=== PATIENT | female | born 1950 ===

== ENCOUNTER 2018-02-09 17:43 | Emergency (ER) | payer BC, MEDICARE ==
[2018-02-09 19:50] LABS: Hematocrit 24 % (35-47); Hemoglobin 7.6 g/dl (12.0-16.0); Mean Corpuscular HGB Conc 32 g/dl (31-36); Mean Corpuscular Hemoglobin 28 pg (27-31); Mean Corpuscular Volume 88 fL (80-97); Mean Platelet Volume 8.1 um3 (7.4-10.4); Platelet Count 184 10^3/ul (150-450); Red Blood Count 2.73 10^6/ul (4.00-5.40); Red Cell Distribution Width 19 % (10.5-15); White Blood Count 27.8 10^3/ul (3.5-10.8)
[2018-02-09 20:07] LABS: EGFR Non-African American 24.9 (>60)
[2018-02-09 20:11] LABS: ABS Basophils 0.1 10^3/ul (0-0.2); ABS Eosinophils 0 10^3/ul (0-0.6); ABS Lymphocytes 0.8 10^3/ul (1.0-4.8); ABS Monocytes 0.3 10^3/ul (0-0.8); ABS Neutrophils 26.5 10^3/ul (1.5-7.7); ABS Nucleated RBC 0 10^3/ul; Eosinophil % 0 % (0-6); Lymphocyte % 2.9 % (25-47); Nucleated Red Blood Cells % 0
--- NOTE | 2018-02-09 21:28 | RAD ---
Indication: Large hematoma at the RIGHT groin. Pain. Recent femoral line placement. Comparison: No relevant prior exams available on the [facility] for comparison. Technique: Noncontrast CT pelvis. Multiplanar reformation including bone algorithm images. Report: 3.7 cm AP by 10.6 cm transverse by 9.2 cm cephalocaudal hematoma within the subcutaneous tissue plane of the RIGHT groin and proximal thigh which extends to the anterior margin of the RIGHT great saphenous vein. Diffuse subcutaneous edema. Diffuse advanced skeletal muscle atrophy. Peripheral vascular calcifications. Negative for aortoiliac aneurysm. Physiologic distention of the IVC. Cholelithiasis. Negative for obstructive uropathy. Catheterized partially decompressed urinary bladder. Unremarkable uterus and adnexal regions. No acute CT abnormality of the visualized alimentary tract. Negative for ascites or free air within the [id number]. Negative for fracture or suspicious focal osseous lesions. Diffuse advanced lumbar sacral spine degenerative spondylosis and facet joint osteoarthritis. IMPRESSION: 3.7 cm AP by 10.6 cm transverse by 9.2 cm cephalocaudal hematoma within the subcutaneous tissue plane of the RIGHT groin and proximal thigh which extends to the anterior margin of the RIGHT great saphenous vein.
[2018-02-09] MEDS ORDERED: cefTRIAXone(*) 1 GM in NS 0.9% 50 ML* 50 ML IVPB ONE (22:11)
[2018-02-10] VITALS: BP 97/74
--- NOTE | 2018-02-10 04:18 | ED ---
Jatin Bailey Tariq, scribed for Conor Lozoya MD on 02/09/18 at 2036 . Abdominal Pain/Female - HPI Summary HPI Summary: A 67 year old female ANNE presents to the ED c/o severe abdominal pain. Pt was recently hospitalized for a central line in the groin. Pain worsens with palpations and is tender. She can get out of bed, but must use a chair to move around as she cannot walk. Pt stated that she bleeds profusly with removal of central line. Currently on Xeralto for A-fib. - History of Current Complaint Chief Complaint: EDExtremityLower Stated Complaint: RIGHT GROIN PAIN Time Seen by Provider: 02/09/18 19:34 Hx Obtained From: Patient Onset/Duration: Gradual Onset, Still Present, Worse Since Timing: Constant Severity Initially: Moderate Severity Currently: Moderate Pain Intensity: 5 Pain Scale Used: 0-10 Numeric Aggravating Factor(s): Movement Alleviating Factor(s): Nothing Associated Signs and Symptoms: Positive: Other: - Abdominal pain Allergies/Adverse Reactions: Allergies Allergy/AdvReac Type Severity Reaction Status Date / Time bupropion [From Wellbutrin] Allergy Rash Verified 02/09/18 18:18 levofloxacin [From Levaquin] Allergy Shakes Verified 02/09/18 18:20 Umrnnnf-Ghn-Wgc Reductase Allergy Unknown Verified 02/09/18 18:19 Inhibitor Reaction Details Home Medications: Home Medications Acetaminophen TAB* [Tylenol TAB*] 650 mg PO Q4H PRN 02/09/18 [History Confirmed 02/09/18] Ammonium Lactate [Meghan-Hydrolac 12] 12 % TOPICAL DAILY 02/09/18 [History Confirmed 02/09/18] Calcium Carbonate TAB* 500 mg PO DAILY PRN 02/09/18 [History Confirmed 02/09/18] Hydrocortisone 2.5% CREAM(NF) 1 applic TOPICAL BID 02/09/18 [History Confirmed 02/09/18] Insulin NPH Human Isophane [Novolin N Relion] 20 unit SC Q12H 02/09/18 [History Confirmed 02/09/18] Metoprolol Tartrate TAB* [Lopressor TAB*] 50 mg PO Q12H 02/09/18 [History Confirmed 02/09/18] Mupirocin 2% OINT* [Bactroban 2 % Oint*] 1 applic TOPICAL Q12H 02/09/18 [ History Confirmed 02/09/18] Pantoprazole TAB (NF) [Protonix TAB (NF)] 40 mg PO BID 02/09/18 [History Confirmed 02/09/18] Rivaroxaban TAB(*) [Xarelto 15 mg(*)] 15 mg PO DAILY 02/09/18 [History Confirmed 02/09/18] Sucralfate TAB* [Carafate*] 1 gm PO QID 02/09/18 [History Confirmed 02/09/18] Umeclidin/Vilant 62.5 MDI(NF) [ANORO 62.5/25 Ellipta DEVICE (NF)] 1 puff IN DAILY 02/09/18 [History Confirmed 02/09/18] glipiZIDE TAB* [Glucotrol TAB*] 5 mg PO QPM 02/09/18 [History Confirmed 02/09/18 ] glipiZIDE TAB* [Glucotrol TAB*] 10 mg PO QAM 02/09/18 [History Confirmed ] oxyCODONE/Acetam5/325MG PREPAK [Percocet 5/325 TAB*] 1 tab PO Q6H PRN 02/09/18 [ History Confirmed 02/09/18] predniSONE TAB* [Deltasone 20 MG TAB*] 20 mg PO DAILY 02/09/18 [History Confirmed 02/09/18] rOPINIRole TAB* [Requip TAB*] 2 mg PO DAILY 02/09/18 [History Confirmed 02/09/18 ] PMH/Surg Hx/FS Hx/Imm Hx Endocrine/Hematology History: Denies: Hx Diabetes Cardiovascular History: Denies: Hx Hypertension Infectious Disease History: No Infectious Disease History: Denies: Traveled Outside the [place] in Last 30 Days - Family History Known Family History: Negative: Diabetes - Social History Alcohol Use: None Substance Use Type: Reports: None Smoking Status (MU): Never Smoked Tobacco Review of Systems Negative: Fever Positive: Abdominal Pain All Other Systems Reviewed And Are Negative: Yes Physical Exam - Summary Physical Exam Summary: Appearance: [place] obese. Difficult IV access. Bed bound. Contracted extremities. Skin: Slightly yellow skin. Head/face: normal Eyes: EOMI, SHOAIB ENT: normal Neck: supple, non-tender Respiratory: CTA, breath sounds present. Lungs are clear anteriorly. Cardiovascular: RRR, pulses symmetrical Abdomen: non-tender, soft Bowel Sounds: present Musculoskeletal: Large swollen area in femoral region, induration and ecchymosis area, that is 25 cm by 10 cm. Ecchymosis extends into suprapubic area. Fully catheterized, mitch colored urine. Ecchymosis in abdomen and right arm. Neuro: normal, sensory motor intact, A&Ox3 Triage Information Reviewed: Yes Vital Signs On Initial Exam: Initial Vitals Temp Pulse Resp BP Pulse Ox 98.5 F 91 20 99/54 97 02/09/18 18:14 02/09/18 18:14 02/09/18 18:14 02/09/18 18:14 02/09/18 18:14 Vital Signs Reviewed: Yes Diagnostics - Vital Signs Vital Signs Temp Pulse Resp BP Pulse Ox 02/09/18 20:00 88 98 02/09/18 19:00 89 98 02/09/18 18:22 91 97 02/09/18 18:14 98.5 F 91 20 99/54 97 - Laboratory Lab Results: Lab Results 02/09/18 02/09/18 Range/Units 19:44 19:44 WBC 27.8 H (3.5-10.8) 10^3/ul RBC 2.73 L (4.00-5.40) 10^6/ul Hgb 7.6 L (12.0-16.0) g/dl Hct 24 L (35-47) % MCV 88 (80-97) fL MCH 28 (27-31) pg MCHC 32 (31-36) g/dl RDW 19 H (10.5-15) % Plt Count 184 (150-450) 10^3/ul MPV 8.1 (7.4-10.4) um3 Neut % (Auto) 95.6 H (38-83) % Lymph % (Auto) 2.9 L (25-47) % Kings % (Auto) 1.2 (0-7) % Eos % (Auto) 0 (0-6) % Baso % (Auto) 0.3 (0-2) % Absolute Neuts (auto) 26.5 H (1.5-7.7) 10^3/ul Absolute Lymphs (auto) 0.8 L (1.0-4.8) 10^3/ul Absolute Monos (auto) 0.3 (0-0.8) 10^3/ul Absolute Eos (auto) 0 (0-0.6) 10^3/ul Absolute Basos (auto) 0.1 (0-0.2) 10^3/ul Absolute Nucleated RBC 0 10^3/ul Nucleated RBC % 0 Sodium 131 L (135-145) mmol/L Potassium 5.6 H (3.5-5.0) mmol/L Chloride 102 (101-111) mmol/L Carbon Dioxide 21 L (22-32) mmol/L Anion Gap 8 (2-11) mmol/L BUN 48 H (6-24) mg/dL Creatinine 2.00 H (0.51-0.95) mg/dL Est GFR ( Amer) 32.0 (>60) Est GFR (Non-Af Amer) 24.9 (>60) BUN/Creatinine Ratio 24.0 H (8-20) Glucose 77 (70-100) mg/dL Calcium 8.4 L (8.6-10.3) mg/dL C-Reactive Protein 182.53 H (< 5.00) mg/L Result Diagrams: 02/09/18 19:44 02/09/18 19:44 Lab Statement: Any lab studies that have been ordered have been reviewed, and results considered in the medical decision making process. - CT PELVIS CT CT Interpretation Completed By: Radiologist - 3.7 cm AP by 10.6 cm transverse by 9.2 cm cephalocaudal hematoma within the subcutaneous tissue plane of the RIGHT groin and proximal thigh which extends to the anterior margin of the RIGHT great saphenous vein. ED PHYSICIAN REVIEWED THIS RADIOLOGY REPORT. Abdominal Pain Fem Course/Dx - Course Course Of Treatment: Patient presents with large area of hematoma after discontinuation of a central line from her right femoral area. This was discontinued 01/20. She is on Xarelto which is contributing to this bleeding. She is ecchymotic across her right inguinal area, suprapubic area and has a large area of swelling in the right inguinal area. This is confirmed on CT scan which was noncontrast due to patient's poor renal function. Her discomfort likely is the cause of her elevated white blood cell count. She has no fever. She is chronically debilitated and bedbound. IV Rocephin was given for possible UTI. A urinalysis would be difficult to interpret given the dark nature of her urine due to urobilinogen from breakdown of hematoma. She is not significantly anemic as compared to previous. I discussed the case with the surgeon who agrees that the Xarelto needs to be stopped and that all the can really be done at this time is for warm compresses and compression to the area. He states he would not debride the area or drain the collection while she is on the anticoagulant so as to not cause additional bleeding. The discontinuation of this anticoagulant was communicated to the nursing facility. Patient is discharged to follow up with her primary care physician. The surgeon asked that whomever placed the central line follow this uphowever, it likely was not a surgeon who could provide any type of definitive care. As such surgical follow-up is recommended. - Diagnoses Provider Diagnoses: Hemostasis disorder, Leukocytosis, Adverse effect of anticoagulant Discharge - Sign-Out/Discharge Documenting (check all that apply): Discharge/Admit/Transfer - Discharge - Discharge Plan Condition: Good Disposition: HOME Patient Education Materials: Hematoma (ED) Referrals: Karyna Castillo MD [Primary Care Provider] - Wagner Boswell MD [Medical Doctor] - Additional Instructions: Discontinues her XARELTO. Do not be started without permission from her doctor. Warm compresses to the site. Provide compression to the area such as with a sandbag or IV bag. Return with fever, redness, breakdown of the skin, worse or other concerns. Ideally, she will be followed up by whomever placed the central line at [place] but if this cannot be done follow-up with surgery here - Billing Disposition and Condition Condition: GOOD Disposition: Home The documentation as recorded by the Jatin carson Tariq accurately reflects the service I personally performed and the decisions made by me, Conor Lozoya MD.
== END 2018-02-09 23:58 | disposition home or self-care (01) ==
LOC: ED 17:43
DX: D72.829 Elevated white blood cell count, unspecified (principal); D68.9 Coagulation defect, unspecified; R58 Hemorrhage, not elsewhere classified; T45.515A Adverse effect of anticoagulants, initial encounter; Y92.9 Unspecified place or not applicable; Z79.01 Long term (current) use of anticoagulants
CPT/HCPCS: 36415; 72192; 80048; 83605; 85025; 86140; 86850; 86900; 86901; 87086; 96365; 99283; J0696

== ENCOUNTER 2018-08-20 08:20 | Inpatient (IN) | payer MEDICARE ==
[2018-08-20] MEDS ORDERED: methylPREDNISolone 125 MG* 2 ML VIAL IV ONE (08:29)
[2018-08-20] MEDS ORDERED: NS 0.9% 1000 ML* 1,000 ML IV ONE ×2 (08:40→23:52)
--- NOTE | 2018-08-20 09:09 | ED ---
Shortness of Breath - HPI Summary HPI Summary: Patient is a 67-year-old female with a history of diabetes, and STEMI, paroxysmal atrial fibrillation, COPD, generalized edema, UTIs, CKD, obstructive sleep apnea and SOB. She resides at [facility]. Patient states she does not require/use O2 at home. Bed bound. Per EMS, patient has been having SOB for several days and desatting per rn staff at [facility]. Without O2 - 82%. She is suppose to be on CPAP at bedtime, but has not been using it. She is upset about being here. States she would like to be "left alone." Apparently d/t low O2 (in the 80's) at [facility], patient had a chest xray which showed "possibly basilar infiltrate" and was placed on azithromycin - this was today or yesterday, but patient and EMS are unsure. She however continued to decompensate and sent to ED for further evaluation. patient is a femi lift. Denies fevers, sweats, chills. Denies any abdominal pain. Denies any chest pain or pressure. Hx of RBBB and NSTEMI. - History of Current Complaint Chief Complaint: EDShortnessOfBreath Time Seen by Provider: 08/20/18 08:24 Hx Obtained From: Patient, EMS Onset/Duration: Gradual Onset Timing: Constant Current Severity: Severe Dyspnea At: Exertion Aggrevating Factors: Nothing Alleviating Factors: EMS Tx - BiPaP, Nothing Associated Signs & Symptoms: Cough (Productive), Edema Related History: Obesity, Healthcare Acquired Pneumonia: Lives In Longterm - Risk Factors Pulmonary Embolism: Smoking Cardiac: CAD, Smoking, Diabetes, Hypertension, CHF, Family History Pseudomonas: Chronic Lung Disease Tuberculosis: Malnutrition, Diabetes, Chronic Respiratory Failure - Allergy/Home Medications Allergies/Adverse Reactions: Allergies Allergy/AdvReac Type Severity Reaction Status Date / Time bupropion [From Wellbutrin] Allergy Rash Verified 08/20/18 09:02 levofloxacin [From Levaquin] Allergy Shakes Verified 08/20/18 09:02 Kojjegr-Mik-Myw Reductase Allergy Unknown Verified 08/20/18 09:02 Inhibitor Reaction Details Home Medications: Home Medications Allopurinol TAB* [Zyloprim 300 MG TAB*] 300 mg DAILY 08/20/18 [History Confirmed 08/20/18] Ferrous Sulfate 1 tab DAILY 08/20/18 [History Confirmed 08/20/18] Fluoxetine (Nf) Cap [Fluoxetine HCl] 1 tab DAILY 08/20/18 [History Confirmed ] Hydroxychloroquine Sulfate 200 mg BID 08/20/18 [History Confirmed 08/20/18] Insulin NPH Human Isophane [Novolin N] 25 units QPM 08/20/18 [History Confirmed 08/20/18] Nystatin susp 16 oz 5 ml QID 08/20/18 [History Confirmed 08/20/18] Ropinirole HCl [Requip] 1 tab DAILY 08/20/18 [History Confirmed 08/20/18] Sennosides [Senna] 2 tab BEDTIME 08/20/18 [History Confirmed 08/20/18] Torsemide 2 tab BID 08/20/18 [History Confirmed 08/20/18] PMH/Surg Hx/FS Hx/Imm Hx Previously Healthy: No - patient lives at [facility] for multiple diagnoses in [facility] Endocrine/Hematology History: Reports: Hx Diabetes, Hx Anemia Cardiovascular History: Reports: Hx Atrial Fibrillation - paroxysmal, Hx Coronary Artery Disease, Hx Hypertension, Hx Myocardial Infarction - NSTEMI, Hx Peripheral Vascular Disease Respiratory History: Reports: Hx Chronic Bronchitis, Hx Chronic Obstructive Pulmonary Disease (COPD), Hx Pneumonia, Hx Sleep Apnea, Other Respiratory Problems/Disorders - will I was told - Immunization History Immunizations Up to Date: Unable to Obtain/Confirm Infectious Disease History: Unable to Obtain/Confirm Infectious Disease History: Denies: Traveled Outside the [place] in Last 30 Days - Family History Known Family History: Negative: Diabetes - Social History Occupation: Unemployed Lives: At [facility]term Alcohol Use: None Hx Substance Use: No Substance Use Type: Reports: None Hx Tobacco Use: Yes Review of Systems Constitutional: Negative Negative: Fever, Chills, Fatigue, Skin Diaphoresis Negative: Dental Pain, Sore Throat, Ear Ache, Nasal Discharge Negative: Palpitations, Chest Pain Positive: Shortness Of Breath, Cough Negative: Abdominal Pain, Vomiting, Diarrhea, Nausea Genitourinary: Negative Positive: no symptoms reported Negative: Arthralgia, Myalgia Negative: Rash, Bruising Negative: Headache, Weakness Positive: Other - uncooperative for exam. Negative: Anxious, Depressed All Other Systems Reviewed And Are Negative: Yes Physical Exam Triage Information Reviewed: Yes Vital Signs On Initial Exam: Initial Vitals Temp Pulse Resp BP Pulse Ox 97.8 F 124 20 120/80 98 08/20/18 08:22 08/20/18 08:22 08/20/18 08:22 08/20/18 08:22 08/20/18 08:22 Vital Signs Reviewed: Yes Appearance: Positive: Ill-Appearing Skin: Positive: Other - erythematous with PVD bilateral lower ext - pitting edema +2 bilaterally. Good pedal pulses Neck: Positive: No Lymphadenopathy Respiratory/Lung Sounds: Positive: Rales, Rhonchi, Wheezes, Unable to speak in full sentences, Fatigue Cardiovascular: Positive: Pulses are Symmetrical in both Upper and Lower Extremities, IRR - flutter, Leg Edema Left - +2, Leg Edema Right - +2 Abdomen Description: Positive: Soft Bowel Sounds: Positive: Present Musculoskeletal: Positive: Edema Left, Edema Right Neurological: Positive: Speech Normal, Other Psychiatric: Positive: Patient Uncooperative for Exam - patient upset during exam - wants to go home AVPU Assessment: Alert - [place] Coma Scale Best Eye Response: 4 - Spontaneous Best Motor Response: 6 - Obe[place] Commands Best Verbal Response: 5 - Oriented Coma Scale Total: 15 Diagnostics - Vital Signs Vital Signs Temp Pulse Resp BP Pulse Ox 08/20/18 08:22 97.8 F 124 20 120/80 98 - Laboratory Lab Results: Lab Results 08/20/18 Range/Units 08:40 ABG pH 7.24 L (7.35-7.45) ABG pCO2 81 H* (35-45) mmHg ABG pO2 87 (80-100) mmHg ABG HCO3 28.3 (19-31) mmol/L ABG O2 Saturation 97.8 (94.0-98.0) % ABG Base Excess 4.5 H (-2.0-2.0) mmol/L Result Diagrams: 08/20/18 08:54 08/20/18 08:54 Lab Statement: Any lab studies that have been ordered have been reviewed, and results considered in the medical decision making process. - EKG No standard instances Cardiac Rate: Tachycardia EKG Rhythm: Atrial Flutter ST Segment: Non-Specific - RBBB Ectopy: None EKG Comparison: Other - no comparisons Re-Evaluation - Re-Evaluation First Eval Change: Improved - improved after biPap initiated Course/Dx - Course Course Of Treatment: Patient arrives upset, stating "I want to go home." She is uncooperative for exam. In [place] x-ray wheezes are heard on exam. Unable to assess equal lung expansion. Rhonchorous sounds heard bilaterally throughout. Patient appears in respiratory distress, fatigued, unable to speak in full sentences. She arrives on venturi mask on arrival. NS started at 100ml /hr d/t elevated BNP. VS arrival are 124, RR 20, 98% with mask O2 at 5L. ABG obtained showing end tital CO2 at 81. BiPap initiated at 12/5 IPAP/EPAP. Labs obtained. Chest xray shows pulmonary congestion. Trop elevated at 0.26. BNP 903. CRP 128. WBC 18.0. She was then started on Zosyn to cover pseudomonas risks associated with HAP ([facility] care. ) Discussed with Dr. Poole at 9: 45a who agrees to admit. EKG shows Atrial Flutter and RBBB. Hx of NSTEMI. Remains on BiPaP during admission. - Diagnoses Differential Diagnosis/HQI/PQRI: Positive: COPD Exacerbation, Pneumonia Provider Diagnoses: Shortness of breath - Physician Notifications Discussed Care of Patient With: Karthik Poole - will admit Instructed by Provider To: Admit As Inpatient - Critical Care Time Critical Care Time: 30-74 min Discharge - Sign-Out/Discharge Documenting (check all that apply): Patient Departure - Discharge Plan Condition: Fair Disposition: ADMITTED TO [facility] Referrals: Karyna Castillo MD [Primary Care Provider] - - Billing Disposition and Condition Condition: FAIR Disposition: Admitted to [facility]
[2018-08-20 09:10] LABS: Hematocrit 37 % (35-47); Hemoglobin 11.1 g/dl (12.0-16.0); Mean Corpuscular HGB Conc 30 g/dl (31-36); Mean Corpuscular Hemoglobin 27 pg (27-31); Mean Corpuscular Volume 90 fL (80-97); Mean Platelet Volume 8.4 fL (7.4-10.4); Platelet Count 202 10^3/ul (150-450); Red Blood Count 4.12 10^6/ul (4.00-5.40); Red Cell Distribution Width 19 % (10.5-15)
[2018-08-20 09:27] LABS: Albumin 3.5 g/dL (3.2-5.2); Albumin/Globulin Ratio 1.2 (1-3); BUN/Creatinine Ratio 27.5 (8-20); C Reactive Protein 128.92 mg/L (<8.01); Calcium 9.4 mg/dL (8.6-10.3); EGFR Non-African American 18.8 (>60); Globulin 2.9 g/dL (2-4); Potassium 4.3 mmol/L (3.5-5.0); Total Bilirubin 0.5 mg/dL (0.2-1.0); Total Protein 6.4 g/dL (6.4-8.9)
[2018-08-20 09:36] LABS: Immature Granulocytes 1 % (0-9); Monocytes % 1 %; Neutrophil % 98 %
[2018-08-20] MEDS ORDERED: Piperacillin/Tazobac ADVAN(*) 3.375 GM in NS 0.9% 100 ML* 100 ML IVPB ONE (09:37)
[2018-08-20 09:38] LABS: Polychromasia 1+
[2018-08-20 09:41] LABS: ABS Neutrophils 17.8 10^3/ul (1.5-7.7)
[2018-08-20] MEDS ORDERED: Ondansetron INJ* 2 MG/ML VIAL IV PRN (10:55)
[2018-08-20] MEDS ORDERED: Acetaminophen TAB* 325 MG PO PRN (10:55)
[2018-08-20] MEDS ORDERED: Cefepime 1 GM in Dextrose(*) 1 GM/50 ML BAG IV SCH (11:00)
[2018-08-20] MEDS ORDERED: methylPREDNISolone 125 MG* 2 ML VIAL IV SCH ×2 (11:00→21:00)
[2018-08-20] MEDS ORDERED: Vancomycin per Pharmacy* NOTE FOLLOW UP SCH (11:00)
[2018-08-20] MEDS ORDERED: Vancomycin(*) 1,250 MG in NS 0.9% 250 ML* 250 ML IVPB ONE (11:08)
[2018-08-20] MEDS ORDERED: Furosemide IV* 10 MG/ML 2 ML VIAL (20 MG) IV SLOW PU ONE (11:11)
[2018-08-20] MEDS ORDERED: Dextrose 50% Syringe 50 ML* 25 GM/50 ML SYRINGE IV PUSH PRN (11:12)
[2018-08-20] MEDS: Nicotine PATCH 21 MG/24 HR* PATCH TRANSDERM SCH (12:32)
[2018-08-20] MEDS: Albuterol/Ipratropium NEB.SOL* Albuterol 2.5 MG/Ipratropium 0.5 MG 3 ML INH SCH ×3 (13:36→23:28)
[2018-08-20] MEDS ORDERED: Perflutren Lipid Microsphere* 3 ML VIAL ONE (14:34)
[2018-08-20 14:46] LABS: Urine Appearance Turbid; Urine Bacteria 3+ (Absent); Urine Bilirubin Negative (Negative); Urine Blood 1+ (Negative); Urine Color Yellow; Urine Glucose Negative (Negative); Urine Ketones Negative (Negative); Urine Nitrite Negative (Negative); Urine Protein 1+(30 mg/dL) (Negative); Urine Red Blood Cell 3+(>10/hpf) (Absent); Urine Specific Gravity 1.013 (1.010-1.030); Urine Urobilinogen Negative (Negative); Urine White Blood Cell 3+(>20/hpf) (Absent)
[2018-08-20] MEDS: Heparin VIAL(*) 5000 UNITS/ML VIAL (FIVE THOUSAND) SUBCUT SCH ×2 (14:46→21:44)
[2018-08-20] MEDS: Insulin LISPRO* 1 UNITS UNIT SUBCUT SCH ×3 (14:49→22:02)
[2018-08-20] MEDS: Cefepime 1 GM in Dextrose(*) 1 GM/50 ML BAG IV SCH (14:50)
--- NOTE | 2018-08-20 15:01 | HP ---
CC: [facility] ADMISSION HISTORY AND PHYSICAL: DATE OF ADMISSION: 08/20/18 PRIMARY CARE PROVIDER: [facility]. ATTENDING PHYSICIAN: Dr. Karthik Poole* (dictated by DARLENE Puri). CHIEF COMPLAINT: Difficulty breathing x2 days with nonproductive cough. HISTORY OF PRESENT ILLNESS: Ms. Can is a 67-year-old female with a complicated past medical history significant for COPD, chronic kidney disease, coronary artery disease, diabetes mellitus type 2, ENRIQUE, obesity hypoventilation syndrome, and a recent diagnosis of bullous pemphigoid, who for 2 days at her assisted living facility has been having intermittent hypoxia requiring oxygen with her lowest recorded oxygen saturation at 82%. The patient has been prescribed CPAP but is noncompliant with this at home. The patient has been having a nonproductive cough. No wheezing. No chest pain. No worsening swelling in her legs, though she does have chronic lower extremity edema for which she takes torsemide. The patient has not produced any sputum with her cough. The patient has not had any hemoptysis. The patient states she always feels short of breath. The patient is still an active smoker. The patient denies any sick contacts. The patient denies ever having a myocardial infarction, though it does appear in her paperwork as having occurred. The patient has known coronary artery disease of 50% in her RCA most recently from a catheterization in 2002. The patient was started previously on prednisone 50 mg daily for her bullous pemphigoid, which was decreased to 25 mg daily due to increased lower extremity edema and perceived worsening skin breakdown; the patient feels as if her bullous pemphigoid is much better on this dose with lower side effects. The patient was sent to the emergency department this morning due to hypoxia and needed 5 L of oxygen via OxyMask while on route to maintain her oxygen saturation above 90%. In the emergency department, the patient had an ABG which showed pCO2 of 81. The patient was initially on BiPAP and her pCO2 decreased to 73. The patient was also acidotic with pH of 7.24, increasing to 7.29 on BiPAP. The patient had an elevated troponin of 0.26, elevated CRP and elevated BNP. Due to the concern for community-acquired pneumonia and acute hypoxic and hypercarbic respiratory failure, we were asked to evaluate the patient for admission to the hospital. PAST MEDICAL HISTORY: 1. COPD. 2. Hypertension. 3. Chronic kidney disease. 4. Obstructive sleep apnea. 5. Bullous pemphigoid. 6. Obesity hypoventilation syndrome. 7. Paroxysmal atrial fibrillation/atrial tachycardia. 8. Hyperlipidemia. 9. Iron deficiency anemia. 10. Hypertension. 11. Diastolic dysfunction on echocardiogram. 12. Possible history of MRSA. 13. History of right bundle-branch block. PAST SURGICAL HISTORY: 1. Appendectomy. 2. Tonsillectomy. 3. Adenoidectomy. 4. Gastroplasty in 1987. MEDICATIONS: Her medications per paperwork from [facility]: 1. Allopurinol 300 mg p.o. daily. 2. Ferrous sulfate 1 tab p.o. daily. 3. Fluoxetine 1 tab p.o. daily. 4. Torsemide 40 mg p.o. b.i.d. 5. Nystatin 5 mL q.i.d. 6. Sennosides 2 tabs p.o. at bedtime. 7. Hydroxychloroquine 200 mg p.o. b.i.d. 8. Isophane insulin 25 units q.p.m. 9. Ropinirole 1 tab p.o. daily. 10. Pantoprazole 40 mg p.o. daily. 11. Percocet 5/325 one tab p.o. q.6 hours as needed. 12. Anoro Ellipta 62.5/25 one puff inhalation daily. 13. Sucralfate 1 g p.o. b.i.d. 14. Glipizide 5 mg p.o. q.p.m. 15. Glipizide 10 mg p.o. q.a.m. 16. Calcium carbonate 1250 units p.o. daily. 17. Tylenol 650 mg p.o. q.6 hours as needed. 18. Ammonium lactate 12% topical application daily. ALLERGIES: BUPROPION, LEVAQUIN, STATINS. FAMILY HISTORY: The patient's mother has hypertension. The patient's father of emphysema. The patient's maternal grandmother of CHF. The patient 's paternal grandfather of throat cancer. SOCIAL HISTORY: The patient has a 51-year smoking history with over a pack a day initially and now down to 4 cigarettes a day at [facility]. The patient does not drink alcohol or ever used illicit drugs. 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 The patient is and has no children. REVIEW OF SYSTEMS: A 14-point review of systems was reviewed and is negative except as above, except for the patient endorses frequent UTIs particularly when she comes to the hospital. PHYSICAL EXAMINATION GENERAL: The patient is a 67-year-old female who appears older than stated age , sitting comfortably in bed with BiPAP mask on. VITAL SIGNS: Temperature 97.8, pulse rate 111, respiratory rate 20, oxygen saturation 100% on FiO2 of 50, blood pressure 112/83. HEENT: Head: Normocephalic, atraumatic. Sclerae anicteric. No conjunctival injection. Nasal mucosa moist. Oral mucosa moist. No pharyngeal erythema, discharge, or exudate. NECK: Supple, nontender. No lymphadenopathy. The patient has markedly increased cervical diameter. No JVD visible. RESPIRATORY: Decreased breath sounds throughout. Inspiratory rhonchi and expiratory wheezes. CARDIAC: Tachycardic. No clicks, murmurs, gallops, or rubs. Pulses are 2+ in the bilateral dorsalis pedis, posterior tibial, and radial areas. 1+ bilateral lower extremity edema. Chronic lower extremity venous stasis changes. ABDOMEN: Soft, nontender, nondistended. Bowel sounds present. Normoactive in all 4 quadrants. No hepatosplenomegaly. No abdominal bruits auscultated. No hepatojugular reflux. GENITOURINARY: No suprapubic or CVA tenderness. NEURO: Cranial nerves II through XII intact. No focal deficits. Alert and oriented x3. PSYCHIATRIC: Pleasant and cooperative. SKIN: Venous stasis changes as above. No signs of bullous pemphigoid disease activity. LABORATORY DATA: White blood cell count 18.0, hemoglobin 11.1, hematocrit 37, MCV 90, MCH 27, MCHC 30, RDW 19. INR 1.0. ABG pH 7.24, increased to 7.29; ABG pCO2 81, decreased to 73; ABG pO2 87, increased to 91. Oxygen saturation 97 and 98%. Sodium 136, potassium 4.3, chloride 92, carbon dioxide 35, anion gap 9 , BUN 17, creatinine 2.55, glucose 95. Lactic acid 1. Calcium 9.7. Bilirubin 0.5, AST 33, ALT 66, alkaline phosphatase 1.45. Troponin I 0.26. CRP 128.92. BNP 903. Protein 6.4. Albumin 3.5, globulin 2.9. DIAGNOSTIC STUDIES: Electrocardiogram shows sinus tachycardia with right bundle - branch block, no obvious signs of ischemia, no prior exam to compare to. Chest x- ray shows cardiomegaly with interstitial pulmonary edema, possible left basilar infiltrate to this reader's interpretation. ASSESSMENT AND PLAN/IMPRESSION: Ms. Can is a 67-year-old female with a past medical history of chronic obstructive pulmonary disease, bullous pemphigoid, heart failure with preserved ejection fraction, chronic kidney disease, obstructive sleep apnea, obesity hypoventilation syndrome, diabetes mellitus type 2, who presents to the emergency department with several days of difficulty breathing, nonproductive cough, and hypoxia. The etiology of the patient's acute hypoxic and hypercarbic respiratory failure is not clear. The patient will be admitted to the ICU for intensive monitoring and treatment. 1. Acute hypoxic and hypercarbic respiratory failure. Continue BiPAP. We will repeat ABG in 4 hours to assess for improvement in hypercarbia. The patient's ABG and mental status are improving on this intervention. The cause is unclear; however, it is likely multifactorial from possible pneumonia, CHF exacerbation or COPD exacerbation. The patient is currently normotensive and received fluids in the emergency department. The patient's BNP is elevated. The patient will be given Lasix at 20 mg IV initially, which is actually a significant decrease from the equivalent dosing of her home torsemide. We will monitor the patient closely with daily weights. The patient will have Salas catheter for strict I and O. The patient will also be treated for COPD exacerbation due to wheezing noted in her lungs with steroids, starting with IV Solu-Medrol 60 mg b.i.d. as well as scheduled inhalers, long-acting Dulera as well as aggressive pulmonary toileting. The patient will also be treated for hospital-acquired pneumonia due to her presence in the custodial and history of MRSA. The patient will be on cefepime and vancomycin. Initially, the patient received Zosyn while in the emergency department. The patient's oxygen will be weaned as possible. 2. Sepsis. The patient meets sepsis criteria with a white blood cell count, tachycardia. The source is likely pneumonia. The patient has signs of end organ damage with an elevated troponin and elevated creatinine. The patient did not receive her fluid bolus. She did receive 1 L of normal saline slowly. The patient is in likely active CHF and the patient received appropriate broad- spectrum antibiotic coverage. Fluids and vasopressors will be given as needed based on the patient's clinical course if she becomes hypotensive. 3. Chronic kidney disease. The patient's kidney function has decreased significantly in the past several months. It is unclear why this is. However, we will avoid nephrotoxic drugs where possible and monitor closely while under treatment with vancomycin. 4. Chronic obstructive pulmonary disease. Treatment as above. The patient per her records does not frequently need her rescue inhaler. 5. Paroxysmal atrial fibrillation/multifocal atrial tachycardia. Given the patient's P waves are very difficult to interpret on her EKG though she appears to have a regular rhythm at this point indicating sinus tachycardia, this is likely due to reaction to her infection. We will monitor closely. 6. Elevated troponin. This is likely due to demand ischemia. The patient has no chest pain or obvious ischemic changes on her EKG. We will repeat a transthoracic echocardiogram and trend her troponins to peak. Cardiology consultation will be considered if the patient's troponin elevates significantly. 7. Diabetes mellitus, type 2. The patient will have fingersticks and corrective insulin q.4. She will be treated with high-dose steroids, but will be n.p.o. while she is on the BiPAP. This will be changed as the patient's clinical status improves and she begins to eat again. 8. Obstructive sleep apnea/obesity hypoventilation syndrome. This likely contributed to the patient's hypercarbia. It is unknown the chronicity of this , but the patient should be wearing her CPAP at home which has been reinforced with the patient. 9. Bullous pemphigoid. The patient will have high-dose steroids as above for her COPD exacerbation. The patient should be tapered back down to her previous dose of steroids for her bullous pemphigoid. We will consider a CT scan and treatment for PJP pneumonia if the patient does not improve on current regimen as she has been immunosuppressed for a significant period of time; however, at the current time, this is unlikely. 10. DVT prophylaxis: The patient will have heparin subcu. The patient is a high risk. We will order a D-dimer. If positive, we will order a V/Q scan as the patient's respiratory status may indicate underlying PE, though this is unclear and not the most likely diagnosis for her respiratory failure. 11. FEN: The patient will be n.p.o. except for meds as above while on the BiPAP. The patient will not have fluids and will have Lasix as above. 12. Code status: The patient would like to be a full code. The patient's surrogate decision maker is her mother, Mary Can. 13. Disposition: The patient will be admitted to the ICU. TIME SPENT: Approximately 90 minutes were spent on the admission of this patient, 45 of which was spent [id number] with the patient obtaining history and physical and discussing treatment plan. DARLENE PURI [id number]/CPS #: [id number] MTDD
--- NOTE | 2018-08-20 16:02 | ECHO ---
Patient: HO CORREA [facility] Rec#: [id number] : 1950 Date: 08/20/2018 Age: 67y Height: 157 cm / 61.8 in Weight: 103 kg / 227.0 lbs Sex: F BSA: 2 Room#: ICU 5 Admit Date#: 08/20/2018 Type: Inpatient Referring: Jason Harp Reading: Rocky No MD Lieutenant Fire Fighter: Alesha Rodriguez RN RDCS CC: Karyna Castillo MD Transthoracic Echocardiogram Indication: Shortness of breath, A. flutter BP: 115/69 HR: 111 Rhythm: A-Flutter Findings History: CAD with NSTEMI, HTN, HLD, RBBB, PAF, COPD, ENRIQUE, obesity, smoker, PVD Technical Comments: The study quality is fair. The study is technically limited due to patient body habitus. The study is technically limited due to the patient's history of COPD. The study is technically limited due to the patient's smoking history. Left Ventricle: The left ventricular chamber size is decreased. Mild concentric left ventricular hypertrophy is observed. Global left ventricular wall motion and contractility are within normal limits. There is normal left ventricular systolic function. The estimated ejection fraction is 60-65%. There is septal flattening of the interventricular septum consistent with right ventricular volume or pressure overload. The assessment of diastolic function is non-diagnostic. Left Atrium: The left atrial chamber size is normal. Right Ventricle: The right ventricle is moderately dilated. The right ventricular global systolic function is severely reduced. Right Atrium: The right atrium is mildly dilated. Aortic Valve: The aortic valve is trileaflet. The aortic valve leaflets are mildly thickened. There is no evidence of aortic regurgitation. There is no evidence of aortic stenosis. Mitral Valve: The mitral valve leaflets are mildly thickened. There is a trace of mitral regurgitation. Tricuspid Valve: The tricuspid valve leaflets are normal. There is moderate tricuspid regurgitation. There is evidence of moderate pulmonary hypertension. Pulmonic Valve: The pulmonic valve appears normal. There is trace to mild pulmonic regurgitation. There is no pulmonic stenosis. Pericardium: There is no significant pericardial effusion. A pericardial fat pad is visualized. Aorta: There is mild dilatation of the ascending aorta. The aortic arch is not well visualized. There is no dilation of the aortic root. Pulmonary Artery: The main pulmonary artery is not well visualized. Venous: Unable to accurately comment on the size collapsibility of the IVC as the patient in known to be on mechanical ventilation.Patient on Bipap during this exam. Contrast: Definity was used to optimize study. A total of 3 ml of diluted Definity was given IV. Conclusions There is normal left ventricular systolic function. The estimated ejection fraction is 60-65%. Global left ventricular wall motion and contractility are within normal limits. The left ventricular chamber size is decreased. Mild concentric left ventricular hypertrophy is observed. There is septal flattening of the interventricular septum consistent with right ventricular volume or pressure overload. The right ventricle is moderately dilated. The right ventricular global systolic function is severely reduced. The right atrium is mildly dilated. There is moderate tricuspid regurgitation (TR). There is evidence of moderate pulmonary hypertension. There is mild dilatation of the ascending aorta. SInce the prior echocardiogram completed 12/31/04, pertinent changes are prior normal right ventricular function noted (right ventricle was reported enlarged at that time), prior normal left ventricular size reported, prior TR graded trace, prior normal PA pressure reported and prior normal ascending aortic size reported. Measurements Name Value Normal Range RVIDd (AP) 2D 4.1 cm (0.9 - 2.6) RVDdMajor (2D) 4.5 cm (2.2 - 4.4) RAd ISD 4CH 5.5 cm (3.4 - 4.9) RA (A4C)W 3.5 cm (2.9 - 4.6) IVSd (2D) 1.3 cm (0.6 - 1) LVPWd (2D) 1.2 cm (0.6 - 1) LVIDd (2D) 3.5 cm (3.6 - 5.4) LVIDs (2D) 2.3 cm - LV FS (2D) 34 % (25 - 45) Aortic Annulus 2.1 cm (1.4 - 2.6) Ao root diameter (2D) 3.2 cm (2.1 - 3.5) Ascending Ao 3.5 cm (2.1 - 3.4) LA dimension (AP) 2D 3.3 cm (2.3 - 3.8) LAd ISD 4CH 5.7 cm (2.9 - 5.3) LA ISD 4CH W 3.5 cm (2.5 - 4.5) Name Value Normal Range LA ESV BP (A/L) index 19.3 ml/m2 - Name Value Normal Range MV E-wave Vmax 1.1 m/sec - MV deceleration time 237 msec - LV septal e' Vmax 0.1 m/sec - LV lateral e' Vmax 0.14 m/sec - LV E:e' septal ratio 11 ratio - LV E:e' lateral ratio 7.9 ratio - Name Value Normal Range AV Vmax 1.3 m/sec - AV VTI 18.2 cm - AV peak gradient 7 mmHg - AV mean gradient 3 mmHg - LVOT Vmax 0.89 m/sec - LVOT VTI 14.1 cm - LVOT peak gradient 3 mmHg - LVOT mean gradient 2 mmHg - Name Value Normal Range TR Vmax 3.3 m/sec - TR peak gradient 44 mmHg - RAP 8 mmHg - RVSP 51 mmHg - Name Value Normal Range PV Vmax 0.93 m/sec -
--- NOTE | 2018-08-20 16:17 | CONS ---
PULMONARY CONSULTATION REPORT: DATE OF CONSULT: 08/20/18 CONSULTATION REQUESTED BY: Dr. Poole. REASON FOR CONSULT: Evaluation of COPD exacerbation. HISTORY OF PRESENT ILLNESS: The patient is a 67-year-old obese female with history of diabetes, history of STEMI in the past, paroxysmal atrial fibrillation, COPD, generalized lower extremity edema/lymphedema of the lower extremities, chronic kidney disease, obstructive sleep apnea, not compliant with PAP therapy. The patient was brought in from [facility] for evaluation of worsening shortness of breath and hypoxemia. She has been having worsening shortness of breath for several days. The patient has also been hypoxemic with O2 sat 82%. The patient was brought in for further evaluation. Upon arrival in the emergency room, the patient noted to be hypoxemic. She was found to be in respiratory distress with wheeze and rhonchi. She also found to have chronic lower extremity edema. The patient was agitated upon arrival, did not want to stay and refused to be admitted. The patient later agreed to stay. The patient found to have elevated white count of 18,000. She also noted to have hemoglobin of 11.1, which is chronic. The patient has chronic kidney disease with no significant worsening creatinine from before. The patient was found to be having acute respiratory alkalosis with pH of 7.24, pCO2 of 81, O2 of 87%, bicarb of 28. The patient was initiated on BiPAP with improvement in respiratory distress. Her repeat blood gas showed improvement in acidosis after BiPAP treatment. She was admitted to the ICU for acute hypercapnic respiratory failure. The patient was also initiated on broad- spectrum antibiotics for healthcare-associated pneumonia. EKG showed atrial flutter with right bundle branch block. The patient was seen and examined at bedside in the ICU. The patient was not able to provide much history secondary to being on the BiPAP. She was alert, awake, and oriented and did not appear to be in any distress. The patient appeared comfortable on the BiPAP. PAST MEDICAL HISTORY: 1. Morbid obesity s/p gastroplasty in 1987 2. Coronary artery disease 3. Systemic arterial hypertension. 4. Dyslipidemia. 5. Diabetes type 2. 6. Obstructive sleep apnea, not been compliant with PAP therapy. 7. Pickwickian syndrome. 8. Asthma/COPD. 9. Bullous pemphigoid 10. Paroxysmal A.fib/atrial tachycardia 11. Iron def anemia 12. Diastolic dysfunction 13. Right bundle branch block PAST SURGICAL HISTORY: 1. Gastroplasty in 1987 2. Tibial fracture repair. 3. Adenoidectomy/Tosillectomy 4. Appendectomy MEDICATIONS AT HOME: 1. Allopurinol. 2. Ferrous sulfate. 3. Fluoxetine. 4. Hydroxychloroquine. 5. Insulin NPH. 6. Nystatin. 7. Ropinirole. 8. Sennosides. 9. Torsemide. 10. Pantoprazole 11. Percocet 12. Anoro 13. Glipizide 14. Tylenol prn ALLERGIES: WELLBUTRIN, LEVOFLOXACIN, STATINS. FAMILY HISTORY: Noncontributory to current complaint. SOCIAL HISTORY: The patient is unemployed, resides at senior care. History of tobacco abuse, smoked 1-1/2 packs cigarettes per day, currently smoking 4 cigs/day, has been smoking for more than 35 years. No alcohol or drug abuse. REVIEW OF SYSTEMS: All 14 systems reviewed after patient was off BiPAP, as above in HPI . PHYSICAL EXAM: Morbidly obese female, in bed, in no apparent distress. HEENT: BiPAP mask in place. No JVD. Cardiovascular: S1, S2 present, irregular. Respiratory: Rhonchi and wheezes bilaterally, rales at bases. Abdomen: Obese. Bowel sounds present. Nontender, nondistended. Neurologic: Alert, awake, oriented. Skin: No rash, old pemphigoid lesions. Chronic changes in the lower extremities. DIAGNOSTIC STUDIES/LAB DATA: EKG: Right bundle branch block, which is old and atrial flutter. Chest x-ray was personally reviewed. Evidence of prominence of interstitium suggestive of volume overload. Laboratory exam: WBC count 18, hemoglobin 11.1, hematocrit 37, platelet count 202. Blood gas analysis: Respiratory acidosis with pCO2 of 81 and pH of 7.24 on admission with repeat pH of 7.29 and pCO2 of 73. Sodium 136, potassium 4.3, chloride 92, bicarb 35, BUN 70, creatinine 2.55. Troponin 0.26 on admission, repeat troponin decreased to 0.24. BNP elevated at 903. Procalcitonin 5.4. Influenza A and B negative. Chest x-ray as described above. IMPRESSION AND RECOMMENDATIONS: 67-year-old morbidly obese female, current smoker with significant smoking history, with history of asthma/chronic obstructive pulmonary disease, obstructive sleep apnea, obesity hypoventilation syndrome, admitted with worsening shortness of breath, being treated for acute chronic obstructive pulmonary disease exacerbation and acute diastolic congestive heart failure exacerbation. 1. Acute on chronic obstructive pulmonary disease exacerbation. 2. Acute diastolic congestive heart failure exacerbation. 3. Sepsis secondary to pneumonia and possible UTI 4. Leukocytosis, likely sepsis from underlying pneumonia or bronchitis. 5. Chronic renal insufficiency. 6. Elevated troponins, likely demand ischemia. The patient is improving with BiPAP. Will continue with BiPAP. Will repeat blood gas an hour after BiPAP trial. Continue with bronchodilators. Agree with broad-spectrum antibiotics given health care exposure. The patient placed on nicotine patch. Solu-Medrol 60 q.12. She is on prednisone as out patient for bullous pemphigoid. She is obese and might need higher dose. We will increase if does not improve with this current dose. She has received Lasix in the emergency room. She has history of paroxysmal atrial fibrillation, found to have atrial flutter on EKG. She is not on any anticoagulation. Her D-dimer is elevated, which could be likely from her obesity. Given alternate explanation being available, in her case might not be indicative of pulmonary embolism. Will, however, obtain lower extremity Dopplers to evaluate for any deep venous thrombosis. She has chronic renal insufficiency and having CTA might outweigh the risks than the benefits at this time. V/Q scan was ordered for evaluation of pulmonary embolism; however, I doubt if that would be helpful given history of chronic obstructive pulmonary disease. If there is any clinical concern, I would empirically cover for pulmonary embolism. Echocardiogram was ordered also. Total time spent was 60 minutes most of which was face to face with patient at bedside encouraging pt`s compliance with BiPAP. Thank you for allowing me to participate in the care of your patient. Will follow up with you. [id number]/CPS #: [id number] JUNIOR
[2018-08-20] MEDS: Mometasone/Formoter 200/5 MDI INH SCH (19:25)
[2018-08-20] MEDS: oxyCODONE/Acetamin 5/325 MG* TAB PO PRN (20:22)
[2018-08-20] MEDS: Nicotine Patch Removal NOTE PATCH OFF SCH (21:30)
[2018-08-20] MEDS: guaiFENesin ER TAB 600 MG PO SCH (21:37)
[2018-08-20] MEDS: Senna TAB PO SCH (21:38)
[2018-08-20] MEDS: rOPINIRole TAB* 1 MG PO SCH (23:16)
[2018-08-21] MEDS ORDERED: Hydrocortisone INJ* 100 MG VIAL IV SCH (00:30)
[2018-08-21] MEDS: Insulin LISPRO* 1 UNITS UNIT SUBCUT SCH ×7 (02:06→21:51)
[2018-08-21] MEDS ORDERED: NS 0.9% 500 ML* 500 ML IV ONE (03:08)
[2018-08-21] MEDS: Albuterol/Ipratropium NEB.SOL* Albuterol 2.5 MG/Ipratropium 0.5 MG 3 ML INH SCH ×4 (03:27→19:18)
--- NOTE | 2018-08-21 05:08 | PN ---
Hospitalist Progress Note Date of Service: 08/21/18 got called that her sbp went down to 70s ---> bolus 1 liter ns ---> went up to 100---> also changed his solumderol to solucoref to offer both treatment for copd and hypotension urine outpt dropped bolus 500 cc ns ---> urine outpt pickup as per staff
[2018-08-21] MEDS ORDERED: Vancomycin Random Level* NOTE FOLLOW UP ONE (06:00)
[2018-08-21 06:02] LABS: Hematocrit 29 % (35-47); Hemoglobin 8.9 g/dl (12.0-16.0); Mean Corpuscular HGB Conc 31 g/dl (31-36); Mean Corpuscular Hemoglobin 27 pg (27-31); Mean Corpuscular Volume 88 fL (80-97); Mean Platelet Volume 8.5 fL (7.4-10.4); Platelet Count 163 10^3/ul (150-450); Red Blood Count 3.25 10^6/ul (4.00-5.40); Red Cell Distribution Width 18 % (10.5-15); White Blood Count 21.8 10^3/ul (3.5-10.8)
[2018-08-21] MEDS: Heparin VIAL(*) 5000 UNITS/ML VIAL (FIVE THOUSAND) SUBCUT SCH ×3 (06:07→21:47)
[2018-08-21 06:36] LABS: Albumin 2.7 g/dL (3.2-5.2); Albumin/Globulin Ratio 1.1 (1-3); BUN/Creatinine Ratio 30.7 (8-20); Calcium 8.4 mg/dL (8.6-10.3); Globulin 2.4 g/dL (2-4); Magnesium 1.9 mg/dL (1.9-2.7); Potassium 4.3 mmol/L (3.5-5.0); Total Bilirubin 0.4 mg/dL (0.2-1.0); Total Protein 5.1 g/dL (6.4-8.9)
[2018-08-21 06:50] LABS: ABS Basophils 0.1 10^3/ul (0-0.2); ABS Eosinophils 0 10^3/ul (0-0.6); ABS Lymphocytes 0.2 10^3/ul (1.0-4.8); ABS Monocytes 0.1 10^3/ul (0-0.8); ABS Neutrophils 21.3 10^3/ul (1.5-7.7); ABS Nucleated RBC 0 10^3/ul; Eosinophil % 0 %; Lymphocyte % 0.9 %; Nucleated Red Blood Cells % 0
[2018-08-21 06:55] LABS: INR 1.13 (0.77-1.02)
[2018-08-21 07:06] LABS: Hematocrit 29 % (35-47); Hemoglobin 8.6 g/dl (12.0-16.0)
[2018-08-21] MEDS: Mometasone/Formoter 200/5 MDI INH SCH ×2 (07:48→19:18)
[2018-08-21 08:05] LABS: Urine Appearance Cloudy; Urine Bacteria Absent (Absent); Urine Bilirubin Negative (Negative); Urine Blood Negative (Negative); Urine Color Yellow; Urine Glucose Negative (Negative); Urine Ketones Negative (Negative); Urine Nitrite Negative (Negative); Urine Protein 1+(30 mg/dL) (Negative); Urine Red Blood Cell 2+(6-10/hpf) (Absent); Urine Specific Gravity 1.014 (1.010-1.030); Urine Urobilinogen Negative (Negative); Urine White Blood Cell 1+(6-10/hpf) (Absent)
--- NOTE | 2018-08-21 08:09 | PN ---
Hospitalist Progress Note Date of Service: 08/21/18 got called reg her hg dropped from 11ish to 8.6---> repeat stat h/h, inr and type and screened ordered. spoke with express clerk will transfer to their service as per daily dr stanley
[2018-08-21] MEDS: Ferrous Sulfate TAB* 325 MG PO SCH (08:13)
[2018-08-21] MEDS: Omeprazole CAP (NF) 20 MG CAP.DR PO SCH (08:13)
[2018-08-21] MEDS: guaiFENesin ER TAB 600 MG PO SCH ×2 (08:13→21:45)
[2018-08-21] MEDS: Allopurinol TAB* 300 MG PO SCH (08:13)
[2018-08-21] MEDS: FLUoxetine CAP* 20 MG PO SCH (08:13)
[2018-08-21] MEDS: Nicotine PATCH 21 MG/24 HR* PATCH TRANSDERM SCH (08:14)
[2018-08-21] MEDS: methylPREDNISolone 125 MG* 2 ML VIAL IV SCH ×2 (09:35→21:51)
--- NOTE | 2018-08-21 09:37 | PN ---
Progress Note - Progress Note Date of Service: 08/21/18 - Progress note Note: Pt seen and examined at bedside. Overnight events noted Pt admitted 08/20/18 from NH for SOB, cough admitted for hypercapnic resp failure sec to acute COPD exacerbation, ENRIQUE/OHS with non-compliance to PAP therapy and sepsis from PNA. Pt responded to BiPAP yesterday with improved acidosis. Pt removed BiPAP at 3 am this morning Pt was hypotensive this am, received 1L normal saline bolus Pt noted to have drop in H&H this am, no active bleeding noted BP improved this am Steroids were changed from Solumedrol to hydrocortisone, pt declined hydrocortisone and was changed back to Solumedrol Pt agreed to use BiPAP this am ROS:Reports cough and fatigue. Reports insomnia. Denied chest pain, palpitations , dizziness, headache, SOB, pain, rash, abd pain, N, diarrhea. Active Medications Generic Name Dose Route Start Last Admin Trade Name Freq PRN Reason Stop Dose Admin Acetaminophen 650 mg 08/20/18 10:55 Tylenol Tab* PO Q6H PRN FEVER/PAIN Albuterol/Ipratropium 1 neb 08/20/18 15:00 08/21/18 07:48 Duoneb (Albuterol 2.5 Mg/Ipratropium 0.5 Mg) INH 1 neb [id number] AWAKE JESSE Administration Allopurinol 300 mg 08/21/18 09:00 Zyloprim Tab* PO DAILY JESSE Dextrose 12.5 gm 08/20/18 11:12 D50w Syringe 50 Ml* IV PUSH .FOR FS < 60 - SS PRN FS < 60 Ferrous Sulfate 325 mg 08/21/18 09:00 Ferrous Sulfate Tab* PO DAILY JESSE Fluoxetine HCl 40 mg 08/21/18 09:00 Prozac Cap* PO DAILY JESSE Guaifenesin 1,200 mg 08/20/18 21:00 08/20/18 21:37 Mucinex* PO 1,200 mg BID JESSE Administration Heparin Sodium (Porcine) 5,000 units 08/20/18 14:00 08/21/18 06:07 Heparin Vial(*) SUBCUT 5,000 units Q8HR JESSE Administration Cefepime HCl 1 gm in 50 mls @ 100 mls/hr 08/20/18 13:00 08/20/18 14:50 Maxipime 1 Gm In Dextrose Duplex (*) IV 100 mls/hr Q24H JESSE Administration Insulin Human Lispro 0 units 08/20/18 14:00 08/21/18 06:07 Humalog* SUBCUT 1 unit Q4HR JESSE Administration Protocol Methylprednisolone Sodium Succinate 60 mg 08/21/18 09:00 Solu-Medrol 125mg * IV Q12H [facility] Mometasone Furoate/Formoterol Fumar 2 puff 08/20/18 21:00 08/21/18 07:48 Dulera 200/5 Mdi* INH 2 puff BID JESSE Administration Nicotine 1 patch 08/20/18 11:00 08/20/18 12:32 Nicotine Patch 21 Mg/24 Hr* TRANSDERM Not Given DAILY [facility] Omeprazole 20 mg 08/21/18 07:30 Prilosec Cap* PO DAILY@0730 [facility] Ondansetron HCl 4 mg 08/20/18 10:55 Zofran Inj* IV Q6H PRN NAUSEA Oxycodone/Acetaminophen 1 tab 08/20/18 20:15 08/20/18 20:22 Percocet 5/325 Tab* PO 1 tab Q6H PRN Administration PAIN Pharmacy Consult 1 note 08/20/18 11:00 Vancomycin Per Pharmacy* FOLLOW UP .VANC PER PHARMACY [facility] Pharmacy Profile Note 1 note 08/20/18 21:00 08/20/18 21:30 Nicotine Patch Removal Note* PATCH OFF Not Given 2100 [facility] Ropinirole HCl 2 mg 08/20/18 23:15 08/20/18 23:16 Requip Tab* PO 2 mg 2100 JESSE Administration Senna 2 tab 08/20/18 21:00 08/20/18 21:38 Senokot Tab* PO 2 tab BEDTIME JESSE Administration Vital Signs Temp Pulse Resp BP Pulse Ox 98.6 F 112 17 113/77 92 08/21/18 06:15 08/21/18 08:12 08/21/18 08:12 08/21/18 06:15 08/21/18 08:12 O/E: Pt in NAD HEENT: PERRLA, NO JVD, increased neck circumference, MP-4 Lungs: Scaterred wheeze+, improved from yesterday CVS: S1, S2+, irregular Abd: Obese, BS+ Ext; Normal ROM, deforminites of foot, bruise of RLE Neuro: No focal deficits, alert, awake Skin: Old bullous pemphigoid lesions Laboratory Results - last 24 hr 08/20/18 08/20/18 08/20/18 08:40 08:54 08:54 WBC 18.0 H RBC 4.12 Hgb 11.1 L Hct 37 MCV 90 MCH 27 MCHC 30 L RDW 19 H Plt Count 202 MPV 8.4 Neut % (Auto) Not Reportable Lymph % (Auto) Not Reportable [place] % (Auto) Not Reportable Eos % (Auto) Not Reportable Baso % (Auto) Not Reportable Absolute Neuts (auto) Not Reportable Absolute Lymphs (auto) Not Reportable Absolute Monos (auto) Not Reportable Absolute Eos (auto) Not Reportable Absolute Basos (auto) Not Reportable Absolute Nucleated RBC Not Reportable Immature Gran % 1 Neutrophils % 98 Band Neutrophils % 1 Monocytes % 1 Nucleated RBC % Not Reportable Abs Neuts (Manual) 17.8 H Abs Monocytes (Manual) 0.2 Normal RBC Morphology Not Reportable Polychromasia 1+ Hypochromasia 1+ INR (Anticoag Therapy) D-Dimer, Quantitative Patient Temperature ABG pH 7.24 L ABG pH (Temp Correct) ABG pCO2 81 H* ABG pCO2 (Temp Corrct ABG pO2 87 ABG pO2 (Temp Correct ABG HCO3 28.3 ABG O2 Saturation 97.8 ABG Base Excess 4.5 H Respiration Rate O2 Delivery Device Ventilator Type Vent Mode FiO2 Inspiratory Time PEEP Pressure Support Pressure Control EPAP IPAP BiPAP Sodium 136 Potassium 4.3 Chloride 92 L Carbon Dioxide 35 H Anion Gap 9 BUN 70 H Creatinine 2.55 H Est GFR ( Amer) 22.7 Est GFR (Non-Af Amer) 18.8 BUN/Creatinine Ratio 27.5 H Glucose 95 POC Glucose (mg/dL) Lactic Acid Calcium 9.4 Magnesium Total Bilirubin 0.50 AST 33 ALT 66 H Alkaline Phosphatase 145 H Troponin I 0.26 H* C-Reactive Protein 128.92 H B-Natriuretic Peptide Total Protein 6.4 Albumin 3.5 Globulin 2.9 Albumin/Globulin Ratio 1.2 Procalcitonin Urine Color Urine Appearance Urine pH Ur Specific [place] Urine Protein Urine Ketones Urine Blood Urine Nitrate Urine Bilirubin Urine Urobilinogen Ur Leukocyte Esterase Urine WBC (Auto) Urine RBC (Auto) Ur Squamous Epith Cells Urine Bacteria Urine Glucose Urine Ascorbic Acid Random Vancomycin Influenza A (Rapid) Influenza B (Rapid) Blood Type Antibody Screen Crossmatch 08/20/18 08/20/18 08/20/18 08:54 08:54 08:56 WBC RBC Hgb Hct MCV MCH MCHC RDW Plt Count MPV Neut % (Auto) Lymph % (Auto) [place] % (Auto) Eos % (Auto) Baso % (Auto) Absolute Neuts (auto) Absolute Lymphs (auto) Absolute Monos (auto) Absolute Eos (auto) Absolute Basos (auto) Absolute Nucleated RBC Immature Gran % Neutrophils % Band Neutrophils % Monocytes % Nucleated RBC % Abs Neuts (Manual) Abs Monocytes (Manual) Normal RBC Morphology Polychromasia Hypochromasia INR (Anticoag Therapy) 1.00 D-Dimer, Quantitative 800 H Patient Temperature ABG pH ABG pH (Temp Correct) ABG pCO2 ABG pCO2 (Temp Corrct ABG pO2 ABG pO2 (Temp Correct ABG HCO3 ABG O2 Saturation ABG Base Excess Respiration Rate O2 Delivery Device Ventilator Type Vent Mode FiO2 Inspiratory Time PEEP Pressure Support Pressure Control EPAP IPAP BiPAP Sodium Potassium Chloride Carbon Dioxide Anion Gap BUN Creatinine Est GFR ( Amer) Est GFR (Non-Af Amer) BUN/Creatinine Ratio Glucose POC Glucose (mg/dL) Lactic Acid 1.0 Calcium Magnesium Total Bilirubin AST ALT Alkaline Phosphatase Troponin I C-Reactive Protein B-Natriuretic Peptide Total Protein Albumin Globulin Albumin/Globulin Ratio Procalcitonin 5.4 H Urine Color Urine Appearance Urine pH Ur Specific [place] Urine Protein Urine Ketones Urine Blood Urine Nitrate Urine Bilirubin Urine Urobilinogen Ur Leukocyte Esterase Urine WBC (Auto) Urine RBC (Auto) Ur Squamous Epith Cells Urine Bacteria Urine Glucose Urine Ascorbic Acid Random Vancomycin Influenza A (Rapid) Influenza B (Rapid) Blood Type Antibody Screen Crossmatch 08/20/18 08/20/18 08/20/18 08:56 10:08 10:44 WBC RBC Hgb Hct MCV MCH MCHC RDW Plt Count MPV Neut % (Auto) Lymph % (Auto) [place] % (Auto) Eos % (Auto) Baso % (Auto) Absolute Neuts (auto) Absolute Lymphs (auto) Absolute Monos (auto) Absolute Eos (auto) Absolute Basos (auto) Absolute Nucleated RBC Immature Gran % Neutrophils % Band Neutrophils % Monocytes % Nucleated RBC % Abs Neuts (Manual) Abs Monocytes (Manual) Normal RBC Morphology Polychromasia Hypochromasia INR (Anticoag Therapy) D-Dimer, Quantitative Patient Temperature Not Reportable ABG pH 7.29 L ABG pH (Temp Correct) Not Reportable ABG pCO2 73 H* ABG pCO2 (Temp Corrct Not Reportable ABG pO2 91 ABG pO2 (Temp Correct Not Reportable ABG HCO3 29.4 ABG O2 Saturation 98.2 H ABG Base Excess 5.9 H Respiration Rate 12 O2 Delivery Device bipap Ventilator Type Not Reportable Vent Mode Not Reportable FiO2 50 Inspiratory Time Not Reportable PEEP Not Reportable Pressure Support Not Reportable Pressure Control Not Reportable EPAP 6 IPAP 12 BiPAP Not Reportable Sodium Potassium Chloride Carbon Dioxide Anion Gap BUN Creatinine Est GFR ( Amer) Est GFR (Non-Af Amer) BUN/Creatinine Ratio Glucose POC Glucose (mg/dL) Lactic Acid Calcium Magnesium Total Bilirubin AST ALT Alkaline Phosphatase Troponin I C-Reactive Protein B-Natriuretic Peptide 903 H Total Protein Albumin Globulin Albumin/Globulin Ratio Procalcitonin Urine Color Urine Appearance Urine pH Ur Specific [place] Urine Protein Urine Ketones Urine Blood Urine Nitrate Urine Bilirubin Urine Urobilinogen Ur Leukocyte Esterase Urine WBC (Auto) Urine RBC (Auto) Ur Squamous Epith Cells Urine Bacteria Urine Glucose Urine Ascorbic Acid Random Vancomycin Influenza A (Rapid) Negative Influenza B (Rapid) Negative Blood Type Antibody Screen Crossmatch 08/20/18 08/20/18 08/20/18 11:21 13:40 14:18 WBC RBC Hgb Hct MCV MCH MCHC RDW Plt Count MPV Neut % (Auto) Lymph % (Auto) [place] % (Auto) Eos % (Auto) Baso % (Auto) Absolute Neuts (auto) Absolute Lymphs (auto) Absolute Monos (auto) Absolute Eos (auto) Absolute Basos (auto) Absolute Nucleated RBC Immature Gran % Neutrophils % Band Neutrophils % Monocytes % Nucleated RBC % Abs Neuts (Manual) Abs Monocytes (Manual) Normal RBC Morphology Polychromasia Hypochromasia INR (Anticoag Therapy) D-Dimer, Quantitative Patient Temperature Not Reportable ABG pH 7.35 ABG pH (Temp Correct) Not Reportable ABG pCO2 64 H ABG pCO2 (Temp Corrct Not Reportable ABG pO2 82 ABG pO2 (Temp Correct Not Reportable ABG HCO3 30.6 ABG O2 Saturation 98.0 ABG Base Excess 7.4 H Respiration Rate 12 O2 Delivery Device bipap Ventilator Type Not Reportable Vent Mode St FiO2 50 Inspiratory Time Not Reportable PEEP Not Reportable Pressure Support Not Reportable Pressure Control Not Reportable EPAP 6 IPAP 12 BiPAP Not Reportable Sodium Potassium Chloride Carbon Dioxide Anion Gap BUN Creatinine Est GFR ( Amer) Est GFR (Non-Af Amer) BUN/Creatinine Ratio Glucose POC Glucose (mg/dL) Lactic Acid Calcium Magnesium Total Bilirubin AST ALT Alkaline Phosphatase Troponin I 0.24 H* C-Reactive Protein B-Natriuretic Peptide Total Protein Albumin Globulin Albumin/Globulin Ratio Procalcitonin Urine Color Yellow Urine Appearance Turbid Urine pH 5.0 Ur Specific [place] 1.013 Urine Protein 1+(30 mg/dl) A Urine Ketones Negative Urine Blood 1+ A Urine Nitrate Negative Urine Bilirubin Negative Urine Urobilinogen Negative Ur Leukocyte Esterase 3+ A Urine WBC (Auto) 3+(>20/hpf) A Urine RBC (Auto) 3+(>10/hpf) A Ur Squamous Epith Cells Present A Urine Bacteria 3+ A Urine Glucose Negative Urine Ascorbic Acid Random Vancomycin Influenza A (Rapid) Influenza B (Rapid) Blood Type Antibody Screen Crossmatch 08/20/18 08/20/18 08/20/18 14:47 17:46 21:57 WBC RBC Hgb Hct MCV MCH MCHC RDW Plt Count MPV Neut % (Auto) Lymph % (Auto) [place] % (Auto) Eos % (Auto) Baso % (Auto) Absolute Neuts (auto) Absolute Lymphs (auto) Absolute Monos (auto) Absolute Eos (auto) Absolute Basos (auto) Absolute Nucleated RBC Immature Gran % Neutrophils % Band Neutrophils % Monocytes % Nucleated RBC % Abs Neuts (Manual) Abs Monocytes (Manual) Normal RBC Morphology Polychromasia Hypochromasia INR (Anticoag Therapy) D-Dimer, Quantitative Patient Temperature ABG pH ABG pH (Temp Correct) ABG pCO2 ABG pCO2 (Temp Corrct ABG pO2 ABG pO2 (Temp Correct ABG HCO3 ABG O2 Saturation ABG Base Excess Respiration Rate O2 Delivery Device Ventilator Type Vent Mode FiO2 Inspiratory Time PEEP Pressure Support Pressure Control EPAP IPAP BiPAP Sodium Potassium Chloride Carbon Dioxide Anion Gap BUN Creatinine Est GFR ( Amer) Est GFR (Non-Af Amer) BUN/Creatinine Ratio Glucose POC Glucose (mg/dL) 78 125 H 273 H Lactic Acid Calcium Magnesium Total Bilirubin AST ALT Alkaline Phosphatase Troponin I C-Reactive Protein B-Natriuretic Peptide Total Protein Albumin Globulin Albumin/Globulin Ratio Procalcitonin Urine Color Urine Appearance Urine pH Ur Specific [place] Urine Protein Urine Ketones Urine Blood Urine Nitrate Urine Bilirubin Urine Urobilinogen Ur Leukocyte Esterase Urine WBC (Auto) Urine RBC (Auto) Ur Squamous Epith Cells Urine Bacteria Urine Glucose Urine Ascorbic Acid Random Vancomycin Influenza A (Rapid) Influenza B (Rapid) Blood Type Antibody Screen Crossmatch 08/21/18 08/21/18 08/21/18 01:58 05:50 05:50 WBC 21.8 H RBC 3.25 L Hgb 8.9 L Hct 29 L MCV 88 MCH 27 MCHC 31 RDW 18 H Plt Count 163 MPV 8.5 Neut % (Auto) 98.0 Lymph % (Auto) 0.9 [place] % (Auto) 0.6 Eos % (Auto) 0 Baso % (Auto) 0.5 Absolute Neuts (auto) 21.3 H Absolute Lymphs (auto) 0.2 L Absolute Monos (auto) 0.1 Absolute Eos (auto) 0 Absolute Basos (auto) 0.1 Absolute Nucleated RBC 0 Immature Gran % Neutrophils % Band Neutrophils % Monocytes % Nucleated RBC % 0 Abs Neuts (Manual) Abs Monocytes (Manual) Normal RBC Morphology Polychromasia Hypochromasia INR (Anticoag Therapy) D-Dimer, Quantitative Patient Temperature ABG pH ABG pH (Temp Correct) ABG pCO2 ABG pCO2 (Temp Corrct ABG pO2 ABG pO2 (Temp Correct ABG HCO3 ABG O2 Saturation ABG Base Excess Respiration Rate O2 Delivery Device Ventilator Type Vent Mode FiO2 Inspiratory Time PEEP Pressure Support Pressure Control EPAP IPAP BiPAP Sodium 136 Potassium 4.3 Chloride 96 L Carbon Dioxide 32 Anion Gap 8 BUN 74 H Creatinine 2.41 H Est GFR ( Amer) 24.2 Est GFR (Non-Af Amer) 20.0 BUN/Creatinine Ratio 30.7 H Glucose 177 H POC Glucose (mg/dL) 213 H Lactic Acid Calcium 8.4 L Magnesium 1.9 Total Bilirubin 0.40 AST 13 ALT 41 Alkaline Phosphatase 102 Troponin I C-Reactive Protein B-Natriuretic Peptide Total Protein 5.1 L Albumin 2.7 L Globulin 2.4 Albumin/Globulin Ratio 1.1 Procalcitonin Urine Color Urine Appearance Urine pH Ur Specific [place] Urine Protein Urine Ketones Urine Blood Urine Nitrate Urine Bilirubin Urine Urobilinogen Ur Leukocyte Esterase Urine WBC (Auto) Urine RBC (Auto) Ur Squamous Epith Cells Urine Bacteria Urine Glucose Urine Ascorbic Acid Random Vancomycin Influenza A (Rapid) Influenza B (Rapid) Blood Type Antibody Screen Crossmatch 08/21/18 08/21/18 08/21/18 05:50 05:50 05:50 WBC RBC Hgb Hct MCV MCH MCHC RDW Plt Count MPV Neut % (Auto) Lymph % (Auto) [place] % (Auto) Eos % (Auto) Baso % (Auto) Absolute Neuts (auto) Absolute Lymphs (auto) Absolute Monos (auto) Absolute Eos (auto) Absolute Basos (auto) Absolute Nucleated RBC Immature Gran % Neutrophils % Band Neutrophils % Monocytes % Nucleated RBC % Abs Neuts (Manual) Abs Monocytes (Manual) Normal RBC Morphology Polychromasia Hypochromasia INR (Anticoag Therapy) D-Dimer, Quantitative Patient Temperature ABG pH ABG pH (Temp Correct) ABG pCO2 ABG pCO2 (Temp Corrct ABG pO2 ABG pO2 (Temp Correct ABG HCO3 ABG O2 Saturation ABG Base Excess Respiration Rate O2 Delivery Device Ventilator Type Vent Mode FiO2 Inspiratory Time PEEP Pressure Support Pressure Control EPAP IPAP BiPAP Sodium Potassium Chloride Carbon Dioxide Anion Gap BUN Creatinine Est GFR ( Amer) Est GFR (Non-Af Amer) BUN/Creatinine Ratio Glucose POC Glucose (mg/dL) 190 H Lactic Acid Calcium Magnesium Total Bilirubin AST ALT Alkaline Phosphatase Troponin I C-Reactive Protein B-Natriuretic Peptide Total Protein Albumin Globulin Albumin/Globulin Ratio Procalcitonin Urine Color Urine Appearance Urine pH Ur Specific [place] Urine Protein Urine Ketones Urine Blood Urine Nitrate Urine Bilirubin Urine Urobilinogen Ur Leukocyte Esterase Urine WBC (Auto) Urine RBC (Auto) Ur Squamous Epith Cells Urine Bacteria Urine Glucose Urine Ascorbic Acid Random Vancomycin 9.4 Influenza A (Rapid) Influenza B (Rapid) Blood Type A Positive Antibody Screen Negative Crossmatch See Detail 08/21/18 08/21/18 08/21/18 06:37 06:37 07:49 WBC RBC Hgb 8.6 L Hct 29 L MCV MCH MCHC RDW Plt Count MPV Neut % (Auto) Lymph % (Auto) [place] % (Auto) Eos % (Auto) Baso % (Auto) Absolute Neuts (auto) Absolute Lymphs (auto) Absolute Monos (auto) Absolute Eos (auto) Absolute Basos (auto) Absolute Nucleated RBC Immature Gran % Neutrophils % Band Neutrophils % Monocytes % Nucleated RBC % Abs Neuts (Manual) Abs Monocytes (Manual) Normal RBC Morphology Polychromasia Hypochromasia INR (Anticoag Therapy) 1.13 H D-Dimer, Quantitative Patient Temperature ABG pH ABG pH (Temp Correct) ABG pCO2 ABG pCO2 (Temp Corrct ABG pO2 ABG pO2 (Temp Correct ABG HCO3 ABG O2 Saturation ABG Base Excess Respiration Rate O2 Delivery Device Ventilator Type Vent Mode FiO2 Inspiratory Time PEEP Pressure Support Pressure Control EPAP IPAP BiPAP Sodium Potassium Chloride Carbon Dioxide Anion Gap BUN Creatinine Est GFR ( Amer) Est GFR (Non-Af Amer) BUN/Creatinine Ratio Glucose POC Glucose (mg/dL) Lactic Acid Calcium Magnesium Total Bilirubin AST ALT Alkaline Phosphatase Troponin I C-Reactive Protein B-Natriuretic Peptide Total Protein Albumin Globulin Albumin/Globulin Ratio Procalcitonin Urine Color Yellow Urine Appearance Cloudy Urine pH 5.0 Ur Specific [place] 1.014 Urine Protein 1+(30 mg/dl) A Urine Ketones Negative Urine Blood Negative Urine Nitrate Negative Urine Bilirubin Negative Urine Urobilinogen Negative Ur Leukocyte Esterase Trace A Urine WBC (Auto) 1+(6-10/hpf) A Urine RBC (Auto) 2+(6-10/hpf) A Ur Squamous Epith Cells Present A Urine Bacteria Absent Urine Glucose Negative Urine Ascorbic Acid * A Random Vancomycin Influenza A (Rapid) Influenza B (Rapid) Blood Type Antibody Screen Crossmatch CXR: Was personally reviewed- Air space opacity in lt base, pulmonary vascular congestion noted Venous duplex: No DVT ECHO: Diastolic dysfunction, pulm HTN, Worsened TR I/R: 67 y o obese f, [place] resident with h/o chronic LE edema, diastolic CHF, Pulm HTN, paroxysmal A.fib/ atrial tachycardia, DM, asthma/COPD 1.Sepsis sec to PNA versus UTI 2.Hypotension likely sec to sepsis improved with fluid resuscitation 3.Acute COPD exacerbation 4.Hypercapnic resp failure 5. Acute on chronic RF 6.Anemia- chronic with drop in H&H this am, likely dilutional 7.Elevated troponins- demand ischemia, trending down 8. Bacteremia with gram negative bacilli, likely urinary source 9. Morbid obesity 10. A.fib with tachycardia Pt had episode of hypotension last night that responded to fluid bolus. BP stable now. Drop in H&H likely dilutional. Will rpt this am and monitor closely. Acute COPD exacerbation and hypercapnic resp failure, improving. Pt is alert, awake, in NAD Hypotension resolved with fluid bolus, likely sec to sepsis. Will avoid over hydration as pt has diastolic dysfunction and pulm HTN with rt heart failure. Will monitor BP closely. c/w bronchodilators prn Will c/w BiPAP Rpt ABG sent this am, will f/u Pt declined hydrocortisone, changed to Solumedrol Pt with h/o paroxysmal A.fib, currently in A.fib, slightly tachycardic Not on anticoagulation. Will avoid starting anticoagulation as it is unclear if pt truly dropped Hb Will check stool guiac Will monitor H&H closely Bl cx this am positive for Gram negative rods, Urine cx also showing gram negative rods, further identification pending Pt on Cefepime, Vancomycin and remains afebrile Will adjust abx as per susceptibilities Will rpt bl cx Transthoracic ECHO was reviewed Will need transesophageal ECHO to evaluate for vegetations UO slowed down this am, likely sec to hypotension. Will monitor closely, will avoid excessive fluid overload in setting of Rt hear t dysfunction and TR Elevated troponins likely demand ischemia, will f/u. No acute EKG changes DVT px: on Heparin sq as pt is high risk GI px Pt is full code
[2018-08-21] MEDS: Vancomycin(*) 750 MG in NS 0.9% 250 ML* 250 ML IVPB SCH ×2 (10:34→21:51)
[2018-08-21 12:30] LABS: Hematocrit 29 % (35-47); Hemoglobin 8.6 g/dl (12.0-16.0); Mean Corpuscular HGB Conc 30 g/dl (31-36); Mean Corpuscular Hemoglobin 27 pg (27-31); Mean Corpuscular Volume 89 fL (80-97); Mean Platelet Volume 8.4 fL (7.4-10.4); Platelet Count 137 10^3/ul (150-450); Red Blood Count 3.21 10^6/ul (4.00-5.40); Red Cell Distribution Width 18 % (10.5-15); White Blood Count 19.8 10^3/ul (3.5-10.8)
[2018-08-21] MEDS: Cefepime 1 GM in Dextrose(*) 1 GM/50 ML BAG IV SCH (15:32)
[2018-08-21] MEDS: oxyCODONE/Acetamin 5/325 MG* TAB PO PRN (17:25)
[2018-08-21 19:05] LABS: Hematocrit 30 % (35-47); Mean Corpuscular HGB Conc 30 g/dl (31-36); Mean Corpuscular Hemoglobin 27 pg (27-31); Mean Corpuscular Volume 90 fL (80-97); Mean Platelet Volume 9.4 fL (7.4-10.4); Platelet Count 155 10^3/ul (150-450); Red Blood Count 3.31 10^6/ul (4.00-5.40); Red Cell Distribution Width 18 % (10.5-15); White Blood Count 20.4 10^3/ul (3.5-10.8)
[2018-08-21] MEDS: Nicotine Patch Removal NOTE PATCH OFF SCH (19:59)
[2018-08-21] MEDS: Senna TAB PO SCH (21:45)
[2018-08-21] MEDS: rOPINIRole TAB* 1 MG PO SCH (21:45)
[2018-08-22] MEDS: Albuterol/Ipratropium NEB.SOL* Albuterol 2.5 MG/Ipratropium 0.5 MG 3 ML INH SCH ×5 (00:19→23:42)
[2018-08-22] MEDS: Insulin LISPRO* 1 UNITS UNIT SUBCUT SCH ×6 (01:59→21:10)
[2018-08-22] MEDS: Heparin VIAL(*) 5000 UNITS/ML VIAL (FIVE THOUSAND) SUBCUT SCH ×3 (06:09→21:09)
[2018-08-22] MEDS: oxyCODONE/Acetamin 5/325 MG* TAB PO PRN ×2 (06:09→19:42)
[2018-08-22] MEDS ORDERED: Albuterol/Ipratropium NEB.SOL* Albuterol 2.5 MG/Ipratropium 0.5 MG 3 ML INH PRN (07:00)
[2018-08-22] MEDS: Omeprazole CAP (NF) 20 MG CAP.DR PO SCH (07:39)
[2018-08-22] MEDS: Mometasone/Formoter 200/5 MDI INH SCH ×2 (08:03→19:21)
[2018-08-22] MEDS: methylPREDNISolone 125 MG* 2 ML VIAL IV SCH ×2 (09:27→21:08)
[2018-08-22] MEDS: guaiFENesin ER TAB 600 MG PO SCH ×2 (09:27→21:08)
[2018-08-22] MEDS: Ferrous Sulfate TAB* 325 MG PO SCH (09:27)
[2018-08-22] MEDS: FLUoxetine CAP* 20 MG PO SCH (09:27)
[2018-08-22] MEDS ORDERED: Vancomycin Trough Check NOTE FOLLOW UP ONE (10:00)
[2018-08-22] MEDS: Allopurinol TAB* 300 MG PO SCH (10:28)
[2018-08-22] MEDS: Nicotine PATCH 21 MG/24 HR* PATCH TRANSDERM SCH (10:29)
[2018-08-22] MEDS ORDERED: Vancomycin(*) 500 MG in NS 0.9% 250 ML* 250 ML IVPB SCH (10:55)
--- NOTE | 2018-08-22 13:53 | PN ---
Progress Note - Progress Note Date of Service: 08/22/18 - Progress note Note: Pt seen and examined at bedside. Pt reports feeling tired. Denies any SOB, chest pain, abd pain. Having intermittent cough, not expectorating secretions. O/n events: Afebrile overnight UO good No hypotension No fever Used BiPAP all night Active Medications Generic Name Dose Route Start Last Admin Trade Name Freq PRN Reason Stop Dose Admin Acetaminophen 650 mg 08/20/18 10:55 Tylenol Tab* PO Q6H PRN FEVER/PAIN Albuterol/Ipratropium 1 neb 08/22/18 14:00 Duoneb (Albuterol 2.5 Mg/Ipratropium 0.5 Mg) INH [id number] AWAKE JESSE Allopurinol 300 mg 08/21/18 09:00 08/22/18 10:28 Zyloprim Tab* PO 300 mg DAILY JESSE Administration Dextrose 12.5 gm 08/20/18 11:12 D50w Syringe 50 Ml* IV PUSH .FOR FS < 60 - SS PRN FS < 60 Ferrous Sulfate 325 mg 08/21/18 09:00 08/22/18 09:27 Ferrous Sulfate Tab* PO 325 mg DAILY JESSE Administration Fluoxetine HCl 40 mg 08/21/18 09:00 08/22/18 09:27 Prozac Cap* PO 40 mg DAILY JESSE Administration Guaifenesin 1,200 mg 08/20/18 21:00 08/22/18 09:27 Mucinex* PO 1,200 mg BID JESSE Administration Heparin Sodium (Porcine) 5,000 units 08/20/18 14:00 08/22/18 06:09 Heparin Vial(*) SUBCUT 5,000 units Q8HR JESSE Administration Cefepime HCl 1 gm in 50 mls @ 100 mls/hr 08/20/18 13:00 08/21/18 15:32 Maxipime 1 Gm In Dextrose Duplex (*) IV 100 mls/hr Q24H JESSE Administration Aztreonam 1 gm/ Sodium 50 mls @ 200 mls/hr 08/22/18 13:00 Chloride IVPB Q8H JESSE Insulin Human Lispro 0 units 08/21/18 22:00 08/22/18 10:28 Humalog* SUBCUT 2 units Q4H JESSE Administration Protocol Methylprednisolone Sodium Succinate 60 mg 08/21/18 09:00 08/22/18 09:27 Solu-Medrol 125mg * IV 60 mg Q12H JESSE Administration Mometasone Furoate/Formoterol Fumar 2 puff 08/20/18 21:00 08/22/18 08:03 Dulera 200/5 Mdi* INH 2 puff BID JESSE Administration Nicotine 1 patch 08/20/18 11:00 08/22/18 10:29 Nicotine Patch 21 Mg/24 Hr* TRANSDERM Not Given DAILY JESSE Omeprazole 20 mg 08/21/18 07:30 08/22/18 07:39 Prilosec Cap* PO 20 mg DAILY@0730 JESSE Administration Ondansetron HCl 4 mg 08/20/18 10:55 Zofran Inj* IV Q6H PRN NAUSEA Oxycodone/Acetaminophen 1 tab 08/20/18 20:15 08/22/18 06:09 Percocet 5/325 Tab* PO 1 tab Q6H PRN Administration PAIN Pharmacy Profile Note 1 note 08/20/18 21:00 08/21/18 19:59 Nicotine Patch Removal Note* PATCH OFF Not Given 2100 JESSE Ropinirole HCl 2 mg 08/20/18 23:15 08/21/18 21:45 Requip Tab* PO 2 mg 2100 JESSE Administration Senna 2 tab 08/20/18 21:00 08/21/18 21:45 Senokot Tab* PO 2 tab BEDTIME JESSE Administration O/E: Pt in NAD HEENT: PERRLA, No JVD, MP-4 airway Lungs: Diminished air entry b/l, scaterred wheeze+ CVS: S1, S2+, irregular Abd: Obese, BS+ Ext: Normal ROM Neuro: Alert, awake, no focal deficits Skin: No rash, old bullous pemphigoid lesions Intake and Output Last 24 Hours 08/20/18 08/21/18 08/22/18 08/23/18 06:59 06:59 06:59 06:59 Intake Total 3003.1 1264 822 Output Total 810 803 195 Balance 2193.1 461 627 Weight 234 lb 2.095 oz 232 lb 12.93 oz Intake: IV Fluids 2568.1 361 226 D5W 919 NS (0.9%) 1527.4 361 226 Saline 21.7 IVPB 405 183 296 D5W 107 NS (0.9%) 248 183 296 Saline 50 Medicated IV 30 vanco 30 Oral 720 300 Output: [place] 810 803 195 Other: Estimated Void Medium Abnormal Lab Results 08/21/18 08/21/18 08/21/18 15:39 17:15 17:32 WBC 20.4 H RBC 3.31 L Hgb 9.0 L Hct 30 L MCV 90 MCH 27 MCHC 30 L RDW 18 H Plt Count 155 MPV 9.4 Patient Temperature Not Reportable ABG pH 7.31 L ABG pH (Temp Correct) Not Reportable ABG pCO2 59 H ABG pCO2 (Temp Corrct Not Reportable ABG pO2 85 ABG pO2 (Temp Correct Not Reportable ABG HCO3 26.4 ABG O2 Saturation 98.3 H ABG Base Excess 2.0 Respiration Rate Not Reportable Ventilator Type Not Reportable Vent Mode Not Reportable FiO2 40 Inspiratory Time Not Reportable PEEP Not Reportable Pressure Support Not Reportable Pressure Control Not Reportable EPAP Not Reportable IPAP Not Reportable BiPAP Not Reportable POC Glucose (mg/dL) 275 H Troponin I Vancomycin Trough 08/21/18 08/21/18 08/21/18 17:32 17:38 21:29 WBC RBC Hgb Hct MCV MCH MCHC RDW Plt Count MPV Patient Temperature ABG pH ABG pH (Temp Correct) ABG pCO2 ABG pCO2 (Temp Corrct ABG pO2 ABG pO2 (Temp Correct ABG HCO3 ABG O2 Saturation ABG Base Excess Respiration Rate Ventilator Type Vent Mode FiO2 Inspiratory Time PEEP Pressure Support Pressure Control EPAP IPAP BiPAP POC Glucose (mg/dL) 294 H 246 H Troponin I 0.29 H* Vancomycin Trough 08/22/18 08/22/18 08/22/18 01:51 06:01 09:26 WBC RBC Hgb Hct MCV MCH MCHC RDW Plt Count MPV Patient Temperature ABG pH ABG pH (Temp Correct) ABG pCO2 ABG pCO2 (Temp Corrct ABG pO2 ABG pO2 (Temp Correct ABG HCO3 ABG O2 Saturation ABG Base Excess Respiration Rate Ventilator Type Vent Mode FiO2 Inspiratory Time PEEP Pressure Support Pressure Control EPAP IPAP BiPAP POC Glucose (mg/dL) 301 H 273 H Troponin I Vancomycin Trough 19.8 08/22/18 09:35 WBC RBC Hgb Hct MCV MCH MCHC RDW Plt Count MPV Patient Temperature ABG pH ABG pH (Temp Correct) ABG pCO2 ABG pCO2 (Temp Corrct ABG pO2 ABG pO2 (Temp Correct ABG HCO3 ABG O2 Saturation ABG Base Excess Respiration Rate Ventilator Type Vent Mode FiO2 Inspiratory Time PEEP Pressure Support Pressure Control EPAP IPAP BiPAP POC Glucose (mg/dL) 244 H Troponin I Vancomycin Trough CXR: Was personally reviewed- Air space opacity in lt base, pulmonary vascular congestion noted Venous duplex: No DVT ECHO: Diastolic dysfunction, pulm HTN, Worsened TR I/R: 67 y o obese f, [place] resident with h/o chronic LE edema, diastolic CHF, Pulm HTN, paroxysmal A.fib/ atrial tachycardia, DM, asthma/COPD 1.Sepsis sec to PNA versus UTI 2.Hypotension likely sec to sepsis improved with fluid resuscitation 3.Acute COPD exacerbation 4.Hypercapnic resp failure 5. Acute on chronic RF 6.Anemia- chronic with drop in H&H this am, likely dilutional 7.Elevated troponins- demand ischemia, trending down 8. Bacteremia with Pseudomonas,UA positive for Klebsiella 9. Morbid obesity 10. A.fib with tachycardia No episodes of hypotension. BP stable now. Continues to be tachycardic. Will avoid over hydration as pt has diastolic dysfunction and pulm HTN with rt heart failure.Elevated troponins likely demand ischemia, will f/u. No acute EKG changes. Drop in H&H likely dilutional. Rpt labs from this am pending. Acute COPD exacerbation and hypercapnic resp failure, improving. Changed nebs to standing. Not able to expectorate phleghm. Will rpt CXR in am c/w BiPAP at night and prn during the day. Rpt ABG sent this am, will f/u Pt declined hydrocortisone, changed to Solumedrol. Bl sugars are elevated as pt on steroids. Pt receiving sliding scale, takes NPH at night, ordered as she is refusing long acting. Pt with h/o paroxysmal A.fib, currently in A.fib, slightly tachycardic Not on anticoagulation. Will avoid starting anticoagulation as it is unclear if pt truly dropped Hb. Stool guiac negative. Will monitor H&H closely Bl cx 1 bottle positive for Pseudomonas, rpt cx negative to date, Urine cx pos for Klebsiella, susceptible to Cefepime. Added Aztreonam for double Pseudomonal coverage and d/kalpana Vancomycin. DONALD ordered, NPO after midnight Friday. Pt is afebrile, continues to have leucocytosis. UO slowed down this am, likely sec to hypotension. Will monitor closely, will avoid excessive fluid overload in setting of Rt hear t dysfunction and TR DVT px: on Heparin sq as pt is high risk GI px Salas for monitoring of UO and to prevent bedsores Pt is full code IV access: Midline
[2018-08-22] MEDS: Aztreonam (*) 1 GM in NS 0.9% 50 ML* 50 ML IVPB SCH ×2 (14:11→21:11)
[2018-08-22] MEDS: Cefepime 1 GM in Dextrose(*) 1 GM/50 ML BAG IV SCH (14:11)
[2018-08-22 14:31] LABS: ABS Basophils 0.1 10^3/ul (0-0.2); ABS Eosinophils 0 10^3/ul (0-0.6); ABS Lymphocytes 0.2 10^3/ul (1.0-4.8); ABS Monocytes 0.2 10^3/ul (0-0.8); ABS Neutrophils 15.9 10^3/ul (1.5-7.7); ABS Nucleated RBC 0 10^3/ul; Eosinophil % 0 %; Hematocrit 30 % (35-47); Hemoglobin 9.2 g/dl (12.0-16.0); Lymphocyte % 1.1 %; Mean Corpuscular HGB Conc 30 g/dl (31-36); Mean Corpuscular Hemoglobin 27 pg (27-31); Mean Corpuscular Volume 90 fL (80-97); Mean Platelet Volume 8.8 fL (7.4-10.4); Nucleated Red Blood Cells % 0; Platelet Count 170 10^3/ul (150-450); Red Cell Distribution Width 18 % (10.5-15); White Blood Count 16.3 10^3/ul (3.5-10.8)
[2018-08-22 14:45] LABS: Albumin/Globulin Ratio 1.2 (1-3); BUN/Creatinine Ratio 33.3 (8-20); Calcium 8.5 mg/dL (8.6-10.3); EGFR Non-African American 20.1 (>60); Globulin 2.6 g/dL (2-4); Total Bilirubin 0.3 mg/dL (0.2-1.0); Total Protein 5.6 g/dL (6.4-8.9)
[2018-08-22] MEDS: Vancomycin(*) 750 MG in NS 0.9% 250 ML* 250 ML IVPB SCH (19:47)
[2018-08-22] MEDS: Senna TAB PO SCH (21:08)
[2018-08-22] MEDS: Insulin NPH(*) 1 UNITS UNIT SUBCUT SCH (21:09)
[2018-08-22] MEDS: rOPINIRole TAB* 1 MG PO SCH (21:10)
[2018-08-22] MEDS: Nicotine Patch Removal NOTE PATCH OFF SCH (21:11)
[2018-08-23] MEDS: Insulin LISPRO* 1 UNITS UNIT SUBCUT SCH ×6 (01:49→21:09)
[2018-08-23] MEDS: Albuterol/Ipratropium NEB.SOL* Albuterol 2.5 MG/Ipratropium 0.5 MG 3 ML INH SCH ×4 (03:28→19:25)
[2018-08-23] MEDS: Aztreonam (*) 1 GM in NS 0.9% 50 ML* 50 ML IVPB SCH ×3 (05:45→21:09)
[2018-08-23 06:09] LABS: ABS Basophils 0.1 10^3/ul (0-0.2); ABS Eosinophils 0 10^3/ul (0-0.6); ABS Lymphocytes 0.2 10^3/ul (1.0-4.8); ABS Monocytes 0.2 10^3/ul (0-0.8); ABS Neutrophils 10.8 10^3/ul (1.5-7.7); ABS Nucleated RBC 0 10^3/ul; Eosinophil % 0 %; Hematocrit 29 % (35-47); Lymphocyte % 1.4 %; Mean Corpuscular HGB Conc 31 g/dl (31-36); Mean Corpuscular Hemoglobin 27 pg (27-31); Mean Corpuscular Volume 89 fL (80-97); Mean Platelet Volume 8.4 fL (7.4-10.4); Nucleated Red Blood Cells % 0.2; Platelet Count 154 10^3/ul (150-450); Red Cell Distribution Width 18 % (10.5-15); White Blood Count 11.3 10^3/ul (3.5-10.8)
[2018-08-23] MEDS: Heparin VIAL(*) 5000 UNITS/ML VIAL (FIVE THOUSAND) SUBCUT SCH ×3 (06:12→21:10)
[2018-08-23] MEDS: oxyCODONE/Acetamin 5/325 MG* TAB PO PRN ×2 (06:12→20:03)
[2018-08-23 06:27] LABS: BUN/Creatinine Ratio 35.8 (8-20); Calcium 8.5 mg/dL (8.6-10.3); EGFR Non-African American 20.9 (>60); Potassium 4.5 mmol/L (3.5-5.0)
[2018-08-23] MEDS: Omeprazole CAP (NF) 20 MG CAP.DR PO SCH (07:42)
[2018-08-23] MEDS: Mometasone/Formoter 200/5 MDI INH SCH ×2 (07:54→19:25)
[2018-08-23] MEDS ORDERED: Furosemide IV* 10 MG/ML 2 ML VIAL (20 MG) IV SLOW PU ONE (08:16)
--- NOTE | 2018-08-23 08:33 | PN ---
Date of Service: 08/23/18 Critical Care Services: 67F with htn, hld, dm, cad, diastolic chf, martha/ohs, asthma/copd not compliant with CPAP, afib, chronic lower extremity edema, ckd presents from the correction with hypoxic respiratory failure 2/2 pna/copd exacerbation. Found to have e. coli in urine, and pseudomonas in blood. Improving. 08/23: Feels her breating is improved. Vital Signs: Temp Pulse Resp BP SpO2 FiO2 97.0 F 128 21 137/92 98 30 08/23/18 08:01 08/23/18 08:01 08/23/18 08:01 08/23/18 08:00 08/23/18 08:01 08/23 03:50 Physical Exam: Gen - acute on chronically ill heent - ncat, eomi, perrl neck - no jvd, no thyromegaly cv - s1/s2, irregular, tachy pulm - +roncho, +rales abd - soft, nt ext - +chronic venous stasis changes neuro - non-focal Fluid Balance (Past 24 Hours): I= O= Net Intake & Output 08/21/18 08/22/18 08/23/18 08/24/18 06:59 06:59 06:59 06:59 Intake Total 3003.1 1264 2034 80 Output Total 471 302 5429 80 Balance 2193.1 461 819 0 Weight 106.2 kg 105.6 kg 109.6 kg Intake: IV Fluids 2568.1 361 617 D5W 919 NS (0.9%) 1527.4 361 617 Saline 21.7 IVPB 405 183 517 ABX - AZTREONAM 88 D5W 107 NS (0.9%) 248 183 429 Saline 50 Medicated IV 30 vanco 30 Oral 720 900 80 Output: [place] 407 945 4049 80 Other: Estimated Void Medium Labs: Laboratory Results - last 24 hr 08/22/18 08/22/18 08/22/18 09:26 09:35 14:14 WBC 16.3 H RBC 3.40 L Hgb 9.2 L Hct 30 L MCV 90 MCH 27 MCHC 30 L RDW 18 H Plt Count 170 MPV 8.8 Neut % (Auto) 97.6 Lymph % (Auto) 1.1 [place] % (Auto) 0.9 Eos % (Auto) 0 Baso % (Auto) 0.4 Absolute Neuts (auto) 15.9 H Absolute Lymphs (auto) 0.2 L Absolute Monos (auto) 0.2 Absolute Eos (auto) 0 Absolute Basos (auto) 0.1 Absolute Nucleated RBC 0 Nucleated RBC % 0 Sodium Potassium Chloride Carbon Dioxide Anion Gap BUN Creatinine Est GFR ( Amer) Est GFR (Non-Af Amer) BUN/Creatinine Ratio Glucose POC Glucose (mg/dL) 244 H Calcium Magnesium Total Bilirubin AST ALT Alkaline Phosphatase Troponin I Total Protein Albumin Globulin Albumin/Globulin Ratio Vancomycin Trough 19.8 08/22/18 08/22/18 08/22/18 14:14 18:02 20:51 WBC RBC Hgb Hct MCV MCH MCHC RDW Plt Count MPV Neut % (Auto) Lymph % (Auto) [place] % (Auto) Eos % (Auto) Baso % (Auto) Absolute Neuts (auto) Absolute Lymphs (auto) Absolute Monos (auto) Absolute Eos (auto) Absolute Basos (auto) Absolute Nucleated RBC Nucleated RBC % Sodium 133 L Potassium 5.0 Chloride 95 L Carbon Dioxide 29 Anion Gap 9 BUN 80 H Creatinine 2.40 H Est GFR ( Amer) 24.4 Est GFR (Non-Af Amer) 20.1 BUN/Creatinine Ratio 33.3 H Glucose 322 H POC Glucose (mg/dL) 341 H 283 H Calcium 8.5 L Magnesium 2.0 Total Bilirubin 0.30 AST 8 L ALT 35 Alkaline Phosphatase 89 Troponin I 0.16 H* Total Protein 5.6 L Albumin 3.0 L Globulin 2.6 Albumin/Globulin Ratio 1.2 Vancomycin Trough 08/23/18 08/23/18 08/23/18 01:44 05:55 05:55 WBC 11.3 H RBC 3.30 L Hgb 9.0 L Hct 29 L MCV 89 MCH 27 MCHC 31 RDW 18 H Plt Count 154 MPV 8.4 Neut % (Auto) 96.1 Lymph % (Auto) 1.4 [place] % (Auto) 2.0 Eos % (Auto) 0 Baso % (Auto) 0.5 Absolute Neuts (auto) 10.8 H Absolute Lymphs (auto) 0.2 L Absolute Monos (auto) 0.2 Absolute Eos (auto) 0 Absolute Basos (auto) 0.1 Absolute Nucleated RBC 0 Nucleated RBC % 0.2 Sodium 134 L Potassium 4.5 Chloride 96 L Carbon Dioxide 30 Anion Gap 8 BUN 83 H Creatinine 2.32 H Est GFR ( Amer) 25.3 Est GFR (Non-Af Amer) 20.9 BUN/Creatinine Ratio 35.8 H Glucose 286 H POC Glucose (mg/dL) 334 H Calcium 8.5 L Magnesium Total Bilirubin AST ALT Alkaline Phosphatase Troponin I Total Protein Albumin Globulin Albumin/Globulin Ratio Vancomycin Trough 08/23/18 05:57 WBC RBC Hgb Hct MCV MCH MCHC RDW Plt Count MPV Neut % (Auto) Lymph % (Auto) [place] % (Auto) Eos % (Auto) Baso % (Auto) Absolute Neuts (auto) Absolute Lymphs (auto) Absolute Monos (auto) Absolute Eos (auto) Absolute Basos (auto) Absolute Nucleated RBC Nucleated RBC % Sodium Potassium Chloride Carbon Dioxide Anion Gap BUN Creatinine Est GFR ( Amer) Est GFR (Non-Af Amer) BUN/Creatinine Ratio Glucose POC Glucose (mg/dL) 284 H Calcium Magnesium Total Bilirubin AST ALT Alkaline Phosphatase Troponin I Total Protein Albumin Globulin Albumin/Globulin Ratio Vancomycin Trough Studies: TTE 08/20 Conclusions There is normal left ventricular systolic function. The estimated ejection fraction is 60-65%. Global left ventricular wall motion and contractility are within normal limits The left ventricular chamber size is decreased. Mild concentric left ventricular hypertrophy is observed. There is septal flattening of the interventricular septum consistent with right ventricular volume or pressure overload. The right ventricle is moderately dilated. The right ventricular global systolic function is severely reduced. The right atrium is mildly dilated. There is moderate tricuspid regurgitation (TR). There is evidence of moderate pulmonary hypertension. There is mild dilatation of the ascending aorta. SInce the prior echocardiogram completed 12/31/04, pertinent changes are prior normal right ventricular function noted (right ventricle was reported enlarged at that time), prior normal left ventricular size reported, prior TR graded trace, prior normal PA pressure reported and prior normal ascending aortic size reported. LE dopplers 08/20 IMPRESSION: 1. LIMITED EVALUATION OF THE CALF VEINS. 2. EXTENSIVE SUBCUTANEOUS EDEMA WITH A 4.3 CM FLUID COLLECTION IN THE SUBCUTANEOUS SOFT TISSUE OF THE RIGHT GROIN WITHOUT HYPERVASCULARITY. THIS MAY REPRESENT A SEROMA , BLEEDING FROM PREVIOUS VASCULAR ACCESS. ABSCESS IS WITHIN THE DIFFERENTIAL, THOUGH THERE IS NO HYPERVASCULARITY, WALL THICKENING, AND THE FLUID CONTENTS APPEAR SIMPLE. 3. NO RIGHT LOWER EXTREMITY DEEP VEIN THROMBOSIS. 4. NO LEFT LOWER EXTREMITY DEEP VEIN THROMBOSIS. CXR 08/21 IMPRESSION: FINDINGS MOST CONSISTENT WITH CONGESTIVE HEART FAILURE WITH POSSIBLE SUPERIMPOSED PNEUMONIA AT THE LEFT LUNG BASE, UNCHANGED. Impression: 67F with htn, hld, dm, cad, diastolic chf, martha/ohs, asthma/copd not compliant with CPAP, afib, chronic lower extremity edema, ckd presents from the correction with hypoxic respiratory failure 2/2 pna/copd exacerbation. Found to have e. coli in urine, and pseudomonas in blood. Improving. Plan: Neuro - anxiety - c/w ssri CV - htn, hld, cad, diastolic chf, afib - bp ok - afib with borderline rate - not on home ac 2/2 fall risk? - tte with normal ef - will restart home torsemide for diastolic chf pulm - hypoxic resp failure, martha - 2/2 copd - c/w steroids, nebs - bipap at night id - sepsis - 2/2 e coli in urine, pseudomonas in blood - c/w cefepime/azactam - lactic acid normal - f/u cultures gi - diet as tolerated renal - ckd - monitor lytes - monitor i/o - c/w allopurinol heme - monitor cbc endo - dm - fs uncontrolled 2/2 steroids - c/w nph/sliding scale rheum - phemphigoid - c/w plaquenil - wound care lines - piv, bustillo ppx - gi/dvt full code Critical Care Time: 50 mins
[2018-08-23] MEDS: FLUoxetine CAP* 20 MG PO SCH (08:59)
[2018-08-23] MEDS: Ferrous Sulfate TAB* 325 MG PO SCH (08:59)
[2018-08-23] MEDS: Torsemide TAB* 20 MG PO SCH ×2 (08:59→20:03)
[2018-08-23] MEDS: Hydroxychloroquine TAB* 200 MG PO SCH ×2 (08:59→20:03)
[2018-08-23] MEDS: methylPREDNISolone 125 MG* 2 ML VIAL IV SCH ×2 (08:59→20:04)
[2018-08-23] MEDS: guaiFENesin ER TAB 600 MG PO SCH ×2 (08:59→20:04)
[2018-08-23] MEDS: Nicotine PATCH 21 MG/24 HR* PATCH TRANSDERM SCH (09:00)
[2018-08-23] MEDS: Allopurinol TAB* 300 MG PO SCH (10:15)
[2018-08-23] MEDS ORDERED: Vancomycin Trough Check NOTE FOLLOW UP ONE (11:30)
[2018-08-23] MEDS: Cefepime 1 GM in Dextrose(*) 1 GM/50 ML BAG IV SCH (14:36)
[2018-08-23] MEDS: rOPINIRole TAB* 1 MG PO SCH (20:03)
[2018-08-23] MEDS: Senna TAB PO SCH (20:03)
[2018-08-23] MEDS: Nicotine Patch Removal NOTE PATCH OFF SCH (20:04)
[2018-08-23] MEDS: Insulin NPH(*) 1 UNITS UNIT SUBCUT SCH (21:09)
[2018-08-24] MEDS: Albuterol/Ipratropium NEB.SOL* Albuterol 2.5 MG/Ipratropium 0.5 MG 3 ML INH SCH ×4 (01:35→19:15)
[2018-08-24] MEDS: Insulin LISPRO* 1 UNITS UNIT SUBCUT SCH ×6 (03:27→22:11)
[2018-08-24] MEDS: oxyCODONE/Acetamin 5/325 MG* TAB PO PRN ×4 (03:28→21:24)
[2018-08-24] MEDS: Heparin VIAL(*) 5000 UNITS/ML VIAL (FIVE THOUSAND) SUBCUT SCH ×3 (05:37→20:58)
[2018-08-24] MEDS: Aztreonam (*) 1 GM in NS 0.9% 50 ML* 50 ML IVPB SCH (05:37)
[2018-08-24 06:00] LABS: ABS Basophils 0 10^3/ul (0-0.2); ABS Eosinophils 0 10^3/ul (0-0.6); ABS Lymphocytes 0.2 10^3/ul (1.0-4.8); ABS Monocytes 0.2 10^3/ul (0-0.8); ABS Neutrophils 8.6 10^3/ul (1.5-7.7); ABS Nucleated RBC 0 10^3/ul; Eosinophil % 0 %; Hematocrit 31 % (35-47); Hemoglobin 9.7 g/dl (12.0-16.0); Lymphocyte % 1.8 %; Mean Corpuscular HGB Conc 31 g/dl (31-36); Mean Corpuscular Hemoglobin 28 pg (27-31); Mean Corpuscular Volume 88 fL (80-97); Mean Platelet Volume 8.7 fL (7.4-10.4); Nucleated Red Blood Cells % 0.1; Platelet Count 146 10^3/ul (150-450); Red Blood Count 3.52 10^6/ul (4.00-5.40); Red Cell Distribution Width 18 % (10.5-15)
[2018-08-24 06:17] LABS: BUN/Creatinine Ratio 37.1 (8-20); Calcium 9.1 mg/dL (8.6-10.3); EGFR Non-African American 19.4 (>60); Magnesium 2.1 mg/dL (1.9-2.7)
[2018-08-24] MEDS: Mometasone/Formoter 200/5 MDI INH SCH ×2 (07:43→20:06)
[2018-08-24] MEDS: Omeprazole CAP (NF) 20 MG CAP.DR PO SCH (08:22)
[2018-08-24] MEDS: Nicotine PATCH 21 MG/24 HR* PATCH TRANSDERM SCH (09:45)
[2018-08-24] MEDS: FLUoxetine CAP* 20 MG PO SCH (10:04)
[2018-08-24] MEDS: guaiFENesin ER TAB 600 MG PO SCH ×2 (10:04→20:56)
[2018-08-24] MEDS: Hydroxychloroquine TAB* 200 MG PO SCH ×2 (10:04→20:56)
[2018-08-24] MEDS: Ferrous Sulfate TAB* 325 MG PO SCH (10:04)
[2018-08-24] MEDS: Allopurinol TAB* 300 MG PO SCH (10:04)
[2018-08-24] MEDS: Torsemide TAB* 20 MG PO SCH ×2 (10:04→20:58)
[2018-08-24] MEDS: methylPREDNISolone 125 MG* 2 ML VIAL IV SCH (10:06)
[2018-08-24] MEDS ORDERED: Insulin NPH(*) 1 UNITS UNIT SUBCUT ONE (10:17)
--- NOTE | 2018-08-24 10:23 | PN ---
Date of Service: 08/24/18 Critical Care Services: 67F with htn, hld, dm, cad, diastolic chf, martha/ohs, asthma/copd not compliant with CPAP, afib, chronic lower extremity edema, [facility] 2/2 pna/copd exacerbation. Found to have e. coli in urine, and pseudomonas in blood. Improving. 08/23: Feels her breating is improved. Vital Signs: Temp Pulse Resp BP SpO2 FiO2 97.9 F 144 18 122/89 95 30 08/24/18 10:01 08/24/18 10:01 08/24/18 10:01 08/24/18 10:00 08/24/18 10:08/24 07:40 Physical Exam: Gen - acute on chronically ill heent - ncat, eomi, perrl neck - no jvd, no thyromegaly cv - s1/s2, irregular, tachy pulm - +ronchi, +rales abd - soft, nt ext - +chronic venous stasis changes neuro - non-focal Fluid Balance (Past 24 Hours): I= O= Net Intake & Output 08/22/18 08/23/18 08/24/18 08/25/18 06:59 06:59 06:59 06:59 Intake Total 1264 2034 677 Output Total 803 1215 865 Balance 461 819 -188 Weight 105.6 kg 109.6 kg 110.4 kg Intake: IV Fluids 361 617 306 ABX - AZTREONAM 100 NS (0.9%) 361 617 206 IVPB 183 517 91 ABX - AZTREONAM 88 NS (0.9%) 183 429 91 Oral 720 900 280 Output: [place] 803 1215 865 Labs: Laboratory Results - last 24 hr 08/21/18 08/23/18 08/23/18 05:50 14:30 18:21 WBC RBC Hgb Hct MCV MCH MCHC RDW Plt Count MPV Neut % (Auto) Lymph % (Auto) [place] % (Auto) Eos % (Auto) Baso % (Auto) Absolute Neuts (auto) Absolute Lymphs (auto) Absolute Monos (auto) Absolute Eos (auto) Absolute Basos (auto) Absolute Nucleated RBC Nucleated RBC % Sodium Potassium Chloride Carbon Dioxide Anion Gap BUN Creatinine Est GFR ( Amer) Est GFR (Non-Af Amer) BUN/Creatinine Ratio Glucose POC Glucose (mg/dL) 315 H 347 H Calcium Magnesium Crossmatch See Detail 08/23/18 08/24/18 08/24/18 21:01 03:17 05:42 WBC RBC Hgb Hct MCV MCH MCHC RDW Plt Count MPV Neut % (Auto) Lymph % (Auto) [place] % (Auto) Eos % (Auto) Baso % (Auto) Absolute Neuts (auto) Absolute Lymphs (auto) Absolute Monos (auto) Absolute Eos (auto) Absolute Basos (auto) Absolute Nucleated RBC Nucleated RBC % Sodium 132 L Potassium 5.0 Chloride 95 L Carbon Dioxide 29 Anion Gap 8 BUN 92 H Creatinine 2.48 H Est GFR ( Amer) 23.5 Est GFR (Non-Af Amer) 19.4 BUN/Creatinine Ratio 37.1 H Glucose 304 H POC Glucose (mg/dL) 319 H 313 H Calcium 9.1 Magnesium 2.1 Crossmatch 08/24/18 08/24/18 08/24/18 05:42 06:31 09:54 WBC 9.0 RBC 3.52 L Hgb 9.7 L Hct 31 L MCV 88 MCH 28 MCHC 31 RDW 18 H Plt Count 146 L MPV 8.7 Neut % (Auto) 96.0 Lymph % (Auto) 1.8 [place] % (Auto) 2.0 Eos % (Auto) 0 Baso % (Auto) 0.2 Absolute Neuts (auto) 8.6 H Absolute Lymphs (auto) 0.2 L Absolute Monos (auto) 0.2 Absolute Eos (auto) 0 Absolute Basos (auto) 0 Absolute Nucleated RBC 0 Nucleated RBC % 0.1 Sodium Potassium Chloride Carbon Dioxide Anion Gap BUN Creatinine Est GFR ( Amer) Est GFR (Non-Af Amer) BUN/Creatinine Ratio Glucose POC Glucose (mg/dL) 311 H 305 H Calcium Magnesium Crossmatch Studies: TTE 08/20 Conclusions There is normal left ventricular systolic function. The estimated ejection fraction is 60-65%. Global left ventricular wall motion and contractility are within normal limits The left ventricular chamber size is decreased. Mild concentric left ventricular hypertrophy is observed. There is septal flattening of the interventricular septum consistent with right ventricular volume or pressure overload. The right ventricle is moderately dilated. The right ventricular global systolic function is severely reduced. The right atrium is mildly dilated. There is moderate tricuspid regurgitation (TR). There is evidence of moderate pulmonary hypertension. There is mild dilatation of the ascending aorta. SInce the prior echocardiogram completed 12/31/04, pertinent changes are prior normal right ventricular function noted (right ventricle was reported enlarged at that time), prior normal left ventricular size reported, prior TR graded trace, prior normal PA pressure reported and prior normal ascending aortic size reported. LE dopplers 08/20 IMPRESSION: 1. LIMITED EVALUATION OF THE CALF VEINS. 2. EXTENSIVE SUBCUTANEOUS EDEMA WITH A 4.3 CM FLUID COLLECTION IN THE SUBCUTANEOUS SOFT TISSUE OF THE RIGHT GROIN WITHOUT HYPERVASCULARITY. THIS MAY REPRESENT A SEROMA , BLEEDING FROM PREVIOUS VASCULAR ACCESS. ABSCESS IS WITHIN THE DIFFERENTIAL, THOUGH THERE IS NO HYPERVASCULARITY, WALL THICKENING, AND THE FLUID CONTENTS APPEAR SIMPLE. 3. NO RIGHT LOWER EXTREMITY DEEP VEIN THROMBOSIS. 4. NO LEFT LOWER EXTREMITY DEEP VEIN THROMBOSIS. CXR 08/21 IMPRESSION: FINDINGS MOST CONSISTENT WITH CONGESTIVE HEART FAILURE WITH POSSIBLE SUPERIMPOSED PNEUMONIA AT THE LEFT LUNG BASE, UNCHANGED. Impression: 67F with htn, hld, dm, cad, diastolic chf, martha/ohs, asthma/copd not compliant with CPAP, afib, chronic lower extremity edema, ckd [facility] with [facility] respiratory failure 2/2 pna/copd exacerbation. Found to have e. coli in urine, and pseudomonas in blood. Improving. Plan: Neuro - anxiety - c/w ssri CV - htn, hld, cad, diastolic chf, afib - bp ok - afib with rapid rate - start cardizem 30 q6h - not on home ac 2/2 fall risk? - tte with normal ef - torsemide for diastolic chf pulm - hypoxic resp failure, martha - 2/2 copd - c/w steroids, nebs - bipap at night id - sepsis - 2/2 e coli in urine, pseudomonas in blood - c/w cefepime - lactic acid normal - f/u cultures gi - diet as tolerated renal - ckd - monitor lytes - monitor i/o - c/w allopurinol heme - monitor cbc endo - dm - fs uncontrolled 2/2 steroids - c/w nph/sliding scale rheum - phemphigoid - c/w plaquenil - wound care lines - piv, bustillo ppx - gi/dvt full code Critical Care Time: 50 mins
[2018-08-24] MEDS: Diltiazem TAB* 30 MG PO SCH ×3 (10:42→18:47)
[2018-08-24] MEDS ORDERED: Diltiazem TAB* 30 MG ONE (12:15)
[2018-08-24] MEDS: Cefepime 1 GM in Dextrose(*) 1 GM/50 ML BAG IV SCH (13:00)
[2018-08-24] MEDS: Senna TAB PO SCH (20:57)
[2018-08-24] MEDS: rOPINIRole TAB* 1 MG PO SCH (20:57)
[2018-08-24] MEDS: methylPREDNISolone SOD 40 MG* 1 ML VIAL IV SCH (20:57)
[2018-08-24] MEDS: Nicotine Patch Removal NOTE PATCH OFF SCH (20:58)
[2018-08-24] MEDS: Insulin NPH(*) 1 UNITS UNIT SUBCUT SCH (21:22)
[2018-08-25] MEDS: Albuterol/Ipratropium NEB.SOL* Albuterol 2.5 MG/Ipratropium 0.5 MG 3 ML INH SCH ×4 (00:33→21:08)
[2018-08-25] MEDS ORDERED: Furosemide IV* 10 MG/ML 2 ML VIAL (20 MG) IV ONE (00:42)
[2018-08-25] MEDS: Diltiazem TAB* 30 MG PO SCH ×2 (01:01→05:43)
[2018-08-25] MEDS: Heparin VIAL(*) 5000 UNITS/ML VIAL (FIVE THOUSAND) SUBCUT SCH (05:44)
[2018-08-25] MEDS: oxyCODONE/Acetamin 5/325 MG* TAB PO PRN ×2 (07:00→18:26)
[2018-08-25 07:16] LABS: Calcium 9.2 mg/dL (8.6-10.3); Magnesium 2.2 mg/dL (1.9-2.7)
[2018-08-25] MEDS: Mometasone/Formoter 200/5 MDI INH SCH ×2 (07:18→21:08)
[2018-08-25 07:22] LABS: BUN/Creatinine Ratio 35.7 (8-20); EGFR Non-African American 17.4 (>60)
[2018-08-25 07:24] LABS: Potassium 5.5 mmol/L (3.5-5.0)
[2018-08-25] MEDS ORDERED: Sodium Polystyrene ORAL.SOL* 15 GM/60 ML BTL PO ONE (07:50)
[2018-08-25] MEDS ORDERED: Patiromer POWDER* 8.4 GM PAK PO ONE (08:04)
[2018-08-25] MEDS: Insulin LISPRO* 1 UNITS UNIT SUBCUT SCH ×4 (10:19→22:00)
[2018-08-25] MEDS: Nicotine PATCH 21 MG/24 HR* PATCH TRANSDERM SCH ×2 (10:19→10:25)
[2018-08-25] MEDS: methylPREDNISolone SOD 40 MG* 1 ML VIAL IV SCH ×2 (10:19→21:58)
[2018-08-25] MEDS: guaiFENesin ER TAB 600 MG PO SCH ×2 (10:20→22:02)
[2018-08-25] MEDS: Hydroxychloroquine TAB* 200 MG PO SCH ×2 (10:20→22:02)
[2018-08-25] MEDS: Ferrous Sulfate TAB* 325 MG PO SCH (10:20)
[2018-08-25] MEDS: Torsemide TAB* 20 MG PO SCH ×2 (10:20→22:02)
[2018-08-25] MEDS: Allopurinol TAB* 300 MG PO SCH (10:20)
[2018-08-25] MEDS: FLUoxetine CAP* 20 MG PO SCH (10:20)
[2018-08-25] MEDS: Omeprazole CAP (NF) 20 MG CAP.DR PO SCH (10:20)
[2018-08-25] MEDS: Diltiazem CD CAP* 120 MG PO SCH (10:20)
[2018-08-25] MEDS ORDERED: Heparin VIAL(*) 5000 UNITS/ML VIAL (FIVE THOUSAND) ONE ×2 (10:53→18:46)
[2018-08-25] MEDS: Heparin DRIP 25,000 UNITS(*) 25,000 UNITS/500 ML BAG IV SCH ×2 (11:07→18:54)
[2018-08-25] MEDS: Cefepime 1 GM in Dextrose(*) 1 GM/50 ML BAG IV SCH (13:02)
--- NOTE | 2018-08-25 15:05 | PN ---
Subjective Date of Service: 08/25/18 Interval History: HOSPITALIST PROGRESS NOTE Patient seen and examined at bedside. Care reviewed and d/w Eugenio English RN. She feels a little better today, with less dyspnea. Family History: Unchanged from Admission Social History: Unchanged from Admission Past Medical History: Unchanged from Admission Objective Active Medications: Acetaminophen (Tylenol Tab*) 650 mg PO Q6H PRN PRN Reason: FEVER/PAIN Albuterol/Ipratropium (Duoneb (Albuterol 2.5 Mg/Ipratropium 0.5 Mg)) 1 neb INH [id number] AWAKE [facility] Last Admin: 08/25/18 13:11 Dose: 1 neb Allopurinol (Zyloprim Tab*) 300 mg PO DAILY [facility] Last Admin: 08/25/18 10:20 Dose: 300 mg Dextrose (D50w Syringe 50 Ml*) 12.5 gm IV PUSH .FOR FS < 60 - SS PRN PRN Reason: FS < 60 Diltiazem HCl (Cardizem Cd Cap*) 120 mg PO DAILY [facility] Last Admin: 08/25/18 10:20 Dose: 120 mg Ferrous Sulfate (Ferrous Sulfate Tab*) 325 mg PO DAILY [facility] Last Admin: 08/25/18 10:20 Dose: 325 mg Fluoxetine HCl (Prozac Cap*) 40 mg PO DAILY [facility] Last Admin: 08/25/18 10:20 Dose: 40 mg Guaifenesin (Mucinex*) 1,200 mg PO BID [facility] Last Admin: 08/25/18 10:20 Dose: 1,200 mg Heparin Sodium (Porcine) (Heparin Flush Picc/Ml/Cvc(*)) 1 ml FLUSH 0600,1800 [facility]; Protocol Last Admin: 08/25/18 05:44 Dose: 1 ml Hydroxychloroquine Sulfate (Plaquenil Tab*) 200 mg PO BID [facility] Last Admin: 08/25/18 10:20 Dose: 200 mg Cefepime HCl (Maxipime 1 Gm In Dextrose Duplex (*)) 1 gm in 50 mls @ 100 mls/ hr IV Q24H [facility] Last Admin: 08/25/18 13:02 Dose: 100 mls/hr Heparin Sodium/Dextrose (Heparin Drip 25,000 Units(*)) 25,000 units in 500 mls @ 0 mls/hr IV PER RATE [facility]; Protocol Last Admin: 08/25/18 11:07 Dose: 22 mls/hr Insulin Human Lispro (Humalog*) 0 units SUBCUT ACHS [facility]; Protocol Last Admin: 08/25/18 12:43 Dose: 1 units Insulin Human NPH (Insulin Nph(*)) 35 units SUBCUT BEDTIME [facility] Last Admin: 08/24/18 21:22 Dose: 35 unit Methylprednisolone Sodium Succinate (Solu-Medrol 40 Mg) 40 mg IV Q12H [facility] Last Admin: 08/25/18 10:19 Dose: 40 mg Mometasone Furoate/Formoterol Fumar (Dulera 200/5 Mdi*) 2 puff INH BID [facility] Last Admin: 08/25/18 07:18 Dose: 2 puff Nicotine (Nicotine Patch 21 Mg/24 Hr*) 1 patch TRANSDERM DAILY [facility] Last Admin: 08/25/18 10:25 Dose: Not Given Omeprazole (Prilosec Cap*) 20 mg PO DAILY@0730 [facility] Last Admin: 08/25/18 10:20 Dose: 20 mg Ondansetron HCl (Zofran Inj*) 4 mg IV Q6H PRN PRN Reason: NAUSEA Oxycodone/Acetaminophen (Percocet 5/325 Tab*) 1 tab PO Q6H PRN PRN Reason: PAIN Last Admin: 08/25/18 07:00 Dose: 1 tab Pharmacy Profile Note (Nicotine Patch Removal Note*) 1 note PATCH OFF 2099 [facility] Last Admin: 08/24/18 20:58 Dose: Not Given Ropinirole HCl (Requip Tab*) 2 mg PO 2100 [facility] Last Admin: 08/24/18 20:57 Dose: 2 mg Senna (Senokot Tab*) 2 tab PO BEDTIME [facility] Last Admin: 08/24/18 20:57 Dose: 2 tab Torsemide (Demadex*) 20 mg PO BID [facility] Last Admin: 08/25/18 10:20 Dose: 20 mg Vital Signs - 8 hr 08/25/18 08/25/18 08/25/18 07:00 07:18 07:35 Temperature 97.9 F Pulse Rate 115 108 Respiratory 20 20 22 Rate Blood Pressure 111/67 (mmHg) O2 Sat by Pulse 98 94 Oximetry 08/25/18 08/25/18 08/25/18 08:00 10:21 11:35 Temperature 97.9 F Pulse Rate 109 Respiratory 20 18 16 Rate Blood Pressure 115/52 (mmHg) O2 Sat by Pulse 98 Oximetry 08/25/18 13:11 Temperature Pulse Rate 105 Respiratory 20 Rate Blood Pressure (mmHg) O2 Sat by Pulse 97 Oximetry Oxygen Devices in Use Now: Nasal Cannula - 3 liters Appearance: Morbid obese lady sitting up in bed in NAD. Eyes: No Scleral Icterus Ears/Nose/Mouth/Throat: Mucous Membranes Moist Neck: Trachea Midline Respiratory: Symmetrical Chest Expansion and Respiratory Effort, - - BS+ bilaterally with bilateral rhonchi Cardiovascular: - - Normal S1 and S2, irregularly irregular Neurological: Alert and Oriented x 3 Result Diagrams: 08/24/18 05:42 08/25/18 06:41 Microbiology and Other Data: Microbiology 08/21/18 12:52 Aerobic Blood Culture - Preliminary Blood Venous No Growth Day 4 Anaerobic Blood Culture - Preliminary No Growth Day 4 08/20/18 08:54 Aerobic Blood Culture - Final Blood Venous No Growth Day 5 Anaerobic Blood Culture - Final No Growth Day 5 08/20/18 08:54 Aerobic Blood Culture - Final Blood Venous Pseudomonas Aeruginosa Anaerobic Blood Culture - Final No Growth Day 5 08/20/18 14:18 Urine Culture - Final Urine Escherichia Coli Normal Delilah 08/21/18 15:40 Stool Occult Blood (EMEKA) - Final Stool 08/20/18 14:53 Nasal Screen MRSA (PCR) - Final Nasal Mrsa Detected 08/20/18 14:18 Legionella Urinary Antigen - Final Urine Negative Legionella Antigen Streptococcus pneumoniae Ag Screen - Final Negative S. pneumo Antigen 08/20/18 10:30 Influenza Types A,B Antigen - Final Nasopharyngeal Specimen received for Influenza A/B Molecular testing Assess/Plan/Problems-Billing Assessment: Mrs Can is a 67yo F with PMH of COPD, HTN, ENRIQUE, bullous pemphigoid, ENRIQUE, Afib, HLD, anemia, [place] resident, who presented to ED with dyspnea and cough, found to have Pseudomonas septicemia, pneumonia, E. coli UTI. - Patient Problems (1) Sepsis Comment: - Presentation compatible with sepsis on admission with leukocytosis and tachycardia. - qSOFA is 1 (tachypnea). - Source is Pseudomonas pneumonia and E. coli UTI. (2) Acute respiratory failure Comment: - Continue supplemental O2 during the day and BIPAP at night. (3) Pseudomonas pneumonia Comment: - Left lung base infiltrate with blood culture positive for Pseudomonas. - Continue Cefepime. (4) E. coli UTI Comment: - Continue Cefepime. - Check renal US. (5) CKD (chronic kidney disease) stage 3, GFR 30-59 ml/min Comment: - Stage 3, progressing to 4, likely secondary to diabetic nephropathy. - Monitor renal function. (6) COPD (chronic obstructive pulmonary disease) Comment: - Continue bronchodilator and steroids. (7) Afib Comment: - Rate is borderline - continue to monitor for now. - [id number] is 4 - patient states she was on Xarelto in the past and it was discontinued when she had a femoral line placed at [facility] and developed a hematoma - will obtain records. - Heparin drip for now. (8) Type 2 diabetes mellitus Comment: - Continue NPH and Lispro SS. (9) DVT prophylaxis Comment: - Heparin drip. (10) Full code status
[2018-08-25 17:03] LABS: ABS Basophils 0 10^3/ul (0-0.2); ABS Eosinophils 0 10^3/ul (0-0.6); ABS Lymphocytes 0.1 10^3/ul (1.0-4.8); ABS Monocytes 0.2 10^3/ul (0-0.8); ABS Nucleated RBC 0 10^3/ul; Eosinophil % 0 %; Hematocrit 31 % (35-47); Hemoglobin 9.6 g/dl (12.0-16.0); Lymphocyte % 1.7 %; Mean Corpuscular HGB Conc 31 g/dl (31-36); Mean Corpuscular Hemoglobin 27 pg (27-31); Mean Corpuscular Volume 88 fL (80-97); Mean Platelet Volume 8.2 fL (7.4-10.4); Nucleated Red Blood Cells % 0.1; Platelet Count 121 10^3/ul (150-450); Red Blood Count 3.57 10^6/ul (4.00-5.40); Red Cell Distribution Width 18 % (10.5-15); White Blood Count 8.3 10^3/ul (3.5-10.8)
[2018-08-25 17:28] LABS: BUN/Creatinine Ratio 37.2 (8-20); Calcium 9.2 mg/dL (8.6-10.3); EGFR Non-African American 16.7 (>60)
[2018-08-25 17:35] LABS: Potassium 5.3 mmol/L (3.5-5.0)
[2018-08-25] MEDS: Insulin NPH(*) 1 UNITS UNIT SUBCUT SCH (22:01)
[2018-08-25] MEDS: Nicotine Patch Removal NOTE PATCH OFF SCH (22:02)
[2018-08-25] MEDS: Senna TAB PO SCH (22:02)
[2018-08-25] MEDS: rOPINIRole TAB* 1 MG PO SCH (22:02)
[2018-08-26] MEDS: Albuterol/Ipratropium NEB.SOL* Albuterol 2.5 MG/Ipratropium 0.5 MG 3 ML INH SCH ×4 (02:07→20:41)
[2018-08-26] MEDS: Heparin VIAL(*) 5000 UNITS/ML VIAL (FIVE THOUSAND) IV SCH ×2 (02:33→13:41)
[2018-08-26] MEDS ORDERED: Patiromer POWDER* 8.4 GM PAK PO ONE (07:53)
[2018-08-26] MEDS: Heparin DRIP 25,000 UNITS(*) 25,000 UNITS/500 ML BAG IV SCH (07:57)
[2018-08-26] MEDS: Torsemide TAB* 20 MG PO SCH ×2 (08:04→21:40)
[2018-08-26] MEDS: guaiFENesin ER TAB 600 MG PO SCH ×2 (08:04→21:41)
[2018-08-26] MEDS: Ferrous Sulfate TAB* 325 MG PO SCH (08:04)
[2018-08-26] MEDS: Omeprazole CAP (NF) 20 MG CAP.DR PO SCH (08:04)
[2018-08-26] MEDS: Allopurinol TAB* 300 MG PO SCH (08:04)
[2018-08-26] MEDS: Hydroxychloroquine TAB* 200 MG PO SCH ×2 (08:04→21:41)
[2018-08-26] MEDS: FLUoxetine CAP* 20 MG PO SCH (08:04)
[2018-08-26] MEDS: Diltiazem CD CAP* 120 MG PO SCH (08:04)
[2018-08-26] MEDS: oxyCODONE/Acetamin 5/325 MG* TAB PO PRN ×2 (08:14→19:24)
[2018-08-26] MEDS: methylPREDNISolone SOD 40 MG* 1 ML VIAL IV SCH ×2 (08:14→21:37)
[2018-08-26] MEDS: Mometasone/Formoter 200/5 MDI INH SCH ×2 (09:37→20:11)
[2018-08-26] MEDS: Insulin LISPRO* 1 UNITS UNIT SUBCUT SCH ×4 (09:43→21:39)
[2018-08-26 12:37] LABS: ABS Basophils 0 10^3/ul (0-0.2); ABS Eosinophils 0 10^3/ul (0-0.6); ABS Lymphocytes 0.1 10^3/ul (1.0-4.8); ABS Monocytes 0.1 10^3/ul (0-0.8); ABS Neutrophils 7.8 10^3/ul (1.5-7.7); ABS Nucleated RBC 0 10^3/ul; Eosinophil % 0.1 %; Hematocrit 31 % (35-47); Hemoglobin 9.6 g/dl (12.0-16.0); Lymphocyte % 1.5 %; Mean Corpuscular HGB Conc 31 g/dl (31-36); Mean Corpuscular Hemoglobin 27 pg (27-31); Mean Corpuscular Volume 87 fL (80-97); Mean Platelet Volume 8.5 fL (7.4-10.4); Nucleated Red Blood Cells % 0.1; Platelet Count 125 10^3/ul (150-450); Red Blood Count 3.59 10^6/ul (4.00-5.40); Red Cell Distribution Width 18 % (10.5-15)
[2018-08-26] MEDS: Nicotine PATCH 21 MG/24 HR* PATCH TRANSDERM SCH (12:38)
[2018-08-26] MEDS: Insulin NPH(*) 1 UNITS UNIT SUBCUT SCH ×2 (13:21→21:39)
[2018-08-26] MEDS: Cefepime 1 GM in Dextrose(*) 1 GM/50 ML BAG IV SCH (14:02)
--- NOTE | 2018-08-26 16:21 | PN ---
Subjective Date of Service: 08/26/18 Interval History: HOSPITALIST PROGRESS NOTE Patient seen and examined at bedside. Care reviewed and d/w Enoc Mosher RN. She offers no new complaints today. Continues to have generalized pain. Family History: Unchanged from Admission Social History: Unchanged from Admission Past Medical History: Unchanged from Admission Objective Active Medications: Acetaminophen (Tylenol Tab*) 650 mg PO Q6H PRN PRN Reason: FEVER/PAIN Albuterol/Ipratropium (Duoneb (Albuterol 2.5 Mg/Ipratropium 0.5 Mg)) 1 neb INH [id number] AWAKE [facility] Last Admin: 08/26/18 13:22 Dose: 1 neb Allopurinol (Zyloprim Tab*) 300 mg PO DAILY [facility] Last Admin: 08/26/18 08:04 Dose: 300 mg Dextrose (D50w Syringe 50 Ml*) 12.5 gm IV PUSH .FOR FS < 60 - SS PRN PRN Reason: FS < 60 Diltiazem HCl (Cardizem Cd Cap*) 120 mg PO DAILY [facility] Last Admin: 08/26/18 08:04 Dose: 120 mg Ferrous Sulfate (Ferrous Sulfate Tab*) 325 mg PO DAILY [facility] Last Admin: 08/26/18 08:04 Dose: 325 mg Fluoxetine HCl (Prozac Cap*) 40 mg PO DAILY [facility] Last Admin: 08/26/18 08:04 Dose: 40 mg Guaifenesin (Mucinex*) 1,200 mg PO BID [facility] Last Admin: 08/26/18 08:04 Dose: 1,200 mg Heparin Sodium (Porcine) (Heparin Flush Picc/Ml/Cvc(*)) 1 ml FLUSH 0600,1800 [facility]; Protocol Last Admin: 08/26/18 08:22 Dose: Not Given Heparin Sodium (Porcine) (Heparin Vial(*)) 0 units IV .PER PROTOCOL [facility] Last Admin: 08/26/18 13:41 Dose: 5,100 units Hydroxychloroquine Sulfate (Plaquenil Tab*) 200 mg PO BID [facility] Last Admin: 08/26/18 08:04 Dose: 200 mg Cefepime HCl (Maxipime 1 Gm In Dextrose Duplex (*)) 1 gm in 50 mls @ 100 mls/ hr IV Q24H [facility] Last Admin: 08/26/18 14:02 Dose: 100 mls/hr Insulin Human Lispro (Humalog*) 0 units SUBCUT ACHS [facility]; Protocol Last Admin: 08/26/18 13:21 Dose: 1 units Insulin Human NPH (Insulin Nph(*)) 35 units SUBCUT BEDTIME [facility] Last Admin: 08/25/18 22:01 Dose: 35 unit Insulin Human NPH (Insulin Nph(*)) 20 units SUBCUT QAM [facility] Last Admin: 08/26/18 13:21 Dose: 20 units Methylprednisolone Sodium Succinate (Solu-Medrol 40 Mg) 40 mg IV Q12H [facility] Last Admin: 08/26/18 08:14 Dose: 40 mg Mometasone Furoate/Formoterol Fumar (Dulera 200/5 Mdi*) 2 puff INH BID [facility] Last Admin: 08/26/18 09:37 Dose: 2 puff Nicotine (Nicotine Patch 21 Mg/24 Hr*) 1 patch TRANSDERM DAILY [facility] Last Admin: 08/26/18 12:38 Dose: Not Given Omeprazole (Prilosec Cap*) 20 mg PO DAILY@0730 [facility] Last Admin: 08/26/18 08:04 Dose: 20 mg Ondansetron HCl (Zofran Inj*) 4 mg IV Q6H PRN PRN Reason: NAUSEA Oxycodone/Acetaminophen (Percocet 5/325 Tab*) 1 tab PO Q6H PRN PRN Reason: PAIN Last Admin: 08/26/18 08:14 Dose: 1 tab Pharmacy Profile Note (Nicotine Patch Removal Note*) 1 note PATCH OFF 2100 [facility] Last Admin: 08/25/18 22:02 Dose: Not Given Ropinirole HCl (Requip Tab*) 2 mg PO 2100 [facility] Last Admin: 08/25/18 22:02 Dose: 2 mg Senna (Senokot Tab*) 2 tab PO BEDTIME [facility] Last Admin: 08/25/18 22:02 Dose: 2 tab Torsemide (Demadex*) 20 mg PO BID [facility] Last Admin: 08/26/18 08:04 Dose: 20 mg Vital Signs - 8 hr 08/26/18 08/26/18 12:30 13:25 Pulse Rate 109 Respiratory 20 20 Rate O2 Sat by Pulse 99 Oximetry Oxygen Devices in Use Now: Nasal Cannula - 3 liters Appearance: Elderly morbid obese lady lying in bed in NAD Eyes: No Scleral Icterus Ears/Nose/Mouth/Throat: Mucous Membranes Moist Neck: Trachea Midline Respiratory: Symmetrical Chest Expansion and Respiratory Effort, - - BS+ bilaterally coarse with crackles Cardiovascular: - - Normal S1 and S2, irregular Neurological: Alert and Oriented x 3 Result Diagrams: 08/26/18 12:17 08/25/18 16:50 Assess/Plan/Problems-Billing Assessment: Mrs Can is a 67yo F with PMH of COPD, HTN, ENRIQUE, bullous pemphigoid, ENRIQUE, Afib, HLD, anemia, HFpEF, CHELLE, tophaceous gout, seropositive RA, PAF, mitral regurgitation, morbid obesity with BMI 46, CKD stage 4, [facility], [place] resident, who presented to ED with dyspnea and cough, found to have Pseudomonas septicemia, pneumonia, E. coli UTI. - Patient Problems (1) Sepsis Comment: - Presentation compatible with sepsis on admission with leukocytosis and tachycardia. - qSOFA is 1 (tachypnea). - Source is Pseudomonas pneumonia and E. coli UTI. (2) Acute respiratory failure Comment: - Continue supplemental O2 during the day and BIPAP at night. (3) Pseudomonas pneumonia Comment: - Left lung base infiltrate with blood culture positive for Pseudomonas. - Continue Cefepime #6. (4) E. coli UTI Comment: - Continue Cefepime. - Renal US limited but no hydronephrosis. - ID consult requested. (5) CKD (chronic kidney disease) stage 3, GFR 30-59 ml/min Comment: - Stage 3, progressing to 4, likely secondary to diabetic nephropathy. - Monitor renal function. (6) COPD (chronic obstructive pulmonary disease) Comment: - Continue bronchodilator and steroids. (7) Afib Comment: - Rate is borderline - continue to monitor for now. - [id number] is 4 - patient states she was on Xarelto in the past and it was discontinued when she had a femoral line placed at [facility] and developed a hematoma. - Records from [place] reviewed - patient had a complex and prolonged hospital stay in December 2017. She was on the found on the floor after a fall >48h. Admitted with septic shock, bilateral thigh cellulitis, multiple decubitus ulcers, ELOY with creatinine 5.5, requiring ICU stay. Admission complicated by large femoral hematoma where TLC had been placed. Xarelto was held during admission but resumed on discharge, so unclear why she's not on it now - will contact Eligio. - Her PTT is not trending up despite multiple bolus of IV heparin - will d/c it for now. If no contraindication found, she may be a candidate for Eliquis now. - Heparin drip for now. (8) Type 2 diabetes mellitus Comment: - Continue NPH and Lispro SS. (9) DVT prophylaxis Comment: - Heparin drip. (10) Full code status
[2018-08-26] MEDS: Heparin VIAL(*) 5000 UNITS/ML VIAL (FIVE THOUSAND) SUBCUT SCH (21:36)
[2018-08-26] MEDS: rOPINIRole TAB* 1 MG PO SCH (21:40)
[2018-08-26] MEDS: Senna TAB PO SCH (21:40)
[2018-08-26] MEDS: Nicotine Patch Removal NOTE PATCH OFF SCH (21:41)
[2018-08-27] MEDS: Albuterol/Ipratropium NEB.SOL* Albuterol 2.5 MG/Ipratropium 0.5 MG 3 ML INH SCH ×4 (01:31→17:58)
[2018-08-27] MEDS: Heparin VIAL(*) 5000 UNITS/ML VIAL (FIVE THOUSAND) SUBCUT SCH ×3 (05:16→21:06)
[2018-08-27] MEDS: Mometasone/Formoter 200/5 MDI INH SCH ×3 (07:48→20:29)
[2018-08-27] MEDS: Insulin LISPRO* 1 UNITS UNIT SUBCUT SCH ×4 (08:19→21:06)
[2018-08-27] MEDS: Nicotine PATCH 21 MG/24 HR* PATCH TRANSDERM SCH (09:22)
[2018-08-27] MEDS: methylPREDNISolone SOD 40 MG* 1 ML VIAL IV SCH ×2 (09:22→21:06)
[2018-08-27] MEDS: Insulin NPH(*) 1 UNITS UNIT SUBCUT SCH ×2 (09:23→21:07)
[2018-08-27] MEDS: Allopurinol TAB* 300 MG PO SCH (09:24)
[2018-08-27] MEDS: Ferrous Sulfate TAB* 325 MG PO SCH (09:24)
[2018-08-27] MEDS: Hydroxychloroquine TAB* 200 MG PO SCH ×2 (09:24→21:08)
[2018-08-27] MEDS: guaiFENesin ER TAB 600 MG PO SCH ×2 (09:25→21:07)
[2018-08-27] MEDS: Diltiazem CD CAP* 120 MG PO SCH (09:25)
[2018-08-27] MEDS: oxyCODONE/Acetamin 5/325 MG* TAB PO PRN ×2 (09:25→16:03)
[2018-08-27] MEDS: Omeprazole CAP (NF) 20 MG CAP.DR PO SCH (09:26)
[2018-08-27] MEDS: Torsemide TAB* 20 MG PO SCH ×2 (09:26→21:07)
[2018-08-27] MEDS: FLUoxetine CAP* 20 MG PO SCH (09:26)
[2018-08-27 10:15] LABS: ABS Basophils 0 10^3/ul (0-0.2); ABS Eosinophils 0 10^3/ul (0-0.6); ABS Lymphocytes 0.1 10^3/ul (1.0-4.8); ABS Monocytes 0.1 10^3/ul (0-0.8); ABS Neutrophils 9.7 10^3/ul (1.5-7.7); ABS Nucleated RBC 0 10^3/ul; Eosinophil % 0 %; Hematocrit 31 % (35-47); Hemoglobin 9.8 g/dl (12.0-16.0); Lymphocyte % 1.5 %; Mean Corpuscular HGB Conc 32 g/dl (31-36); Mean Corpuscular Hemoglobin 28 pg (27-31); Mean Corpuscular Volume 87 fL (80-97); Mean Platelet Volume 8.2 fL (7.4-10.4); Nucleated Red Blood Cells % 0.2; Platelet Count 137 10^3/ul (150-450); Red Blood Count 3.55 10^6/ul (4.00-5.40); Red Cell Distribution Width 18 % (10.5-15)
[2018-08-27 10:37] LABS: BUN/Creatinine Ratio 39.9 (8-20); EGFR Non-African American 17.7 (>60); Potassium 4.9 mmol/L (3.5-5.0)
[2018-08-27] MEDS: Cefepime 1 GM in Dextrose(*) 1 GM/50 ML BAG IV SCH (13:07)
--- NOTE | 2018-08-27 15:17 | PN ---
Subjective Date of Service: 08/27/18 Interval History: HOSPITALIST PROGRESS NOTE Patient seen and examined at bedside. Care reviewed and d/w Elizabeth Stoner RN. She offers no new complaints today. Breathing and pain are unchanged. Family History: Unchanged from Admission Social History: Unchanged from Admission Past Medical History: Unchanged from Admission Objective Active Medications: Acetaminophen (Tylenol Tab*) 650 mg PO Q6H PRN PRN Reason: FEVER/PAIN Albuterol/Ipratropium (Duoneb (Albuterol 2.5 Mg/Ipratropium 0.5 Mg)) 1 neb INH [id number] AWAKE [facility] Last Admin: 08/27/18 13:28 Dose: 1 neb Allopurinol (Zyloprim Tab*) 300 mg PO DAILY [facility] Last Admin: 08/27/18 09:24 Dose: 300 mg Dextrose (D50w Syringe 50 Ml*) 12.5 gm IV PUSH .FOR FS < 60 - SS PRN PRN Reason: FS < 60 Diltiazem HCl (Cardizem Cd Cap*) 120 mg PO DAILY [facility] Last Admin: 08/27/18 09:25 Dose: 120 mg Ferrous Sulfate (Ferrous Sulfate Tab*) 325 mg PO DAILY [facility] Last Admin: 08/27/18 09:24 Dose: 325 mg Fluoxetine HCl (Prozac Cap*) 40 mg PO DAILY [facility] Last Admin: 08/27/18 09:26 Dose: 40 mg Guaifenesin (Mucinex*) 1,200 mg PO BID [facility] Last Admin: 08/27/18 09:25 Dose: 1,200 mg Heparin Sodium (Porcine) (Heparin Flush Picc/Ml/Cvc(*)) 1 ml FLUSH 0600,1800 [facility]; Protocol Last Admin: 08/27/18 05:14 Dose: Not Given Heparin Sodium (Porcine) (Heparin Vial(*)) 5,000 units SUBCUT Q8HR [facility] Last Admin: 08/27/18 05:16 Dose: 5,000 units Hydroxychloroquine Sulfate (Plaquenil Tab*) 200 mg PO BID [facility] Last Admin: 08/27/18 09:24 Dose: 200 mg Cefepime HCl (Maxipime 1 Gm In Dextrose Duplex (*)) 1 gm in 50 mls @ 100 mls/ hr IV Q24H [facility] Stop: 08/28/18 15:00 Last Admin: 08/27/18 13:07 Dose: 100 mls/hr Insulin Human Lispro (Humalog*) 0 units SUBCUT ACHS [facility]; Protocol Last Admin: 08/27/18 13:07 Dose: 2 units Insulin Human NPH (Insulin Nph(*)) 35 units SUBCUT BEDTIME [facility] Last Admin: 08/26/18 21:39 Dose: 35 unit Insulin Human NPH (Insulin Nph(*)) 20 units SUBCUT QAM [facility] Last Admin: 08/27/18 09:23 Dose: 20 units Methylprednisolone Sodium Succinate (Solu-Medrol 40 Mg) 40 mg IV Q12H [facility] Last Admin: 08/27/18 09:22 Dose: 40 mg Mometasone Furoate/Formoterol Fumar (Dulera 200/5 Mdi*) 2 puff INH BID [facility] Last Admin: 08/27/18 07:48 Dose: 2 puff Nicotine (Nicotine Patch 21 Mg/24 Hr*) 1 patch TRANSDERM DAILY [facility] Last Admin: 08/27/18 09:22 Dose: Not Given Omeprazole (Prilosec Cap*) 20 mg PO DAILY@0730 [facility] Last Admin: 08/27/18 09:26 Dose: 20 mg Ondansetron HCl (Zofran Inj*) 4 mg IV Q6H PRN PRN Reason: NAUSEA Oxycodone/Acetaminophen (Percocet 5/325 Tab*) 1 tab PO Q6H PRN PRN Reason: PAIN Last Admin: 08/27/18 09:25 Dose: 1 tab Pharmacy Profile Note (Nicotine Patch Removal Note*) 1 note PATCH OFF 2099 [facility] Last Admin: 08/26/18 21:41 Dose: Not Given Ropinirole HCl (Requip Tab*) 2 mg PO 2100 [facility] Last Admin: 08/26/18 21:40 Dose: 2 mg Senna (Senokot Tab*) 2 tab PO BEDTIME [facility] Last Admin: 08/26/18 21:40 Dose: 2 tab Torsemide (Demadex*) 20 mg PO BID [facility] Last Admin: 08/27/18 09:26 Dose: 20 mg Vital Signs - 8 hr 08/27/18 08/27/18 08/27/18 07:41 07:51 09:25 Temperature 97.4 F Pulse Rate 113 112 Respiratory 18 18 20 Rate Blood Pressure 134/77 (mmHg) O2 Sat by Pulse 100 Oximetry 08/27/18 08/27/18 08/27/18 12:23 13:12 13:30 Temperature 98.1 F Pulse Rate 110 110 Respiratory 18 20 17 Rate Blood Pressure 123/73 (mmHg) O2 Sat by Pulse 97 93 Oximetry Oxygen Devices in Use Now: Nasal Cannula - 3 liters Appearance: Elderly morbid obese lady lying in bed in NAD Eyes: No Scleral Icterus Ears/Nose/Mouth/Throat: Mucous Membranes Moist Neck: Trachea Midline Respiratory: Symmetrical Chest Expansion and Respiratory Effort, - - BS+ bilaterally with scattered rhonchi Cardiovascular: - - Normal S1 and S2, irregular Extremities: - - Bilateral LE edema with chronic skin changes; RA deformities Skin: - - Multiple bruises in different stages of healing Neurological: Alert and Oriented x 3 Result Diagrams: 08/27/18 10:00 08/27/18 10:00 Assess/Plan/Problems-Billing Assessment: Mrs Can is a 67yo F with PMH of COPD, HTN, ENRIQUE, bullous pemphigoid, ENRIQUE, Afib, HLD, anemia, HFpEF, CHELLE, tophaceous gout, seropositive RA, PAF, mitral regurgitation, morbid obesity with BMI 46, CKD stage 4, [facility] resident, who presented to ED with dyspnea and cough, found to have Pseudomonas septicemia, pneumonia, E. coli UTI. - Patient Problems (1) Sepsis Comment: - Presentation compatible with sepsis on admission with leukocytosis and tachycardia. - qSOFA was 1 (tachypnea). - Source is Pseudomonas pneumonia and E. coli UTI. (2) Acute respiratory failure Comment: - Continue supplemental O2 during the day and BIPAP at night. (3) Pseudomonas pneumonia Comment: - Left lung base infiltrate with blood culture positive for Pseudomonas. - Continue Cefepime #7. - ID consult requested. (4) E. coli UTI Comment: - Continue Cefepime. - Renal US limited but no hydronephrosis. - ID consult requested. (5) CKD (chronic kidney disease) stage 3, GFR 30-59 ml/min Comment: - Stage 3, progressing to 4, likely secondary to diabetic nephropathy. - Monitor renal function. (6) COPD (chronic obstructive pulmonary disease) Comment: - Continue bronchodilator and steroids. (7) Afib Comment: - Rate is borderline - will increase Diltiazem to 180mg/day and continue to monitor. - [id number] is 4 - patient states she was on Xarelto in the past and it was discontinued when she had a femoral line placed at [facility] and developed a hematoma. - Records from [place] reviewed - patient had a complex and prolonged hospital stay in December 2017. She was found on the floor after a fall >48h. Admitted with septic shock, bilateral thigh cellulitis, multiple decubitus ulcers, ELOY with creatinine 5.5, requiring ICU stay. Admission complicated by large femoral hematoma where TLC had been placed. Xarelto was held during admission but resumed on discharge, so unclear why she's not on it now. - Contacted Chrissy Sauer nursing techn at [facility] - patient has been there since end of December when she was discharged from [facility]. She was on Xarelto initially but it is unclear why it was discontinued - she'll fax records. Will not start other form of anticoagulation until reason for stopping it is clarified. (8) Type 2 diabetes mellitus Comment: - Increase NPH and continue Lispro SS. (9) DVT prophylaxis Comment: - SQ heparin. (10) Full code status
--- NOTE | 2018-08-27 15:21 | CONS ---
CONSULTATION REPORT: DATE OF CONSULT: 08/27/18 REQUESTING PHYSICIAN: Dr. Fortune. CONSULTING SERVICE: Infectious Disease. REASON FOR CONSULT: Pseudomonas bacteremia. IMPRESSION: 1. Pseudomonas pneumonia in 08/28 blood culture. Blood was drawn in the setting of fever and chronic pulmonary obstructive disease exacerbation. She does have a left lower lobe infiltrate. Given her chronic pulmonary issues, I think Pseudomonas pneumonia is most likely. She has no other prosthetic material present and no abdominal symptoms to suggest another sources. 2. Escherichia coli urinary tract infection. 3. Chronic obstructive pulmonary disease, acute on chronic, exacerbation. 4. Morbid obesity with obesity hypoventilation. RECOMMENDATIONS: She has had 8 days of cefepime. We will plan to give her 1 more dose then stop the medicine, to cover her for 10 days. She is having corticosteroid tapered by hospitalist and pulmonology. HISTORY OF PRESENT ILLNESS: This is a 67-year-old woman brought from [facility] with increasing O2 requirement. Admission chest x-ray showed bilateral changes suggestive of pulmonary edema and then a left lobe infiltrate. Blood cultures 1 of 4 growing pseudomonas. She could not produce a sputum sample. A followup culture on 08/21/18 is negative in the blood. A urine culture is growing E. coli. Urine Legionella and pneumococcal antigens are negative. Influenza PCR negative. Her breathing, she states is a little better. No cough or chest pain. She overall feels lousy. PAST MEDICAL HISTORY: 1. COPD. 2. Sleep apnea and obesity hypoventilation. 3. Hypertension. 4. Chronic kidney disease. 5. Bullous pemphigoid, on chronic corticosteroids. 6. Paroxysmal atrial fibrillation. 7. Hyperlipidemia. 8. Iron-deficiency anemia. 9. Hypertension. 10. Right bundle-branch block. 11. Status post appendectomy. 12. Status post tonsillectomy and adenoidectomy. 13. Status post gastroplasty. MEDICATIONS: 1. Tylenol. 2. Allopurinol. 3. Albuterol. 4. Diltiazem. 5. Ferrous sulfate. 6. Fluoxetine. 7. Heparin flush through a PICC line. 8. Heparin subcutaneous injection. 9. Plaquenil. 10. Cefepime 1 g once a day. 11. Methylprednisolone 40 mg twice daily. 12. Nicotine patch. 13. Omeprazole. 14. Ropinirole. 5. Torsemide. 16. Senna. ALLERGIES: BUPROPION, LEVAQUIN, and STATIN. SOCIAL HISTORY: She lives at [facility]. She is a past smoker. No alcohol. FAMILY HISTORY: No recurrent infections. REVIEW OF SYSTEMS: All negative except 14-point review of systems except as noted above in the history of present illness. PHYSICAL EXAM: Vital Signs: Temperature 36.4, heart rate 110, respiratory rate 16, blood pressure 126/69, oxygen saturation 100% on 3 L, FiO2 of 32. In general, she is awake, not in distress. HEENT: There is no conjunctival hemorrhage. Oropharynx: Without lesions. Neck is supple without mass. Heart is regular and tachycardic without murmurs. Lungs: Coarse breath sounds bilaterally without wheeze or rale. Abdomen: Soft, obese, nontender, nondistended. Skin: There is no rash or splinter hemorrhage. She has some bruising on her arms. Musculoskeletal: There is no spine tenderness to palpation or joint synovitis. LABORATORY DATA: White blood cell count 10, hemoglobin 9, platelets 137. Creatinine 2.6, BUN 107. Urinalysis on admission showed blood and leukocyte esterase. Influenza PCR negative. Please see impressions and recommendations outlined above, which I have discussed with Dr. Fortune. Thank you for asking me to see Sha Juan José in consultation. [id number]/[facility] #: [id number] JUNIOR
[2018-08-27] MEDS ORDERED: Diltiazem TAB* 60 MG PO ONE (15:23)
[2018-08-27] MEDS: Senna TAB PO SCH (21:08)
[2018-08-27] MEDS: rOPINIRole TAB* 1 MG PO SCH (21:08)
[2018-08-27] MEDS: Nicotine Patch Removal NOTE PATCH OFF SCH (21:09)
[2018-08-28] MEDS: Albuterol/Ipratropium NEB.SOL* Albuterol 2.5 MG/Ipratropium 0.5 MG 3 ML INH SCH ×4 (01:11→17:37)
[2018-08-28] MEDS: Heparin VIAL(*) 5000 UNITS/ML VIAL (FIVE THOUSAND) SUBCUT SCH ×3 (05:48→21:16)
[2018-08-28] MEDS: Mometasone/Formoter 200/5 MDI INH SCH ×4 (06:22→19:08)
[2018-08-28] MEDS: FLUoxetine CAP* 20 MG PO SCH (08:57)
[2018-08-28] MEDS: Hydroxychloroquine TAB* 200 MG PO SCH ×2 (08:57→21:15)
[2018-08-28] MEDS: guaiFENesin ER TAB 600 MG PO SCH ×2 (08:57→21:15)
[2018-08-28] MEDS: Ferrous Sulfate TAB* 325 MG PO SCH (08:57)
[2018-08-28] MEDS: methylPREDNISolone SOD 40 MG* 1 ML VIAL IV SCH ×2 (08:57→17:01)
[2018-08-28] MEDS: Allopurinol TAB* 300 MG PO SCH (08:57)
[2018-08-28] MEDS: Torsemide TAB* 20 MG PO SCH ×2 (08:57→21:15)
[2018-08-28] MEDS: Diltiazem CD CAP* 180 MG PO SCH (08:57)
[2018-08-28] MEDS: Omeprazole CAP (NF) 20 MG CAP.DR PO SCH (08:58)
[2018-08-28] MEDS: Insulin NPH(*) 1 UNITS UNIT SUBCUT SCH ×2 (08:59→21:16)
[2018-08-28] MEDS: Nicotine PATCH 21 MG/24 HR* PATCH TRANSDERM SCH (08:59)
[2018-08-28] MEDS: Nystatin TOP POWDER* 15 GM BTL TOPICAL SCH ×2 (09:00→22:12)
[2018-08-28] MEDS: Insulin LISPRO* 1 UNITS UNIT SUBCUT SCH ×4 (09:00→21:16)
[2018-08-28 10:56] LABS: ABS Basophils 0.1 10^3/ul (0-0.2); ABS Eosinophils 0 10^3/ul (0-0.6); ABS Lymphocytes 0.2 10^3/ul (1.0-4.8); ABS Monocytes 0.2 10^3/ul (0-0.8); ABS Neutrophils 8.9 10^3/ul (1.5-7.7); ABS Nucleated RBC 0 10^3/ul; Eosinophil % 0.2 %; Hematocrit 32 % (35-47); Hemoglobin 9.8 g/dl (12.0-16.0); Lymphocyte % 1.8 %; Mean Corpuscular HGB Conc 31 g/dl (31-36); Mean Corpuscular Hemoglobin 27 pg (27-31); Mean Corpuscular Volume 88 fL (80-97); Mean Platelet Volume 8.2 fL (7.4-10.4); Nucleated Red Blood Cells % 0.1; Platelet Count 132 10^3/ul (150-450); Red Blood Count 3.65 10^6/ul (4.00-5.40); Red Cell Distribution Width 18 % (10.5-15); White Blood Count 9.4 10^3/ul (3.5-10.8)
[2018-08-28 12:05] LABS: TSH (Thyroid Stimulating Horm) 0.23 mcIU/mL (0.34-5.60)
[2018-08-28] MEDS: Cefepime 1 GM in Dextrose(*) 1 GM/50 ML BAG IV SCH (12:20)
[2018-08-28] MEDS: Docusate CAP* 100 MG PO PRN (12:20)
[2018-08-28] MEDS: Polyethylene Glycol 3350* 17 GM PACKET PO PRN (12:20)
[2018-08-28 12:37] LABS: Potassium 5.5 mmol/L (3.5-5.0)
[2018-08-28 12:39] LABS: Albumin 3.3 g/dL (3.2-5.2); Total Bilirubin 0.4 mg/dL (0.2-1.0)
[2018-08-28 12:46] LABS: Albumin/Globulin Ratio 1.7 (1-3); BUN/Creatinine Ratio 41.8 (8-20); EGFR Non-African American 17.7 (>60); Phosphorus 6.3 mg/dL (2.5-5.0); Total Protein 5.3 g/dL (6.4-8.9)
[2018-08-28 12:52] LABS: Urine Creatinine Concentration 14.08 mg/dL
--- NOTE | 2018-08-28 16:47 | PN ---
Subjective Date of Service: 08/28/18 Interval History: Pt seen and examined. Meds and labs reviewed. CC: N/A ROS: Denied FLANAGAN/dizziness, F/C, N/V, CP, SOB, increased cough, sputum production , abd pain, diarrhea, constipation, dysuria, myalgias, arthralgias, throat pain , and new skin lesions. The rest of the 14 point ROS are unremarkable. PHYSICAL EXAM: GEN APPEARANCE: Awake, not in acute distress HEENT: NC/AT, PERRLA, moist oral mucosa, (-) throat erythema NECK: Soft, supple, (-) cervical LAD, (-)JVD HEART: S1S2 WNL, RRR, No MRG CHEST: CTA, BL, GAE, No W/R/R ABD: Soft, ND/NT, NABS 4x Q EXT: No C/C/E SKIN: Warm to touch PSYCH: No active psychosis, hallucinations, depression, SI/HI Family History: Unchanged from Admission Social History: Unchanged from Admission Past Medical History: Unchanged from Admission Objective Active Medications: Acetaminophen (Tylenol Tab*) 650 mg PO Q6H PRN PRN Reason: FEVER/PAIN Albuterol/Ipratropium (Duoneb (Albuterol 2.5 Mg/Ipratropium 0.5 Mg)) 1 neb INH [id number] AWAKE [facility] Last Admin: 08/28/18 11:47 Dose: 1 neb Allopurinol (Zyloprim Tab*) 300 mg PO DAILY [facility] Last Admin: 08/28/18 08:57 Dose: 300 mg Dextrose (D50w Syringe 50 Ml*) 12.5 gm IV PUSH .FOR FS < 60 - SS PRN PRN Reason: FS < 60 Diltiazem HCl (Cardizem Cd Cap*) 180 mg PO DAILY [facility] Last Admin: 08/28/18 08:57 Dose: 180 mg Docusate Sodium (Colace Cap*) 200 mg PO DAILY PRN PRN Reason: CONSTIPATION Last Admin: 08/28/18 12:20 Dose: 200 mg Ferrous Sulfate (Ferrous Sulfate Tab*) 325 mg PO DAILY [facility] Last Admin: 08/28/18 08:57 Dose: 325 mg Fluoxetine HCl (Prozac Cap*) 40 mg PO DAILY [facility] Last Admin: 08/28/18 08:57 Dose: 40 mg Guaifenesin (Mucinex*) 1,200 mg PO BID [facility] Last Admin: 08/28/18 08:57 Dose: 1,200 mg Heparin Sodium (Porcine) (Heparin Flush Picc/Ml/Cvc(*)) 1 ml FLUSH 0600,1800 [facility]; Protocol Last Admin: 08/28/18 05:48 Dose: 1 ml Heparin Sodium (Porcine) (Heparin Vial(*)) 5,000 units SUBCUT Q8HR [facility] Last Admin: 08/28/18 13:25 Dose: 5,000 units Hydroxychloroquine Sulfate (Plaquenil Tab*) 200 mg PO BID [facility] Last Admin: 08/28/18 08:57 Dose: 200 mg Insulin Human Lispro (Humalog*) 0 units SUBCUT ACHS [facility]; Protocol Last Admin: 08/28/18 12:20 Dose: 1 units Insulin Human NPH (Insulin Nph(*)) 50 units SUBCUT BEDTIME [facility] Last Admin: 08/27/18 21:07 Dose: 50 units Insulin Human NPH (Insulin Nph(*)) 30 units SUBCUT QAM [facility] Last Admin: 08/28/18 08:59 Dose: 30 unit Methylprednisolone Sodium Succinate (Solu-Medrol 40 Mg) 30 mg IV Q12H [facility] Mometasone Furoate/Formoterol Fumar (Dulera 200/5 Mdi*) 2 puff INH BID [facility] Last Admin: 08/28/18 07:49 Dose: Not Given Nicotine (Nicotine Patch 21 Mg/24 Hr*) 1 patch TRANSDERM DAILY [facility] Last Admin: 08/28/18 08:59 Dose: Not Given Nystatin (Nystatin Top Powder*) 1 applic TOPICAL BID [facility] Last Admin: 08/28/18 09:00 Dose: 1 applic Omeprazole (Prilosec Cap*) 20 mg PO DAILY@0730 [facility] Last Admin: 08/28/18 08:58 Dose: 20 mg Ondansetron HCl (Zofran Inj*) 4 mg IV Q6H PRN PRN Reason: NAUSEA Oxycodone/Acetaminophen (Percocet 5/325 Tab*) 1 tab PO Q6H PRN PRN Reason: PAIN Last Admin: 08/27/18 16:03 Dose: 1 tab Pharmacy Profile Note (Nicotine Patch Removal Note*) 1 note PATCH OFF 2100 [facility] Last Admin: 08/27/18 21:09 Dose: Not Given Polyethylene Glycol/Electrolytes (Miralax*) 17 gm PO DAILY PRN PRN Reason: CONSTIPATION Stop: 08/30/18 11:06 Last Admin: 08/28/18 12:20 Dose: 17 gm Ropinirole HCl (Requip Tab*) 1 mg PO 2100 [facility] Last Admin: 08/27/18 21:08 Dose: 1 mg Senna (Senokot Tab*) 2 tab PO BEDTIME [facility] Last Admin: 08/27/18 21:08 Dose: 2 tab Torsemide (Demadex*) 20 mg PO BID [facility] Last Admin: 08/28/18 08:57 Dose: 20 mg Vital Signs - 8 hr 08/28/18 08/28/18 08/28/18 09:02 11:49 12:00 Temperature 98.3 F 97.4 F Pulse Rate 110 108 112 Respiratory 18 18 18 Rate Blood Pressure 139/75 126/64 (mmHg) O2 Sat by Pulse 100 93 100 Oximetry 08/28/18 15:43 Temperature 97.0 F Pulse Rate 107 Respiratory 20 Rate Blood Pressure 131/68 (mmHg) O2 Sat by Pulse 95 Oximetry Oxygen Devices in Use Now: Nasal Cannula Result Diagrams: 08/28/18 10:47 08/28/18 10:47 Additional Lab and Data: Lab Results 08/20/18 Range/Units 08:40 ABG pH 7.24 L (7.35-7.45) ABG pCO2 81 H* (35-45) mmHg ABG pO2 87 (80-100) mmHg ABG HCO3 28.3 (19-31) mmol/L ABG O2 Saturation 97.8 (94.0-98.0) % ABG Base Excess 4.5 H (-2.0-2.0) mmol/L Microbiology and Other Data: Microbiology 08/21/18 12:52 Aerobic Blood Culture - Preliminary Blood Venous No Growth Day 4 Anaerobic Blood Culture - Preliminary No Growth Day 4 08/20/18 08:54 Aerobic Blood Culture - Final Blood Venous No Growth Day 5 Anaerobic Blood Culture - Final No Growth Day 5 08/20/18 08:54 Aerobic Blood Culture - Final Blood Venous Pseudomonas Aeruginosa Anaerobic Blood Culture - Final No Growth Day 5 08/20/18 14:18 Urine Culture - Final Urine Escherichia Coli Normal Delilah 08/21/18 15:40 Stool Occult Blood (EMEKA) - Final Stool 08/20/18 14:53 Nasal Screen MRSA (PCR) - Final Nasal Mrsa Detected 08/20/18 14:18 Legionella Urinary Antigen - Final Urine Negative Legionella Antigen Streptococcus pneumoniae Ag Screen - Final Negative S. pneumo Antigen 08/20/18 10:30 Influenza Types A,B Antigen - Final Nasopharyngeal Specimen received for Influenza A/B Molecular testing Assess/Plan/Problems-Billing Assessment: Mrs Can is a 67yo F with PMH of COPD, HTN, ENRIQUE, bullous pemphigoid, ENRIQUE, Afib, HLD, anemia, HFpEF, CHELLE, tophaceous gout, seropositive RA, PAF, mitral regurgitation, morbid obesity with BMI 46, CKD stage 4, [facility] resident, who presented to ED with dyspnea and cough, found to have Pseudomonas septicemia, pneumonia, E. coli UTI. - Patient Problems (1) Sepsis Current Visit: Yes Status: Acute Comment: -Resolved - Presentation compatible with sepsis on admission with leukocytosis and tachycardia. - qSOFA was 1 (tachypnea). - Source is Pseudomonas pneumonia and E. coli UTI. -Finished 8 days of abx therapy and leukocytosis has resolved since 08/24 (2) Pseudomonas pneumonia Current Visit: Yes Status: Acute Comment: - Left lung base infiltrate with blood culture positive for Pseudomonas. - Last dose of cefepime given today (8 days); Also had received Aztreonam q8H on - ( 3 days); and vanco (-; 3 days). - Apprecieate ID input -Will begin rapidly titrating Solumedrol to off (3) E. coli UTI Current Visit: Yes Status: Acute Code(s): N39.0 - URINARY TRACT INFECTION, SITE NOT SPECIFIED; B96.20 - UNSP ESCHERICHIA COLI THE CAUSE OF DISEASES CLASSD [facility] SNOMED Code(s): 884065768 Comment: - Renal US limited but no hydronephrosis. - Appreciate ID input (4) Hyponatremia Current Visit: Yes Status: Acute Code(s): E87.1 - HYPO-OSMOLALITY AND HYPONATREMIA SNOMED Code(s): 82445385 Comment: #Hypervolememic hyponatremia: -Continue Torsemide -Slowly improving -Continue watchful waiting (5) CKD (chronic kidney disease) stage 3, GFR 30-59 ml/min Current Visit: Yes Status: Acute Code(s): N18.3 - CHRONIC KIDNEY DISEASE, STAGE 3 (MODERATE) SNOMED Code(s): 695436144 Comment: - Stage 3, progressing to 4, likely secondary to diabetic nephropathy. - Monitor renal function. (6) COPD (chronic obstructive pulmonary disease) Current Visit: Yes Status: Acute Code(s): J44.9 - CHRONIC OBSTRUCTIVE PULMONARY DISEASE, UNSPECIFIED SNOMED Code(s): 93307506 Comment: - Continue bronchodilator and steroids. (7) Afib Current Visit: Yes Status: Acute Code(s): I48.91 - UNSPECIFIED ATRIAL FIBRILLATION SNOMED Code(s): 50622833 Comment: - Rate is borderline - will increase Diltiazem to 180mg/day and continue to monitor. - [id number] is 4 - patient states she was on Xarelto in the past and it was discontinued when she had a femoral line placed at [facility] and developed a hematoma. - Records from [place] reviewed - patient had a complex and prolonged hospital stay in December 2017. She was found on the floor after a fall >48h. Admitted with septic shock, bilateral thigh cellulitis, multiple decubitus ulcers, ELOY with creatinine 5.5, requiring ICU stay. Admission complicated by large femoral hematoma where TLC had been placed. Xarelto was held during admission but resumed on discharge, so unclear why she's not on it now. - Contacted Chrissy Sauer nursing care attendant at [facility] - patient has been there since end of December when she was discharged from [facility]. She was on Xarelto initially but it is unclear why it was discontinued - she'll fax records. Will not start other form of anticoagulation until reason for stopping it is clarified. (8) Type 2 diabetes mellitus Current Visit: Yes Status: Acute Comment: - Increase NPH and continue Lispro SS. (9) DVT prophylaxis Current Visit: Yes Status: Acute Code(s): FRK7651 - SNOMED Code(s): 827527491 Comment: - SQ heparin. Status and Disposition: -PT eval pending
[2018-08-28] MEDS: rOPINIRole TAB* 1 MG PO SCH (21:15)
[2018-08-28] MEDS: Senna TAB PO SCH (21:15)
[2018-08-28] MEDS: oxyCODONE/Acetamin 5/325 MG* TAB PO PRN (21:15)
[2018-08-28] MEDS: Magnesium Hydroxide LIQ* 30 ML UDC PO PRN (22:01)
[2018-08-28] MEDS: Bisacodyl SUPP* 10 MG SUPP PR PRN (22:01)
[2018-08-28] MEDS: Nicotine Patch Removal NOTE PATCH OFF SCH (22:12)
[2018-08-29] MEDS: Albuterol/Ipratropium NEB.SOL* Albuterol 2.5 MG/Ipratropium 0.5 MG 3 ML INH SCH ×4 (01:19→19:55)
[2018-08-29] MEDS: oxyCODONE/Acetamin 5/325 MG* TAB PO PRN ×4 (03:06→22:39)
[2018-08-29] MEDS: Heparin VIAL(*) 5000 UNITS/ML VIAL (FIVE THOUSAND) SUBCUT SCH ×2 (05:39→20:51)
[2018-08-29] MEDS: methylPREDNISolone SOD 40 MG* 1 ML VIAL IV SCH (05:41)
[2018-08-29 06:11] LABS: ABS Basophils 0 10^3/ul (0-0.2); ABS Eosinophils 0 10^3/ul (0-0.6); ABS Lymphocytes 0.2 10^3/ul (1.0-4.8); ABS Monocytes 0.4 10^3/ul (0-0.8); ABS Neutrophils 11.5 10^3/ul (1.5-7.7); ABS Nucleated RBC 0 10^3/ul; Eosinophil % 0 %; Hematocrit 31 % (35-47); Hemoglobin 9.8 g/dl (12.0-16.0); Lymphocyte % 1.7 %; Mean Corpuscular HGB Conc 31 g/dl (31-36); Mean Corpuscular Hemoglobin 27 pg (27-31); Mean Corpuscular Volume 87 fL (80-97); Mean Platelet Volume 7.8 fL (7.4-10.4); Nucleated Red Blood Cells % 0; Platelet Count 155 10^3/ul (150-450); Red Cell Distribution Width 18 % (10.5-15); White Blood Count 12.1 10^3/ul (3.5-10.8)
[2018-08-29] MEDS: Mometasone/Formoter 200/5 MDI INH SCH ×3 (06:38→19:55)
[2018-08-29 06:42] LABS: Albumin 3.1 g/dL (3.2-5.2); Magnesium 2.1 mg/dL (1.9-2.7); Total Bilirubin 0.4 mg/dL (0.2-1.0)
[2018-08-29 06:44] LABS: Potassium 5.1 mmol/L (3.5-5.0)
[2018-08-29 06:48] LABS: Albumin/Globulin Ratio 1.2 (1-3); BUN/Creatinine Ratio 42.3 (8-20); Globulin 2.5 g/dL (2-4); Phosphorus 5.9 mg/dL (2.5-5.0); Total Protein 5.6 g/dL (6.4-8.9)
[2018-08-29] MEDS: Insulin LISPRO* 1 UNITS UNIT SUBCUT SCH ×4 (07:42→22:17)
[2018-08-29] MEDS: Nicotine PATCH 21 MG/24 HR* PATCH TRANSDERM SCH (09:15)
[2018-08-29] MEDS: Ferrous Sulfate TAB* 325 MG PO SCH (09:26)
[2018-08-29] MEDS: Torsemide TAB* 20 MG PO SCH ×2 (09:26→20:51)
[2018-08-29] MEDS: Allopurinol TAB* 300 MG PO SCH (09:26)
[2018-08-29] MEDS: guaiFENesin ER TAB 600 MG PO SCH ×2 (09:26→20:51)
[2018-08-29] MEDS: FLUoxetine CAP* 20 MG PO SCH (09:26)
[2018-08-29] MEDS: Diltiazem CD CAP* 180 MG PO SCH (09:26)
[2018-08-29] MEDS: Polyethylene Glycol 3350* 17 GM PACKET PO PRN (09:27)
[2018-08-29] MEDS: Docusate CAP* 100 MG PO PRN (09:27)
[2018-08-29] MEDS: Hydroxychloroquine TAB* 200 MG PO SCH ×2 (09:27→20:51)
[2018-08-29] MEDS: Omeprazole CAP (NF) 20 MG CAP.DR PO SCH (09:27)
[2018-08-29] MEDS: Nystatin TOP POWDER* 15 GM BTL TOPICAL SCH ×2 (09:27→22:46)
[2018-08-29] MEDS: Magnesium Hydroxide LIQ* 30 ML UDC PO PRN (09:27)
[2018-08-29] MEDS: Insulin NPH(*) 1 UNITS UNIT SUBCUT SCH (10:33)
[2018-08-29] MEDS: Neomyc/Polym/HC 1% OTIC SUSP* **OTIC RIGHT EAR SCH ×2 (16:58→20:52)
--- NOTE | 2018-08-29 19:01 | PN ---
Subjective Date of Service: 08/29/18 Interval History: Pt seen and examined. Meds and labs reviewed. CC: Complains of right ear pain ROS: Denied FLANAGAN/dizziness, F/C, N/V, CP, SOB, increased cough, sputum production , abd pain, diarrhea, constipation, dysuria, myalgias, arthralgias, throat pain , and new skin lesions. The rest of the 14 point ROS are unremarkable. PHYSICAL EXAM: GEN APPEARANCE: Awake, not in acute distress HEENT: NC/AT, PERRLA, moist oral mucosa, (-) throat erythema, (+)tender tragus and pinna, and on otoscopic exam pt found to have inflamed external auditory canal; cannot visualize ear drum given pt has impacted cerumen too NECK: Soft, supple, (-) cervical LAD, (-)JVD HEART: S1S2 WNL, RRR, No MRG CHEST: CTA, BL, GAE, No W/R/R ABD: Soft, ND/NT, NABS 4x Q EXT: No C/C/E SKIN: Warm to touch PSYCH: No active psychosis, hallucinations, depression, SI/HI Family History: Unchanged from Admission Social History: Unchanged from Admission Past Medical History: Unchanged from Admission Objective Active Medications: Acetaminophen (Tylenol Tab*) 650 mg PO Q6H PRN PRN Reason: FEVER/PAIN Albuterol/Ipratropium (Duoneb (Albuterol 2.5 Mg/Ipratropium 0.5 Mg)) 1 neb INH [id number] AWAKE [facility] Last Admin: 08/29/18 13:19 Dose: 1 neb Allopurinol (Zyloprim Tab*) 300 mg PO DAILY [facility] Last Admin: 08/29/18 09:26 Dose: 300 mg Bisacodyl (Dulcolax Supp*) 10 mg CO DAILY PRN PRN Reason: CONSTIPATION Last Admin: 08/28/18 22:01 Dose: 10 mg Dextrose (D50w Syringe 50 Ml*) 12.5 gm IV PUSH .FOR FS < 60 - SS PRN PRN Reason: FS < 60 Diltiazem HCl (Cardizem Cd Cap*) 180 mg PO DAILY [facility] Last Admin: 08/29/18 09:26 Dose: 180 mg Docusate Sodium (Colace Cap*) 200 mg PO DAILY PRN PRN Reason: CONSTIPATION Last Admin: 08/29/18 09:27 Dose: 200 mg Ferrous Sulfate (Ferrous Sulfate Tab*) 325 mg PO DAILY [facility] Last Admin: 08/29/18 09:26 Dose: 325 mg Fluoxetine HCl (Prozac Cap*) 40 mg PO DAILY [facility] Last Admin: 08/29/18 09:26 Dose: 40 mg Guaifenesin (Mucinex*) 1,200 mg PO BID [facility] Last Admin: 08/29/18 09:26 Dose: 1,200 mg Heparin Sodium (Porcine) (Heparin Flush Picc/Ml/Cvc(*)) 1 ml FLUSH 0600,1800 [facility]; Protocol Last Admin: 08/29/18 16:46 Dose: 1 ml Heparin Sodium (Porcine) (Heparin Vial(*)) 5,000 units SUBCUT Q12H [facility] Hydroxychloroquine Sulfate (Plaquenil Tab*) 200 mg PO BID [facility] Last Admin: 08/29/18 09:27 Dose: 200 mg Insulin Human Lispro (Humalog*) 0 units SUBCUT ACHS [facility]; Protocol Last Admin: 08/29/18 16:43 Dose: Not Given Insulin Human NPH (Insulin Nph(*)) 25 units SUBCUT QAM [facility] Insulin Human NPH (Insulin Nph(*)) 45 units SUBCUT BEDTIME [facility] Magnesium Hydroxide (Milk Of Magnesia Liq*) 30 ml PO Q6H PRN PRN Reason: CONSTIPATION Last Admin: 08/29/18 09:27 Dose: 30 ml Methylprednisolone Sodium Succinate (Solu-Medrol 40 Mg) 40 mg IV DAILY [facility] Mometasone Furoate/Formoterol Fumar (Dulera 200/5 Mdi*) 2 puff INH BID [facility] Last Admin: 08/29/18 08:18 Dose: Not Given Neomycin/Polymyxin/Hydrocortisone (Cortisporin Otic Susp 1%*) 4 drop RIGHT EAR TID [facility] Stop: 09/05/18 16:29 Last Admin: 08/29/18 16:58 Dose: 4 drop Nicotine (Nicotine Patch 21 Mg/24 Hr*) 1 patch TRANSDERM DAILY [facility] Last Admin: 08/29/18 09:15 Dose: Not Given Nystatin (Nystatin Top Powder*) 1 applic TOPICAL BID [facility] Last Admin: 08/29/18 09:27 Dose: 1 applic Omeprazole (Prilosec Cap*) 20 mg PO DAILY@0730 [facility] Last Admin: 08/29/18 09:27 Dose: 20 mg Ondansetron HCl (Zofran Inj*) 4 mg IV Q6H PRN PRN Reason: NAUSEA Oxycodone/Acetaminophen (Percocet 5/325 Tab*) 1 tab PO Q6H PRN PRN Reason: PAIN Last Admin: 08/29/18 16:45 Dose: 1 tab Pharmacy Profile Note (Nicotine Patch Removal Note*) 1 note PATCH OFF 2099 [facility] Last Admin: 08/28/18 22:12 Dose: Not Given Polyethylene Glycol/Electrolytes (Miralax*) 17 gm PO DAILY PRN PRN Reason: CONSTIPATION Stop: 08/30/18 11:06 Last Admin: 08/29/18 09:27 Dose: 17 gm Ropinirole HCl (Requip Tab*) 1 mg PO 2099 [facility] Last Admin: 08/28/18 21:15 Dose: 1 mg Senna (Senokot Tab*) 2 tab PO BEDTIME [facility] Last Admin: 08/28/18 21:15 Dose: 2 tab Torsemide (Demadex*) 20 mg PO BID [facility] Last Admin: 08/29/18 09:26 Dose: 20 mg Vital Signs - 8 hr 08/29/18 08/29/18 08/29/18 11:51 11:58 13:22 Temperature 97.1 F Pulse Rate 105 106 Respiratory 20 20 Rate Blood Pressure 130/59 (mmHg) O2 Sat by Pulse 100 95 Oximetry 08/29/18 08/29/18 08/29/18 15:37 16:45 18:47 Temperature 96.8 F Pulse Rate 105 Respiratory 16 20 20 Rate Blood Pressure 122/59 (mmHg) O2 Sat by Pulse 97 Oximetry Oxygen Devices in Use Now: Nasal Cannula Result Diagrams: 08/29/18 06:01 08/29/18 05:52 Additional Lab and Data: Lab Results 08/20/18 Range/Units 08:40 ABG pH 7.24 L (7.35-7.45) ABG pCO2 81 H* (35-45) mmHg ABG pO2 87 (80-100) mmHg ABG HCO3 28.3 (19-31) mmol/L ABG O2 Saturation 97.8 (94.0-98.0) % ABG Base Excess 4.5 H (-2.0-2.0) mmol/L Microbiology and Other Data: Microbiology 08/21/18 12:52 Aerobic Blood Culture - Preliminary Blood Venous No Growth Day 4 Anaerobic Blood Culture - Preliminary No Growth Day 4 08/20/18 08:54 Aerobic Blood Culture - Final Blood Venous No Growth Day 5 Anaerobic Blood Culture - Final No Growth Day 5 08/20/18 08:54 Aerobic Blood Culture - Final Blood Venous Pseudomonas Aeruginosa Anaerobic Blood Culture - Final No Growth Day 5 08/20/18 14:18 Urine Culture - Final Urine Escherichia Coli Normal Delilah 08/21/18 15:40 Stool Occult Blood (EMEKA) - Final Stool 08/20/18 14:53 Nasal Screen MRSA (PCR) - Final Nasal Mrsa Detected 08/20/18 14:18 Legionella Urinary Antigen - Final Urine Negative Legionella Antigen Streptococcus pneumoniae Ag Screen - Final Negative S. pneumo Antigen 08/20/18 10:30 Influenza Types A,B Antigen - Final Nasopharyngeal Specimen received for Influenza A/B Molecular testing Assess/Plan/Problems-Billing Assessment: Mrs Can is a 67yo F with PMH of COPD, HTN, ENRIQUE, bullous pemphigoid, ENRIQUE, Afib, HLD, anemia, HFpEF, CHELLE, tophaceous gout, seropositive RA, PAF, mitral regurgitation, morbid obesity with BMI 46, CKD stage 4, [facility] resident, who presented to ED with dyspnea and cough, found to have Pseudomonas septicemia, pneumonia, E. coli UTI. - Patient Problems (1) Otitis externa Current Visit: Yes Status: Acute Code(s): H60.90 - UNSPECIFIED OTITIS EXTERNA, UNSPECIFIED EAR SNOMED Code(s): 7420083 Comment: -Will start pt on Cortisporin ottic gtts -Possible cause of mildly increased leukocytosis despite decrease of Solumedrol from yesterday vs. late presentation of peripheral demarginalization due to steroids -Will continue watchful waiting (2) E. coli UTI Current Visit: Yes Status: Acute Code(s): N39.0 - URINARY TRACT INFECTION, SITE NOT SPECIFIED; B96.20 - UNSP ESCHERICHIA COLI [facility] Code(s): 475075604 Comment: -Resolved - Renal US limited but no hydronephrosis. - Appreciate ID input (3) Hyponatremia Current Visit: Yes Status: Acute Code(s): E87.1 - HYPO-OSMOLALITY AND HYPONATREMIA SNOMED Code(s): 59132244 Comment: #Hypervolememic hyponatremia: -Continue Torsemide -Given FeNA = 8.78 and Mirella = 60 (<100 but >20), together suggests pt now Euvolemic and may have component of SIADH -Given TSH mildly suppressed, will obtain FT4 levels in AM -Repeat CXR in AM to see if signs of fluid overload has improved to support above inference (4) CKD (chronic kidney disease) stage 3, GFR 30-59 ml/min Current Visit: Yes Status: Acute Code(s): N18.3 - CHRONIC KIDNEY DISEASE, STAGE 3 (MODERATE) SNOMED Code(s): 776587361 Comment: - Stage 3, progressing to 4, likely secondary to diabetic nephropathy. - Monitor renal function. (5) COPD (chronic obstructive pulmonary disease) Current Visit: Yes Status: Acute Code(s): J44.9 - CHRONIC OBSTRUCTIVE PULMONARY DISEASE, UNSPECIFIED SNOMED Code(s): 22679859 Comment: - Continue bronchodilator and steroids. (6) Afib Current Visit: Yes Status: Acute Code(s): I48.91 - UNSPECIFIED ATRIAL FIBRILLATION SNOMED Code(s): 05382426 Comment: - Rate is borderline - will increase Diltiazem to 180mg/day and continue to monitor. - [id number] is 4 - patient states she was on Xarelto in the past and it was discontinued when she had a femoral line placed at [facility] and developed a hematoma. - Records from [place] reviewed - patient had a complex and prolonged hospital stay in December 2017. She was found on the floor after a fall >48h. Admitted with septic shock, bilateral thigh cellulitis, multiple decubitus ulcers, ELOY with creatinine 5.5, requiring ICU stay. Admission complicated by large femoral hematoma where TLC had been placed. Xarelto was held during admission but resumed on discharge, so unclear why she's not on it now. - Contacted Chrissy Sauer nursing support worker at [facility] - patient has been there since end of December when she was discharged from [facility]. She was on Xarelto initially but it is unclear why it was discontinued - she'll fax records. Will not start other form of anticoagulation until reason for stopping it is clarified. (7) Type 2 diabetes mellitus Current Visit: Yes Status: Acute Comment: - Increase NPH and continue Lispro SS. (8) Sepsis Current Visit: Yes Status: Acute Comment: -Resolved - Presentation compatible with sepsis on admission with leukocytosis and tachycardia. - qSOFA was 1 (tachypnea). - Source is Pseudomonas pneumonia and E. coli UTI. -Finished 8 days of abx therapy and leukocytosis has resolved since 08/24 (9) Pseudomonas pneumonia Current Visit: Yes Status: Acute Comment: -Resolved - Left lung base infiltrate with blood culture positive for Pseudomonas. - Last dose of cefepime given 08/28/18 (8 days); Also had received Aztreonam q8H on - ( 3 days); and vanco (-; 3 days). - Apprecieate ID input -Titrate Solumedrol some more today (10) DVT prophylaxis Current Visit: Yes Status: Acute Code(s): QNO9467 - SNOMED Code(s): 648005516 Comment: - SQ heparin. Status and Disposition: -Appreciate PT eval -Back to [facility] when ready; possibly Friday
[2018-08-29] MEDS: Senna TAB PO SCH (20:51)
[2018-08-29] MEDS: rOPINIRole TAB* 1 MG PO SCH (20:51)
[2018-08-29] MEDS ORDERED: Insulin NPH(*) 1 UNITS UNIT SUBCUT SCH (21:00)
[2018-08-29] MEDS: Nicotine Patch Removal NOTE PATCH OFF SCH (22:18)
[2018-08-30] MEDS: Albuterol/Ipratropium NEB.SOL* Albuterol 2.5 MG/Ipratropium 0.5 MG 3 ML INH SCH ×4 (01:03→17:14)
[2018-08-30] MEDS: Bisacodyl SUPP* 10 MG SUPP PR PRN (02:44)
[2018-08-30] MEDS: oxyCODONE/Acetamin 5/325 MG* TAB PO PRN ×3 (05:33→21:56)
[2018-08-30] MEDS: Mometasone/Formoter 200/5 MDI INH SCH ×4 (06:19→21:39)
[2018-08-30] MEDS: Insulin LISPRO* 1 UNITS UNIT SUBCUT SCH ×4 (08:02→21:55)
[2018-08-30] MEDS ORDERED: Insulin NPH(*) 1 UNITS UNIT SUBCUT SCH ×2 (09:00)
[2018-08-30] MEDS ORDERED: methylPREDNISolone SOD 40 MG* 1 ML VIAL IV SCH (09:00)
[2018-08-30] MEDS: Nicotine PATCH 21 MG/24 HR* PATCH TRANSDERM SCH (09:23)
[2018-08-30] MEDS: Hydroxychloroquine TAB* 200 MG PO SCH ×2 (09:34→21:58)
[2018-08-30] MEDS: Polyethylene Glycol 3350* 17 GM PACKET PO PRN (09:34)
[2018-08-30] MEDS: Heparin VIAL(*) 5000 UNITS/ML VIAL (FIVE THOUSAND) SUBCUT SCH ×2 (09:34→21:55)
[2018-08-30] MEDS: Docusate CAP* 100 MG PO PRN (09:34)
[2018-08-30] MEDS: Neomyc/Polym/HC 1% OTIC SUSP* **OTIC RIGHT EAR SCH ×3 (09:34→21:57)
[2018-08-30] MEDS: Insulin NPH(*) 1 UNITS UNIT SUBCUT SCH ×2 (09:35→21:55)
[2018-08-30] MEDS: Allopurinol TAB* 300 MG PO SCH (09:35)
[2018-08-30] MEDS: Ferrous Sulfate TAB* 325 MG PO SCH (09:35)
[2018-08-30] MEDS: Omeprazole CAP (NF) 20 MG CAP.DR PO SCH (09:35)
[2018-08-30] MEDS: FLUoxetine CAP* 20 MG PO SCH (09:35)
[2018-08-30] MEDS: Nystatin TOP POWDER* 15 GM BTL TOPICAL SCH ×2 (09:36→21:57)
[2018-08-30] MEDS: Diltiazem CD CAP* 180 MG PO SCH (09:36)
[2018-08-30] MEDS: guaiFENesin ER TAB 600 MG PO SCH ×2 (09:36→21:56)
[2018-08-30] MEDS: Torsemide TAB* 20 MG PO SCH ×2 (09:36→21:56)
[2018-08-30 11:25] LABS: ABS Basophils 0 10^3/ul (0-0.2); ABS Eosinophils 0 10^3/ul (0-0.6); ABS Lymphocytes 0.2 10^3/ul (1.0-4.8); ABS Monocytes 0.8 10^3/ul (0-0.8); ABS Neutrophils 15.5 10^3/ul (1.5-7.7); ABS Nucleated RBC 0 10^3/ul; Eosinophil % 0 %; Hematocrit 33 % (35-47); Hemoglobin 10.2 g/dl (12.0-16.0); Lymphocyte % 1.4 %; Mean Corpuscular HGB Conc 31 g/dl (31-36); Mean Corpuscular Hemoglobin 27 pg (27-31); Mean Corpuscular Volume 87 fL (80-97); Mean Platelet Volume 8.2 fL (7.4-10.4); Nucleated Red Blood Cells % 0; Platelet Count 157 10^3/ul (150-450); Red Blood Count 3.77 10^6/ul (4.00-5.40); Red Cell Distribution Width 18 % (10.5-15); White Blood Count 16.6 10^3/ul (3.5-10.8)
[2018-08-30 11:48] LABS: Calcium 9.1 mg/dL (8.6-10.3)
[2018-08-30 11:54] LABS: BUN/Creatinine Ratio 41.3 (8-20); EGFR Non-African American 16.4 (>60)
[2018-08-30 12:47] LABS: Free T4 0.99 ng/dL (0.61-1.12)
[2018-08-30] MEDS ORDERED: Piperacillin/Tazobac ADVAN(*) 3.375 GM in NS 0.9% 100 ML* 100 ML IVPB ONE (18:44)
[2018-08-30] MEDS ORDERED: Vancomycin(*) 1,500 MG in NS 0.9% 250 ML* 250 ML IVPB ONE (18:46)
--- NOTE | 2018-08-30 18:54 | PN ---
Subjective Date of Service: 08/30/18 Interval History: Pt seen and examined. Meds and labs reviewed. CC: Pt feels lousy ROS: Denied FLANAGAN/dizziness, F/C, N/V, CP, SOB, increased cough, sputum production , abd pain, diarrhea, constipation, dysuria, myalgias, arthralgias, throat pain , and new skin lesions. The rest of the 14 point ROS are unremarkable. PHYSICAL EXAM: GEN APPEARANCE: Awake, not in acute distress, pt appears ill and moanin, obese HEENT: NC/AT, PERRLA, moist oral mucosa, (-) throat erythema NECK: Soft, supple, (-) cervical LAD, (-)JVD HEART: S1S2 WNL, RRR, No MRG CHEST: CTA, BL, GAE, No W/R/R ABD: Soft, ND/NT, NABS 4x Q EXT: No C/C/E SKIN: Warm to touch PSYCH: No active psychosis, hallucinations, depression, SI/HI Family History: Unchanged from Admission Social History: Unchanged from Admission Past Medical History: Unchanged from Admission Objective Active Medications: Acetaminophen (Tylenol Tab*) 650 mg PO Q6H PRN PRN Reason: FEVER/PAIN Albuterol/Ipratropium (Duoneb (Albuterol 2.5 Mg/Ipratropium 0.5 Mg)) 1 neb INH [id number] AWAKE [facility] Last Admin: 08/30/18 17:14 Dose: 1 neb Allopurinol (Zyloprim Tab*) 300 mg PO DAILY [facility] Last Admin: 08/30/18 09:35 Dose: 300 mg Bisacodyl (Dulcolax Supp*) 10 mg ND DAILY PRN PRN Reason: CONSTIPATION Last Admin: 08/30/18 02:44 Dose: 10 mg Dextrose (D50w Syringe 50 Ml*) 12.5 gm IV PUSH .FOR FS < 60 - SS PRN PRN Reason: FS < 60 Last Admin: 08/30/18 08:13 Dose: 12.5 gm Diltiazem HCl (Cardizem Cd Cap*) 180 mg PO DAILY [facility] Last Admin: 08/30/18 09:36 Dose: 180 mg Docusate Sodium (Colace Cap*) 200 mg PO DAILY PRN PRN Reason: CONSTIPATION Last Admin: 01/06/19 09:34 Dose: 200 mg Ferrous Sulfate (Ferrous Sulfate Tab*) 325 mg PO DAILY [facility] Last Admin: 08/30/18 09:35 Dose: 325 mg Fluoxetine HCl (Prozac Cap*) 40 mg PO DAILY [facility] Last Admin: 08/30/18 09:35 Dose: 40 mg Guaifenesin (Mucinex*) 1,200 mg PO BID [facility] Last Admin: 08/30/18 09:36 Dose: 1,200 mg Heparin Sodium (Porcine) (Heparin Flush Picc/Ml/Cvc(*)) 1 ml FLUSH 0600,1800 [facility]; Protocol Last Admin: 08/30/18 16:36 Dose: Not Given Heparin Sodium (Porcine) (Heparin Vial(*)) 5,000 units SUBCUT Q12H [facility] Last Admin: 08/30/18 09:34 Dose: 5,000 units Hydroxychloroquine Sulfate (Plaquenil Tab*) 200 mg PO BID [facility] Last Admin: 08/30/18 09:34 Dose: 200 mg Vancomycin HCl 1,250 mg/ (Sodium Chloride) 250 mls @ 166.667 mls/hr IVPB ONCE [facility]; Protocol Stop: 08/30/18 23:59 Piperacillin Sod/Tazobactam (Sod 3.375 gm/ Sodium Chloride) 100 mls @ 200 mls/ hr IVPB ONCE ONE Stop: 08/30/18 19:13 Insulin Human Lispro (Humalog*) 0 units SUBCUT ACHS [facility]; Protocol Last Admin: 08/30/18 16:36 Dose: Not Given Insulin Human NPH (Insulin Nph(*)) 35 units SUBCUT BEDTIME [facility] Insulin Human NPH (Insulin Nph(*)) 20 units SUBCUT QAM [facility] Last Admin: 08/30/18 09:35 Dose: 20 unit Magnesium Hydroxide (Milk Of Magnesia Liq*) 30 ml PO Q6H PRN PRN Reason: CONSTIPATION Last Admin: 08/29/18 09:27 Dose: 30 ml Methylprednisolone Sodium Succinate (Solu-Medrol 40 Mg) 30 mg IV DAILY [facility] Mometasone Furoate/Formoterol Fumar (Dulera 200/5 Mdi*) 2 puff INH BID [facility] Last Admin: 08/30/18 17:14 Dose: 2 puff Neomycin/Polymyxin/Hydrocortisone (Cortisporin Otic Susp 1%*) 4 drop RIGHT EAR TID [facility] Stop: 09/05/18 16:29 Last Admin: 08/30/18 15:37 Dose: 4 drop Nicotine (Nicotine Patch 21 Mg/24 Hr*) 1 patch TRANSDERM DAILY [facility] Last Admin: 08/30/18 09:23 Dose: Not Given Nystatin (Nystatin Top Powder*) 1 applic TOPICAL BID [facility] Last Admin: 08/30/18 09:36 Dose: 1 applic Omeprazole (Prilosec Cap*) 20 mg PO DAILY@0730 [facility] Last Admin: 08/30/18 09:35 Dose: 20 mg Ondansetron HCl (Zofran Inj*) 4 mg IV Q6H PRN PRN Reason: NAUSEA Oxycodone/Acetaminophen (Percocet 5/325 Tab*) 1 tab PO Q6H PRN PRN Reason: PAIN Last Admin: 08/30/18 11:43 Dose: 1 tab Pharmacy Consult (Vancomycin Per Pharmacy*) 1 note FOLLOW UP .VANC PER PHARMACY [facility] Pharmacy Consult (Zosyn Per Pharmacy*) 1 note FOLLOW UP .ZOSYN PER PHARMACY [facility] Pharmacy Profile Note (Nicotine Patch Removal Note*) 1 note PATCH OFF 2100 [facility] Last Admin: 08/29/18 22:18 Dose: Not Given Ropinirole HCl (Requip Tab*) 1 mg PO 2100 [facility] Last Admin: 08/29/18 20:51 Dose: 1 mg Senna (Senokot Tab*) 2 tab PO BEDTIME [facility] Last Admin: 08/29/18 20:51 Dose: 2 tab Torsemide (Demadex*) 20 mg PO BID [facility] Last Admin: 08/30/18 09:36 Dose: 20 mg Vital Signs - 8 hr 08/30/18 08/30/18 08/30/18 11:43 12:07 12:14 Temperature 97.2 F Pulse Rate 92 102 Respiratory 20 18 20 Rate Blood Pressure 135/73 (mmHg) O2 Sat by Pulse 92 100 Oximetry 08/30/18 08/30/18 08/30/18 14:29 15:29 17:15 Temperature 97.7 F Pulse Rate 100 94 Respiratory 20 20 20 Rate Blood Pressure 118/66 (mmHg) O2 Sat by Pulse 99 98 Oximetry Oxygen Devices in Use Now: High Flow Nasal Cannula Result Diagrams: 08/30/18 10:45 08/30/18 10:45 Additional Lab and Data: Lab Results 08/20/18 Range/Units 08:40 ABG pH 7.24 L (7.35-7.45) ABG pCO2 81 H* (35-45) mmHg ABG pO2 87 (80-100) mmHg ABG HCO3 28.3 (19-31) mmol/L ABG O2 Saturation 97.8 (94.0-98.0) % ABG Base Excess 4.5 H (-2.0-2.0) mmol/L Microbiology and Other Data: Microbiology 08/21/18 12:52 Aerobic Blood Culture - Preliminary Blood Venous No Growth Day 4 Anaerobic Blood Culture - Preliminary No Growth Day 4 08/20/18 08:54 Aerobic Blood Culture - Final Blood Venous No Growth Day 5 Anaerobic Blood Culture - Final No Growth Day 5 08/20/18 08:54 Aerobic Blood Culture - Final Blood Venous Pseudomonas Aeruginosa Anaerobic Blood Culture - Final No Growth Day 5 08/20/18 14:18 Urine Culture - Final Urine Escherichia Coli Normal Delilah 08/21/18 15:40 Stool Occult Blood (EMEKA) - Final Stool 08/20/18 14:53 Nasal Screen MRSA (PCR) - Final Nasal Mrsa Detected 08/20/18 14:18 Legionella Urinary Antigen - Final Urine Negative Legionella Antigen Streptococcus pneumoniae Ag Screen - Final Negative S. pneumo Antigen 08/20/18 10:30 Influenza Types A,B Antigen - Final Nasopharyngeal Specimen received for Influenza A/B Molecular testing Assess/Plan/Problems-Billing Assessment: Mrs Can is a 67yo F with PMH of COPD, HTN, ENRIQUE, bullous pemphigoid, ENRIQUE, Afib, HLD, anemia, HFpEF, CHELLE, tophaceous gout, seropositive RA, PAF, mitral regurgitation, morbid obesity with BMI 46, CKD stage 4, [facility] resident, who presented to ED with dyspnea and cough, found to have Pseudomonas septicemia, pneumonia, E. coli UTI. - Patient Problems (1) Otitis externa Current Visit: Yes Status: Acute Code(s): H60.90 - UNSPECIFIED OTITIS EXTERNA, UNSPECIFIED EAR SNOMED Code(s): 5752660 Comment: -Continue Cortisporin ottic gtts -Possible cause of mildly increased leukocytosis despite decrease of Solumedrol from yesterday vs. late presentation of peripheral demarginalization due to steroids (2) Leukocytosis Current Visit: Yes Status: Acute Code(s): D72.829 - ELEVATED WHITE BLOOD CELL COUNT, UNSPECIFIED SNOMED Code(s): 222323526 Comment: -As above -Given gradually increasing leukocytosis, will repeat blood cultures, and urinalysis although steroids and otitis externa can possibly explain leukocytosis -Repeat CXR seems to show worsening consolidation and congestion -Will place on Zosyn and Vanco for now (3) E. coli UTI Current Visit: Yes Status: Acute Code(s): N39.0 - URINARY TRACT INFECTION, SITE NOT SPECIFIED; B96.20 - UNSP ESCHERICHIA COLI THE CAUSE OF DISEASES CLASSD ELSR SNOMED Code(s): 565535161 Comment: -Resolved - Renal US limited but no hydronephrosis. - Appreciate ID input (4) Hyponatremia Current Visit: Yes Status: Acute Code(s): E87.1 - HYPO-OSMOLALITY AND HYPONATREMIA SNOMED Code(s): 43449275 Comment: #Hypervolememic hyponatremia: -Continue Torsemide -Given FeNA = 8.78 and Mirella = 60 (<100 but >20), together suggests pt now Euvolemic and may have component of SIADH -Given TSH mildly suppressed, will obtain FT4 levels in AM -Repeat CXR in AM does suggest some congestion but will hold off on increasing diuretic dose since the consolidation and leukocytosis are worsening pointing to HCAP from previous PNA? (5) CKD (chronic kidney disease) stage 3, GFR 30-59 ml/min Current Visit: Yes Status: Acute Code(s): N18.3 - CHRONIC KIDNEY DISEASE, STAGE 3 (MODERATE) SNOMED Code(s): 301861935 Comment: - Stage 3, progressing to 4, likely secondary to diabetic nephropathy. - Monitor renal function. (6) COPD (chronic obstructive pulmonary disease) Current Visit: Yes Status: Acute Code(s): J44.9 - CHRONIC OBSTRUCTIVE PULMONARY DISEASE, UNSPECIFIED SNOMED Code(s): 00772638 Comment: - Continue bronchodilator and steroids. (7) Afib Current Visit: Yes Status: Acute Code(s): I48.91 - UNSPECIFIED ATRIAL FIBRILLATION SNOMED Code(s): 49584854 Comment: - [id number] is 4 - patient states she was on Xarelto in the past and it was discontinued when she had a femoral line placed at [facility] and developed a hematoma. - Records from [place] reviewed - patient had a complex and prolonged hospital stay in December 2017. She was found on the floor after a fall >48h. Admitted with septic shock, bilateral thigh cellulitis, multiple decubitus ulcers, ELOY with creatinine 5.5, requiring ICU stay. Admission complicated by large femoral hematoma where TLC had been placed. Xarelto was held during admission but resumed on discharge, so unclear why she's not on it now. - To review [facility] documentations in AM (8) Type 2 diabetes mellitus Current Visit: Yes Status: Acute Comment: - Increase NPH and continue Lispro SS. (9) Sepsis Current Visit: Yes Status: Acute Comment: -Resolved - Presentation compatible with sepsis on admission with leukocytosis and tachycardia. - qSOFA was 1 (tachypnea). - Source is Pseudomonas pneumonia and E. coli UTI. -Finished 8 days of abx therapy and leukocytosis has resolved since 08/24 (10) Pseudomonas pneumonia Current Visit: Yes Status: Acute Comment: -Now with worsening consolidation---please see above discussion - Left lung base infiltrate with blood culture positive for Pseudomonas. - Last dose of cefepime given 08/28/18 (8 days); Also had received Aztreonam q8H on - ( 3 days); and vanco (-; 3 days). - Apprecieate ID input -Titrate Solumedrol some more today (11) DVT prophylaxis Current Visit: Yes Status: Acute Code(s): LQO7090 - SNOMED Code(s): 388832979 Comment: - SQ heparin. Status and Disposition: -Appreciate PT eval -Back to [facility] when ready -Pt now with worsening consolidation and congestion on CXR
[2018-08-30] MEDS ORDERED: Vancomycin per Pharmacy* NOTE FOLLOW UP SCH (19:00)
[2018-08-30] MEDS ORDERED: Zosyn per Pharmacy* NOTE FOLLOW UP SCH (19:00)
[2018-08-30 21:11] LABS: Urine Appearance Turbid; Urine Bacteria 1+ (Absent); Urine Bilirubin Negative (Negative); Urine Blood 2+ (Negative); Urine Color Yellow; Urine Glucose Negative (Negative); Urine Ketones Negative (Negative); Urine Nitrite Negative (Negative); Urine Protein 2+(100 mg/dL) (Negative); Urine Red Blood Cell 3+(>10/hpf) (Absent); Urine Specific Gravity 1.013 (1.010-1.030); Urine Urobilinogen Negative (Negative); Urine White Blood Cell 3+(>20/hpf) (Absent)
[2018-08-30] MEDS: rOPINIRole TAB* 1 MG PO SCH (21:56)
[2018-08-30] MEDS: Senna TAB PO SCH (21:56)
[2018-08-30] MEDS: Nicotine Patch Removal NOTE PATCH OFF SCH (21:58)
[2018-08-30] MEDS: ZOSYN 3.375 GM Q12H per EXTENDED INFUSION IVPB SCH ×2 (23:52)
[2018-08-31] MEDS: Albuterol/Ipratropium NEB.SOL* Albuterol 2.5 MG/Ipratropium 0.5 MG 3 ML INH SCH ×4 (01:45→19:53)
[2018-08-31] MEDS: oxyCODONE/Acetamin 5/325 MG* TAB PO PRN ×3 (05:42→21:02)
[2018-08-31] MEDS: Mometasone/Formoter 200/5 MDI INH SCH ×2 (07:49→19:53)
[2018-08-31 08:33] LABS: BUN/Creatinine Ratio 39.6 (8-20); Calcium 8.9 mg/dL (8.6-10.3)
[2018-08-31] MEDS: Insulin LISPRO* 1 UNITS UNIT SUBCUT SCH ×4 (08:33→20:22)
[2018-08-31 08:41] LABS: Potassium 6.6 mmol/L (3.5-5.0)
[2018-08-31] MEDS ORDERED: Calcium Gluconate INJ* 1 GM in NS 0.9% 50 ML* 50 ML IVPB ONE (08:47)
[2018-08-31 08:50] LABS: ABS Basophils 0 10^3/ul (0-0.2); ABS Eosinophils 0 10^3/ul (0-0.6); ABS Lymphocytes 0.2 10^3/ul (1.0-4.8); ABS Monocytes 0.6 10^3/ul (0-0.8); ABS Neutrophils 13.7 10^3/ul (1.5-7.7); ABS Nucleated RBC 0 10^3/ul; Eosinophil % 0 %; Hematocrit 33 % (35-47); Lymphocyte % 1.6 %; Mean Corpuscular HGB Conc 30 g/dl (31-36); Mean Corpuscular Hemoglobin 26 pg (27-31); Mean Corpuscular Volume 87 fL (80-97); Mean Platelet Volume 9.6 fL (7.4-10.4); Nucleated Red Blood Cells % 0.1; Platelet Count 170 10^3/ul (150-450); Red Blood Count 3.78 10^6/ul (4.00-5.40); Red Cell Distribution Width 18 % (10.5-15); White Blood Count 14.6 10^3/ul (3.5-10.8)
[2018-08-31] MEDS: Nicotine PATCH 21 MG/24 HR* PATCH TRANSDERM SCH (08:59)
[2018-08-31] MEDS: Insulin NPH(*) 1 UNITS UNIT SUBCUT SCH ×2 (08:59→20:32)
[2018-08-31] MEDS: Omeprazole CAP (NF) 20 MG CAP.DR PO SCH (08:59)
[2018-08-31] MEDS: Ferrous Sulfate TAB* 325 MG PO SCH (08:59)
[2018-08-31] MEDS ORDERED: methylPREDNISolone SOD 40 MG* 1 ML VIAL IV SCH (09:00)
[2018-08-31] MEDS ORDERED: Vancomycin(*) 500 MG in NS 0.9% 250 ML* 250 ML IVPB SCH (09:00)
[2018-08-31] MEDS: Allopurinol TAB* 300 MG PO SCH (09:00)
[2018-08-31] MEDS ORDERED: Dextrose 50% Syringe 50 ML* 25 GM/50 ML SYRINGE IV PUSH PRN (09:00)
[2018-08-31] MEDS: Torsemide TAB* 20 MG PO SCH (09:00)
[2018-08-31] MEDS: FLUoxetine CAP* 20 MG PO SCH (09:00)
[2018-08-31] MEDS: Diltiazem CD CAP* 180 MG PO SCH (09:01)
[2018-08-31] MEDS: guaiFENesin ER TAB 600 MG PO SCH ×2 (09:01→21:02)
[2018-08-31] MEDS ORDERED: Insulin REGULAR(*) 1 UNITS UNIT IV PUSH ONE (09:01)
[2018-08-31] MEDS ORDERED: Sodium Polystyrene ORAL.SOL* 15 GM/60 ML BTL PO ONE (09:04)
[2018-08-31] MEDS: Nystatin TOP POWDER* 15 GM BTL TOPICAL SCH ×2 (09:46→21:03)
[2018-08-31] MEDS: Heparin VIAL(*) 5000 UNITS/ML VIAL (FIVE THOUSAND) SUBCUT SCH ×2 (09:47→21:02)
[2018-08-31] MEDS: Hydroxychloroquine TAB* 200 MG PO SCH ×2 (09:47→21:02)
[2018-08-31] MEDS: Neomyc/Polym/HC 1% OTIC SUSP* **OTIC RIGHT EAR SCH ×3 (09:47→21:02)
[2018-08-31] MEDS ORDERED: Dextrose 50% Syringe 50 ML* 25 GM/50 ML SYRINGE IV PUSH ONE (10:00)
[2018-08-31] MEDS ORDERED: Patiromer POWDER* 8.4 GM PAK PO ONE (10:00)
--- NOTE | 2018-08-31 10:57 | PN ---
Subjective Date of Service: 08/31/18 Interval History: Pt states that she is not doing well today. Shes states that she is in pain "everywhere." She continues to have a cough and shortness of breath. She denies CP, fever/chills. Family History: Unchanged from Admission Social History: Unchanged from Admission Past Medical History: Unchanged from Admission Objective Active Medications: Acetaminophen (Tylenol Tab*) 650 mg PO Q6H PRN Albuterol/Ipratropium (Duoneb (Albuterol 2.5 Mg/Ipratropium 0.5 Mg)) 1 neb INH [id number] AWAKE [facility] Allopurinol (Zyloprim Tab*) 300 mg PO DAILY [facility] Bisacodyl (Dulcolax Supp*) 10 Dextrose (D50w Syringe 50 Ml*) 12.5 gm IV PUSH .FOR FS < 60 - SS PRN Diltiazem HCl (Cardizem Cd Cap*) 180 mg PO DAILY [facility] Docusate Sodium (Colace Cap*) 200 mg PO DAILY PRN Ferrous Sulfate (Ferrous Sulfate Tab*) 325 mg PO DAILY [facility] Fluoxetine HCl (Prozac Cap*) 40 mg PO DAILY [facility] Guaifenesin (Mucinex*) 1,200 mg PO BID [facility] Heparin Sodium (Porcine) (Heparin Flush Picc/Ml/Cvc(*)) 1 ml FLUSH 0600,1800 [facility]; Protocol Heparin Sodium (Porcine) (Heparin Vial(*)) 5,000 units SUBCUT Q12H [facility] Hydroxychloroquine Sulfate (Plaquenil Tab*) 200 mg PO BID [facility] Piperacillin Sod/Tazobactam (Sod 3.375 gm/ Sodium Chloride) 100 mls @ 25 mls/ hr IVPB Q12H [facility] Insulin Human Lispro (Humalog*) 0 units SUBCUT ACHS [facility]; Protocol Insulin Human NPH (Insulin Nph(*)) 35 units SUBCUT BEDTIME [facility] Insulin Human NPH (Insulin Nph(*)) 20 units SUBCUT QAM [facility] Magnesium Hydroxide (Milk Of Magnesia Liq*) 30 ml PO Q6H PRN Methylprednisolone Sodium Succinate (Solu-Medrol 40 Mg) 30 mg IV DAILY [facility] Mometasone Furoate/Formoterol Fumar (Dulera 200/5 Mdi*) 2 puff INH BID [facility] Neomycin/Polymyxin/Hydrocortisone (Cortisporin Otic Susp 1%*) 4 drop RIGHT EAR TID [facility] Nicotine (Nicotine Patch 21 Mg/24 Hr*) 1 patch TRANSDERM DAILY [facility] Nystatin (Nystatin Top Powder*) 1 applic TOPICAL BID [facility] Omeprazole (Prilosec Cap*) 20 mg PO DAILY@0730 [facility] Ondansetron HCl (Zofran Inj*) 4 mg IV Q6H PRN Oxycodone/Acetaminophen (Percocet 5/325 Tab*) 1 tab PO Q6H PRN Pharmacy Consult (Zosyn Per Pharmacy*) 1 note FOLLOW UP .ZOSYN PER PHARMACY [facility] Pharmacy Profile Note (Nicotine Patch Removal Note*) 1 note PATCH OFF 2100 [facility] Ropinirole HCl (Requip Tab*) 1 mg PO 2100 [facility] Senna (Senokot Tab*) 2 tab PO BEDTIME [facility] Torsemide (Demadex*) 20 mg PO BID [facility] Vital Signs: Temp Pulse Resp BP Pulse Ox 97.5 F 94 16 113/71 100 08/31/18 08:10 08/31/18 08:10 08/31/18 08:10 08/31/18 08:10 08/31/18 08:10 Oxygen Devices in Use Now: Nasal Cannula Appearance: Pt is laying in bed. She is very soft spoken and frequently moans. She is in no acute distress. Eyes: No Scleral Icterus Ears/Nose/Mouth/Throat: NL Teeth, Lips, Gums, Mucous Membranes Moist Neck: NL Appearance and Movements; NL JVP, Trachea Midline Respiratory: Symmetrical Chest Expansion and Respiratory Effort, - - No use of accessory muscles. Scattered rhonchi throughout lung renteria; without wheeze. Cardiovascular: NL Sounds; No Murmurs; No JVD, RRR Abdominal: NL Sounds; No Tenderness; No Distention Extremities: No Clubbing, Cyanosis, - - B/l LE edema 2+ pitting Skin: - Neurological: Alert and Oriented x 3 Result Diagrams: 08/31/18 07:35 08/31/18 07:35 Additional Lab and Data: Lab Results 08/20/18 Range/Units 08:40 ABG pH 7.24 L (7.35-7.45) ABG pCO2 81 H* (35-45) mmHg ABG pO2 87 (80-100) mmHg ABG HCO3 28.3 (19-31) mmol/L ABG O2 Saturation 97.8 (94.0-98.0) % ABG Base Excess 4.5 H (-2.0-2.0) mmol/L Microbiology and Other Data: Microbiology 08/21/18 12:52 Aerobic Blood Culture - Preliminary Blood Venous No Growth Day 4 Anaerobic Blood Culture - Preliminary No Growth Day 4 08/20/18 08:54 Aerobic Blood Culture - Final Blood Venous No Growth Day 5 Anaerobic Blood Culture - Final No Growth Day 5 08/20/18 08:54 Aerobic Blood Culture - Final Blood Venous Pseudomonas Aeruginosa Anaerobic Blood Culture - Final No Growth Day 5 08/20/18 14:18 Urine Culture - Final Urine Escherichia Coli Normal Delilah 08/21/18 15:40 Stool Occult Blood (EMEKA) - Final Stool 08/20/18 14:53 Nasal Screen MRSA (PCR) - Final Nasal Mrsa Detected 08/20/18 14:18 Legionella Urinary Antigen - Final Urine Negative Legionella Antigen Streptococcus pneumoniae Ag Screen - Final Negative S. pneumo Antigen 08/20/18 10:30 Influenza Types A,B Antigen - Final Nasopharyngeal Specimen received for Influenza A/B Molecular testing Assess/Plan/Problems-Billing Assessment: Mrs Can is a 67yo F with PMH of COPD, HTN, ENRIQUE, bullous pemphigoid, ENRIQUE, Afib, HLD, anemia, HFpEF, CHELLE, tophaceous gout, seropositive RA, PAF, mitral regurgitation, morbid obesity with BMI 46, CKD stage 4, [facility] resident, who presented to ED with dyspnea and cough, found to have Pseudomonas septicemia, pneumonia, E. coli UTI. - Patient Problems (1) Hyperkalemia Comment: -Potassium at 6.6 this morning -Patiromer, calcium gluconate, D50 followed by insulin ordered -Recheck BMP this afternoon -Recheck BMP in morning (2) Chronic kidney disease, stage 4 (severe) Comment: -Restart IVF NS at 150/h x2 bags -Recheck BMP in a.m. for kidney function (3) Leukocytosis Current Visit: Yes Status: Acute Code(s): D72.829 - ELEVATED WHITE BLOOD CELL COUNT, UNSPECIFIED SNOMED Code(s): 473032918 Comment: -Likely due to steroids -D/C abx and recheck CBC in a.m. (4) Pseudomonas pneumonia Current Visit: Yes Status: Acute Comment: -Consolidation worsening, as per CXR, but likely due to lag -Antibiotic history is as follows: last dose of cefepime given 08/28/18 (8 days) ; Also had received Aztreonam q8H on - ( 3 days); and vanco (-; 3 days) -D/c solumedrol; start prednisone 20 PO (5) Type 2 diabetes mellitus Current Visit: Yes Status: Acute Comment: -Last 24h BS appear to be relatively stable -Continue NPH, Lispro as ordered -Continue to monitor for need to increase or decrease doses (6) Otitis externa Current Visit: Yes Status: Acute Code(s): H60.90 - UNSPECIFIED OTITIS EXTERNA, UNSPECIFIED EAR SNOMED Code(s): 3560073 Comment: -Continue Cortisporin ottic gtts to R ear (7) Afib Comment: - [id number] is 4 - patient states she was on Xarelto in the past and it was discontinued when she had a femoral line placed at [facility] and developed a hematoma. -Rate is borderline- IVF ordered -Tele revealed that pt spontaneously converted to NSR from fib in the night (8) COPD (chronic obstructive pulmonary disease) Current Visit: Yes Status: Acute Code(s): J44.9 - CHRONIC OBSTRUCTIVE PULMONARY DISEASE, UNSPECIFIED SNOMED Code(s): 42776271 Comment: -Continue bronchodilator and steroids. (9) DVT prophylaxis Comment: -SQ heparin. Status and Disposition: -Appreciate PT eval -Back to [facility] when ready -Pt now with worsening consolidation and congestion on CXR
[2018-08-31] MEDS: ZOSYN 3.375 GM Q12H per EXTENDED INFUSION IVPB SCH ×2 (12:35)
[2018-08-31] MEDS: NS 0.9% 1000 ML* 1,000 ML IV SCH (17:12)
[2018-08-31 17:56] LABS: BUN/Creatinine Ratio 40.3 (8-20); Calcium 9.2 mg/dL (8.6-10.3); EGFR Non-African American 16.3 (>60)
[2018-08-31 18:00] LABS: Potassium 6.2 mmol/L (3.5-5.0)
[2018-08-31] MEDS: rOPINIRole TAB* 1 MG PO SCH (21:02)
[2018-08-31] MEDS: Senna TAB PO SCH (21:02)
[2018-08-31] MEDS: Nicotine Patch Removal NOTE PATCH OFF SCH (21:03)
--- NOTE | 2018-08-31 22:50 | CONSULT ---
Palliative / Hospice Consult Ordering Provider: Frieda Hillman - no known PCP - Subjective Code Status: Full Code Advance Directives Location: No Advance Directives - History or Present Illness History or Present Illness: 67 yo female resident of [facility] presented to the ER with hypoxia which was caused by pseudomonas pneumonia(positive blood culture) and urine culture positive for E. Coli. Pt also had exacerbation of her COPD and CHF. Her other medical problems include CKD (BUN 116/ Cr 2.93) EGFR= 16, CAD with NSTEMI, HTN, RBBB, PVD, anemia(), DM, ENRIQUE on CPAP, Bullous Pemphigoid on steriods and arthritis. An echo showed EF 60-65% with moderate TR and pulmonary HTN, venous dopler was negative. Cxr showed CHF with pneumonia on L lung base. History was obtained through the chart. Pt answered questions but didn't elaborate and it was hard to keep her focused. Also spoke with her mother for additional information about pt's baseline and wishes. Several times I asked patient about her treatment goals regarding CPR and intubation and each time she said she wants to be a full code. She denied being depressed. She did state several times that she thought she might be dying. She is a retired psychiatric nurse, with no children she does have a puppy which her mother is looking after. Pt had been living in the [facility] and she prefers to get her healthcare in that area but moved to [place] to be closer to her mother who lives in [place]. Pt resides at [facility]. Mother explained that her daughter has had a rough 2 years with various medical issues. Pt said she had pain but wouldn't elaborate about where but it looks like she has only taken one percocet for her pain. Today she had an elevated k=6.6. She smokes 4 cigs/ day. Lab Values: Abnormal Lab Results 08/31/18 08/31/18 08/31/18 07:35 07:35 07:39 WBC 14.6 H RBC 3.78 L Hgb 10.0 L Hct 33 L MCV 87 MCH 26 L MCHC 30 L RDW 18 H Plt Count 170 MPV 9.6 Neut % (Auto) 93.9 Lymph % (Auto) 1.6 [place] % (Auto) 4.2 Eos % (Auto) 0 Baso % (Auto) 0.3 Absolute Neuts (auto) 13.7 H Absolute Lymphs (auto) 0.2 L Absolute Monos (auto) 0.6 Absolute Eos (auto) 0 Absolute Basos (auto) 0 Absolute Nucleated RBC 0 Nucleated RBC % 0.1 Sodium 130 L Potassium 6.6 H* Chloride 91 L Carbon Dioxide 32 Anion Gap 7 BUN 116 H Creatinine 2.93 H Est GFR ( Amer) 19.4 Est GFR (Non-Af Amer) 16.0 BUN/Creatinine Ratio 39.6 H Glucose 96 POC Glucose (mg/dL) 102 H Calcium 8.9 08/31/18 08/31/18 08/31/18 11:59 16:46 17:20 WBC RBC Hgb Hct MCV MCH MCHC RDW Plt Count MPV Neut % (Auto) Lymph % (Auto) [place] % (Auto) Eos % (Auto) Baso % (Auto) Absolute Neuts (auto) Absolute Lymphs (auto) Absolute Monos (auto) Absolute Eos (auto) Absolute Basos (auto) Absolute Nucleated RBC Nucleated RBC % Sodium 130 L Potassium 6.2 H* Chloride 92 L Carbon Dioxide 31 Anion Gap 7 BUN 116 H Creatinine 2.88 H Est GFR ( Amer) 19.7 Est GFR (Non-Af Amer) 16.3 BUN/Creatinine Ratio 40.3 H Glucose 98 POC Glucose (mg/dL) 127 H 105 H Calcium 9.2 08/31/18 20:14 WBC RBC Hgb Hct MCV MCH MCHC RDW Plt Count MPV Neut % (Auto) Lymph % (Auto) [place] % (Auto) Eos % (Auto) Baso % (Auto) Absolute Neuts (auto) Absolute Lymphs (auto) Absolute Monos (auto) Absolute Eos (auto) Absolute Basos (auto) Absolute Nucleated RBC Nucleated RBC % Sodium Potassium Chloride Carbon Dioxide Anion Gap BUN Creatinine Est GFR ( Amer) Est GFR (Non-Af Amer) BUN/Creatinine Ratio Glucose POC Glucose (mg/dL) 81 Calcium Laboratory Last Values WBC 14.6 10^3/ul (3.5-10.8) H 08/31/18 07:35 RBC 3.78 10^6/ul (4.00-5.40) L 08/31/18 07:35 Hgb 10.0 g/dl (12.0-16.0) L 08/31/18 07:35 Hct 33 % (35-47) L 08/31/18 07:35 MCV 87 fL (80-97) 08/31/18 07:35 MCH 26 pg (27-31) L 08/31/18 07:35 MCHC 30 g/dl (31-36) L 08/31/18 07:35 RDW 18 % (10.5-15) H 08/31/18 07:35 Plt Count 170 10^3/ul (150-450) 08/31/18 07:35 MPV 9.6 fL (7.4-10.4) 08/31/18 07:35 Neut % (Auto) 93.9 % 08/31/18 07:35 Lymph % (Auto) 1.6 % 08/31/18 07:35 [place]ole % (Auto) 4.2 % 08/31/18 07:35 Eos % (Auto) 0 % 08/31/18 07:35 Baso % (Auto) 0.3 % 08/31/18 07:35 Absolute Neuts (auto) 13.7 10^3/ul (1.5-7.7) H 08/31/18 07:35 Absolute Lymphs (auto) 0.2 10^3/ul (1.0-4.8) L 08/31/18 07:35 Absolute Monos (auto) 0.6 10^3/ul (0-0.8) 08/31/18 07:35 Absolute Eos (auto) 0 10^3/ul (0-0.6) 08/31/18 07:35 Absolute Basos (auto) 0 10^3/ul (0-0.2) 08/31/18 07:35 Absolute Nucleated RBC 0 10^3/ul 08/31/18 07:35 Immature Gran % 1 % (0-9) 08/20/18 08:54 Neutrophils % 98 % 08/20/18 08:54 Band Neutrophils % 1 % (0-8) 08/20/18 08:54 Monocytes % 1 % 08/20/18 08:54 Nucleated RBC % 0.1 08/31/18 07:35 Abs Neuts (Manual) 17.8 10^3/ul (1.5-7.7) H 08/20/18 08:54 Abs Monocytes (Manual) 0.2 10^3/ul (0-0.8) 08/20/18 08:54 Normal RBC Morphology Not Reportable 08/20/18 08:54 Polychromasia 1+ 08/20/18 08:54 Hypochromasia 1+ 08/20/18 08:54 INR (Anticoag Therapy) 1.13 (0.77-1.02) H 08/21/18 06:37 APTT 28.9 seconds (26.0-36.3) 08/26/18 20:04 D-Dimer, Quantitative 800 ng/mL (Less Than 230) H 08/20/18 08:56 Patient Temperature Not Reportable 08/21/18 17:15 ABG pH 7.31 (7.35-7.45) L 08/21/18 17:15 ABG pH (Temp Correct) Not Reportable 08/21/18 17:15 ABG pCO2 59 mmHg (35-45) H 08/21/18 17:15 ABG pCO2 (Temp Corrct Not Reportable 08/21/18 17:15 ABG pO2 85 mmHg (80-100) 08/21/18 17:15 ABG pO2 (Temp Correct Not Reportable 08/21/18 17:15 ABG HCO3 26.4 mmol/L (19-31) 08/21/18 17:15 ABG O2 Saturation 98.3 % (94.0-98.0) H 08/21/18 17:15 ABG Base Excess 2.0 mmol/L (-2.0-2.0) 08/21/18 17:15 Respiration Rate Not Reportable 08/21/18 17:15 O2 Delivery Device Not Reportable 08/21/18 09:00 Ventilator Type Not Reportable 08/21/18 17:15 Vent Mode Not Reportable 08/21/18 17:15 FiO2 40 08/21/18 17:15 Inspiratory Time Not Reportable 08/21/18 17:15 PEEP Not Reportable 08/21/18 17:15 Pressure Support Not Reportable 08/21/18 17:15 Pressure Control Not Reportable 08/21/18 17:15 EPAP Not Reportable 08/21/18 17:15 IPAP Not Reportable 08/21/18 17:15 BiPAP Not Reportable 08/21/18 17:15 Sodium 130 mmol/L (135-145) L 08/31/18 17:20 Potassium 6.2 mmol/L (3.5-5.0) H* 08/31/18 17:20 Chloride 92 mmol/L (101-111) L 08/31/18 17:20 Carbon Dioxide 31 mmol/L (22-32) 08/31/18 17:20 Anion Gap 7 mmol/L (2-11) 08/31/18 17:20 BUN 116 mg/dL (6-24) H 08/31/18 17:20 Creatinine 2.88 mg/dL (0.51-0.95) H 08/31/18 17:20 Est GFR ( Amer) 19.7 (>60) 08/31/18 17:20 Est GFR (Non-Af Amer) 16.3 (>60) 08/31/18 17:20 BUN/Creatinine Ratio 40.3 (8-20) H 08/31/18 17:20 Glucose 98 mg/dL (70-100) 08/31/18 17:20 POC Glucose (mg/dL) 81 mg/dL (70-100) 08/31/18 20:14 Serum Osmolality 314 mOsm/kg (275-295) H 08/28/18 10:42 Lactic Acid 0.8 mmol/L (0.5-2.0) 08/21/18 12:09 Calcium 9.2 mg/dL (8.6-10.3) 08/31/18 17:20 Phosphorus 5.9 mg/dL (2.5-5.0) H 08/29/18 05:52 Magnesium 2.1 mg/dL (1.9-2.7) 08/29/18 05:52 Total Bilirubin 0.40 mg/dL (0.2-1.0) 08/29/18 05:52 AST 11 U/L (13-39) L 08/29/18 05:52 ALT 28 U/L (7-52) 08/29/18 05:52 Alkaline Phosphatase 74 U/L (34-104) 08/29/18 05:52 Troponin I 0.16 ng/mL (<0.04) H* 08/22/18 14:14 C-Reactive Protein 128.92 mg/L (<8.01) H 08/20/18 08:54 B-Natriuretic Peptide 903 pg/mL (<=100) H 08/20/18 08:56 Total Protein 5.6 g/dL (6.4-8.9) L 08/29/18 05:52 Albumin 3.1 g/dL (3.2-5.2) L 08/29/18 05:52 Globulin 2.5 g/dL (2-4) 08/29/18 05:52 Albumin/Globulin Ratio 1.2 (1-3) 08/29/18 05:52 Procalcitonin 5.4 ng/mL (<0.6) H 08/20/18 08:54 TSH 0.23 mcIU/mL (0.34-5.60) L 08/28/18 10:47 Free T4 0.99 ng/dL (0.61-1.12) 08/30/18 10:45 Cortisol 4.57 mcg/dL 08/28/18 10:47 Urine Color Yellow 08/30/18 20:48 Urine Appearance Turbid 08/30/18 20:48 Urine pH 5.0 (5-9) 08/30/18 20:48 Ur Specific [place] 1.013 (1.010-1.030) 08/30/18 20:48 Urine Protein 2+(100 mg/dl) (Negative) A 08/30/18 20:48 Urine Ketones Negative (Negative) 08/30/18 20:48 Urine Blood 2+ (Negative) A 08/30/18 20:48 Urine Nitrate Negative (Negative) 08/30/18 20:48 Urine Bilirubin Negative (Negative) 08/30/18 20:48 Urine Urobilinogen Negative (Negative) 08/30/18 20:48 Ur Leukocyte Esterase 3+ (Negative) A 08/30/18 20:48 Urine WBC (Auto) 3+(>20/hpf) (Absent) A 08/30/18 20:48 Urine RBC (Auto) 3+(>10/hpf) (Absent) A 08/30/18 20:48 Ur Squamous Epith Cells Present (Absent) A 08/30/18 20:48 Amorphous Crystals Present (Absent) A 08/30/18 20:48 Urine Bacteria 1+ (Absent) A 08/30/18 20:48 Urine Yeast Present (Absent) A 08/30/18 20:48 Urine Osmolality 264 mOsm/kg (100-1150) 08/28/18 11:06 Ur Creatinine Concen 14.08 mg/dL 08/28/18 11:06 U Sodium Concentration 60 mmol/L 08/28/18 11:06 Urine Glucose Negative (Negative) 08/30/18 20:48 Urine Ascorbic Acid * (Negative) A 08/21/18 07:49 Vancomycin Trough 19.8 mcg/mL 08/22/18 09:26 Random Vancomycin 9.4 mcg/mL 08/21/18 05:50 Influenza A (Rapid) Negative (Negative) 08/20/18 10:44 Influenza B (Rapid) Negative (Negative) 08/20/18 10:44 Blood Type A Positive 08/21/18 05:50 Antibody Screen Negative 08/21/18 05:50 Crossmatch See Detail 08/21/18 05:50 - Objective Active Medications: Acetaminophen (Tylenol Tab*) 650 mg PO Q6H PRN PRN Reason: FEVER/PAIN Albuterol/Ipratropium (Duoneb (Albuterol 2.5 Mg/Ipratropium 0.5 Mg)) 1 neb INH [id number] AWAKE [facility] Last Admin: 08/31/18 19:53 Dose: 1 neb Allopurinol (Zyloprim Tab*) 300 mg PO DAILY [facility] Last Admin: 08/31/18 09:00 Dose: 300 mg Bisacodyl (Dulcolax Supp*) 10 mg IN DAILY PRN PRN Reason: CONSTIPATION Last Admin: 08/30/18 02:44 Dose: 10 mg Dextrose (D50w Syringe 50 Ml*) 12.5 gm IV PUSH .FOR FS < 60 - SS PRN PRN Reason: FS < 60 Last Admin: 08/30/18 08:13 Dose: 12.5 gm Diltiazem HCl (Cardizem Cd Cap*) 180 mg PO DAILY [facility] Last Admin: 08/31/18 09:01 Dose: 180 mg Docusate Sodium (Colace Cap*) 200 mg PO DAILY PRN PRN Reason: CONSTIPATION Last Admin: 08/30/18 09:34 Dose: 200 mg Ferrous Sulfate (Ferrous Sulfate Tab*) 325 mg PO DAILY [facility] Last Admin: 08/31/18 08:59 Dose: 325 mg Fluoxetine HCl (Prozac Cap*) 40 mg PO DAILY [facility] Last Admin: 08/31/18 09:00 Dose: 40 mg Guaifenesin (Mucinex*) 1,200 mg PO BID [facility] Last Admin: 08/31/18 21:02 Dose: 1,200 mg Heparin Sodium (Porcine) (Heparin Flush Picc/Ml/Cvc(*)) 1 ml FLUSH 0600,1800 [facility]; Protocol Last Admin: 08/31/18 16:52 Dose: Not Given Heparin Sodium (Porcine) (Heparin Vial(*)) 5,000 units SUBCUT Q12H [facility] Last Admin: 08/31/18 21:02 Dose: 5,000 units Hydroxychloroquine Sulfate (Plaquenil Tab*) 200 mg PO BID [facility] Last Admin: 08/31/18 21:02 Dose: 200 mg Sodium Chloride (Ns 0.9% 1000 Ml*) 1,000 mls @ 150 mls/hr IV PER RATE [facility] Stop: 09/01/18 23:39 Last Admin: 08/31/18 17:12 Dose: 150 mls/hr Insulin Human Lispro (Humalog*) 0 units SUBCUT ACHS [facility]; Protocol Last Admin: 08/31/18 20:22 Dose: Not Given Insulin Human NPH (Insulin Nph(*)) 35 units SUBCUT BEDTIME [facility] Last Admin: 08/31/18 20:32 Dose: Not Given Insulin Human NPH (Insulin Nph(*)) 20 units SUBCUT QAM [facility] Last Admin: 08/31/18 08:59 Dose: 20 unit Magnesium Hydroxide (Milk Of Magnrosa maria Liq*) 30 ml PO Q6H PRN PRN Reason: CONSTIPATION Last Admin: 08/29/18 09:27 Dose: 30 ml Mometasone Furoate/Formoterol Fumar (Dulera 200/5 Mdi*) 2 puff INH BID [facility] Last Admin: 08/31/18 19:53 Dose: 2 puff Neomycin/Polymyxin/Hydrocortisone (Cortisporin Otic Susp 1%*) 4 drop RIGHT EAR TID [facility] Stop: 09/05/18 16:29 Last Admin: 08/31/18 21:02 Dose: 4 drop Nicotine (Nicotine Patch 21 Mg/24 Hr*) 1 patch TRANSDERM DAILY [facility] Last Admin: 08/31/18 08:59 Dose: Not Given Nystatin (Nystatin Top Powder*) 1 applic TOPICAL BID [facility] Last Admin: 08/31/18 21:03 Dose: 1 applic Omeprazole (Prilosec Cap*) 20 mg PO DAILY@0730 [facility] Last Admin: 08/31/18 08:59 Dose: 20 mg Ondansetron HCl (Zofran Inj*) 4 mg IV Q6H PRN PRN Reason: NAUSEA Oxycodone/Acetaminophen (Percocet 5/325 Tab*) 1 tab PO Q6H PRN PRN Reason: PAIN Last Admin: 08/31/18 21:02 Dose: 1 tab Pharmacy Profile Note (Nicotine Patch Removal Note*) 1 note PATCH OFF 2099 [facility] Last Admin: 08/31/18 21:03 Dose: Not Given Prednisone (Deltasone Tab*) 20 mg PO DAILY [facility] Ropinirole HCl (Requip Tab*) 1 mg PO 2099 [facility] Last Admin: 08/31/18 21:02 Dose: 1 mg Senna (Senokot Tab*) 2 tab PO BEDTIME [facility] Last Admin: 08/31/18 21:02 Dose: 2 tab Vital Signs: Vital Signs: Temp Pulse Resp BP Pulse Ox 97.7 F 94 20 120/47 98 08/31/18 12:12 08/31/18 19:56 08/31/18 21:02 08/31/18 16:23 08/31/18 19:56 Patient Weight: Weight 122.561 kg Intake and Output: Intake & Output 08/29/18 08/30/18 08/31/18 09/01/18 06:59 06:59 06:59 06:59 Intake Total 730 072 358 5594 Output Total 1775 1250 750 425 Balance -1045 -270 -114 887 Weight 109.769 kg 109.769 kg 122.561 kg Intake: IV Fluids 0 793 ABX - VANCOMYCIN 255 NS (0.9%) 538 heparin 0 IVPB 60 396 174 ABX - VANCOMYCIN 287 ABX - ZOSYN 109 110 CEFEPIME 60 Calcium Gluconate 64 Oral 670 980 240 345 Output: Urine 325 [place] 1775 925 750 425 Other: # Bowel Movements 0 0 0 Estimated Stool Amount Medium Large Small ADLs: Meal Record Start: 08/20/18 11: 48 Freq: ,,18 Status: Complete Protocol: Created 08/20/18 11:48 System (Rec: 08/20/18 11:48 System ICU-C25) Document 08/20/18 18:00 [id number] (Rec: 08/20/18 18:33 [id number] ICU-C12) Document 08/21/18 09:00 LLI1710 (Rec: 08/21/18 10:58 [id number] ICU-C15) Document 08/21/18 13:00 BGW0551 (Rec: 08/21/18 15:47 BQH2982 ICU-C15) Document 08/21/18 18:00 EFP3368 (Rec: 08/21/18 22:59 NRO1927 ICU-C15) Document 08/22/18 09:00 BTA3273 (Rec: 08/22/18 09:53 LVG6096 ICU-C15) Document 08/22/18 13:00 VXE3128 (Rec: 08/22/18 16:10 MXI7094 ICU-C15) Document 08/22/18 18:00 TSK9629 (Rec: 08/22/18 21:36 [id number] ICU-C15) Document 08/23/18 09:00 LTZ5745 (Rec: 08/23/18 17:03 OER3932 ICU-C15) Document 08/23/18 13:00 SSB9788 (Rec: 08/23/18 17:03 JLM5854 ICU-C15) Document 08/23/18 19:55 CIE9145 (Rec: 08/23/18 19:55 AXA4297 ICU-M31) Document 08/24/18 09:00 NIG8507 (Rec: 08/24/18 12:10 XEO0913 ICU-C25) Document 08/24/18 14:00 GLN9688 (Rec: 08/24/18 15:58 SWH7830 ICU-C25) ADLs: Meal Record Start: 08/24/18 17: 13 Freq: DAILY@0900,1400,1800 Status: Active Protocol: Created 08/24/18 17:13 [id number] (Rec: 08/24/18 17:13 PEX0452 TELE-C09) Document 08/24/18 18:00 TSB4337 (Rec: 08/24/18 20:30 JVD3303 TELE-C01) Document 08/25/18 09:00 BGW8107 (Rec: 08/25/18 09:54 XMQ5165 TELE-C05) Document 08/25/18 14:00 WPL9392 (Rec: 08/25/18 15:01 SKR9041 TELE-C05) Document 08/25/18 18:00 BYU1504 (Rec: 08/25/18 18:39 BTM8086 TELE-C01) Document 08/26/18 09:00 RFZ9186 (Rec: 08/26/18 14:55 QVG0963 TELE-C07) Document 08/26/18 14:00 ORV3956 (Rec: 08/26/18 14:57 WKW9167 TELE-C07) Document 08/26/18 18:00 WIG0484 (Rec: 08/26/18 18:26 VLU6966 TELE-C10) Document 08/27/18 09:00 HWB6021 (Rec: 08/27/18 15:48 PZY9501 TELE-C09) Document 08/27/18 14:00 ZFX3006 (Rec: 08/27/18 15:50 KTO2455 TELE-C09) Document 08/27/18 18:00 REH0608 (Rec: 08/27/18 22:17 BVJ8925 TELE-C33) Document 08/28/18 09:00 NRO1619 (Rec: 08/28/18 12:56 YTS2067 TELE-C07) Document 08/28/18 14:00 ZWR9218 (Rec: 08/28/18 15:11 XYW0641 TELE-C07) Document 08/28/18 18:00 ZWY3985 (Rec: 08/28/18 18:08 HYW2169 TELE-C07) Document 08/29/18 09:00 NXE3277 (Rec: 08/29/18 12:32 KFG8051 TELE-C05) Document 08/29/18 14:00 XRA5446 (Rec: 08/29/18 15:41 ITL7456 TELE-C05) Document 08/29/18 18:00 QNT1996 (Rec: 08/29/18 18:27 OCY6961 TELE-C01) Document 08/30/18 09:00 SLP1283 (Rec: 08/30/18 10:37 UCQ4813 TELE-C01) Document 08/30/18 14:00 EGU7626 (Rec: 08/30/18 15:06 KCD5530 TELE-C01) Document 08/30/18 18:00 QQK6845 (Rec: 08/30/18 18:40 BXC3860 TELE-C01) Document 08/31/18 09:00 UOE4802 (Rec: 08/31/18 09:57 LOT3500 TELE-C07) Document 08/31/18 14:00 FZC2428 (Rec: 08/31/18 14:31 WIW3302 TELE-C07) Document 08/31/18 18:00 TIO2862 (Rec: 08/31/18 21:01 UPQ2832 TELE-C32) Intake and Output Start: 08/20/18 08: 34 Freq: Status: Active Protocol: Created 08/20/18 08:34 System (Rec: 08/20/18 08:34 System EDRM-C11) Intake and Output Start: 08/20/18 11: 48 Freq: 06,14,2200 Status: Complete Protocol: Created 08/20/18 11:48 System (Rec: 08/20/18 11:48 System ICU-C25) Document 08/20/18 13:00 EQV8370 (Rec: 08/20/18 13:21 XPC9639 ICU-C25) Document 08/20/18 14:00 XPL3579 (Rec: 08/20/18 15:15 DNW7226 ICU-C12) Document 08/20/18 15:00 BYX2808 (Rec: 08/20/18 16:11 ZZD1696 ICU-C12) Document 08/20/18 16:00 CLX6694 (Rec: 08/20/18 16:11 EVG8141 ICU-C12) Document 08/20/18 17:00 PIT4968 (Rec: 08/20/18 18:32 ERK3825 ICU-C12) Document 08/20/18 18:00 ULO2177 (Rec: 08/20/18 18:32 QHO0845 ICU-C12) Document 08/20/18 19:00 EGR7139 (Rec: 08/20/18 19:14 WKV5881 ICU-C15) Document 08/20/18 20:00 ZGZ1594 (Rec: 08/20/18 20:14 RFW8333 ICU-C15) Document 08/20/18 22:00 YPM2542 (Rec: 08/20/18 22:08 BBV1345 ICU-C15) Document 08/20/18 23:00 DSE4369 (Rec: 08/20/18 23:04 HSD5179 ICU-C15) Document 08/21/18 00:00 WXE4371 (Rec: 08/21/18 00:03 TAL7966 ICU-C15) Document 08/21/18 00:59 YCH1051 (Rec: 08/21/18 00:59 WDZ5864 ICU-C15) Document 08/21/18 01:54 OCH5940 (Rec: 08/21/18 01:54 VPK2761 ICU-C15) Document 08/21/18 03:00 HWX8522 (Rec: 08/21/18 03:07 BKF6199 ICU-C15) Document 08/21/18 04:00 NFR3876 (Rec: 08/21/18 04:09 EUG7550 ICU-C15) Document 08/21/18 06:00 TGV3737 (Rec: 08/21/18 06:13 OPM1456 ICU-M31) Document 08/21/18 07:00 VCR8709 (Rec: 08/21/18 07:41 XOY6610 ICU-M31) Document 08/21/18 07:00 UBU6835 (Rec: 08/21/18 07:55 GLY8464 ICU-C15) Document 08/21/18 07:55 ZUB7823 (Rec: 08/21/18 09:32 TRH5664 ICU-C15) Document 08/21/18 09:00 BFY2485 (Rec: 08/21/18 10:59 TNR6106 ICU-C15) Document 08/21/18 10:00 YOR5010 (Rec: 08/21/18 10:59 YYO1400 ICU-C15) Document 08/21/18 10:59 VYS7726 (Rec: 08/21/18 10:59 PVA1804 ICU-C15) Document 08/21/18 12:00 XKW0430 (Rec: 08/21/18 15:40 ETE2227 ICU-C15) Document 08/21/18 13:00 HYE4706 (Rec: 08/21/18 15:48 OTJ9797 ICU-C15) Document 08/21/18 14:00 JZH4657 (Rec: 08/21/18 15:48 WXI7549 ICU-C15) Document 08/21/18 15:00 DEP2837 (Rec: 08/21/18 15:48 OWH7779 ICU-C15) Document 08/21/18 16:00 HVJ1530 (Rec: 08/21/18 16:31 UTP5261 ICU-C15) Document 08/21/18 17:00 RTK3907 (Rec: 08/21/18 18:11 DMZ3132 ICU-C15) Document 08/21/18 18:00 NBW3471 (Rec: 08/21/18 18:11 JPT9774 ICU-C15) Document 08/21/18 19:54 JPM2266 (Rec: 08/21/18 20:08 FNY4242 ICU-C15) Document 08/21/18 21:00 NMN2128 (Rec: 08/21/18 23:00 ANM0752 ICU-C15) Document 08/21/18 22:00 PHE2198 (Rec: 08/21/18 23:00 DJO7547 ICU-C15) Document 08/21/18 23:00 RQC6501 (Rec: 08/21/18 23:00 BJW4611 ICU-C15) Document 08/22/18 00:00 ZSZ4119 (Rec: 08/22/18 01:52 SAN9127 ICU-M31) Document 08/22/18 01:00 ATL0627 (Rec: 08/22/18 01:52 EMO2092 ICU-M31) Document 08/22/18 01:51 WOT5140 (Rec: 08/22/18 01:52 BEB7150 ICU-M31) Document 08/22/18 03:00 UFR1499 (Rec: 08/22/18 06:01 UDP5118 ICU-M31) Document 08/22/18 04:00 HKZ3849 (Rec: 08/22/18 06:01 ICR5993 ICU-M31) Document 08/22/18 05:00 EYF4718 (Rec: 08/22/18 06:01 ULU7257 ICU-M31) Document 08/22/18 06:00 TMT5239 (Rec: 08/22/18 06:01 FPG8435 ICU-M31) Document 08/22/18 07:00 MUX9541 (Rec: 08/22/18 07:49 UCL8501 ICU-C15) Document 08/22/18 10:00 UXM7842 (Rec: 08/22/18 10:33 RIC6668 ICU-C15) Document 08/22/18 11:00 PVU8484 (Rec: 08/22/18 13:52 XXO8910 ICU-C15) Document 08/22/18 12:00 EYB5100 (Rec: 08/22/18 13:52 NFP8492 ICU-C15) Document 08/22/18 13:00 CFA4864 (Rec: 08/22/18 13:52 CGY5345 ICU-C15) Document 08/22/18 14:00 SOK7754 (Rec: 08/22/18 14:26 EHF3620 ICU-C15) Document 08/22/18 15:00 IQD8578 (Rec: 08/22/18 16:11 SES7417 ICU-C15) Document 08/22/18 16:00 KOP2952 (Rec: 08/22/18 16:11 BJY2449 ICU-C15) Document 08/22/18 17:00 LHN6052 (Rec: 08/22/18 18:11 ACI5558 ICU-C15) Document 08/22/18 18:00 HJO4568 (Rec: 08/22/18 18:11 WPL9735 ICU-C15) Document 08/22/18 19:30 QUA9182 (Rec: 08/22/18 21:37 UMY2111 ICU-C15) Document 08/22/18 20:00 IEP4958 (Rec: 08/22/18 21:44 UYC9887 ICU-C15) Document 08/22/18 21:00 QBU9936 (Rec: 08/22/18 21:45 BZE0011 ICU-C15) Document 08/22/18 22:00 AMS1021 (Rec: 08/22/18 22:45 PSL5200 ICU-C15) Document 08/22/18 23:00 YVO1059 (Rec: 08/22/18 23:57 SUP1398 ICU-C15) Document 08/22/18 23:57 BAK7619 (Rec: 08/22/18 23:57 EVP1500 ICU-C15) Document 08/23/18 01:00 FUH8132 (Rec: 08/23/18 01:58 RFC0137 ICU-C15) Document 08/23/18 01:58 YJV4938 (Rec: 08/23/18 01:59 TTE8775 ICU-C15) Document 08/23/18 03:00 KIG5220 (Rec: 08/23/18 04:02 SRU2475 ICU-C15) Document 08/23/18 03:50 ASG1990 (Rec: 08/23/18 04:02 USI0162 ICU-C15) Document 08/23/18 05:00 BOD7544 (Rec: 08/23/18 06:01 PLU8486 ICU-M31) Document 08/23/18 06:00 YED2722 (Rec: 08/23/18 06:01 YQU7687 ICU-M31) Document 08/23/18 07:00 DVS9501 (Rec: 08/23/18 07:53 NNC9770 ICU-C15) Document 08/23/18 07:54 NIX2411 (Rec: 08/23/18 08:16 ZMY5306 ICU-C15) Document 08/23/18 09:00 HSZ2622 (Rec: 08/23/18 10:19 HFE9450 ICU-C15) Document 08/23/18 10:00 LCO5284 (Rec: 08/23/18 10:19 ZQM7595 ICU-C15) Document 08/23/18 11:00 ESH5483 (Rec: 08/23/18 12:06 VSN1153 ICU-C15) Document 08/23/18 12:00 ZUC3464 (Rec: 08/23/18 12:06 TGF1127 ICU-C15) Document 08/23/18 13:00 JMA0423 (Rec: 08/23/18 17:00 PXD0479 ICU-C15) Document 08/23/18 14:00 UST1981 (Rec: 08/23/18 17:00 XBI1768 ICU-C15) Document 08/23/18 15:00 EEY9853 (Rec: 08/23/18 17:00 XCM8512 ICU-C15) Document 08/23/18 16:00 ISU2932 (Rec: 08/23/18 17:00 TVG8397 ICU-C15) Document 08/23/18 17:00 MBF8086 (Rec: 08/23/18 17:04 EOQ8887 ICU-C15) Document 08/23/18 18:00 KLQ9485 (Rec: 08/23/18 19:00 CBA8543 ICU-C15) Document 08/23/18 19:00 QGB1058 (Rec: 08/23/18 19:56 ZDX2939 ICU-M31) Document 08/23/18 20:00 YYH7396 (Rec: 08/23/18 21:12 MAZ4289 ICU-M31) Document 08/23/18 21:00 GLY5001 (Rec: 08/23/18 21:12 ILZ6792 ICU-M31) Document 08/23/18 22:00 RUX5277 (Rec: 08/23/18 22:05 YKS2741 ICU-C07) Document 08/24/18 05:53 ZTF8040 (Rec: 08/24/18 05:54 PED1901 ICU-C07) Intake and Output Start: 08/24/18 17: 13 Freq: DAILY@0600,1400,2200 Status: Active Protocol: Created 08/24/18 17:13 ZNO3115 (Rec: 08/24/18 17:13 GNU9317 TELE-C09) Document 08/24/18 22:00 CAW2652 (Rec: 08/24/18 23:03 MAN2407 TELE-C01) Document 08/24/18 23:15 OCN3015 (Rec: 08/25/18 01:12 BAM4702 TELE-C05) Document 08/25/18 04:22 AMU9886 (Rec: 08/25/18 04:22 GJJ8447 TELE-C05) Document 08/25/18 04:44 CNO0572 (Rec: 08/25/18 04:44 ZWY9831 TELE-C33) Document 08/25/18 14:00 MPR9601 (Rec: 08/25/18 15:01 GRN9246 TELE-C05) Document 08/26/18 05:43 EZK0366 (Rec: 08/26/18 05:46 MWU7754 TELE-C01) Document 08/26/18 14:00 NIK5877 (Rec: 08/26/18 14:57 UOT1890 TELE-C07) Document 08/26/18 21:57 JPM9888 (Rec: 08/26/18 21:59 AAL4071 TELE-C07) Document 08/27/18 06:00 WOF8461 (Rec: 08/27/18 07:31 EXR2477 HOSP-C11) Document 08/27/18 14:00 UBF3650 (Rec: 08/27/18 15:50 QKW2329 TELE-C09) Document 08/27/18 22:00 JLC5717 (Rec: 08/27/18 22:18 ZNV7864 TELE-C33) Document 08/28/18 06:00 DDT7349 (Rec: 08/28/18 06:46 XLQ5081 TELE-C35) Document 08/28/18 14:00 CSB0183 (Rec: 08/28/18 15:11 PNB0543 TELE-C07) Document 08/28/18 16:17 FRC9194 (Rec: 08/28/18 16:17 XCD0902 TELE-C07) Document 08/28/18 22:00 KAZ6874 (Rec: 08/28/18 22:25 JGI9787 TELE-C07) Document 08/29/18 06:00 EUX7123 (Rec: 08/29/18 06:44 ZQO7850 TELE-C33) Document 08/29/18 14:00 DCY1805 (Rec: 08/29/18 15:41 SWU6965 TELE-C05) Document 08/29/18 22:00 UCQ8551 (Rec: 08/29/18 22:03 SXJ7023 TELE-C01) Document 08/30/18 06:00 ILE4712 (Rec: 08/30/18 06:56 MKP2904 TELE-C33) Document 08/30/18 14:00 UJP3199 (Rec: 08/30/18 15:06 ZFH1118 TELE-C01) Document 08/30/18 22:00 IKZ0769 (Rec: 08/30/18 22:27 TIN5500 TELE-C09) Document 08/31/18 06:00 QVF9750 (Rec: 08/31/18 06:54 RSN5371 TELE-C01) Document 08/31/18 14:00 AHU4874 (Rec: 08/31/18 14:31 XAJ0266 TELE-C07) Document 08/31/18 22:00 KOP8071 (Rec: 08/31/18 22:22 PYH5658 TELE-C32) Eyes: No Scleral Icterus Ears/Nose/Mouth/Throat: NL Teeth, Lips, Gums, Mucous Membranes Moist Neck: NL Appearance and Movements; NL JVP, Trachea Midline Cardiovascular: NL Sounds; No Murmurs; No JVD, RRR Abdominal: NL Sounds; No Tenderness; No Distention Extremities: No Clubbing, Cyanosis, - - B/l LE edema 2+ pitting Neurological: Alert and Oriented x 3 - Assessment Assessment: 67 yo female with psuedomonas pneumonia, E. Coli UTI, CHF, CKD, COPD exacerbation, ENRIQUE, anemia, DM - Plan Consult Plan (MU): Palliative Plan: Pt is not very talkative but does answer all my questions. Seemed to be having labored breathing but nurse said that there has been no change. She has been started on SSRI last week but it will take a few weeks to see if it has any effect. Pt still wants to be a full code and when I talked with her mother she also stated that was what her daughter wanted. In regards to her pain it's hard to tell how much discomfort she is having and she doesn't seem to be asking for prn pain meds. I wouldn't change them at this time until she is requesting more or complaining they are not effective. At this time her only PCP is the physician at [facility]. Pt had no interest in hospice. - Time On Unit Date of Evaluation: 08/31/18 Hospice Consult Time in: 05:00 Hospice Consult Time Out: 06:30 Hospice Consult Time Total: 90 > 50% of Time Spend In Counseling or Coordinating Care: Yes
[2018-09-01] MEDS: Albuterol/Ipratropium NEB.SOL* Albuterol 2.5 MG/Ipratropium 0.5 MG 3 ML INH SCH ×4 (01:56→20:22)
[2018-09-01] MEDS: NS 0.9% 1000 ML* 1,000 ML IV SCH (02:16)
[2018-09-01] MEDS: oxyCODONE/Acetamin 5/325 MG* TAB PO PRN ×2 (05:46→14:15)
[2018-09-01] MEDS: Omeprazole CAP (NF) 20 MG CAP.DR PO SCH (07:34)
[2018-09-01] MEDS: Insulin LISPRO* 1 UNITS UNIT SUBCUT SCH ×4 (07:46→21:42)
[2018-09-01] MEDS: Mometasone/Formoter 200/5 MDI INH SCH ×2 (08:21→20:22)
[2018-09-01] MEDS ORDERED: Vancomycin Trough Check NOTE FOLLOW UP ONE (08:30)
--- NOTE | 2018-09-01 09:17 | PN ---
Subjective Date of Service: 09/01/18 Interval History: Pt states that she continues to be in pain and had difficulty sleeping last night, although she was unable to explain why. When asked where her pain is, she states "everywhere." When asked what the most painful area is, she states "my stomach." Per nursing, she refuses to eat. Per patient, she is having difficulty having bowel movements, and is unable to tell when the last one was. Family History: Unchanged from Admission Social History: Unchanged from Admission Past Medical History: Unchanged from Admission Objective Active Medications: Acetaminophen (Tylenol Tab*) 650 mg PO Q6H PRN Albuterol/Ipratropium (Duoneb (Albuterol 2.5 Mg/Ipratropium 0.5 Mg)) 1 neb INH [id number] AWAKE JESSE Allopurinol (Zyloprim Tab*) 300 mg PO DAILY JESSE Bisacodyl (Dulcolax Supp*) 10 mg CO DAILY PRN Dextrose (D50w Syringe 50 Ml*) 12.5 gm IV PUSH .FOR FS < 60 - SS PRN Diltiazem HCl (Cardizem Cd Cap*) 180 mg PO DAILY JESSE Docusate Sodium (Colace Cap*) 200 mg PO DAILY PRN Ferrous Sulfate (Ferrous Sulfate Tab*) 325 mg PO DAILY JESSE Fluoxetine HCl (Prozac Cap*) 40 mg PO DAILY JESSE Guaifenesin (Mucinex*) 1,200 mg PO BID JESSE Heparin Sodium (Porcine) (Heparin Flush Picc/Ml/Cvc(*)) 1 ml FLUSH 0600,1800 JESSE; Protocol Heparin Sodium (Porcine) (Heparin Vial(*)) 5,000 units SUBCUT Q12H JESSE Hydroxychloroquine Sulfate (Plaquenil Tab*) 200 mg PO BID [facility] Sodium Chloride (Ns 0.9% 1000 Ml*) 1,000 mls @ 150 mls/hr IV PER RATE JESSE Insulin Human Lispro (Humalog*) 0 units SUBCUT ACHS JESSE; Protocol Insulin Human NPH (Insulin Nph(*)) 35 units SUBCUT BEDTIME JESSE Insulin Human NPH (Insulin Nph(*)) 20 units SUBCUT QAM JESSE Magnesium Hydroxide (Milk Of Magnesia Liq*) 30 ml PO Q6H PRN Mometasone Furoate/Formoterol Fumar (Dulera 200/5 Mdi*) 2 puff INH BID JESSE Neomycin/Polymyxin/Hydrocortisone (Cortisporin Otic Susp 1%*) 4 drop RIGHT EAR TID JESSE Nicotine (Nicotine Patch 21 Mg/24 Hr*) 1 patch TRANSDERM DAILY JESSE Nystatin (Nystatin Top Powder*) 1 applic TOPICAL BID JESSE Omeprazole (Prilosec Cap*) 20 mg PO DAILY@0730 JESSE Ondansetron HCl (Zofran Inj*) 4 mg IV Q6H PRN Oxycodone/Acetaminophen (Percocet 5/325 Tab*) 1 tab PO Q6H PRN Pharmacy Profile Note (Nicotine Patch Removal Note*) 1 note PATCH OFF 2100 JESSE Prednisone (Deltasone Tab*) 20 mg PO DAILY JESSE Ropinirole HCl (Requip Tab*) 1 mg PO 2100 JESSE Senna (Senokot Tab*) 2 tab PO BEDTIME JESSE Vital Signs: Temp Pulse Resp BP Pulse Ox 98.6 F 100 18 132/73 99 09/01/18 03:17 09/01/18 08:00 09/01/18 08:00 09/01/18 03:17 09/01/18 08:00 Oxygen Devices in Use Now: Nasal Cannula Appearance: Pt is laying in bed, in no acute distress. She occasionally moans. Eyes: No Scleral Icterus, PERRLA Ears/Nose/Mouth/Throat: NL Teeth, Lips, Gums, Mucous Membranes Moist Neck: NL Appearance and Movements; NL JVP, Trachea Midline Respiratory: Symmetrical Chest Expansion and Respiratory Effort, - - Anterior lung sounds are rhoncorous; unable to assess from posteriorly, as pt refuses to turn Cardiovascular: NL Sounds; No Murmurs; No JVD, RRR Abdominal: - - BS hypoactive; when palpated, pt says "ow;" bruising noted on abd , which pt unable to tell how long it's been there, but states "I always have bruises" Extremities: No Clubbing, Cyanosis, - - Bruising in b/l UE; L arm is edematous and erythematous bullous pemphigoid. B/l LE with 2+ pitting edema, skin with chronic venous statis changes Result Diagrams: 09/01/18 09:02 09/01/18 09:02 Additional Lab and Data: Lab Results 08/20/18 Range/Units 08:40 ABG pH 7.24 L (7.35-7.45) ABG pCO2 81 H* (35-45) mmHg ABG pO2 87 (80-100) mmHg ABG HCO3 28.3 (19-31) mmol/L ABG O2 Saturation 97.8 (94.0-98.0) % ABG Base Excess 4.5 H (-2.0-2.0) mmol/L Microbiology and Other Data: Microbiology 08/21/18 12:52 Aerobic Blood Culture - Preliminary Blood Venous No Growth Day 4 Anaerobic Blood Culture - Preliminary No Growth Day 4 08/20/18 08:54 Aerobic Blood Culture - Final Blood Venous No Growth Day 5 Anaerobic Blood Culture - Final No Growth Day 5 08/20/18 08:54 Aerobic Blood Culture - Final Blood Venous Pseudomonas Aeruginosa Anaerobic Blood Culture - Final No Growth Day 5 08/20/18 14:18 Urine Culture - Final Urine Escherichia Coli Normal Delilah 08/21/18 15:40 Stool Occult Blood (EMEKA) - Final Stool 08/20/18 14:53 Nasal Screen MRSA (PCR) - Final Nasal Mrsa Detected 08/20/18 14:18 Legionella Urinary Antigen - Final Urine Negative Legionella Antigen Streptococcus pneumoniae Ag Screen - Final Negative S. pneumo Antigen 08/20/18 10:30 Influenza Types A,B Antigen - Final Nasopharyngeal Specimen received for Influenza A/B Molecular testing Assess/Plan/Problems-Billing Assessment: Mrs Can is a 67yo F with PMH of COPD, HTN, ENRIQUE, bullous pemphigoid, ENRIQUE, Afib, HLD, anemia, HFpEF, CHELLE, tophaceous gout, seropositive RA, PAF, mitral regurgitation, morbid obesity with BMI 46, CKD stage 4, [facility] resident, who presented to ED with dyspnea and cough, found to have Pseudomonas septicemia, pneumonia, E. coli UTI. Treatment was completed and pna, septicemia, UTI are resolved. Pt is receiving ongoing treatment for CHF, hyperkalemia, and CKD. - Patient Problems (1) Diastolic congestive heart failure Comment: -Echo from 08/20 shows EF 60-65%, LVH and RV dilation consistent with diastolic HF, moderate TR, moderate pulmonary HTN, mild dilation of ascending aorta -Repeat Echo today -Lasix 60 this morning -Lasix 40 in the afternoon, due to CT results of pleural effusions and continued LE edema -Lasix 40 qd thereafter -Strict I/O (2) Hyperkalemia Comment: -Potassium at 6.1 this morning -EKG shows regular rate and rhythm with widened QRS, prolonged KAITLIN- possibly due to decompensated HF; no hyperkalemia changes -Repeat Patiromer, calcium gluconate, D50 followed by insulin -Repeat dose of Patiromer 1700 -Recheck BMP in morning (3) Chronic kidney disease, stage 4 (severe) Comment: -Nephrology consult ordered; Dr. Goldsmith will see pt tomorrow -Cystatin C ordered, per recommendations -Recheck BMP in a.m. (4) Abdominal pain Comment: -CT with oral contrast only reveals: "moderate-sized left pleural effusion with left basilar atelectasis. Small right pleural effusion is noted. Cholelithiasis is without biliary duct dilatation. Diffuse edema and anasarca is noted. -Continue Lasix as above. (5) Leukocytosis Current Visit: Yes Status: Acute Code(s): D72.829 - ELEVATED WHITE BLOOD CELL COUNT, UNSPECIFIED SNOMED Code(s): 978172928 Comment: -Likely due to steroids -CBC continues to trend down -Blood cultures negative- continue to monitor for growth -Recheck CBC tomorrow (6) Type 2 diabetes mellitus Comment: -Last 24h BS show lows in the 60's and pt is occasionally refusing to eat -Continue sliding scale Lispro as ordered -D/C NPH at this time and reassess for need tomorrow -Continue to monitor (7) Otitis externa Comment: -Continue Cortisporin ottic gtts to R ear (8) Afib Comment: - [id number] is 4 - patient states she was on Xarelto in the past and it was discontinued when she had a femoral line placed at [facility] and developed a hematoma. -Tele shows pt went from AF to NSR with wide complex -Rate is borderline; continue to monitor (9) COPD (chronic obstructive pulmonary disease) Comment: -Continue bronchodilator and steroids. (10) DVT prophylaxis Comment: -SQ heparin. Status and Disposition: -Appreciate PT eval -Back to [facility] when ready -Pt now with worsening consolidation and congestion on CXR
[2018-09-01 09:26] LABS: BUN/Creatinine Ratio 39.9 (8-20); Calcium 8.7 mg/dL (8.6-10.3); EGFR Non-African American 16.3 (>60)
[2018-09-01 09:34] LABS: Potassium 6.1 mmol/L (3.5-5.0)
[2018-09-01] MEDS ORDERED: Furosemide IV* 10 MG/ML 10 ML VIAL (100 MG) IV ONE (09:38)
[2018-09-01] MEDS: Hydroxychloroquine TAB* 200 MG PO SCH ×2 (09:42→21:39)
[2018-09-01] MEDS: predniSONE TAB* 20 MG PO SCH (09:43)
[2018-09-01] MEDS: Ferrous Sulfate TAB* 325 MG PO SCH (09:43)
[2018-09-01] MEDS: Allopurinol TAB* 300 MG PO SCH (09:43)
[2018-09-01] MEDS: FLUoxetine CAP* 20 MG PO SCH (09:44)
[2018-09-01] MEDS: Diltiazem CD CAP* 180 MG PO SCH (09:45)
[2018-09-01] MEDS: guaiFENesin ER TAB 600 MG PO SCH ×2 (09:46→21:39)
[2018-09-01] MEDS: Insulin NPH(*) 1 UNITS UNIT SUBCUT SCH (09:47)
[2018-09-01] MEDS: Heparin VIAL(*) 5000 UNITS/ML VIAL (FIVE THOUSAND) SUBCUT SCH ×2 (09:47→21:39)
[2018-09-01 09:49] LABS: ABS Basophils 0.1 10^3/ul (0-0.2); ABS Eosinophils 0 10^3/ul (0-0.6); ABS Lymphocytes 0.3 10^3/ul (1.0-4.8); ABS Monocytes 0.7 10^3/ul (0-0.8); ABS Neutrophils 12.3 10^3/ul (1.5-7.7); ABS Nucleated RBC 0 10^3/ul; Eosinophil % 0 %; Hematocrit 31 % (35-47); Hemoglobin 9.2 g/dl (12.0-16.0); Lymphocyte % 2.3 %; Mean Corpuscular HGB Conc 30 g/dl (31-36); Mean Corpuscular Hemoglobin 26 pg (27-31); Mean Corpuscular Volume 87 fL (80-97); Mean Platelet Volume 8.4 fL (7.4-10.4); Nucleated Red Blood Cells % 0.1; Platelet Count 139 10^3/ul (150-450); Red Cell Distribution Width 18 % (10.5-15); White Blood Count 13.3 10^3/ul (3.5-10.8)
[2018-09-01] MEDS: Neomyc/Polym/HC 1% OTIC SUSP* **OTIC RIGHT EAR SCH ×3 (09:51→21:42)
[2018-09-01] MEDS: Nicotine PATCH 21 MG/24 HR* PATCH TRANSDERM SCH (09:51)
[2018-09-01] MEDS: Nystatin TOP POWDER* 15 GM BTL TOPICAL SCH ×2 (09:52→21:56)
[2018-09-01] MEDS ORDERED: Dextrose 50% Syringe 50 ML* 25 GM/50 ML SYRINGE IV PUSH PRN (10:21)
[2018-09-01] MEDS ORDERED: Insulin REGULAR(*) 1 UNITS UNIT IV PUSH ONE (10:23)
[2018-09-01] MEDS ORDERED: Calcium Gluconate INJ* 1 GM in NS 0.9% 50 ML* 50 ML IVPB ONE (10:24)
[2018-09-01] MEDS ORDERED: Patiromer POWDER* 8.4 GM PAK PO ONE ×2 (11:30→17:00)
[2018-09-01] MEDS ORDERED: Furosemide IV* 10 MG/ML VIAL (40 MG) IV ONE (16:40)
[2018-09-01] MEDS: rOPINIRole TAB* 1 MG PO SCH (21:39)
[2018-09-01] MEDS: Senna TAB PO SCH (21:39)
[2018-09-01] MEDS: Nicotine Patch Removal NOTE PATCH OFF SCH (22:28)
[2018-09-02] MEDS: Albuterol/Ipratropium NEB.SOL* Albuterol 2.5 MG/Ipratropium 0.5 MG 3 ML INH SCH ×4 (01:31→19:53)
[2018-09-02 06:37] LABS: BUN/Creatinine Ratio 40.4 (8-20); Calcium 8.9 mg/dL (8.6-10.3); EGFR Non-African American 15.7 (>60)
[2018-09-02 06:40] LABS: Potassium 6.3 mmol/L (3.5-5.0)
--- NOTE | 2018-09-02 06:55 | PN ---
Hospitalist Progress Note Got call overnight that patient was more lethargic. Pt noted to be on 4L Sating in high 90s. Asked for ABG and reduction in O2 goal between 88-92%. ABG returned with pH 7.22 PC02 76 PO2 62. BIPAP (which was plan for night anyway) applied for hypercarbeic respiratory failure. RN reports much better mentation on Bipap but then Pt ultimately refused BIPAP after 0300.
[2018-09-02] MEDS: Mometasone/Formoter 200/5 MDI INH SCH ×2 (07:55→21:00)
[2018-09-02] MEDS ORDERED: Dextrose 50% Syringe 50 ML* 25 GM/50 ML SYRINGE IV PUSH ONE (08:00)
[2018-09-02] MEDS ORDERED: Insulin REGULAR(*) 1 UNITS UNIT IV PUSH ONE (08:00)
[2018-09-02] MEDS ORDERED: Furosemide IV* 10 MG/ML VIAL (40 MG) IV STA (08:10)
--- NOTE | 2018-09-02 08:20 | PN ---
Hospitalist Progress Note Date of Service: 09/02/18 Paged by RN concerned about pt being hypoxic requiring nasal bipap/cpap to maintain sats. Pt observed to be lethargic on exam and recently diagnosed w/ increasing congestion. given 1x dose of 40 mg lasix, troponins, EKG, CXR , and ABG pending. D/W Dr. Amaral who has agreed to take over patient's case under her service in the ICU. Discussed complications of discussing code status per nursing staff when mother is around. Will defer. We thank Dr. Amaral for her assistance. Please call of us if with questions.
[2018-09-02] MEDS ORDERED: Furosemide IV* 10 MG/ML VIAL (40 MG) IV SCH (09:00)
--- NOTE | 2018-09-02 09:18 | PN ---
Date of Service: 09/02/18 - HD 14 Critical Care Services: 67 yo F with PMH including DM, STEMI, paroxysmal AFib, COPD, frequent UTI, CKD, ENRIQUE and chronic respiratory failure who lives in a [facility] facility. She presented to the ED on 08/20 with complaints of shortness of breath for the past several days. SpO2 at [facility] 82% on RA. She has been noncompliant with nocturnal CPAP lately. A CXR had been done at the [facility] which showed a possible basilar infiltrate and she had been started on Azithromycin. She was brought in to the ED 08/20 for failure to improve. In ED She was tachycardic to 124 but otherwise hemodynamically stable. Exam notable for ill appearance, chronic erythema of lower extremities with pitting edema, Rales, rhonchi and wheezing on exam and inability to speak in full sentences. WBC elevated at 18.0. ABG with pH 7.24, pCO2 81. She was started on BiPAP. Troponin came back elevated at 0.26. She was admitted to the hospitalist service for acute hypoixc and hypercarbic respritaroy failure. She was given Lasix for an elevated BNP anc concern for CHF exacerbation. She was started on steriods, bronchodilators for COPD exacerbation. She was also started on broad spectrum antibiotics to cover for healthcare associated pneumonia (SNF resident). Seen by Dr. Angel from pulmonology for COPD exacerbation, agreed with current management. 08/21: Bolused for drop in SBP to 70s and decreased UOP. Hgb dropped from 11 to 8.6, no active bleeding, transferred to ICU. Acidosis improved on BiPAP. 08/22: Blood cultures positive for Pseudomonas (presumed source is lungs), urine positive for Klebsiella. Antibiotics adjusted to provide double coverage to Pseudomonas 08/23: respiratory status stabilized 08/24: TTE completed, diastolic dysfunction, no vegetations 08/25: transferred out of unit. continuing to improve. On supplimental O2 during day and BiPAP at night. 08/26: reports generalized pain. 08/27: ID consulted; recommended course length of 10 days for Cefipime. 08/29: Developed otitis externa, started on cortisporin drops. Also noted to develop hyponatremia, possibly second to SIADH as FeNA consistent with euvolemic state. Steriod taper in progress. Starting PT. 08/30: Complaining of malaise. CXR with worsening consolidation and congestion. WBC rising. ABX broadened to Vancomycin and Zosyn. 08/31: Reports pain "everywhere". Persistent cough and shortness of breath. 09/01: Palliative care consulted. At that time reaffirmed desire for full code status and did not have interest in hospice options. Lasix diuresis reinitiated for CHF. K elevated, receiving Patriomer, calcium D50 + insulin. 09/02: Increased lethargy overnight. Sats high 90s on 4L, O2 decreased. ABG with pH 7.22, pCO2 76 pO2 62. Started on BiPAP. Mentation improve on BiPAP, however patient refused to wear it after 3AM. On morning rounds, pt noted to be lethargic again. Given lasix and transferred to ICU for further care. Vital Signs: Temp Pulse Resp BP SpO2 FiO2 98.1 F 93 18 117/61 93 36 09/02/18 03:53 09/02/18 08:03 09/02/18 08:03 09/02/18 03:53 09/02/18 08:03 09/02 02:13 Physical Exam: Gen: resting in bed. uncomfortable HEENT: nasal BiPAP in place Lungs: clear bilaterally Cardiac: RRR Abdomen: soft, obese, nontender Extremities: warm, dry, minimal edema Neuro: opens eyes to voice, tremulous, weak. oriented. Fluid Balance (Past 24 Hours): I= O= Net Intake & Output 08/31/18 09/01/18 09/02/18 09/03/18 06:59 06:59 06:59 06:59 Intake Total 636 2303 2220 Output Total 750 950 675 Balance -114 1353 1545 Weight 270 lb 3.2 oz 274 lb 8 oz 287 lb Intake: IV Fluids 0 1784 1060 ABX - VANCOMYCIN 255 Calcium Gluconate 60 NS (0.9%) 1529 1000 heparin 0 IVPB 396 174 ABX - VANCOMYCIN 287 ABX - ZOSYN 109 110 Calcium Gluconate 64 Oral 730 250 0030 Output: Sal[place] 750 950 675 Other: # Bowel Movements 0 0 0 Estimated Stool Amount Large Small Small ADLs: Meal Record Start: 08/20/18 11: 48 Freq: ,, Status: Complete Protocol: Created 08/20/18 11:48 System (Rec: 08/20/18 11:48 System ICU-C25) Document 08/20/18 18:00 EII1936 (Rec: 08/20/18 18:33 NJF7379 ICU-C12) Document 08/21/18 09:00 QSJ7572 (Rec: 08/21/18 10:58 CTL9342 ICU-C15) Document 08/21/18 13:00 KTQ4034 (Rec: 08/21/18 15:47 RNJ2823 ICU-C15) Document 08/21/18 18:00 NPE3335 (Rec: 08/21/18 22:59 DCR2401 ICU-C15) Document 08/22/18 09:00 FRX6290 (Rec: 08/22/18 09:53 WBS0888 ICU-C15) Document 08/22/18 13:00 NHA4908 (Rec: 08/22/18 16:10 CKW7937 ICU-C15) Document 08/22/18 18:00 ZSB8031 (Rec: 08/22/18 21:36 VOI1208 ICU-C15) Document 08/23/18 09:00 IUD6642 (Rec: 08/23/18 17:03 XSI4966 ICU-C15) Document 08/23/18 13:00 NKI6692 (Rec: 08/23/18 17:03 HER7871 ICU-C15) Document 08/23/18 19:55 RDR5496 (Rec: 08/23/18 19:55 NYB4447 ICU-M31) Document 08/24/18 09:00 VAO0873 (Rec: 08/24/18 12:10 HTH3090 ICU-C25) Document 08/24/18 14:00 ADT7903 (Rec: 08/24/18 15:58 DJY5986 ICU-C25) ADLs: Meal Record Start: 08/24/18 17: 13 Freq: DAILY@0900,1400,1800 Status: Active Protocol: Created 08/24/18 17:13 HTX6395 (Rec: 08/24/18 17:13 LLF4562 TELE-C09) Document 08/24/18 18:00 FUE7228 (Rec: 08/24/18 20:30 QET4319 TELE-C01) Document 08/25/18 09:00 JXK8878 (Rec: 08/25/18 09:54 TJN9806 TELE-C05) Document 08/25/18 14:00 YTH2181 (Rec: 08/25/18 15:01 CSM1625 TELE-C05) Document 08/25/18 18:00 LDV5537 (Rec: 08/25/18 18:39 THJ9539 TELE-C01) Document 08/26/18 09:00 UTJ6482 (Rec: 08/26/18 14:55 MMH6523 TELE-C07) Document 08/26/18 14:00 WGO6881 (Rec: 08/26/18 14:57 NNS5648 TELE-C07) Document 08/26/18 18:00 BTN6624 (Rec: 08/26/18 18:26 DOZ1808 TELE-C10) Document 08/27/18 09:00 JSI6923 (Rec: 08/27/18 15:48 DAX9827 TELE-C09) Document 08/27/18 14:00 VFZ6591 (Rec: 08/27/18 15:50 OAR4425 TELE-C09) Document 08/27/18 18:00 WIA9102 (Rec: 08/27/18 22:17 QRJ1988 TELE-C33) Document 08/28/18 09:00 UPF7745 (Rec: 08/28/18 12:56 VYV3601 TELE-C07) Document 08/28/18 14:00 OTC7931 (Rec: 08/28/18 15:11 GDT3556 TELE-C07) Document 08/28/18 18:00 PXR5161 (Rec: 08/28/18 18:08 HTQ0218 TELE-C07) Document 08/29/18 09:00 KUQ5336 (Rec: 08/29/18 12:32 LEK9331 TELE-C05) Document 08/29/18 14:00 IMP9968 (Rec: 08/29/18 15:41 MPB6186 TELE-C05) Document 08/29/18 18:00 GFP8672 (Rec: 08/29/18 18:27 YKU2940 TELE-C01) Document 08/30/18 09:00 YBK5231 (Rec: 08/30/18 10:37 YON8255 TELE-C01) Document 08/30/18 14:00 DFR8502 (Rec: 08/30/18 15:06 TGB7252 TELE-C01) Document 08/30/18 18:00 THY4541 (Rec: 08/30/18 18:40 SRW7913 TELE-C01) Document 08/31/18 09:00 DTW2022 (Rec: 08/31/18 09:57 SMU4459 TELE-C07) Document 08/31/18 14:00 KMI8581 (Rec: 08/31/18 14:31 MNR7887 TELE-C07) Document 08/31/18 18:00 UOG7646 (Rec: 08/31/18 21:01 HIL5139 TELE-C32) Document 09/01/18 09:00 YXG0778 (Rec: 09/01/18 09:46 WXB7451 TELE-C07) Document 09/01/18 14:00 ZDP4299 (Rec: 09/01/18 14:29 TRW6485 TELE-C10) Document 09/01/18 17:58 AOR5766 (Rec: 09/01/18 17:59 YZU3404 TELE-C10) Intake and Output Start: 08/20/18 08: 34 Freq: Status: Active Protocol: Created 08/20/18 08:34 System (Rec: 08/20/18 08:34 System EDRM-C11) Intake and Output Start: 08/20/18 11: 48 Freq: 06,14,2200 Status: Complete Protocol: Created 08/20/18 11:48 System (Rec: 08/20/18 11:48 System ICU-C25) Document 08/20/18 13:00 EFV6424 (Rec: 08/20/18 13:21 ULZ3408 ICU-C25) Document 08/20/18 14:00 CRY1695 (Rec: 08/20/18 15:15 OLQ3591 ICU-C12) Document 08/20/18 15:00 AUZ9015 (Rec: 08/20/18 16:11 ICC1371 ICU-C12) Document 08/20/18 16:00 CBY0778 (Rec: 08/20/18 16:11 WBE1196 ICU-C12) Document 08/20/18 17:00 CXU4902 (Rec: 08/20/18 18:32 IYW7710 ICU-C12) Document 08/20/18 18:00 RSU4891 (Rec: 08/20/18 18:32 STQ7907 ICU-C12) Document 08/20/18 19:00 KKL3483 (Rec: 08/20/18 19:14 UCL5045 ICU-C15) Document 08/20/18 20:00 NDK6816 (Rec: 08/20/18 20:14 UZI1717 ICU-C15) Document 08/20/18 22:00 CZI4879 (Rec: 08/20/18 22:08 JEC9303 ICU-C15) Document 08/20/18 23:00 NDG5222 (Rec: 08/20/18 23:04 VUB1974 ICU-C15) Document 08/21/18 00:00 EFB8198 (Rec: 08/21/18 00:03 YBR8722 ICU-C15) Document 08/21/18 00:59 KCT8582 (Rec: 08/21/18 00:59 PQV9892 ICU-C15) Document 08/21/18 01:54 WNZ3066 (Rec: 08/21/18 01:54 SAN3457 ICU-C15) Document 08/21/18 03:00 BUV6032 (Rec: 08/21/18 03:07 RZU7386 ICU-C15) Document 08/21/18 04:00 ZQS1575 (Rec: 08/21/18 04:09 GRN0536 ICU-C15) Document 08/21/18 06:00 WBK7238 (Rec: 08/21/18 06:13 FVW1050 ICU-M31) Document 08/21/18 07:00 CEJ7304 (Rec: 08/21/18 07:41 KUH6853 ICU-M31) Document 08/21/18 07:00 CLY1764 (Rec: 08/21/18 07:55 GNT2503 ICU-C15) Document 08/21/18 07:55 TDP3475 (Rec: 08/21/18 09:32 MLM2331 ICU-C15) Document 08/21/18 09:00 BKT6623 (Rec: 08/21/18 10:59 ULH6970 ICU-C15) Document 08/21/18 10:00 JVR4458 (Rec: 08/21/18 10:59 LOU5361 ICU-C15) Document 08/21/18 10:59 GAI5478 (Rec: 08/21/18 10:59 ROP5616 ICU-C15) Document 08/21/18 12:00 JXF8906 (Rec: 08/21/18 15:40 PGF8931 ICU-C15) Document 08/21/18 13:00 UQP3124 (Rec: 08/21/18 15:48 BFO1726 ICU-C15) Document 08/21/18 14:00 BRU0285 (Rec: 08/21/18 15:48 QFR5728 ICU-C15) Document 08/21/18 15:00 CJE3806 (Rec: 08/21/18 15:48 WIY4011 ICU-C15) Document 08/21/18 16:00 HUI7942 (Rec: 08/21/18 16:31 HDG5372 ICU-C15) Document 08/21/18 17:00 PIT6532 (Rec: 08/21/18 18:11 KHT7687 ICU-C15) Document 08/21/18 18:00 ERQ0580 (Rec: 08/21/18 18:11 XJJ1045 ICU-C15) Document 08/21/18 19:54 YWR6340 (Rec: 08/21/18 20:08 KXK4684 ICU-C15) Document 08/21/18 21:00 XSB3595 (Rec: 08/21/18 23:00 XIP9960 ICU-C15) Document 08/21/18 22:00 FFO3799 (Rec: 08/21/18 23:00 SSW4121 ICU-C15) Document 08/21/18 23:00 MVR4199 (Rec: 08/21/18 23:00 UGP5642 ICU-C15) Document 08/22/18 00:00 FMM8047 (Rec: 08/22/18 01:52 VFH2379 ICU-M31) Document 08/22/18 01:00 XWL0781 (Rec: 08/22/18 01:52 SRI4975 ICU-M31) Document 08/22/18 01:51 PRH4685 (Rec: 08/22/18 01:52 PHJ1988 ICU-M31) Document 08/22/18 03:00 VAH7437 (Rec: 08/22/18 06:01 VPB3320 ICU-M31) Document 08/22/18 04:00 GXY2470 (Rec: 08/22/18 06:01 CMM3000 ICU-M31) Document 08/22/18 05:00 WOY5080 (Rec: 08/22/18 06:01 EAF0789 ICU-M31) Document 08/22/18 06:00 MKH5892 (Rec: 08/22/18 06:01 QDN1517 ICU-M31) Document 08/22/18 07:00 WIP0021 (Rec: 08/22/18 07:49 KPI1344 ICU-C15) Document 08/22/18 10:00 EEA3908 (Rec: 08/22/18 10:33 XQN4063 ICU-C15) Document 08/22/18 11:00 AVX2235 (Rec: 08/22/18 13:52 WDC1067 ICU-C15) Document 08/22/18 12:00 FQJ4800 (Rec: 08/22/18 13:52 AAA5067 ICU-C15) Document 08/22/18 13:00 DSK0005 (Rec: 08/22/18 13:52 DNX2545 ICU-C15) Document 08/22/18 14:00 PCZ5632 (Rec: 08/22/18 14:26 EOE5214 ICU-C15) Document 08/22/18 15:00 WYI6358 (Rec: 08/22/18 16:11 XBP9276 ICU-C15) Document 08/22/18 16:00 THY9505 (Rec: 08/22/18 16:11 XKY6064 ICU-C15) Document 08/22/18 17:00 XRR8063 (Rec: 08/22/18 18:11 GCS3773 ICU-C15) Document 08/22/18 18:00 IPD4563 (Rec: 08/22/18 18:11 ORU1371 ICU-C15) Document 08/22/18 19:30 WBK2067 (Rec: 08/22/18 21:37 EFX7703 ICU-C15) Document 08/22/18 20:00 SJY7601 (Rec: 08/22/18 21:44 ABH2776 ICU-C15) Document 08/22/18 21:00 MLV3960 (Rec: 08/22/18 21:45 WJK7588 ICU-C15) Document 08/22/18 22:00 FWV6142 (Rec: 08/22/18 22:45 NOT2393 ICU-C15) Document 08/22/18 23:00 FSU3543 (Rec: 08/22/18 23:57 KGI9054 ICU-C15) Document 08/22/18 23:57 ANC4492 (Rec: 08/22/18 23:57 SSX2981 ICU-C15) Document 08/23/18 01:00 HLN1854 (Rec: 08/23/18 01:58 HYX3394 ICU-C15) Document 08/23/18 01:58 LXM9323 (Rec: 08/23/18 01:59 BHV4067 ICU-C15) Document 08/23/18 03:00 TAU8917 (Rec: 08/23/18 04:02 RBG3411 ICU-C15) Document 08/23/18 03:50 OMP4316 (Rec: 08/23/18 04:02 PKA1152 ICU-C15) Document 08/23/18 05:00 HXH3667 (Rec: 08/23/18 06:01 JCE2007 ICU-M31) Document 08/23/18 06:00 ICX7264 (Rec: 08/23/18 06:01 CHZ2273 ICU-M31) Document 08/23/18 07:00 MHP8391 (Rec: 08/23/18 07:53 IIS0783 ICU-C15) Document 08/23/18 07:54 QNI7375 (Rec: 08/23/18 08:16 RKP8363 ICU-C15) Document 08/23/18 09:00 UOP5142 (Rec: 08/23/18 10:19 NRI1977 ICU-C15) Document 08/23/18 10:00 HLN2488 (Rec: 08/23/18 10:19 GBI9574 ICU-C15) Document 08/23/18 11:00 FFT4115 (Rec: 08/23/18 12:06 NFZ2928 ICU-C15) Document 08/23/18 12:00 KZF4804 (Rec: 08/23/18 12:06 ZYQ0252 ICU-C15) Document 08/23/18 13:00 HKP5747 (Rec: 08/23/18 17:00 TTW4483 ICU-C15) Document 08/23/18 14:00 MFZ2921 (Rec: 08/23/18 17:00 RYK1227 ICU-C15) Document 08/23/18 15:00 LWZ9029 (Rec: 08/23/18 17:00 NAR3879 ICU-C15) Document 08/23/18 16:00 YTN3026 (Rec: 08/23/18 17:00 MUK8118 ICU-C15) Document 08/23/18 17:00 XLP9724 (Rec: 08/23/18 17:04 IMW8030 ICU-C15) Document 08/23/18 18:00 SCC4080 (Rec: 08/23/18 19:00 VAV6071 ICU-C15) Document 08/23/18 19:00 IHK4067 (Rec: 08/23/18 19:56 KCS1312 ICU-M31) Document 08/23/18 20:00 KHF7616 (Rec: 08/23/18 21:12 GWD0541 ICU-M31) Document 08/23/18 21:00 ZLV9534 (Rec: 08/23/18 21:12 OFK1174 ICU-M31) Document 08/23/18 22:00 WRX1247 (Rec: 08/23/18 22:05 KFJ4800 ICU-C07) Document 08/24/18 05:53 VKN2247 (Rec: 08/24/18 05:54 ELE1175 ICU-C07) Intake and Output Start: 08/24/18 17: 13 Freq: DAILY@0600,1400,2200 Status: Active Protocol: Created 08/24/18 17:13 TSR0156 (Rec: 08/24/18 17:13 FHA2964 TELE-C09) Document 08/24/18 22:00 JJA7213 (Rec: 08/24/18 23:03 LIS2239 TELE-C01) Document 08/24/18 23:15 SLX0833 (Rec: 08/25/18 01:12 SKF3361 TELE-C05) Document 08/25/18 04:22 UOD4898 (Rec: 08/25/18 04:22 RUS2924 TELE-C05) Document 08/25/18 04:44 HSD1087 (Rec: 08/25/18 04:44 WDM8171 TELE-C33) Document 08/25/18 14:00 MUL3039 (Rec: 08/25/18 15:01 QQP4116 TELE-C05) Document 08/26/18 05:43 BNU6246 (Rec: 08/26/18 05:46 QPV6087 TELE-C01) Document 08/26/18 14:00 SPG7525 (Rec: 08/26/18 14:57 FTF8136 TELE-C07) Document 08/26/18 21:57 QXL6383 (Rec: 08/26/18 21:59 NRQ4460 TELE-C07) Document 08/27/18 06:00 TWD3707 (Rec: 08/27/18 07:31 SPG3003 HOSP-C11) Document 08/27/18 14:00 KQO0741 (Rec: 08/27/18 15:50 LBR9460 TELE-C09) Document 08/27/18 22:00 OVP0120 (Rec: 08/27/18 22:18 DIK6266 TELE-C33) Document 08/28/18 06:00 NNG6597 (Rec: 08/28/18 06:46 PYO3401 TELE-C35) Document 08/28/18 14:00 HVY8742 (Rec: 08/28/18 15:11 GOP7174 TELE-C07) Document 08/28/18 16:17 OYI3997 (Rec: 08/28/18 16:17 GIN0920 TELE-C07) Document 08/28/18 22:00 ULD9834 (Rec: 08/28/18 22:25 DUX2418 TELE-C07) Document 08/29/18 06:00 QQP1444 (Rec: 08/29/18 06:44 GRL7090 TELE-C33) Document 08/29/18 14:00 LEM1434 (Rec: 08/29/18 15:41 HLA5503 TELE-C05) Document 08/29/18 22:00 JMN4029 (Rec: 08/29/18 22:03 XZC1830 TELE-C01) Document 08/30/18 06:00 KPG4228 (Rec: 08/30/18 06:56 KNU1985 TELE-C33) Document 08/30/18 14:00 LYG4731 (Rec: 08/30/18 15:06 WTC2439 TELE-C01) Document 08/30/18 22:00 TGH3457 (Rec: 08/30/18 22:27 QRE1736 TELE-C09) Document 08/31/18 06:00 RQV5177 (Rec: 08/31/18 06:54 SEO2026 TELE-C01) Document 08/31/18 14:00 GBZ9417 (Rec: 08/31/18 14:31 OVZ9096 TELE-C07) Document 08/31/18 22:00 IVJ4235 (Rec: 08/31/18 22:22 ZGA8660 TELE-C32) Document 09/01/18 06:00 QRY0675 (Rec: 09/01/18 06:41 HLZ5267 TELE-C32) Document 09/01/18 14:00 RVN8955 (Rec: 09/01/18 14:26 HSY9329 TELE-C10) Document 09/01/18 22:00 YOQ9172 (Rec: 09/01/18 22:24 NFO8336 TELE-C10) Document 09/02/18 06:00 JRR4679 (Rec: 09/02/18 06:29 VAV8897 TELE-C34) Labs: Laboratory Results - last 24 hr 09/01/18 09/01/18 09/01/18 09:02 09:02 10:05 WBC 13.3 H RBC 3.50 L Hgb 9.2 L Hct 31 L MCV 87 MCH 26 L MCHC 30 L RDW 18 H Plt Count 139 L MPV 8.4 Neut % (Auto) 91.9 Lymph % (Auto) 2.3 [place] % (Auto) 5.2 Eos % (Auto) 0 Baso % (Auto) 0.6 Absolute Neuts (auto) 12.3 H Absolute Lymphs (auto) 0.3 L Absolute Monos (auto) 0.7 Absolute Eos (auto) 0 Absolute Basos (auto) 0.1 Absolute Nucleated RBC 0 Nucleated RBC % 0.1 Patient Temperature ABG pH ABG pH (Temp Correct) ABG pCO2 ABG pCO2 (Temp Corrct ABG pO2 ABG pO2 (Temp Correct ABG HCO3 ABG O2 Saturation ABG Base Excess Respiration Rate O2 Delivery Device Ventilator Type Vent Mode FiO2 Inspiratory Time PEEP Pressure Support Pressure Control EPAP IPAP BiPAP Sodium 131 L Potassium 6.1 H* Chloride 94 L Carbon Dioxide 28 Anion Gap 9 BUN 115 H Creatinine 2.88 H Est GFR ( Amer) 19.7 Est GFR (Non-Af Amer) 16.3 BUN/Creatinine Ratio 39.9 H Glucose 85 POC Glucose (mg/dL) 104 H Calcium 8.7 09/01/18 09/01/18 09/01/18 12:13 14:57 17:05 WBC RBC Hgb Hct MCV MCH MCHC RDW Plt Count MPV Neut % (Auto) Lymph % (Auto) [place] % (Auto) Eos % (Auto) Baso % (Auto) Absolute Neuts (auto) Absolute Lymphs (auto) Absolute Monos (auto) Absolute Eos (auto) Absolute Basos (auto) Absolute Nucleated RBC Nucleated RBC % Patient Temperature ABG pH ABG pH (Temp Correct) ABG pCO2 ABG pCO2 (Temp Corrct ABG pO2 ABG pO2 (Temp Correct ABG HCO3 ABG O2 Saturation ABG Base Excess Respiration Rate O2 Delivery Device Ventilator Type Vent Mode FiO2 Inspiratory Time PEEP Pressure Support Pressure Control EPAP IPAP BiPAP Sodium Potassium Chloride Carbon Dioxide Anion Gap BUN Creatinine Est GFR ( Amer) Est GFR (Non-Af Amer) BUN/Creatinine Ratio Glucose POC Glucose (mg/dL) 213 H 199 H 205 H Calcium 09/01/18 09/01/18 09/02/18 20:35 21:43 06:01 WBC RBC Hgb Hct MCV MCH MCHC RDW Plt Count MPV Neut % (Auto) Lymph % (Auto) [place] % (Auto) Eos % (Auto) Baso % (Auto) Absolute Neuts (auto) Absolute Lymphs (auto) Absolute Monos (auto) Absolute Eos (auto) Absolute Basos (auto) Absolute Nucleated RBC Nucleated RBC % Patient Temperature Not Reportable ABG pH 7.22 L ABG pH (Temp Correct) Not Reportable ABG pCO2 76 H* ABG pCO2 (Temp Corrct Not Reportable ABG pO2 62 L ABG pO2 (Temp Correct Not Reportable ABG HCO3 25.6 ABG O2 Saturation 93.3 L ABG Base Excess 1.1 Respiration Rate Not Reportable O2 Delivery Device nasal cannula Ventilator Type Not Reportable Vent Mode Not Reportable FiO2 36 Inspiratory Time Not Reportable PEEP Not Reportable Pressure Support Not Reportable Pressure Control Not Reportable EPAP Not Reportable IPAP Not Reportable BiPAP Not Reportable Sodium 127 L Potassium 6.3 H* Chloride 91 L Carbon Dioxide 29 Anion Gap 7 BUN 120 H Creatinine 2.97 H Est GFR ( Amer) 19.1 Est GFR (Non-Af Amer) 15.7 BUN/Creatinine Ratio 40.4 H Glucose 140 H POC Glucose (mg/dL) 210 H Calcium 8.9 09/02/18 09/02/18 08:05 08:49 WBC RBC Hgb Hct MCV MCH MCHC RDW Plt Count MPV Neut % (Auto) Lymph % (Auto) [place] % (Auto) Eos % (Auto) Baso % (Auto) Absolute Neuts (auto) Absolute Lymphs (auto) Absolute Monos (auto) Absolute Eos (auto) Absolute Basos (auto) Absolute Nucleated RBC Nucleated RBC % Patient Temperature ABG pH ABG pH (Temp Correct) ABG pCO2 ABG pCO2 (Temp Corrct ABG pO2 ABG pO2 (Temp Correct ABG HCO3 ABG O2 Saturation ABG Base Excess Respiration Rate O2 Delivery Device Ventilator Type Vent Mode FiO2 Inspiratory Time PEEP Pressure Support Pressure Control EPAP IPAP BiPAP Sodium Potassium Chloride Carbon Dioxide Anion Gap BUN Creatinine Est GFR ( Amer) Est GFR (Non-Af Amer) BUN/Creatinine Ratio Glucose POC Glucose (mg/dL) 131 H 224 H Calcium Studies: 09/02 EKG: NSR. right bundle branch 09/01 CT abd/pelvis: moderate left pleural effusion with left basilar ateletasis. small right pleural effusion 09/01 EKG: sinus rhythm, prolonged FL. RBBB 08/30 CXR: worsening cardiogenic pulmonary edema compared to 08/21 CXR. Near complete opacification of left lung suspected to be a combination of pleural effusion and consolidation 08/21 CXR: CHF with possible superimposed pneumonia at left lung base, unchanged from prior 08/20 Venous duplex BLE: right groin seroma, negative for DVT 08/20 TTE: LVEF 60-65% mild concentric LVH septal flattening consistent with RV overload moderate pulmonary HTN unable to assess diastolic function 08/20 CXR: cardiomegaly with pulmonary vasular congestion Nutrition: NPO until respiratory status improved Impression: 67 yo F with PMH of DM, CAD, HLD, HTN, CKD, COPD and ENRIQUE admitted on 08/20 for healthcare associated pneumonia (Pseudomonas) and Klebsiella UTI. Intially requiring vapotherm in the ICU, however stablized on abx and diuresis. Tranferred to the floor. Returns to ICU 09/02 with hypercarbic respiratory failure and CXR from 08/30 with large left pleural effusion and compressive atelectasis. Plan: Cardiovascular:(1) Chronic paroxysmal atrial fibrillation; (2) Acute on chronic diastolic CHF; (3) Chronic HTN; (4) Chronic hyperlipidemia; (5) Chronic RBBB; (6) CAD -- HR 89-101 -- SBP 110-130 -- Telemetry -- 08/20 TTE: LVEF 60-65% mild concentric LVH septal flattening consistent with RV overload moderate pulmonary HTN unable to assess diastolic function -- BNP 903 on 08/20, check repeat -- Diltiazem -- Plaquenil -- Lasix, increase frequency to BID Home meds: Torsemide Pulmonary: (1) Acute on chronic hypoxic and hypercapneic respiratory failure; ( 2) COPD exacerbation; (3) Large left pleural effusion; (4) concern for new pneumonia; (5) Pseudomonas pneumonia on admission; (6) ENRIQUE; (7) Obesity hypoventilation syndrome -- RR 12- -- sats 90-100 -- on BiPAP, wean as able -- CXR: ordered -- ABG, 1/8 PM: pH 7.22; pCO2 76; pO2 62; HCO3 25.6; BE 1.1; %O2 Sat 93.3. Repeat ABG pending -- Scheduled duonebs -- Mometasone Furoate/Gormoterol -- Guaifenesin -- Nicotine patch Home meds: Umeclidium/vilanterol, Gastrointestinal: (1) Abdominal pain; (2) hx of gastroplasty 1987 -- CT abd: NAD, constipated -- LFTs within normal limits on 08/29 -- diet: NPO until respiratory status stabilizes -- bowel regimen: Dulcolax, Colace, MOM, Senna -- ulcer prophylaxis: Prilosec -- Zofran as needed Home meds: Sucralfate, Protonix, Senna, Dulcolax, MOM Endocrine: (1) Hyperglycemia secondary to type 2 diabetes mellitus -- monitor BGs -- SSI -- TSH within normal limits on 08/28 -- Prednisone, change to solumedrol Home meds: Glipizide, Insulin NPH, prednisone Renal: (1) Chronic renal failure, stage 4; (2) Oliguria; (3) Hyponatremia; (4) hyperkalemia -- UOP: 28 ml/hr -- [id number] -- Cr 2.97 from 2.88 -- Lytes Na 127 from 131, follow trend. unable to use salt tabs or 3% given hypervolemia, tolvaptan not available K 6.3, asymptomatic. received Veltassa this AM. recheck in PM Ca 8.9 Mag ordered Phos ordered -- IVF: HL -- Lasix, increase frequency to BID Home meds: Calcium carbonate, Torsemide Infectious disease: (1) Concern for new pneumonia; (2) Sepsis on admission; (3 ) Pseudomonas pneumonia on admission, resolved; (4) Ecoli UTI on admission, resolved; (5) hx of MRSA -- Tmax 98.1 -- WBC 13.3 from 14.6 -- check procalcitonin -- Micro 08/31 blood NGTD 08/30 Urine yeast contaminant blood NGTD 08/21 blood negative MRSA screen positive 08/20 Urine e coli flu screen negative blood Pseudomonas 08/28 vials -- ABX start Zosyn to cover possible pneumonia given increasing O2 needs and rising WBC Home meds: None Neurologic: (1) Lethargy -- Tylenol as needed -- Prozac -- Requip -- Percocet as needed Home meds: Tylenol, Requip, Percocet, Prozac Hematological: (1) Chronic iron deficiency anemia; (2) Mild thrombocytopenia -- Hgb 9.2 from 10.0 -- Plt 139 from 170 -- DVT prophylaxis: SQ Heparin -- Ferrous sulfate -- Plaquenil Home meds: Ferrous sulfate Metabolic: No acute process -- check lactic acid -- Allopurinol Home meds: Allopurinol Other: (1) hx of Bulous pemphagoid Home meds: Hydroxychloroguine Deep vein thrombosis prophylaxis: SQ Heparin Dietary: Prilosec Condition: critical Prognosis: guarded Code status: Pt asking to be DNR/DNI Disposition: transfer to ICU Cumulative time spent in the care of this patient (excluding any procedure time) : at least 60 minutes. Patient care included clinical interview (with patient and/or family), bedside exam of the patient, review of labs, x-rays, and other ancillary data, coordination of (respiratory, nursing care, review of patient's records, discussion regarding patients management with involved consultants, primary physician, pharmacists, and other healthcare personnel (dietary, case management , physical/occupational therapy etc.) Critical Care Time: 60
[2018-09-02] MEDS: Heparin VIAL(*) 5000 UNITS/ML VIAL (FIVE THOUSAND) SUBCUT SCH ×2 (09:36→21:14)
[2018-09-02] MEDS: Nicotine PATCH 21 MG/24 HR* PATCH TRANSDERM SCH (09:36)
[2018-09-02] MEDS: Insulin LISPRO* 1 UNITS UNIT SUBCUT SCH ×4 (09:36→21:14)
[2018-09-02] MEDS: Diltiazem CD CAP* 180 MG PO SCH (09:40)
[2018-09-02] MEDS: Allopurinol TAB* 300 MG PO SCH (09:40)
[2018-09-02] MEDS: Ferrous Sulfate TAB* 325 MG PO SCH (09:40)
[2018-09-02] MEDS: guaiFENesin ER TAB 600 MG PO SCH (09:40)
[2018-09-02] MEDS: Omeprazole CAP (NF) 20 MG CAP.DR PO SCH (09:40)
[2018-09-02] MEDS: FLUoxetine CAP* 20 MG PO SCH (09:40)
[2018-09-02] MEDS: Hydroxychloroquine TAB* 200 MG PO SCH ×2 (09:41→20:33)
[2018-09-02] MEDS: predniSONE TAB* 20 MG PO SCH (09:41)
[2018-09-02] MEDS: Patiromer POWDER* 8.4 GM PAK PO SCH ×2 (09:47→14:08)
[2018-09-02] MEDS ORDERED: Zosyn per Pharmacy* NOTE FOLLOW UP SCH (10:00)
[2018-09-02] MEDS ORDERED: ZOSYN 3.375 GM x ONE DOSE over 30 miuntes IVPB ×2 (10:30)
[2018-09-02] MEDS: Nystatin TOP POWDER* 15 GM BTL TOPICAL SCH ×2 (10:59→21:16)
[2018-09-02] MEDS: methylPREDNISolone SOD 40 MG* 1 ML VIAL IV SCH ×2 (11:06→17:36)
[2018-09-02] MEDS: Neomyc/Polym/HC 1% OTIC SUSP* **OTIC RIGHT EAR SCH ×3 (11:07→21:14)
[2018-09-02] MEDS ORDERED: hydrALAZINE IV* 20 MG/ML VIAL IV SLOW PU PRN ×2 (11:12→13:22)
[2018-09-02] MEDS ORDERED: Labetalol IV* 5 MG/ML 20 ML VIAL IVPB PRN (13:21)
[2018-09-02] MEDS ORDERED: hydrALAZINE IV* 20 MG/ML VIAL IV SLOW PU ONE (13:23)
--- NOTE | 2018-09-02 13:24 | PN ---
Progress Note - Progress Note Date of Service: 09/02/18 - Interval events Note: CXR shows white out of left pleural space secondary to large effusion. Spoke with Dr. Arrington in IR and he is willing to place a pigtail under image guidance. Order placed. Pt's mom updated at bedside.
--- NOTE | 2018-09-02 14:52 | CONS ---
NEPHROLOGY CONSULTATION: DATE OF CONSULT: 09/02/18 HISTORY OF PRESENT ILLNESS: Ms. Can is a 67-year-old female brought from [facility] because of shortness of breath and increasing O2 requirements. She was found to have pneumonia on chest x-ray and has developed almost white-out of her left lung. She has been felt to have Pseudomonas pneumonia. In addition , she has developed urinary tract infection. During all of this, she has been noted to have worsening renal function and some hyperkalemia. At the present time, she is obtunded and unable to give history and the history is therefore taken from the chart and discussion with Dr. Amaral. PAST MEDICAL HISTORY: Her previous medical history is significant for COPD. She has a history of sleep apnea with obesity related hypoventilation. She has a history of high blood pressure. She has known chronic kidney disease. She has had bullous pemphigoid, on chronic corticosteroids. She has a history of paroxysmal atrial fibrillation, hyperlipidemia, iron-deficiency anemia, hypertension, and right bundle-branch block. PAST SURGICAL HISTORY: She is status post an appendectomy, tonsillectomy, and gastroplasty. MEDICATIONS: Here in the hospital, her medications have included: 1. Bronchodilators with albuterol/ipratropium. 2. She had continuation of her previously prescribed allopurinol. 3. She has been receiving aztreonam. 4. Cefepime. 5. Diltiazem. 6. Furosemide, in increasing doses. 7. She has had heparin prophylaxis. 8. She has required some hydralazine. 9. She continues Solu-Cortef. 10. She has been on insulin replacement. 11. She has received some patiromer for her hyperkalemia, although all of the doses have not been able to be administered. 12. She has received some vancomycin as well as piperacillin/tazobactam. PHYSICAL EXAM: She is an obese white female. Blood pressure is 158/95 with a pulse of 90, respirations are 17. She has a nasal BiPAP in place. She has some chemosis. She is anicteric. Her mucous membranes appear to be dry to me. Her lung sounds are very distant and even though I know that she has pneumonia , I actually could not hear any rales or rhonchi. The heart revealed a regular rhythm. I did not hear any murmurs. The abdomen is grossly obese. Bones, joints, extremities revealed 3+ edema all the way up her thighs. DIAGNOSTIC STUDIES/LAB DATA: A review of her laboratory values reveals a white count of 13.3, hemoglobin of 9.2. She had a blood gas today with a pH of 7.25, pCO2 of 60, pO2 of 135. Sodium of 127; potassium 6.3; chloride 91; total CO2 29 ; creatinine 2.97, up from 2.55 on presentation. Her baseline creatinine was in the vicinity of 2.0. BUN is 120 reflecting the effect of catabolism and her steroids. Urine reveals 2+ protein, 2+ blood, 3+ leukocyte esterase, 3+ wbc's, 3 + rbc's. There are some hyaline casts. There is some yeast noted in her urine. IMPRESSION: 1. Acute on chronic renal insufficiency. 2. Hyperkalemia. 3. Pseudomonas pneumonia. 4. Obesity related hypoventilation. DISCUSSION: Ordinarily, I would think we would consider the possibility of dialysis at this situation; however, I am told by Dr. Amaral that on multiple occasions this morning, the patient asked the nurses to shoo her, that she has refused varying kind of medical interventions and that she has rejected the possibility of intubation and ventilation. As a result, I believe that dialysis would not be indicated in this situation as a matter of her willingness to accept it; however, of course, I am unable to ask her about that at present. I think we should go ahead and continue either patiromer or Kayexalate. If we can get Kayexalate into her that would avoid the issue of having the conflict with some of her medications. I think she probably would require NG tube placement in order to administer it. I have discussed the case with Dr. Amaral who is in agreement with my evaluation as to whether dialysis is indicated or not. [id number]/[facility] #: [id number] JUNIOR
[2018-09-02] MEDS: ZOSYN 3.375 GM Q12H per EXTENDED INFUSION IVPB SCH ×2 (15:05)
[2018-09-02 15:32] LABS: Magnesium 2.3 mg/dL (1.9-2.7)
[2018-09-02 15:37] LABS: Phosphorus 5.7 mg/dL (2.5-5.0)
--- NOTE | 2018-09-02 16:04 | PN ---
Progress Note - Progress Note Date of Service: 09/02/18 - Interval events Note: CXR demonstrated white out of left lung field IR consulted and beside chest US done which demostrated on 1.5cm width pleural effusino CT chest obtained to better define size of effusion - read pending but my impression is that left lower lobe collapsed with moderate but not large effusion present. Lung collapse likely secondary to pneumonia rather than extrinsic compression. Thus drainage of the effusion will not likely fix the problem. will continue with positive pressure ventilation via BiPAP (pt refused intubation on transfer to ICU)
[2018-09-02] MEDS: Diltiazem TAB* 30 MG PO SCH (17:12)
[2018-09-02] MEDS: Furosemide IV* 10 MG/ML VIAL (40 MG) IV SCH (17:36)
[2018-09-02] MEDS ORDERED: cloNIDine 0.3 MG PATCH* 0.3 MG/24 HR 7 DAY PATCH TRANSDERM SCH (18:00)
[2018-09-02] MEDS: Morphine VIAL* 4 MG/ML VIAL (1 ml vial) IV PRN ×2 (20:29→22:37)
[2018-09-02] MEDS: Famotidine SUSP* 40 MG/5 ML ORAL.SYRIN G TUBE SCH (20:33)
[2018-09-02] MEDS: Nicotine Patch Removal NOTE PATCH OFF SCH (21:15)
[2018-09-02 21:55] LABS: BUN/Creatinine Ratio 38.4 (8-20); Calcium 9.4 mg/dL (8.6-10.3); EGFR Non-African American 14.3 (>60)
[2018-09-02 22:01] LABS: Potassium 6.5 mmol/L (3.5-5.0)
[2018-09-02] MEDS ORDERED: Patiromer POWDER* 8.4 GM PAK PO ONE (23:00)
[2018-09-02] MEDS ORDERED: Patiromer POWDER* 8.4 GM PAK PO SCH (23:00)
[2018-09-03] MEDS: Morphine VIAL* 4 MG/ML VIAL (1 ml vial) IV PRN ×3 (00:07→04:22)
[2018-09-03] MEDS: Diltiazem TAB* 30 MG PO SCH ×4 (00:07→17:54)
[2018-09-03] MEDS: Albuterol/Ipratropium NEB.SOL* Albuterol 2.5 MG/Ipratropium 0.5 MG 3 ML INH SCH ×4 (01:32→19:33)
[2018-09-03] MEDS: methylPREDNISolone SOD 40 MG* 1 ML VIAL IV SCH ×3 (02:05→17:54)
[2018-09-03] MEDS: ZOSYN 3.375 GM Q12H per EXTENDED INFUSION IVPB SCH ×4 (02:36→15:25)
[2018-09-03] MEDS ORDERED: Patiromer POWDER* 8.4 GM PAK PO ONE ×2 (04:00→14:00)
[2018-09-03 06:29] LABS: Hematocrit 28 % (35-47); Hemoglobin 8.6 g/dl (12.0-16.0); Mean Corpuscular HGB Conc 31 g/dl (31-36); Mean Corpuscular Hemoglobin 27 pg (27-31); Mean Corpuscular Volume 86 fL (80-97); Mean Platelet Volume 8.6 fL (7.4-10.4); Platelet Count 112 10^3/ul (150-450); Red Blood Count 3.22 10^6/ul (4.00-5.40); Red Cell Distribution Width 18 % (10.5-15); White Blood Count 10.3 10^3/ul (3.5-10.8)
[2018-09-03 06:47] LABS: Magnesium 2.2 mg/dL (1.9-2.7); Phosphorus 5.8 mg/dL (2.5-5.0)
[2018-09-03] MEDS: Insulin LISPRO* 1 UNITS UNIT SUBCUT SCH ×4 (08:01→22:09)
[2018-09-03] MEDS: Mometasone/Formoter 200/5 MDI INH SCH (08:16)
[2018-09-03] MEDS: Heparin VIAL(*) 5000 UNITS/ML VIAL (FIVE THOUSAND) SUBCUT SCH ×2 (08:48→21:12)
[2018-09-03] MEDS: Furosemide IV* 10 MG/ML VIAL (40 MG) IV SCH ×2 (08:48→17:54)
[2018-09-03] MEDS: Nystatin TOP POWDER* 15 GM BTL TOPICAL SCH ×2 (08:49→21:17)
[2018-09-03] MEDS: Allopurinol TAB* 300 MG PO SCH (08:49)
[2018-09-03] MEDS: Hydroxychloroquine TAB* 200 MG PO SCH ×2 (08:50→20:54)
[2018-09-03] MEDS: Neomyc/Polym/HC 1% OTIC SUSP* **OTIC RIGHT EAR SCH ×3 (08:50→20:54)
[2018-09-03] MEDS: Nicotine PATCH 21 MG/24 HR* PATCH TRANSDERM SCH (08:50)
[2018-09-03] MEDS ORDERED: Pantoprazole TAB * 40 MG TAB PO SCH (09:00)
--- NOTE | 2018-09-03 09:01 | PN ---
Date of Service: 09/03/18 Critical Care Services: 67 yo F with PMH including DM, STEMI, paroxysmal AFib, COPD, frequent UTI, CKD, ENRIQUE and chronic respiratory failure who lives in a senior care facility. She presented to the ED on 08/20 with complaints of shortness of breath for the past several days. SpO2 at [facility] 82% on RA. She has been noncompliant with nocturnal CPAP lately. A CXR had been done at the [facility] which showed a possible basilar infiltrate and she had been started on Azithromycin. She was brought in to the ED 08/20 for failure to improve. In ED She was tachycardic to 124 but otherwise hemodynamically stable. Exam notable for ill appearance, chronic erythema of lower extremities with pitting edema, Rales, rhonchi and wheezing on exam and inability to speak in full sentences. WBC elevated at 18.0. ABG with pH 7.24, pCO2 81. She was started on BiPAP. Troponin came back elevated at 0.26. She was admitted to the hospitalist service for acute hypoixc and hypercarbic respritaroy failure. She was given Lasix for an elevated BNP anc concern for CHF exacerbation. She was started on steriods, bronchodilators for COPD exacerbation. She was also started on broad spectrum antibiotics to cover for healthcare associated pneumonia (SNF resident). Seen by Dr. Angel from pulmonology for COPD exacerbation, agreed with current management. 08/21: Bolused for drop in SBP to 70s and decreased UOP. Hgb dropped from 11 to 8.6, no active bleeding, transferred to ICU. Acidosis improved on BiPAP. 08/22: Blood cultures positive for Pseudomonas (presumed source is lungs), urine positive for Klebsiella. Antibiotics adjusted to provide double coverage to Pseudomonas 08/23: respiratory status stabilized 08/24: TTE completed, diastolic dysfunction, no vegetations 08/25: transferred out of unit. continuing to improve. On supplimental O2 during day and BiPAP at night. 08/26: reports generalized pain. 08/27: ID consulted; recommended course length of 10 days for Cefipime. 08/29: Developed otitis externa, started on cortisporin drops. Also noted to develop hyponatremia, possibly second to SIADH as FeNA consistent with euvolemic state. Steriod taper in progress. Starting PT. 08/30: Complaining of malaise. CXR with worsening consolidation and congestion. WBC rising. ABX broadened to Vancomycin and Zosyn. 08/31: Reports pain "everywhere". Persistent cough and shortness of breath. 09/01: Palliative care consulted. At that time reaffirmed desire for full code status and did not have interest in hospice options. Lasix diuresis reinitiated for CHF. K elevated, receiving Patriomer, calcium D50 + insulin. 09/02: Increased lethargy overnight. Sats high 90s on 4L, O2 decreased. ABG with pH 7.22, pCO2 76 pO2 62. Started on BiPAP. Mentation improve on BiPAP, however patient refused to wear it after 3AM. On morning rounds, pt noted to be lethargic again. Given lasix and transferred to ICU for further care. CT chest shows dense LLL infiltrate and collapse. Moderate plerual effusion. Persistent lethargy despite BiPAP. PT requested DNR/DNI on transfer to ICU. 09/03: No overnight events. Vital Signs: Temp Pulse Resp BP SpO2 FiO2 98.1 F 97 16 138/79 95 40 09/03/18 06:00 09/03/18 08:02 09/03/18 08:02 09/03/18 06:00 09/03/18 08:02 09/03 08:02 Physical Exam: Gen: resting comfortably HEENT: BiPAP mask in place Lungs: No wheezes. scattered crackles bilaterally. improved as compared to yesterday Cardiac: RRR Abdomen: soft, obese, nontender Extremities: warm, dry Neuro: opens eyes to voice, nods to questions Fluid Balance (Past 24 Hours): I= O= Net Intake & Output 09/01/18 09/02/18 09/03/18 09/04/18 06:59 06:59 06:59 06:59 Intake Total 2303 2220 653 Output Total 564 944 5913 Balance 1353 1545 -523 Weight 274 lb 8 oz 287 lb Intake: IV Fluids 1784 1060 310 ABX - VANCOMYCIN 255 Calcium Gluconate 60 NS (0.9%) 1529 1000 310 IVPB 174 143 ABX - ZOSYN 110 143 Calcium Gluconate 64 Oral 345 1160 0 Tube Feeding Flush Amount 200 Output: [place] 030 799 2694 Other: Date of Last Bowel 09/02/18 Movement # Bowel Movements 0 0 1 Estimated Stool Amount Small Small Small ADLs: Meal Record Start: 08/20/18 11: 48 Freq: 09,13,18 Status: Complete Protocol: Created 08/20/18 11:48 System (Rec: 08/20/18 11:48 System ICU-C25) Document 08/20/18 18:00 KCA2895 (Rec: 08/20/18 18:33 IFY4965 ICU-C12) Document 08/21/18 09:00 EXG3953 (Rec: 08/21/18 10:58 KPQ2381 ICU-C15) Document 08/21/18 13:00 ZRC5441 (Rec: 08/21/18 15:47 BPY0971 ICU-C15) Document 08/21/18 18:00 JDJ7221 (Rec: 08/21/18 22:59 VKF4760 ICU-C15) Document 08/22/18 09:00 MWI8232 (Rec: 08/22/18 09:53 VZT0302 ICU-C15) Document 08/22/18 13:00 THI7054 (Rec: 08/22/18 16:10 KRK9893 ICU-C15) Document 08/22/18 18:00 YKJ5336 (Rec: 08/22/18 21:36 QJU1463 ICU-C15) Document 08/23/18 09:00 WRR5853 (Rec: 08/23/18 17:03 UDT9003 ICU-C15) Document 08/23/18 13:00 JFA8931 (Rec: 08/23/18 17:03 OVN4451 ICU-C15) Document 08/23/18 19:55 NYJ4370 (Rec: 08/23/18 19:55 ELN5661 ICU-M31) Document 08/24/18 09:00 RDR2392 (Rec: 08/24/18 12:10 OGV9318 ICU-C25) Document 08/24/18 14:00 JWT8068 (Rec: 08/24/18 15:58 LZL3603 ICU-C25) ADLs: Meal Record Start: 08/24/18 17: 13 Freq: DAILY@0900,1400,1800 Status: Active Protocol: Created 08/24/18 17:13 BYR2853 (Rec: 08/24/18 17:13 ENK4121 [facility]-C09) Document 08/24/18 18:00 IOA7983 (Rec: 08/24/18 20:30 FRR8182 TELE-C01) Document 08/25/18 09:00 CYZ8352 (Rec: 08/25/18 09:54 ONB6235 TELE-C05) Document 08/25/18 14:00 YKT6741 (Rec: 08/25/18 15:01 JQW9858 TELE-C05) Document 08/25/18 18:00 SII3012 (Rec: 08/25/18 18:39 XYI1215 TELE-C01) Document 08/26/18 09:00 ZXX4822 (Rec: 08/26/18 14:55 HWT7802 TELE-C07) Document 08/26/18 14:00 MCY9727 (Rec: 08/26/18 14:57 KGQ7036 TELE-C07) Document 08/26/18 18:00 ZQX3413 (Rec: 08/26/18 18:26 RJH6583 TELE-C10) Document 08/27/18 09:00 TBX4715 (Rec: 08/27/18 15:48 ZRD5927 TELE-C09) Document 08/27/18 14:00 HKF6924 (Rec: 08/27/18 15:50 OGC7951 TELE-C09) Document 08/27/18 18:00 MEH4315 (Rec: 08/27/18 22:17 QEU5934 TELE-C33) Document 08/28/18 09:00 HYL7833 (Rec: 08/28/18 12:56 BPE3727 TELE-C07) Document 08/28/18 14:00 AZI6289 (Rec: 08/28/18 15:11 ZFA2207 TELE-C07) Document 08/28/18 18:00 ZGN9657 (Rec: 08/28/18 18:08 XBA5043 TELE-C07) Document 08/29/18 09:00 YLA9330 (Rec: 08/29/18 12:32 DCR7641 TELE-C05) Document 08/29/18 14:00 SVA9608 (Rec: 08/29/18 15:41 OOT1490 TELE-C05) Document 08/29/18 18:00 BIG0741 (Rec: 08/29/18 18:27 DSS5831 TELE-C01) Document 08/30/18 09:00 API6905 (Rec: 08/30/18 10:37 YWD8364 TELE-C01) Document 08/30/18 14:00 BRO0541 (Rec: 08/30/18 15:06 QIE4526 TELE-C01) Document 08/30/18 18:00 XJS2080 (Rec: 08/30/18 18:40 YGA4759 TELE-C01) Document 08/31/18 09:00 KSB7944 (Rec: 08/31/18 09:57 RHJ7243 TELE-C07) Document 08/31/18 14:00 ABN5814 (Rec: 08/31/18 14:31 LCI0023 TELE-C07) Document 08/31/18 18:00 JRF1875 (Rec: 08/31/18 21:01 TTP8863 TELE-C32) Document 09/01/18 09:00 MNA8652 (Rec: 09/01/18 09:46 WSD9298 TELE-C07) Document 09/01/18 14:00 KUY1234 (Rec: 09/01/18 14:29 QAX6929 TELE-C10) Document 09/01/18 17:58 IEI5701 (Rec: 09/01/18 17:59 CDX9788 TELE-C10) Document 09/02/18 09:00 OVA6375 (Rec: 09/02/18 09:24 BBW4151 ICU-C06) Document 09/02/18 14:00 JPF8661 (Rec: 09/02/18 14:18 DIY2424 ICU-C06) Document 09/02/18 18:00 TAC1017 (Rec: 09/02/18 18:14 HVV4455 ICU-C06) Intake and Output Start: 08/20/18 08: 34 Freq: Status: Active Protocol: Created 08/20/18 08:34 System (Rec: 08/20/18 08:34 System EDRM-C11) Intake and Output Start: 08/20/18 11: 48 Freq: 06,14,2200 Status: Complete Protocol: Created 08/20/18 11:48 System (Rec: 08/20/18 11:48 System ICU-C25) Document 08/20/18 13:00 WMK4339 (Rec: 08/20/18 13:21 LYI4532 ICU-C25) Document 08/20/18 14:00 RDS4467 (Rec: 08/20/18 15:15 LSJ7023 ICU-C12) Document 08/20/18 15:00 RHA7534 (Rec: 08/20/18 16:11 YCB3952 ICU-C12) Document 08/20/18 16:00 XPI0671 (Rec: 08/20/18 16:11 XAJ5629 ICU-C12) Document 08/20/18 17:00 UUK3238 (Rec: 08/20/18 18:32 GXH0540 ICU-C12) Document 08/20/18 18:00 SYY2259 (Rec: 08/20/18 18:32 SZS0524 ICU-C12) Document 08/20/18 19:00 WDQ1256 (Rec: 08/20/18 19:14 DLP2898 ICU-C15) Document 08/20/18 20:00 AAR2076 (Rec: 08/20/18 20:14 DXS0810 ICU-C15) Document 08/20/18 22:00 TKH5366 (Rec: 08/20/18 22:08 BBL2760 ICU-C15) Document 08/20/18 23:00 WHD2853 (Rec: 08/20/18 23:04 JVO5107 ICU-C15) Document 08/21/18 00:00 XNW7068 (Rec: 08/21/18 00:03 MXL2953 ICU-C15) Document 08/21/18 00:59 XXS8280 (Rec: 08/21/18 00:59 MJJ9614 ICU-C15) Document 08/21/18 01:54 FFL5148 (Rec: 08/21/18 01:54 SQT3296 ICU-C15) Document 08/21/18 03:00 CCG6035 (Rec: 08/21/18 03:07 ERX2567 ICU-C15) Document 08/21/18 04:00 QWG8618 (Rec: 08/21/18 04:09 IUZ0525 ICU-C15) Document 08/21/18 06:00 OXX0877 (Rec: 08/21/18 06:13 SEK9705 ICU-M31) Document 08/21/18 07:00 JMS2262 (Rec: 08/21/18 07:41 OXS9276 ICU-M31) Document 08/21/18 07:00 URE5243 (Rec: 08/21/18 07:55 KLW3504 ICU-C15) Document 08/21/18 07:55 KGI8734 (Rec: 08/21/18 09:32 BDL2816 ICU-C15) Document 08/21/18 09:00 CSQ5120 (Rec: 08/21/18 10:59 BYH6994 ICU-C15) Document 08/21/18 10:00 PHR0177 (Rec: 08/21/18 10:59 CBF7770 ICU-C15) Document 08/21/18 10:59 QXZ4547 (Rec: 08/21/18 10:59 MTV4998 ICU-C15) Document 08/21/18 12:00 JBZ1470 (Rec: 08/21/18 15:40 LTR1973 ICU-C15) Document 08/21/18 13:00 UXK1274 (Rec: 08/21/18 15:48 JJU2024 ICU-C15) Document 08/21/18 14:00 IVR8339 (Rec: 08/21/18 15:48 KLU4368 ICU-C15) Document 08/21/18 15:00 SYX8544 (Rec: 08/21/18 15:48 YUE1378 ICU-C15) Document 08/21/18 16:00 LJS3793 (Rec: 08/21/18 16:31 QVQ3287 ICU-C15) Document 08/21/18 17:00 RVL2275 (Rec: 08/21/18 18:11 LYU6080 ICU-C15) Document 08/21/18 18:00 LBA9421 (Rec: 08/21/18 18:11 DCI8243 ICU-C15) Document 08/21/18 19:54 OOR6645 (Rec: 08/21/18 20:08 FHY2597 ICU-C15) Document 08/21/18 21:00 OGA4238 (Rec: 08/21/18 23:00 XYQ0842 ICU-C15) Document 08/21/18 22:00 QWX7822 (Rec: 08/21/18 23:00 ZGK2209 ICU-C15) Document 08/21/18 23:00 CBC6485 (Rec: 08/21/18 23:00 MEN1765 ICU-C15) Document 08/22/18 00:00 IMR6262 (Rec: 08/22/18 01:52 UQS7244 ICU-M31) Document 08/22/18 01:00 WHY4144 (Rec: 08/22/18 01:52 UOX0373 ICU-M31) Document 08/22/18 01:51 POV5098 (Rec: 08/22/18 01:52 UHC6683 ICU-M31) Document 08/22/18 03:00 TAN8426 (Rec: 08/22/18 06:01 AXJ7864 ICU-M31) Document 08/22/18 04:00 JCF1898 (Rec: 08/22/18 06:01 KWV0570 ICU-M31) Document 08/22/18 05:00 OQR9798 (Rec: 08/22/18 06:01 TUJ2187 ICU-M31) Document 08/22/18 06:00 LHN3539 (Rec: 08/22/18 06:01 OLA8058 ICU-M31) Document 08/22/18 07:00 IUF4362 (Rec: 08/22/18 07:49 BRH0481 ICU-C15) Document 08/22/18 10:00 EKC4727 (Rec: 08/22/18 10:33 VYL7671 ICU-C15) Document 08/22/18 11:00 PFY0482 (Rec: 08/22/18 13:52 DIC0452 ICU-C15) Document 08/22/18 12:00 NAL6503 (Rec: 08/22/18 13:52 DMN2537 ICU-C15) Document 08/22/18 13:00 NTP8694 (Rec: 08/22/18 13:52 MYM8854 ICU-C15) Document 08/22/18 14:00 OYZ2584 (Rec: 08/22/18 14:26 JVX4375 ICU-C15) Document 08/22/18 15:00 XCD4338 (Rec: 08/22/18 16:11 XCV7123 ICU-C15) Document 08/22/18 16:00 LTX5462 (Rec: 08/22/18 16:11 SSC1636 ICU-C15) Document 08/22/18 17:00 WVQ4154 (Rec: 08/22/18 18:11 WKK3024 ICU-C15) Document 08/22/18 18:00 PQR9755 (Rec: 08/22/18 18:11 FLU7394 ICU-C15) Document 08/22/18 19:30 YYI9964 (Rec: 08/22/18 21:37 QAI7804 ICU-C15) Document 08/22/18 20:00 ZNA7761 (Rec: 08/22/18 21:44 EXS4868 ICU-C15) Document 08/22/18 21:00 SWG7011 (Rec: 08/22/18 21:45 EBJ5670 ICU-C15) Document 08/22/18 22:00 MVU9577 (Rec: 08/22/18 22:45 UIU0109 ICU-C15) Document 08/22/18 23:00 FIE6637 (Rec: 08/22/18 23:57 MXF9628 ICU-C15) Document 08/22/18 23:57 GXD2504 (Rec: 08/22/18 23:57 OWJ7677 ICU-C15) Document 08/23/18 01:00 WPK5289 (Rec: 08/23/18 01:58 TFX5845 ICU-C15) Document 08/23/18 01:58 NMZ6495 (Rec: 08/23/18 01:59 XSC0583 ICU-C15) Document 08/23/18 03:00 YAW2028 (Rec: 08/23/18 04:02 WNN4118 ICU-C15) Document 08/23/18 03:50 YSY6253 (Rec: 08/23/18 04:02 XIB5718 ICU-C15) Document 08/23/18 05:00 KNS7276 (Rec: 08/23/18 06:01 BYB0877 ICU-M31) Document 08/23/18 06:00 MFV7903 (Rec: 08/23/18 06:01 TGE1780 ICU-M31) Document 08/23/18 07:00 JSM1025 (Rec: 08/23/18 07:53 OBN5313 ICU-C15) Document 08/23/18 07:54 EWZ0590 (Rec: 08/23/18 08:16 FVC8293 ICU-C15) Document 08/23/18 09:00 MNV2895 (Rec: 08/23/18 10:19 XHS1683 ICU-C15) Document 08/23/18 10:00 DFA4715 (Rec: 08/23/18 10:19 LHG2127 ICU-C15) Document 08/23/18 11:00 PDU6385 (Rec: 08/23/18 12:06 IAX3224 ICU-C15) Document 08/23/18 12:00 PZI5430 (Rec: 08/23/18 12:06 HPH5705 ICU-C15) Document 08/23/18 13:00 ERL1517 (Rec: 08/23/18 17:00 WJH0933 ICU-C15) Document 08/23/18 14:00 MIX6450 (Rec: 08/23/18 17:00 DGZ5437 ICU-C15) Document 08/23/18 15:00 CTB1414 (Rec: 08/23/18 17:00 OBQ3688 ICU-C15) Document 08/23/18 16:00 HKM8761 (Rec: 08/23/18 17:00 HGU1797 ICU-C15) Document 08/23/18 17:00 ITQ6069 (Rec: 08/23/18 17:04 OIO4531 ICU-C15) Document 08/23/18 18:00 COJ7425 (Rec: 08/23/18 19:00 XGY9488 ICU-C15) Document 08/23/18 19:00 BHH4086 (Rec: 08/23/18 19:56 MKD4388 ICU-M31) Document 08/23/18 20:00 NQX4317 (Rec: 08/23/18 21:12 RPN5080 ICU-M31) Document 08/23/18 21:00 NDH9600 (Rec: 08/23/18 21:12 GMV4442 ICU-M31) Document 08/23/18 22:00 STF8720 (Rec: 08/23/18 22:05 KMY5358 ICU-C07) Document 08/24/18 05:53 BDH9456 (Rec: 08/24/18 05:54 YTC7229 ICU-C07) Intake and Output Start: 08/24/18 17: 13 Freq: Q1HR Status: Active Protocol: Created 08/24/18 17:13 VXA8367 (Rec: 08/24/18 17:13 UBV7696 TELE-C09) Document 08/24/18 22:00 AJA3582 (Rec: 08/24/18 23:03 HJU6822 TELE-C01) Document 08/24/18 23:15 WHB1491 (Rec: 08/25/18 01:12 TELE-C05) Document 08/25/18 04:22 (Rec: 08/25/18 04:22 HGL5197 TELE-C05) Document 08/25/18 04:44 SKF4873 (Rec: 08/25/18 04:44 ELX7673 TELE-C33) Document 08/25/18 14:00 TQS5630 (Rec: 08/25/18 15:01 OUP8075 TELE-C05) Document 08/26/18 05:43 DXP7009 (Rec: 08/26/18 05:46 QHA6878 TELE-C01) Document 08/26/18 14:00 NMC3144 (Rec: 08/26/18 14:57 YUV2729 TELE-C07) Document 08/26/18 21:57 JCF1709 (Rec: 08/26/18 21:59 VCS5753 TELE-C07) Document 08/27/18 06:00 EAK3410 (Rec: 08/27/18 07:31 RBQ8924 HOSP-C11) Document 08/27/18 14:00 QYZ0738 (Rec: 08/27/18 15:50 NAT6984 TELE-C09) Document 08/27/18 22:00 QXT6006 (Rec: 08/27/18 22:18 JZQ8345 TELE-C33) Document 08/28/18 06:00 HPI7115 (Rec: 08/28/18 06:46 LNC0691 TELE-C35) Document 08/28/18 14:00 KIM1814 (Rec: 08/28/18 15:11 YBC5161 TELE-C07) Document 08/28/18 16:17 GXQ3331 (Rec: 08/28/18 16:17 BXA1088 TELE-C07) Document 08/28/18 22:00 VOP4575 (Rec: 08/28/18 22:25 CHS3160 TELE-C07) Document 08/29/18 06:00 CLL5057 (Rec: 08/29/18 06:44 UES6344 TELE-C33) Document 08/29/18 14:00 BHU3286 (Rec: 08/29/18 15:41 GRB5466 TELE-C05) Document 08/29/18 22:00 RDS0686 (Rec: 08/29/18 22:03 NGL4007 TELE-C01) Document 08/30/18 06:00 MAP6266 (Rec: 08/30/18 06:56 PIM6557 TELE-C33) Document 08/30/18 14:00 KAB4726 (Rec: 08/30/18 15:06 YPA7793 TELE-C01) Document 08/30/18 22:00 VBX8243 (Rec: 08/30/18 22:27 ZHP3007 TELE-C09) Document 08/31/18 06:00 BNW4574 (Rec: 08/31/18 06:54 ZGS5723 TELE-C01) Document 08/31/18 14:00 MSI8157 (Rec: 08/31/18 14:31 FRG6802 TELE-C07) Document 08/31/18 22:00 RSQ9762 (Rec: 08/31/18 22:22 SBD0411 TELE-C32) Document 09/01/18 06:00 ZKW6534 (Rec: 09/01/18 06:41 ZIF8878 TELE-C32) Document 09/01/18 14:00 AHG8578 (Rec: 09/01/18 14:26 ZRK2419 TELE-C10) Document 09/01/18 22:00 XPA5210 (Rec: 09/01/18 22:24 CUK3384 TELE-C10) Document 09/02/18 06:00 XAA5097 (Rec: 09/02/18 06:29 DFY7712 TELE-C34) Document 09/02/18 10:12 DQD8415 (Rec: 09/02/18 10:12 XWX6604 ICU-C06) Document 09/02/18 14:00 MZG2881 (Rec: 09/02/18 14:18 AGG4509 ICU-C06) Document 09/02/18 16:39 HVV2147 (Rec: 09/02/18 16:39 BVY3175 ICU-C06) Document 09/02/18 19:00 QEA1677 (Rec: 09/03/18 03:19 VAK5768 ICU-C06) Document 09/02/18 22:00 NYD1140 (Rec: 09/02/18 22:23 DUJ5289 ICU-M19) Document 09/02/18 23:54 UHM5563 (Rec: 09/02/18 23:54 CBQ4781 ICU-M19) Document 09/03/18 02:00 PFW0412 (Rec: 09/03/18 02:41 XHF0243 ICU-M19) Document 09/03/18 04:46 SCK1999 (Rec: 09/03/18 04:47 FUB2437 ICU-C06) Document 09/03/18 06:00 PCF2544 (Rec: 09/03/18 06:15 PMV6873 ICU-M19) Labs: Laboratory Results - last 24 hr 08/30/18 08/30/18 09/02/18 10:45 20:48 08:41 WBC RBC Hgb Hct MCV MCH MCHC RDW Plt Count MPV Patient Temperature ABG pH ABG pH (Temp Correct) ABG pCO2 ABG pCO2 (Temp Corrct ABG pO2 ABG pO2 (Temp Correct ABG HCO3 ABG O2 Saturation ABG Base Excess Respiration Rate O2 Delivery Device Ventilator Type Vent Mode FiO2 Inspiratory Time PEEP Pressure Support Pressure Control EPAP IPAP BiPAP Sodium Potassium Chloride Carbon Dioxide Anion Gap BUN Creatinine Cystatin C 6.34 H Est GFR (Cystatin C) 6 Est GFR ( Amer) Est GFR (Non-Af Amer) BUN/Creatinine Ratio Glucose POC Glucose (mg/dL) Lactic Acid Calcium Phosphorus Magnesium Troponin I 0.07 H* B-Natriuretic Peptide Urine Color Yellow Urine Appearance Turbid Urine pH 5.0 Ur Specific [place] 1.013 Urine Protein 2+(100 mg/dl) A Urine Ketones Negative Urine Blood 2+ A Urine Nitrate Negative Urine Bilirubin Negative Urine Urobilinogen Negative Ur Leukocyte Esterase 3+ A Urine WBC (Auto) 3+(>20/hpf) A Urine RBC (Auto) 3+(>10/hpf) A Ur Squamous Epith Cells Present A Amorphous Crystals Present A Urine Bacteria 1+ A Urine Yeast Present A Urine Glucose Negative 09/02/18 09/02/18 09/02/18 08:49 09:35 13:00 WBC RBC Hgb Hct MCV MCH MCHC RDW Plt Count MPV Patient Temperature Not Reportable ABG pH 7.25 L ABG pH (Temp Correct) Not Reportable ABG pCO2 60 H ABG pCO2 (Temp Corrct Not Reportable ABG pO2 135 H ABG pO2 (Temp Correct Not Reportable ABG HCO3 23.3 ABG O2 Saturation 100.0 H ABG Base Excess -2.1 L Respiration Rate Not Reportable O2 Delivery Device Bipap 10 l Ventilator Type Not Reportable Vent Mode Not Reportable FiO2 Not Reportable Inspiratory Time Not Reportable PEEP Not Reportable Pressure Support Not Reportable Pressure Control Not Reportable EPAP Not Reportable IPAP Not Reportable BiPAP Not Reportable Sodium Potassium Chloride Carbon Dioxide Anion Gap BUN Creatinine Cystatin C Est GFR (Cystatin C) Est GFR ( Amer) Est GFR (Non-Af Amer) BUN/Creatinine Ratio Glucose 111 H POC Glucose (mg/dL) 224 H Lactic Acid Calcium Phosphorus 5.7 H Magnesium 2.3 Troponin I 0.12 H* B-Natriuretic Peptide Urine Color Urine Appearance Urine pH Ur Specific [place] Urine Protein Urine Ketones Urine Blood Urine Nitrate Urine Bilirubin Urine Urobilinogen Ur Leukocyte Esterase Urine WBC (Auto) Urine RBC (Auto) Ur Squamous Epith Cells Amorphous Crystals Urine Bacteria Urine Yeast Urine Glucose 09/02/18 09/02/18 09/02/18 13:00 13:00 13:58 WBC RBC Hgb Hct MCV MCH MCHC RDW Plt Count MPV Patient Temperature ABG pH ABG pH (Temp Correct) ABG pCO2 ABG pCO2 (Temp Corrct ABG pO2 ABG pO2 (Temp Correct ABG HCO3 ABG O2 Saturation ABG Base Excess Respiration Rate O2 Delivery Device Ventilator Type Vent Mode FiO2 Inspiratory Time PEEP Pressure Support Pressure Control EPAP IPAP BiPAP Sodium Potassium Chloride Carbon Dioxide Anion Gap BUN Creatinine Cystatin C Est GFR (Cystatin C) Est GFR ( Amer) Est GFR (Non-Af Amer) BUN/Creatinine Ratio Glucose POC Glucose (mg/dL) 101 H Lactic Acid 0.4 L Calcium Phosphorus Magnesium Troponin I B-Natriuretic Peptide 300 H Urine Color Urine Appearance Urine pH Ur Specific [place] Urine Protein Urine Ketones Urine Blood Urine Nitrate Urine Bilirubin Urine Urobilinogen Ur Leukocyte Esterase Urine WBC (Auto) Urine RBC (Auto) Ur Squamous Epith Cells Amorphous Crystals Urine Bacteria Urine Yeast Urine Glucose 09/02/18 09/02/18 09/02/18 14:45 16:55 21:02 WBC RBC Hgb Hct MCV MCH MCHC RDW Plt Count MPV Patient Temperature ABG pH ABG pH (Temp Correct) ABG pCO2 ABG pCO2 (Temp Corrct ABG pO2 ABG pO2 (Temp Correct ABG HCO3 ABG O2 Saturation ABG Base Excess Respiration Rate O2 Delivery Device Ventilator Type Vent Mode FiO2 Inspiratory Time PEEP Pressure Support Pressure Control EPAP IPAP BiPAP Sodium Potassium Chloride Carbon Dioxide Anion Gap BUN Creatinine Cystatin C Est GFR (Cystatin C) Est GFR ( Amer) Est GFR (Non-Af Amer) BUN/Creatinine Ratio Glucose POC Glucose (mg/dL) 143 H 151 H Lactic Acid Calcium Phosphorus Magnesium Troponin I 0.13 H* B-Natriuretic Peptide Urine Color Urine Appearance Urine pH Ur Specific [place] Urine Protein Urine Ketones Urine Blood Urine Nitrate Urine Bilirubin Urine Urobilinogen Ur Leukocyte Esterase Urine WBC (Auto) Urine RBC (Auto) Ur Squamous Epith Cells Amorphous Crystals Urine Bacteria Urine Yeast Urine Glucose 09/02/18 09/03/18 09/03/18 21:21 06:10 06:10 WBC 10.3 RBC 3.22 L Hgb 8.6 L Hct 28 L MCV 86 MCH 27 MCHC 31 RDW 18 H Plt Count 112 L MPV 8.6 Patient Temperature ABG pH ABG pH (Temp Correct) ABG pCO2 ABG pCO2 (Temp Corrct ABG pO2 ABG pO2 (Temp Correct ABG HCO3 ABG O2 Saturation ABG Base Excess Respiration Rate O2 Delivery Device Ventilator Type Vent Mode FiO2 Inspiratory Time PEEP Pressure Support Pressure Control EPAP IPAP BiPAP Sodium 129 L Potassium 6.5 H* Chloride 92 L Carbon Dioxide 25 Anion Gap 12 H BUN 124 H Creatinine 3.23 H Cystatin C Est GFR (Cystatin C) Est GFR ( Amer) 17.3 Est GFR (Non-Af Amer) 14.3 BUN/Creatinine Ratio 38.4 H Glucose 153 H POC Glucose (mg/dL) Lactic Acid Calcium 9.4 Phosphorus Magnesium Troponin I 0.15 H* B-Natriuretic Peptide 337 H Urine Color Urine Appearance Urine pH Ur Specific [place] Urine Protein Urine Ketones Urine Blood Urine Nitrate Urine Bilirubin Urine Urobilinogen Ur Leukocyte Esterase Urine WBC (Auto) Urine RBC (Auto) Ur Squamous Epith Cells Amorphous Crystals Urine Bacteria Urine Yeast Urine Glucose 09/03/18 06:10 WBC RBC Hgb Hct MCV MCH MCHC RDW Plt Count MPV Patient Temperature ABG pH ABG pH (Temp Correct) ABG pCO2 ABG pCO2 (Temp Corrct ABG pO2 ABG pO2 (Temp Correct ABG HCO3 ABG O2 Saturation ABG Base Excess Respiration Rate O2 Delivery Device Ventilator Type Vent Mode FiO2 Inspiratory Time PEEP Pressure Support Pressure Control EPAP IPAP BiPAP Sodium Potassium Chloride Carbon Dioxide Anion Gap BUN Creatinine Cystatin C Est GFR (Cystatin C) Est GFR ( Amer) Est GFR (Non-Af Amer) BUN/Creatinine Ratio Glucose POC Glucose (mg/dL) Lactic Acid Calcium Phosphorus 5.8 H Magnesium 2.2 Troponin I B-Natriuretic Peptide Urine Color Urine Appearance Urine pH Ur Specific [place] Urine Protein Urine Ketones Urine Blood Urine Nitrate Urine Bilirubin Urine Urobilinogen Ur Leukocyte Esterase Urine WBC (Auto) Urine RBC (Auto) Ur Squamous Epith Cells Amorphous Crystals Urine Bacteria Urine Yeast Urine Glucose Studies: 09/02 CT Chest: improved aeration of left upper lobe collapse of left lower lobe unchanged small right pleural effusion moderate left pleural effusion scattered infiltrates in right lung suggestive of pneumonia 09/02 US chest: 1.5 cm effusion 09/02: CXR: White out of left hemithorax 09/02 EKG: NSR. right bundle branch 09/01 CT abd/pelvis: moderate left pleural effusion with left basilar ateletasis. small right pleural effusion 09/01 EKG: sinus rhythm, prolonged CT. RBBB 08/30 CXR: worsening cardiogenic pulmonary edema compared to 08/21 CXR. Near complete opacification of left lung suspected to be a combination of pleural effusion and consolidation 08/21 CXR: CHF with possible superimposed pneumonia at left lung base, unchanged from prior 08/20 Venous duplex BLE: right groin seroma, negative for DVT 08/20 TTE: LVEF 60-65% mild concentric LVH septal flattening consistent with RV overload moderate pulmonary HTN unable to assess diastolic function 08/20 CXR: cardiomegaly with pulmonary vasular congestion Nutrition: NPO until mental status improved Impression: 67 yo F with PMH of DM, CAD, HLD, HTN, CKD, COPD and ENRIQUE admitted on 08/20 for healthcare associated pneumonia (Pseudomonas) and Klebsiella UTI. Intially requiring vapotherm in the ICU, however stablized on abx and diuresis. Tranferred to the floor. Returns to ICU 09/02 with hypercarbic respiratory failure. CT chest demonstrates LLL collapse, moderate effusion, right multifocal pneumonia. Plan: Cardiovascular:(1) Chronic paroxysmal atrial fibrillation; (2) Acute on chronic diastolic CHF; (3) Chronic HTN; (4) Chronic hyperlipidemia; (5) Chronic RBBB; (6) CAD -- HR 78-133 -- SBP 111-202 (< 146 since midnight) -- Telemetry -- 08/20 TTE: LVEF 60-65% mild concentric LVH septal flattening consistent with RV overload moderate pulmonary HTN unable to assess diastolic function -- BNP 337 from 903 on 08/20 -- Diltiazem -- Plaquenil -- Clonidiine patch, PRN Hydralazine -- Lasix, increase frequency to BID Home meds: Torsemide Pulmonary: (1) Acute on chronic hypoxic and hypercapneic respiratory failure; ( 2) COPD exacerbation; (3) Large left pleural effusion; (4) concern for new pneumonia; (5) Pseudomonas pneumonia on admission; (6) ENRIQUE; (7) Obesity hypoventilation syndrome -- RR 15-30 -- sats 90-100 -- on BiPAP, wean as able -- CXR, 09/03: complete opacification of hemithorax on left. -- CT chest 09/02: improved aeration of left upper lobe collapse of left lower lobe, unchanged small right pleural effusion moderate left plerual effusion scattered infiltratesin right lung suggestive of pneumonia -- ABG pending -- Scheduled duonebs -- Guaifenesin -- Nicotine patch -- Pt too high right to develop respiratory collapse if bronch attempted to reopen LLL, especially given she has asked not to be reintubated. Will use BiPAP at this time, and hopefully the positive pressure will help reinflate the LLL. -- The size of the effusion on the left is not large enough to be causing the LLL collapse primarily, thus I think that subjecting her to the risks of a procedure to attempt drainage is not worth the likely small benefits it would provide. Home meds: Umeclidium/vilanterol, Gastrointestinal: (1) Abdominal pain; (2) hx of gastroplasty 1987 -- CT abd: NAD, constipated -- LFTs within normal limits on 08/29 -- diet: NPO until respiratory status stabilizes -- bowel regimen: Dulcolax, Colace, MOM, Senna -- ulcer prophylaxis: Pepcid -- Zofran as needed Home meds: Sucralfate, Protonix, Senna, Dulcolax, MOM Endocrine: (1) Hyperglycemia secondary to type 2 diabetes mellitus -- monitor BGs -- SSI -- TSH within normal limits on 08/28 -- Prednisone, change to solumedrol Home meds: Glipizide, Insulin NPH, prednisone Renal: (1) Chronic renal failure, stage 4; (2) Oliguria; (3) Hyponatremia; (4) hyperkalemia -- UOP: 49 ml/hr -- I/O:653/1176 -- Cr pending -- Lytes Na pending K pending, patiromer reordered for this AM based on midnight K. Pharmacy unable to get Kayexelate at this time. Ca pending Mag pending Phos pending -- IVF: HL -- Lasix, increase frequency to BID -- Nephrology following Home meds: Calcium carbonate, Torsemide Infectious disease: (1) Concern for new pneumonia; (2) Sepsis on admission; (3 ) Pseudomonas pneumonia on admission, resolved; (4) Ecoli UTI on admission, resolved; (5) hx of MRSA -- Tmax 100.0 -- WBC 10.3 from 13.3 -- check procalcitonin -- Micro 08/31 blood NGTD 08/30 Urine yeast contaminant, alessia glabrata blood NGTD 08/21 blood negative MRSA screen positive 08/20 Urine e coli flu screen negative blood Pseudomonas 08/28 vials -- ABX start Zosyn to cover possible pneumonia given increasing O2 needs and rising WBC Home meds: None Neurologic: (1) Lethargy -- Tylenol as needed Home meds: Tylenol, Requip, Percocet, Prozac Hematological: (1) Chronic iron deficiency anemia; (2) Mild thrombocytopenia -- Hgb 8.6 from 9.2 -- Plt 112 from 139 -- DVT prophylaxis: SQ Heparin -- Ferrous sulfate -- Plaquenil Home meds: Ferrous sulfate Metabolic: No acute process -- lactic acid 0.4 -- Allopurinol - hold until mental status improved Home meds: Allopurinol Other: (1) hx of Bulous pemphagoid Home meds: Hydroxychloroguine Deep vein thrombosis prophylaxis: SQ Heparin Dietary: Prilosec Condition: critical Prognosis: poor Code status: DNR/DNI Disposition: Continue ICU Care Cumulative time spent in the care of this patient (excluding any procedure time) : at least 60 minutes. Patient care included clinical interview (with patient and/or family), bedside exam of the patient, review of labs, x-rays, and other ancillary data, coordination of (respiratory, nursing care, review of patient's records, discussion regarding patients management with involved consultants, primary physician, pharmacists, and other healthcare personnel (dietary, case management , physical/occupational therapy etc.) Critical Care Time: 60
[2018-09-03 11:03] LABS: BUN/Creatinine Ratio 37.2 (8-20); Calcium 8.8 mg/dL (8.6-10.3); EGFR Non-African American 13.9 (>60)
[2018-09-03 11:40] LABS: Potassium 6.1 mmol/L (3.5-5.0)
[2018-09-03 16:44] LABS: Calcium 9.2 mg/dL (8.6-10.3)
[2018-09-03 16:52] LABS: Potassium 5.7 mmol/L (3.5-5.0)
[2018-09-03] MEDS ORDERED: Patiromer POWDER* 8.4 GM PAK PO SCH (17:00)
[2018-09-03] MEDS: Famotidine SUSP* 40 MG/5 ML ORAL.SYRIN G TUBE SCH ×2 (17:56→22:07)
[2018-09-03 19:08] LABS: BUN/Creatinine Ratio 37.4 (8-20)
[2018-09-03] MEDS: Patiromer POWDER* 8.4 GM PAK PO SCH (21:12)
[2018-09-03] MEDS: Nicotine Patch Removal NOTE PATCH OFF SCH (21:18)
[2018-09-04] MEDS: Diltiazem TAB* 30 MG PO SCH ×2 (00:34→06:25)
[2018-09-04] MEDS: Insulin LISPRO* 1 UNITS UNIT SUBCUT SCH ×4 (00:53→17:39)
[2018-09-04] MEDS: Albuterol/Ipratropium NEB.SOL* Albuterol 2.5 MG/Ipratropium 0.5 MG 3 ML INH SCH ×4 (01:55→19:20)
[2018-09-04] MEDS: methylPREDNISolone SOD 40 MG* 1 ML VIAL IV SCH ×3 (03:40→17:39)
[2018-09-04] MEDS: ZOSYN 3.375 GM Q12H per EXTENDED INFUSION IVPB SCH ×4 (03:40→15:20)
[2018-09-04 05:39] LABS: Hematocrit 27 % (35-47); Hemoglobin 8.6 g/dl (12.0-16.0); Mean Corpuscular HGB Conc 32 g/dl (31-36); Mean Corpuscular Hemoglobin 28 pg (27-31); Mean Corpuscular Volume 86 fL (80-97); Mean Platelet Volume 8.6 fL (7.4-10.4); Platelet Count 106 10^3/ul (150-450); Red Blood Count 3.12 10^6/ul (4.00-5.40); Red Cell Distribution Width 18 % (10.5-15); White Blood Count 9.4 10^3/ul (3.5-10.8)
[2018-09-04 05:56] LABS: Calcium 9.2 mg/dL (8.6-10.3); EGFR Non-African American 12.7 (>60); Magnesium 2.3 mg/dL (1.9-2.7); Phosphorus 6.2 mg/dL (2.5-5.0)
[2018-09-04 05:57] LABS: Potassium 5.4 mmol/L (3.5-5.0)
[2018-09-04 06:44] LABS: BUN/Creatinine Ratio 36.1 (8-20)
[2018-09-04] MEDS: Furosemide IV* 10 MG/ML VIAL (40 MG) IV SCH ×2 (08:07→17:38)
[2018-09-04] MEDS: Allopurinol TAB* 300 MG PO SCH (08:07)
[2018-09-04] MEDS: Hydroxychloroquine TAB* 200 MG PO SCH ×2 (08:08→20:31)
[2018-09-04] MEDS: Heparin VIAL(*) 5000 UNITS/ML VIAL (FIVE THOUSAND) SUBCUT SCH ×2 (08:08→20:32)
[2018-09-04] MEDS: Neomyc/Polym/HC 1% OTIC SUSP* **OTIC RIGHT EAR SCH ×3 (08:08→20:31)
[2018-09-04] MEDS: Nicotine PATCH 21 MG/24 HR* PATCH TRANSDERM SCH (08:08)
[2018-09-04] MEDS: Nystatin TOP POWDER* 15 GM BTL TOPICAL SCH ×2 (08:09→20:31)
--- NOTE | 2018-09-04 10:39 | PN ---
Date of Service: 09/04/18 Critical Care Services: 67 yo F with PMH including DM, STEMI, paroxysmal AFib, COPD, frequent UTI, CKD, ENRIQUE and chronic respiratory failure who lives in a retirement facility. She presented to the ED on 08/20 with complaints of shortness of breath for the past several days. SpO2 at [facility] 82% on RA. She has been noncompliant with nocturnal CPAP lately. A CXR had been done at the [facility] which showed a possible basilar infiltrate and she had been started on Azithromycin. She was brought in to the ED 08/20 for failure to improve. In ED She was tachycardic to 124 but otherwise hemodynamically stable. Exam notable for ill appearance, chronic erythema of lower extremities with pitting edema, Rales, rhonchi and wheezing on exam and inability to speak in full sentences. WBC elevated at 18.0. ABG with pH 7.24, pCO2 81. She was started on BiPAP. Troponin came back elevated at 0.26. She was admitted to the hospitalist service for acute hypoixc and hypercarbic respritaroy failure. She was given Lasix for an elevated BNP anc concern for CHF exacerbation. She was started on steriods, bronchodilators for COPD exacerbation. She was also started on broad spectrum antibiotics to cover for healthcare associated pneumonia (SNF resident). Seen by Dr. Angel from pulmonology for COPD exacerbation, agreed with current management. 08/21: Bolused for drop in SBP to 70s and decreased UOP. Hgb dropped from 11 to 8.6, no active bleeding, transferred to ICU. Acidosis improved on BiPAP. 08/22: Blood cultures positive for Pseudomonas (presumed source is lungs), urine positive for Klebsiella. Antibiotics adjusted to provide double coverage to Pseudomonas 08/23: respiratory status stabilized 08/24: TTE completed, diastolic dysfunction, no vegetations 08/25: transferred out of unit. continuing to improve. On supplimental O2 during day and BiPAP at night. 08/26: reports generalized pain. 08/27: ID consulted; recommended course length of 10 days for Cefipime. 08/29: Developed otitis externa, started on cortisporin drops. Also noted to develop hyponatremia, possibly second to SIADH as FeNA consistent with euvolemic state. Steriod taper in progress. Starting PT. 08/30: Complaining of malaise. CXR with worsening consolidation and congestion. WBC rising. ABX broadened to Vancomycin and Zosyn. 08/31: Reports pain "everywhere". Persistent cough and shortness of breath. 09/01: Palliative care consulted. At that time reaffirmed desire for full code status and did not have interest in hospice options. Lasix diuresis reinitiated for CHF. K elevated, receiving Patriomer, calcium D50 + insulin. 09/02: Increased lethargy overnight. Sats high 90s on 4L, O2 decreased. ABG with pH 7.22, pCO2 76 pO2 62. Started on BiPAP. Mentation improve on BiPAP, however patient refused to wear it after 3AM. On morning rounds, pt noted to be lethargic again. Given lasix and transferred to ICU for further care. CT chest shows dense LLL infiltrate and collapse. Moderate plerual effusion. Persistent lethargy despite BiPAP. PT requested DNR/DNI on transfer to ICU. She became obtunded shortly after arrival. ABG improved on BiPAP 09/03: Becoming more arousable. tolerating BiPAP 09/04: Alert and conversant. Vital Signs: Temp Pulse Resp BP SpO2 FiO2 95.5 F 104 15 128/78 99 35 09/04/18 10:00 09/04/18 10:09/04/18 10:09/04/18 10:09/04/18 10:09/04 04:00 Physical Exam: Gen: resting comfortably. Normal work of breathing HEENT: Ventimask in place Lungs: Clear on right, absent at left lung base. Cardiac: tachycardic. regular Abdomen: soft, obese. nontender Extremities: cool, dry, improving edema Neuro: alert, but with flat affect. Answering questions with short 1-3 word replies Fluid Balance (Past 24 Hours): I= O= Net Intake & Output 09/02/18 09/03/18 09/04/18 09/05/18 06:59 06:59 06:59 06:59 Intake Total 2220 653 292 Output Total 675 1176 1575 310 Balance 1545 -523 -1283 -310 Weight 287 lb 243 lb 2.718 oz Intake: IV Fluids 1060 310 252 Calcium Gluconate 60 NS (0.9%) 1000 310 252 IVPB 143 40 ABX - ZOSYN 143 NS (0.9%) 40 Oral 1160 0 Tube Feeding Flush Amount 200 Output: Urine 120 Salas 675 1176 1455 310 Other: Date of Last Bowel 09/02/18 Movement # Bowel Movements 0 1 Estimated Stool Amount Small Small ADLs: Meal Record Start: 08/20/18 11: 48 Freq: 09,,18 Status: Complete Protocol: Created 08/20/18 11:48 System (Rec: 08/20/18 11:48 System ICU-C25) Document 08/20/18 18:00 GKL1000 (Rec: 08/20/18 18:33 PFZ2135 ICU-C12) Document 08/21/18 09:00 XNJ0055 (Rec: 08/21/18 10:58 MSF0079 ICU-C15) Document 08/21/18 13:00 TMZ5875 (Rec: 08/21/18 15:47 HXI8348 ICU-C15) Document 08/21/18 18:00 DPF3304 (Rec: 08/21/18 22:59 KJS4591 ICU-C15) Document 08/22/18 09:00 CZX9595 (Rec: 08/22/18 09:53 PDU2167 ICU-C15) Document 08/22/18 13:00 TLL2842 (Rec: 08/22/18 16:10 NDS3364 ICU-C15) Document 08/22/18 18:00 NLB0789 (Rec: 08/22/18 21:36 QHJ2143 ICU-C15) Document 08/23/18 09:00 PEJ7675 (Rec: 08/23/18 17:03 RYM9434 ICU-C15) Document 08/23/18 13:00 MSN0522 (Rec: 08/23/18 17:03 UYT5884 ICU-C15) Document 08/23/18 19:55 HYN7732 (Rec: 08/23/18 19:55 MQV6392 ICU-M31) Document 08/24/18 09:00 PXU2575 (Rec: 08/24/18 12:10 DJZ3631 ICU-C25) Document 08/24/18 14:00 BOG0702 (Rec: 08/24/18 15:58 RQJ7067 ICU-C25) ADLs: Meal Record Start: 08/24/18 17: 13 Freq: DAILY@0900,1400,1800 Status: Active Protocol: Created 08/24/18 17:13 VGU6014 (Rec: 08/24/18 17:13 UWI2080 TELE-C09) Document 08/24/18 18:00 BTT7787 (Rec: 08/24/18 20:30 LJB4514 TELE-C01) Document 08/25/18 09:00 SUF6378 (Rec: 08/25/18 09:54 HTA4710 TELE-C05) Document 08/25/18 14:00 IQC3793 (Rec: 08/25/18 15:01 FFS7870 TELE-C05) Document 08/25/18 18:00 CRS7898 (Rec: 08/25/18 18:39 DLD1603 TELE-C01) Document 08/26/18 09:00 JSJ9345 (Rec: 08/26/18 14:55 NDP3144 TELE-C07) Document 08/26/18 14:00 GER9237 (Rec: 08/26/18 14:57 FJF8229 TELE-C07) Document 08/26/18 18:00 OJK7073 (Rec: 08/26/18 18:26 PEL5168 TELE-C10) Document 08/27/18 09:00 ZQA6322 (Rec: 08/27/18 15:48 RXQ8097 TELE-C09) Document 08/27/18 14:00 QCD7320 (Rec: 08/27/18 15:50 FZZ2717 TELE-C09) Document 08/27/18 18:00 WAH4389 (Rec: 08/27/18 22:17 GZX5822 TELE-C33) Document 08/28/18 09:00 YEY5746 (Rec: 08/28/18 12:56 GUM0141 TELE-C07) Document 08/28/18 14:00 HRY1439 (Rec: 08/28/18 15:11 QOT9667 TELE-C07) Document 08/28/18 18:00 IFL7826 (Rec: 08/28/18 18:08 RFX9824 TELE-C07) Document 08/29/18 09:00 LIK6565 (Rec: 08/29/18 12:32 GWE1324 TELE-C05) Document 08/29/18 14:00 HND1989 (Rec: 08/29/18 15:41 JIE5340 TELE-C05) Document 08/29/18 18:00 ZIK0263 (Rec: 08/29/18 18:27 PTE8016 TELE-C01) Document 08/30/18 09:00 QPD8054 (Rec: 08/30/18 10:37 ARM7082 TELE-C01) Document 08/30/18 14:00 KYX1117 (Rec: 08/30/18 15:06 ZEG6725 TELE-C01) Document 08/30/18 18:00 NQB1776 (Rec: 08/30/18 18:40 KZH6230 TELE-C01) Document 08/31/18 09:00 AII7025 (Rec: 08/31/18 09:57 EQF8993 TELE-C07) Document 08/31/18 14:00 CGX6982 (Rec: 08/31/18 14:31 ULO5851 TELE-C07) Document 08/31/18 18:00 UIN9633 (Rec: 08/31/18 21:01 DWS0462 TELE-C32) Document 09/01/18 09:00 ESQ6159 (Rec: 09/01/18 09:46 WHG0825 TELE-C07) Document 09/01/18 14:00 KIQ0018 (Rec: 09/01/18 14:29 KLA9262 TELE-C10) Document 09/01/18 17:58 WIA9821 (Rec: 09/01/18 17:59 RXA1710 TELE-C10) Document 09/02/18 09:00 ASZ0962 (Rec: 09/02/18 09:24 AQA9114 ICU-C06) Document 09/02/18 14:00 LEN7130 (Rec: 09/02/18 14:18 QNA4542 ICU-C06) Document 09/02/18 18:00 HBC8048 (Rec: 09/02/18 18:14 BRD3371 ICU-C06) Document 09/03/18 09:00 XJP6833 (Rec: 09/03/18 12:27 CVH1440 ICU-C06) Document 09/03/18 14:00 SDH3054 (Rec: 09/03/18 16:35 ROH3830 ICU-C06) Document 09/03/18 18:00 NWX4973 (Rec: 09/03/18 18:39 ALM4780 ICU-C06) Intake and Output Start: 08/20/18 08: 34 Freq: Status: Active Protocol: Created 08/20/18 08:34 System (Rec: 08/20/18 08:34 System EDRM-C11) Intake and Output Start: 08/20/18 11: 48 Freq: 06,14,2200 Status: Complete Protocol: Created 08/20/18 11:48 System (Rec: 08/20/18 11:48 System ICU-C25) Document 08/20/18 13:00 TXX2843 (Rec: 08/20/18 13:21 DIJ2720 ICU-C25) Document 08/20/18 14:00 HEN8050 (Rec: 08/20/18 15:15 UXT9755 ICU-C12) Document 08/20/18 15:00 DJZ4141 (Rec: 08/20/18 16:11 SPE9128 ICU-C12) Document 08/20/18 16:00 FII8437 (Rec: 08/20/18 16:11 WDT4904 ICU-C12) Document 08/20/18 17:00 OOE8077 (Rec: 08/20/18 18:32 HQJ6046 ICU-C12) Document 08/20/18 18:00 VXO5419 (Rec: 08/20/18 18:32 SZL3378 ICU-C12) Document 08/20/18 19:00 LKD7560 (Rec: 08/20/18 19:14 QLC8824 ICU-C15) Document 08/20/18 20:00 LAI0396 (Rec: 08/20/18 20:14 JNC7123 ICU-C15) Document 08/20/18 22:00 YZF3868 (Rec: 08/20/18 22:08 BUR6220 ICU-C15) Document 08/20/18 23:00 QXO9533 (Rec: 08/20/18 23:04 VIW5747 ICU-C15) Document 08/21/18 00:00 GNX6249 (Rec: 08/21/18 00:03 PYG8580 ICU-C15) Document 08/21/18 00:59 IVN4751 (Rec: 08/21/18 00:59 RVS6499 ICU-C15) Document 08/21/18 01:54 HRY2615 (Rec: 08/21/18 01:54 JQZ9101 ICU-C15) Document 08/21/18 03:00 EYJ4023 (Rec: 08/21/18 03:07 PWE0182 ICU-C15) Document 08/21/18 04:00 SOS6148 (Rec: 08/21/18 04:09 TIQ0792 ICU-C15) Document 08/21/18 06:00 BZV1854 (Rec: 08/21/18 06:13 WSR0467 ICU-M31) Document 08/21/18 07:00 ZRL7300 (Rec: 08/21/18 07:41 QBW0275 ICU-M31) Document 08/21/18 07:00 BWJ4791 (Rec: 08/21/18 07:55 EYA0353 ICU-C15) Document 08/21/18 07:55 DGR3830 (Rec: 08/21/18 09:32 VFZ9401 ICU-C15) Document 08/21/18 09:00 WQO2837 (Rec: 08/21/18 10:59 UZG1515 ICU-C15) Document 08/21/18 10:00 EFY5336 (Rec: 08/21/18 10:59 AFX5160 ICU-C15) Document 08/21/18 10:59 CAZ0873 (Rec: 08/21/18 10:59 QCL7836 ICU-C15) Document 08/21/18 12:00 KDR9976 (Rec: 08/21/18 15:40 KBL2726 ICU-C15) Document 08/21/18 13:00 NXQ7744 (Rec: 08/21/18 15:48 LHR7230 ICU-C15) Document 08/21/18 14:00 SHC7514 (Rec: 08/21/18 15:48 XWC8337 ICU-C15) Document 08/21/18 15:00 WMB1564 (Rec: 08/21/18 15:48 VQF1039 ICU-C15) Document 08/21/18 16:00 UQS7411 (Rec: 08/21/18 16:31 WAU7062 ICU-C15) Document 08/21/18 17:00 RQK7977 (Rec: 08/21/18 18:11 VPR8258 ICU-C15) Document 08/21/18 18:00 IMO8803 (Rec: 08/21/18 18:11 OGE1126 ICU-C15) Document 08/21/18 19:54 VZC6758 (Rec: 08/21/18 20:08 RIX7487 ICU-C15) Document 08/21/18 21:00 CFL3423 (Rec: 08/21/18 23:00 HKR1789 ICU-C15) Document 08/21/18 22:00 SWL8284 (Rec: 08/21/18 23:00 NGE3114 ICU-C15) Document 08/21/18 23:00 QYC1356 (Rec: 08/21/18 23:00 ZRF4028 ICU-C15) Document 08/22/18 00:00 VII9730 (Rec: 08/22/18 01:52 HPF2440 ICU-M31) Document 08/22/18 01:00 ZHD0875 (Rec: 08/22/18 01:52 TIP9362 ICU-M31) Document 08/22/18 01:51 WXL9267 (Rec: 08/22/18 01:52 YGQ4398 ICU-M31) Document 08/22/18 03:00 HTO2567 (Rec: 08/22/18 06:01 QXX1026 ICU-M31) Document 08/22/18 04:00 JSU1839 (Rec: 08/22/18 06:01 FPM0690 ICU-M31) Document 08/22/18 05:00 IXY8935 (Rec: 08/22/18 06:01 XGT6611 ICU-M31) Document 08/22/18 06:00 JBM3361 (Rec: 08/22/18 06:01 EYL1344 ICU-M31) Document 08/22/18 07:00 UST0592 (Rec: 08/22/18 07:49 DIN0871 ICU-C15) Document 08/22/18 10:00 QAG1988 (Rec: 08/22/18 10:33 EYV5634 ICU-C15) Document 08/22/18 11:00 JJM9106 (Rec: 08/22/18 13:52 SFR1998 ICU-C15) Document 08/22/18 12:00 TDO8889 (Rec: 08/22/18 13:52 HJA4333 ICU-C15) Document 08/22/18 13:00 URH6921 (Rec: 08/22/18 13:52 LIA1653 ICU-C15) Document 08/22/18 14:00 UDH2949 (Rec: 08/22/18 14:26 SEB9748 ICU-C15) Document 08/22/18 15:00 IVW1337 (Rec: 08/22/18 16:11 QYB9436 ICU-C15) Document 08/22/18 16:00 QOR5762 (Rec: 08/22/18 16:11 AFG3524 ICU-C15) Document 08/22/18 17:00 HHW6870 (Rec: 08/22/18 18:11 NDS1450 ICU-C15) Document 08/22/18 18:00 KOO0911 (Rec: 08/22/18 18:11 FBH1667 ICU-C15) Document 08/22/18 19:30 VTD8398 (Rec: 08/22/18 21:37 RJX6456 ICU-C15) Document 08/22/18 20:00 TPZ5772 (Rec: 08/22/18 21:44 UYV3360 ICU-C15) Document 08/22/18 21:00 LDE8635 (Rec: 08/22/18 21:45 KJJ3844 ICU-C15) Document 08/22/18 22:00 PHF2430 (Rec: 08/22/18 22:45 UIC0513 ICU-C15) Document 08/22/18 23:00 MEO7777 (Rec: 08/22/18 23:57 FSY1554 ICU-C15) Document 08/22/18 23:57 IEF8623 (Rec: 08/22/18 23:57 FIG4138 ICU-C15) Document 08/23/18 01:00 VPC7519 (Rec: 08/23/18 01:58 UBU2575 ICU-C15) Document 08/23/18 01:58 EKK8516 (Rec: 08/23/18 01:59 RDK2089 ICU-C15) Document 08/23/18 03:00 KIZ5603 (Rec: 08/23/18 04:02 EVU9188 ICU-C15) Document 08/23/18 03:50 KJD8714 (Rec: 08/23/18 04:02 ISH0659 ICU-C15) Document 08/23/18 05:00 EEK1747 (Rec: 08/23/18 06:01 ZFB2137 ICU-M31) Document 08/23/18 06:00 WHV8754 (Rec: 08/23/18 06:01 AOR0994 ICU-M31) Document 08/23/18 07:00 HFD6507 (Rec: 08/23/18 07:53 UZS4717 ICU-C15) Document 08/23/18 07:54 YPF5563 (Rec: 08/23/18 08:16 DGK8687 ICU-C15) Document 08/23/18 09:00 SAF6140 (Rec: 08/23/18 10:19 SSE6089 ICU-C15) Document 08/23/18 10:00 ONN5684 (Rec: 08/23/18 10:19 SJW4613 ICU-C15) Document 08/23/18 11:00 YTG3512 (Rec: 08/23/18 12:06 UMR0054 ICU-C15) Document 08/23/18 12:00 FQG8674 (Rec: 08/23/18 12:06 ARD3720 ICU-C15) Document 08/23/18 13:00 YYL6713 (Rec: 08/23/18 17:00 VMG3204 ICU-C15) Document 08/23/18 14:00 XFE8361 (Rec: 08/23/18 17:00 LSU4668 ICU-C15) Document 08/23/18 15:00 JFC3631 (Rec: 08/23/18 17:00 SZV3620 ICU-C15) Document 08/23/18 16:00 DUE6192 (Rec: 08/23/18 17:00 SBO9664 ICU-C15) Document 08/23/18 17:00 CHO4939 (Rec: 08/23/18 17:04 XWH4281 ICU-C15) Document 08/23/18 18:00 DLG2351 (Rec: 08/23/18 19:00 UDD2208 ICU-C15) Document 08/23/18 19:00 FHP0680 (Rec: 08/23/18 19:56 TAN6925 ICU-M31) Document 08/23/18 20:00 DTQ3414 (Rec: 08/23/18 21:12 XKB2214 ICU-M31) Document 08/23/18 21:00 YOR6468 (Rec: 08/23/18 21:12 PGH4555 ICU-M31) Document 08/23/18 22:00 CJH1574 (Rec: 08/23/18 22:05 GXU8713 ICU-C07) Document 08/24/18 05:53 ECE2806 (Rec: 08/24/18 05:54 UDE3404 ICU-C07) Intake and Output Start: 08/24/18 17: 13 Freq: Q1HR Status: Active Protocol: Created 08/24/18 17:13 BCZ0003 (Rec: 08/24/18 17:13 FVH3502 TELE-C09) Document 08/24/18 22:00 FSD0939 (Rec: 08/24/18 23:03 RLX6591 TELE-C01) Document 08/24/18 23:15 MMW2110 (Rec: 08/25/18 01:12 FBD3615 TELE-C05) Document 08/25/18 04:22 NVJ9715 (Rec: 08/25/18 04:22 KZV6372 TELE-C05) Document 08/25/18 04:44 OBJ3685 (Rec: 08/25/18 04:44 MTF1516 TELE-C33) Document 08/25/18 14:00 DHX8206 (Rec: 08/25/18 15:01 PSH9512 TELE-C05) Document 08/26/18 05:43 WVI8491 (Rec: 08/26/18 05:46 ECB5518 TELE-C01) Document 08/26/18 14:00 TDC2723 (Rec: 08/26/18 14:57 NLR7195 TELE-C07) Document 08/26/18 21:57 GCP8767 (Rec: 08/26/18 21:59 IYB1985 TELE-C07) Document 08/27/18 06:00 NKB4625 (Rec: 08/27/18 07:31 HPL2829 HOSP-C11) Document 08/27/18 14:00 VVP8225 (Rec: 08/27/18 15:50 PRY7875 TELE-C09) Document 08/27/18 22:00 KWF4794 (Rec: 08/27/18 22:18 GFP5080 TELE-C33) Document 08/28/18 06:00 LRM2504 (Rec: 08/28/18 06:46 KCK9313 TELE-C35) Document 08/28/18 14:00 EJR6573 (Rec: 08/28/18 15:11 SJK1009 TELE-C07) Document 08/28/18 16:17 YVO6874 (Rec: 08/28/18 16:17 SEI7474 TELE-C07) Document 08/28/18 22:00 UEH4947 (Rec: 08/28/18 22:25 XIQ8937 TELE-C07) Document 08/29/18 06:00 ORP5977 (Rec: 08/29/18 06:44 WUM8213 TELE-C33) Document 08/29/18 14:00 DKN4799 (Rec: 08/29/18 15:41 LXQ6373 TELE-C05) Document 08/29/18 22:00 OJT4856 (Rec: 08/29/18 22:03 UBG1180 TELE-C01) Document 08/30/18 06:00 YKP1451 (Rec: 08/30/18 06:56 LBO0494 TELE-C33) Document 08/30/18 14:00 AMG9178 (Rec: 08/30/18 15:06 NXF9461 TELE-C01) Document 08/30/18 22:00 GVS2999 (Rec: 08/30/18 22:27 OUN6649 TELE-C09) Document 08/31/18 06:00 SUH6892 (Rec: 08/31/18 06:54 XUU2877 TELE-C01) Document 08/31/18 14:00 IUK7175 (Rec: 08/31/18 14:31 ADK3983 TELE-C07) Document 08/31/18 22:00 FNW4363 (Rec: 08/31/18 22:22 DTU9520 TELE-C32) Document 09/01/18 06:00 NSH5260 (Rec: 09/01/18 06:41 QKW0707 TELE-C32) Document 09/01/18 14:00 HZC1204 (Rec: 09/01/18 14:26 JMT6041 TELE-C10) Document 09/01/18 22:00 BAG1223 (Rec: 09/01/18 22:24 TKB3184 TELE-C10) Document 09/02/18 06:00 AEW7775 (Rec: 09/02/18 06:29 BJE3070 TELE-C34) Document 09/02/18 10:12 AQR5776 (Rec: 09/02/18 10:12 JLX1319 ICU-C06) Document 09/02/18 14:00 SQJ0989 (Rec: 09/02/18 14:18 IHC7669 ICU-C06) Document 09/02/18 16:39 STJ6390 (Rec: 09/02/18 16:39 HDB3580 ICU-C06) Document 09/02/18 19:00 VFM2777 (Rec: 09/03/18 03:19 KLH2128 ICU-C06) Document 09/02/18 22:00 ELF6165 (Rec: 09/02/18 22:23 FIU6161 ICU-M19) Document 09/02/18 23:54 KUT5087 (Rec: 09/02/18 23:54 SIL5809 ICU-M19) Document 09/03/18 02:00 DXX7015 (Rec: 09/03/18 02:41 RWO3089 ICU-M19) Document 09/03/18 04:46 DYN8124 (Rec: 09/03/18 04:47 IBB9173 ICU-C06) Document 09/03/18 06:00 ILC7528 (Rec: 09/03/18 06:15 BPR9471 ICU-M19) Document 09/03/18 07:00 WQU8590 (Rec: 09/03/18 12:44 HHZ6571 ICU-C06) Document 09/03/18 08:00 QOS3509 (Rec: 09/03/18 12:44 RRG1267 ICU-C06) Document 09/03/18 09:00 RKG7725 (Rec: 09/03/18 12:44 RJC4726 ICU-C06) Document 09/03/18 10:00 LWW5434 (Rec: 09/03/18 12:44 NOC0993 ICU-C06) Document 09/03/18 11:00 JZU3744 (Rec: 09/03/18 12:44 ROV7222 ICU-C06) Document 09/03/18 12:00 GAI2726 (Rec: 09/03/18 12:44 ZBS4214 ICU-C06) Document 09/03/18 13:00 RCP6287 (Rec: 09/03/18 16:35 LXY1620 ICU-C06) Document 09/03/18 14:00 MRJ0363 (Rec: 09/03/18 16:35 AQB7045 ICU-C06) Document 09/03/18 15:00 ZSF4049 (Rec: 09/03/18 16:35 WRW5617 ICU-C06) Document 09/03/18 16:00 EFE4481 (Rec: 09/03/18 18:37 UZA1821 ICU-C06) Document 09/03/18 17:00 TJZ5710 (Rec: 09/03/18 18:37 NRZ7739 ICU-C06) Document 09/03/18 18:00 CPL6700 (Rec: 09/03/18 18:37 AAN5830 ICU-C06) Document 09/03/18 19:00 IOF3556 (Rec: 09/03/18 20:03 LMV7015 ICU-C06) Document 09/03/18 20:00 AAY7794 (Rec: 09/03/18 20:03 LWD8497 ICU-C06) Document 09/03/18 21:00 YVC9556 (Rec: 09/03/18 21:40 EVW7395 ICU-C06) Document 09/03/18 22:00 JPX3862 (Rec: 09/03/18 22:14 ZEW0366 ICU-C06) Document 09/03/18 23:00 DSO0903 (Rec: 09/04/18 01:04 XXF2620 ICU-C06) Document 09/04/18 00:00 CNC2185 (Rec: 09/04/18 01:04 DRK4159 ICU-C06) Document 09/04/18 01:00 QPF4142 (Rec: 09/04/18 01:04 SML4113 ICU-C06) Document 09/04/18 02:00 KBH8196 (Rec: 09/04/18 02:07 XXW7609 ICU-C06) Document 09/04/18 03:00 SYM1467 (Rec: 09/04/18 04:24 CZS8613 ICU-C06) Document 09/04/18 04:00 MBA2563 (Rec: 09/04/18 04:24 APK0984 ICU-C06) Document 09/04/18 05:00 GMP7914 (Rec: 09/04/18 05:19 CBU3359 ICU-C06) Document 09/04/18 06:00 GRE4701 (Rec: 09/04/18 06:44 XCH5670 ICU-C06) Document 09/04/18 08:00 PMA8934 (Rec: 09/04/18 10:07 CWU4841 ICU-C06) Document 09/04/18 09:00 RYE3885 (Rec: 09/04/18 10:07 HAD0260 ICU-C06) Document 09/04/18 10:00 IXP3536 (Rec: 09/04/18 10:07 MIF8509 ICU-C06) Labs: Laboratory Results - last 24 hr 09/02/18 09/03/18 09/03/18 13:00 06:10 12:14 WBC RBC Hgb Hct MCV MCH MCHC RDW Plt Count MPV Sodium 132 L Potassium 6.1 H* Chloride 93 L Carbon Dioxide 23 Anion Gap 16 H BUN 123 H Creatinine 3.31 H Est GFR ( Amer) 16.8 Est GFR (Non-Af Amer) 13.9 BUN/Creatinine Ratio 37.2 H Glucose 167 H POC Glucose (mg/dL) 192 H Calcium 8.8 Phosphorus 5.8 H Magnesium 2.2 B-Natriuretic Peptide Procalcitonin 0.48 H 09/03/18 09/04/18 09/04/18 16:20 00:15 05:10 WBC RBC Hgb Hct MCV MCH MCHC RDW Plt Count MPV Sodium 130 L 130 L Potassium 5.7 H 5.4 H Chloride 92 L 93 L Carbon Dioxide 26 25 Anion Gap 12 H 12 H BUN 131 H 129 H Creatinine 3.50 H 3.57 H Est GFR ( Amer) 15.8 15.4 Est GFR (Non-Af Amer) 13.0 12.7 BUN/Creatinine Ratio 37.4 H 36.1 H Glucose 194 H 199 H POC Glucose (mg/dL) 224 H Calcium 9.2 9.2 Phosphorus 6.2 H Magnesium 2.3 B-Natriuretic Peptide Procalcitonin 09/04/18 09/04/18 05:10 05:10 WBC 9.4 RBC 3.12 L Hgb 8.6 L Hct 27 L MCV 86 MCH 28 MCHC 32 RDW 18 H Plt Count 106 L MPV 8.6 Sodium Potassium Chloride Carbon Dioxide Anion Gap BUN Creatinine Est GFR ( Amer) Est GFR (Non-Af Amer) BUN/Creatinine Ratio Glucose POC Glucose (mg/dL) Calcium Phosphorus Magnesium B-Natriuretic Peptide 318 H Procalcitonin Studies: 09/03 CXR: complete opacification of left hemithorax unchanged 09/02 CT Chest: improved aeration of left upper lobe collapse of left lower lobe unchanged small right pleural effusion moderate left pleural effusion scattered infiltrates in right lung suggestive of pneumonia 09/02 US chest: 1.5 cm effusion 09/02: CXR: White out of left hemithorax 09/02 EKG: NSR. right bundle branch 09/01 CT abd/pelvis: moderate left pleural effusion with left basilar ateletasis. small right pleural effusion 09/01 EKG: sinus rhythm, prolonged AK. RBBB 08/30 CXR: worsening cardiogenic pulmonary edema compared to 08/21 CXR. Near complete opacification of left lung suspected to be a combination of pleural effusion and consolidation 08/21 CXR: CHF with possible superimposed pneumonia at left lung base, unchanged from prior 08/20 Venous duplex BLE: right groin seroma, negative for DVT 08/20 TTE: LVEF 60-65% mild concentric LVH septal flattening consistent with RV overload moderate pulmonary HTN unable to assess diastolic function 08/20 CXR: cardiomegaly with pulmonary vasular congestion Nutrition: Sips of clears on break from BiPAP Impression: 67 yo F with PMH of DM, CAD, HLD, HTN, CKD, COPD and ENRIQUE admitted on 08/20 for healthcare associated pneumonia (Pseudomonas) and Klebsiella UTI. Intially requiring vapotherm in the ICU, however stablized on abx and diuresis. Tranferred to the floor. Returns to ICU 09/02 with hypercarbic respiratory failure. CT chest demonstrates LLL collapse, moderate effusion, right multifocal pneumonia. Mental status improving on BiPAP Plan: Cardiovascular:(1) Chronic paroxysmal atrial fibrillation; (2) Acute on chronic diastolic CHF; (3) Chronic HTN; (4) Chronic hyperlipidemia; (5) Chronic RBBB; (6) CAD -- HR 97-106 -- SBP 128-171 -- Telemetry -- 08/20 TTE: LVEF 60-65% mild concentric LVH septal flattening consistent with RV overload moderate pulmonary HTN unable to assess diastolic function -- BNP 318 from 337 from 903 on 08/20 -- Diltiazem, increase dose -- Plaquenil -- Clonidiine patch, PRN Hydralazine -- Lasix BID Home meds: Torsemide Pulmonary: (1) Acute on chronic hypoxic and hypercapneic respiratory failure; ( 2) COPD exacerbation; (3) Large left pleural effusion; (4) concern for new pneumonia; (5) Pseudomonas pneumonia on admission; (6) ENRIQUE; (7) Obesity hypoventilation syndrome -- RR 12-29 -- sats 94-99 -- on BiPAP, wean as able -- CXR, 09/03: complete opacification of hemithorax on left. -- CT chest 09/02: improved aeration of left upper lobe collapse of left lower lobe, unchanged small right pleural effusion moderate left plerual effusion scattered infiltratesin right lung suggestive of pneumonia -- Scheduled duonebs -- Guaifenesin -- Nicotine patch for hx of tobacco use -- Pt too high right to develop respiratory collapse if bronch attempted to reopen LLL, especially given she has asked not to be reintubated. Will use BiPAP at this time, and hopefully the positive pressure will help reinflate the LLL. -- The size of the effusion on the left is not large enough to be causing the LLL collapse primarily, thus I think that subjecting her to the risks of a procedure to attempt drainage is not worth the likely small benefits it would provide. Home meds: Umeclidium/vilanterol Gastrointestinal: (1) Abdominal pain while on bee; (2) hx of gastroplasty 1987 -- CT abd: NAD, constipated -- LFTs within normal limits on 08/29 -- diet: NPO until respiratory status stabilizes -- bowel regimen: Colace, MOM, Senna -- ulcer prophylaxis: Pepcid -- Zofran as needed Home meds: Sucralfate, Protonix, Senna, Dulcolax, MOM Endocrine: (1) Hyperglycemia secondary to type 2 diabetes mellitus -- monitor BGs -- SSI -- TSH within normal limits on 08/28 -- Prednisone, change to solumedrol Home meds: Glipizide, Insulin NPH, prednisone Renal: (1) Chronic renal failure, stage 4; (2) Oliguria, responding to lasix; ( 3) Hyponatremia; (4) hyperkalemia; (5) Hyperphosphatemia -- UOP: 66 ml/hr -- I/O:292/1575 -- Cr 3.57 from 3.50 -- Lytes Na 130 from 130, follow trend. Tolvaptan not available K 5.4 from 5.7, patiromer ordered daily until normalized. Pharmacy unable to get Kayexelate at this time. Ca 9.2 Mag 2.3 Phos 6.2, start phoslo -- IVF: HL -- Lasix BID -- Nephrology following Home meds: Calcium carbonate, Torsemide Infectious disease: (1) Concern for new pneumonia; (2) Sepsis on admission; (3 ) Pseudomonas pneumonia on admission, resolved; (4) Ecoli UTI on admission, resolved; (5) hx of MRSA -- Tmax 97.7 -- WBC 9.4 from 10.3 -- check procalcitonin -- Micro 08/31 blood Negative 08/30 Urine yeast contaminant, alessia glabrata blood Negative 08/21 blood negative MRSA screen positive 08/20 Urine e coli flu screen negative blood Pseudomonas 08/28 vials -- ABX Zosyn to cover possible pneumonia given increasing O2 needs and rising WBC Home meds: None Neurologic: (1) Lethargy, secondary to CO2 narcosis, improving -- Tylenol as needed -- PRN Morphine for pain control -- PT OT Home meds: Tylenol, Requip, Percocet, Prozac Hematological: (1) Chronic iron deficiency anemia; (2) Mild thrombocytopenia -- Hgb 8.6 from 8.6 -- Plt 106 from 112 -- DVT prophylaxis: SQ Heparin Home meds: Ferrous sulfate Metabolic: No acute process -- lactic acid 0.4 -- Allopurinol Home meds: Allopurinol Other: (1) hx of Bulous pemphagoid -- hydroxycholorquine Home meds: Hydroxychloroguine Deep vein thrombosis prophylaxis: SQ Heparin Dietary: Prilosec Condition: critical Prognosis: guarded Code status: DNR/DNI Disposition: Continue ICU Care Pt and mom updated at bedside regarding clinical progress and plan of care Cumulative time spent in the care of this patient (excluding any procedure time) : at least 40 minutes. Patient care included clinical interview (with patient and/or family), bedside exam of the patient, review of labs, x-rays, and other ancillary data, coordination of (respiratory, nursing care, review of patient's records, discussion regarding patients management with involved consultants, primary physician, pharmacists, and other healthcare personnel (dietary, case management , physical/occupational therapy etc.) Critical Care Time: 40
[2018-09-04] MEDS: Patiromer POWDER* 8.4 GM PAK PO SCH (10:41)
[2018-09-04] MEDS: Diltiazem TAB* 60 MG PO SCH ×2 (12:52→17:39)
[2018-09-04] MEDS: Calcium Acetate CAP* 667 MG PO SCH (13:00)
[2018-09-04] MEDS: Famotidine SUSP* 40 MG/5 ML ORAL.SYRIN G TUBE SCH (20:34)
[2018-09-04] MEDS: Nicotine Patch Removal NOTE PATCH OFF SCH (20:37)
[2018-09-04] MEDS: Morphine VIAL* 4 MG/ML VIAL (1 ml vial) IV PRN (20:41)
[2018-09-05] MEDS: Albuterol/Ipratropium NEB.SOL* Albuterol 2.5 MG/Ipratropium 0.5 MG 3 ML INH SCH ×4 (00:49→19:13)
[2018-09-05] MEDS: Diltiazem TAB* 60 MG PO SCH ×4 (01:12→18:15)
[2018-09-05] MEDS: Insulin LISPRO* 1 UNITS UNIT SUBCUT SCH ×4 (01:12→18:38)
[2018-09-05] MEDS: Morphine VIAL* 4 MG/ML VIAL (1 ml vial) IV PRN ×4 (03:36→22:20)
[2018-09-05] MEDS: ZOSYN 3.375 GM Q12H per EXTENDED INFUSION IVPB SCH ×4 (03:37→15:56)
[2018-09-05] MEDS: methylPREDNISolone SOD 40 MG* 1 ML VIAL IV SCH ×3 (05:22→18:15)
[2018-09-05 06:06] LABS: Hematocrit 24 % (35-47); Hemoglobin 7.6 g/dl (12.0-16.0); Mean Corpuscular HGB Conc 32 g/dl (31-36); Mean Corpuscular Hemoglobin 27 pg (27-31); Mean Corpuscular Volume 86 fL (80-97); Platelet Count 87 10^3/ul (150-450); Red Blood Count 2.83 10^6/ul (4.00-5.40); Red Cell Distribution Width 18 % (10.5-15); White Blood Count 9.8 10^3/ul (3.5-10.8)
[2018-09-05 06:17] LABS: BUN/Creatinine Ratio 40.4 (8-20); EGFR Non-African American 15.2 (>60); Phosphorus 5.7 mg/dL (2.5-5.0); Potassium 4.4 mmol/L (3.5-5.0)
[2018-09-05] MEDS: Heparin VIAL(*) 5000 UNITS/ML VIAL (FIVE THOUSAND) SUBCUT SCH ×2 (08:16→22:19)
[2018-09-05] MEDS: Furosemide IV* 10 MG/ML VIAL (40 MG) IV SCH ×2 (08:16→18:15)
[2018-09-05] MEDS: Hydroxychloroquine TAB* 200 MG PO SCH ×2 (08:17→22:17)
[2018-09-05] MEDS: Allopurinol TAB* 300 MG PO SCH (08:17)
[2018-09-05] MEDS: Neomyc/Polym/HC 1% OTIC SUSP* **OTIC RIGHT EAR SCH ×2 (08:17→15:55)
[2018-09-05] MEDS: Nicotine PATCH 21 MG/24 HR* PATCH TRANSDERM SCH (08:17)
[2018-09-05] MEDS ORDERED: Calcium Gluconate INJ* 1 GM in NS 0.9% 50 ML* 50 ML IVPB ONE (09:00)
[2018-09-05] MEDS: Nystatin TOP POWDER* 15 GM BTL TOPICAL SCH ×2 (10:04→22:20)
[2018-09-05] MEDS: Calcium Acetate CAP* 667 MG PO SCH (10:50)
[2018-09-05] MEDS: Patiromer POWDER* 8.4 GM PAK PO SCH (11:12)
--- NOTE | 2018-09-05 12:48 | PN ---
Date of Service: 09/05/18 Critical Care Services: 67 yo F with PMH including DM, STEMI, paroxysmal AFib, COPD, frequent UTI, CKD, ENRIQUE and chronic respiratory failure who lives in a [place] [facility]. She presented to the ED on 08/20 with complaints of shortness of breath for the past several days. SpO2 at [facility] 82% on RA. She has been noncompliant with nocturnal CPAP lately. A CXR had been done at the [facility] which showed a possible basilar infiltrate and she had been started on Azithromycin. She was brought in to the ED 08/20 for failure to improve. In ED She was tachycardic to 124 but otherwise hemodynamically stable. Exam notable for ill appearance, chronic erythema of lower extremities with pitting edema, Rales, rhonchi and wheezing on exam and inability to speak in full sentences. WBC elevated at 18.0. ABG with pH 7.24, pCO2 81. She was started on BiPAP. Troponin came back elevated at 0.26. She was admitted to the hospitalist service for acute hypoixc and hypercarbic respritaroy failure. She was given Lasix for an elevated BNP anc concern for CHF exacerbation. She was started on steriods, bronchodilators for COPD exacerbation. She was also started on broad spectrum antibiotics to cover for healthcare associated pneumonia (SNF resident). Seen by Dr. Angel from pulmonology for COPD exacerbation, agreed with current management. 08/21: Bolused for drop in SBP to 70s and decreased UOP. Hgb dropped from 11 to 8.6, no active bleeding, transferred to ICU. Acidosis improved on BiPAP. 08/22: Blood cultures positive for Pseudomonas (presumed source is lungs), urine positive for Klebsiella. Antibiotics adjusted to provide double coverage to Pseudomonas 08/23: respiratory status stabilized 08/24: TTE completed, diastolic dysfunction, no vegetations 08/25: transferred out of unit. continuing to improve. On supplimental O2 during day and BiPAP at night. 08/26: reports generalized pain. 08/27: ID consulted; recommended course length of 10 days for Cefipime. 08/29: Developed otitis externa, started on cortisporin drops. Also noted to develop hyponatremia, possibly second to SIADH as FeNA consistent with euvolemic state. Steriod taper in progress. Starting PT. 08/30: Complaining of malaise. CXR with worsening consolidation and congestion. WBC rising. ABX broadened to Vancomycin and Zosyn. 08/31: Reports pain "everywhere". Persistent cough and shortness of breath. 09/01: Palliative care consulted. At that time reaffirmed desire for full code status and did not have interest in hospice options. Lasix diuresis reinitiated for CHF. K elevated, receiving Patriomer, calcium D50 + insulin. 09/02: Increased lethargy overnight. Sats high 90s on 4L, O2 decreased. ABG with pH 7.22, pCO2 76 pO2 62. Started on BiPAP. Mentation improve on BiPAP, however patient refused to wear it after 3AM. On morning rounds, pt noted to be lethargic again. Given lasix and transferred to ICU for further care. CT chest shows dense LLL infiltrate and collapse. Moderate plerual effusion. Persistent lethargy despite BiPAP. PT requested DNR/DNI on transfer to ICU. She became obtunded shortly after arrival. ABG improved on BiPAP 09/03: Becoming more arousable. tolerating BiPAP 09/04: Alert and conversant. Met with Palliative care; reconfirmed DNR/DNI status but wished to continue pursing other medical interventions at this time. 09/05: No overnight events. Vital Signs: Temp Pulse Resp BP SpO2 FiO2 95.2 F 71 16 116/74 93 30 09/05/18 06:00 09/05/18 07:42 09/05/18 07:42 09/05/18 06:00 09/05/18 07:42 09/05 07:42 Physical Exam: Gen:resting comfortably HEENT: venti mask in place Lungs: nonlabored Cardiac: RRR Abdomen: nondistended Extremities: dry, edematous Neuro: alert, conversant. More participatory than yesterday Fluid Balance (Past 24 Hours): I= O= Net Intake & Output 09/03/18 09/04/18 09/05/18 09/06/18 06:59 06:59 06:59 06:59 Intake Total 653 292 178 Output Total 1176 1575 1370 75 Balance -523 -1283 -1192 -75 Weight 243 lb 2.718 oz 248 lb 14.43 oz Intake: IV Fluids 310 252 178 NS (0.9%) 310 252 178 IVPB 143 40 ABX - ZOSYN 143 NS (0.9%) 40 Oral 0 Tube Feeding Flush Amount 200 Output: Urine 120 [place] 1176 1455 1370 75 Other: Date of Last Bowel 09/02/18 Movement # Bowel Movements 1 Estimated Stool Amount Small ADLs: Meal Record Start: 08/20/18 11: 48 Freq: 09,13,18 Status: Complete Protocol: Created 08/20/18 11:48 System (Rec: 08/20/18 11:48 System ICU-C25) Document 08/20/18 18:00 FFS6824 (Rec: 08/20/18 18:33 UBF6000 ICU-C12) Document 08/21/18 09:00 HMR3888 (Rec: 08/21/18 10:58 PNJ2893 ICU-C15) Document 08/21/18 13:00 LCF6004 (Rec: 08/21/18 15:47 CTU3738 ICU-C15) Document 08/21/18 18:00 YZF6246 (Rec: 08/21/18 22:59 MLE7695 ICU-C15) Document 08/22/18 09:00 HTD1348 (Rec: 08/22/18 09:53 YFH7367 ICU-C15) Document 08/22/18 13:00 LVU2883 (Rec: 08/22/18 16:10 FLG4286 ICU-C15) Document 08/22/18 18:00 FYX1541 (Rec: 08/22/18 21:36 LQT0427 ICU-C15) Document 08/23/18 09:00 WUN4319 (Rec: 08/23/18 17:03 OEA2039 ICU-C15) Document 08/23/18 13:00 BAU1641 (Rec: 08/23/18 17:03 EDK4666 ICU-C15) Document 08/23/18 19:55 ALE7058 (Rec: 08/23/18 19:55 QDY2424 ICU-M31) Document 08/24/18 09:00 HLG0684 (Rec: 08/24/18 12:10 INI8193 ICU-C25) Document 08/24/18 14:00 BWZ2424 (Rec: 08/24/18 15:58 NQP0121 ICU-C25) ADLs: Meal Record Start: 08/24/18 17: 13 Freq: DAILY@0900,1400,1800 Status: Active Protocol: Created 08/24/18 17:13 AVL5653 (Rec: 08/24/18 17:13 OGV2719 TELE-C09) Document 08/24/18 18:00 AJU9266 (Rec: 08/24/18 20:30 SZW3216 TELE-C01) Document 08/25/18 09:00 FAL4030 (Rec: 08/25/18 09:54 FUT7863 TELE-C05) Document 08/25/18 14:00 LWQ3932 (Rec: 08/25/18 15:01 JUW4719 TELE-C05) Document 08/25/18 18:00 ERA9361 (Rec: 08/25/18 18:39 XAG1035 TELE-C01) Document 08/26/18 09:00 KMC8680 (Rec: 08/26/18 14:55 YQK2454 TELE-C07) Document 08/26/18 14:00 HSQ6861 (Rec: 08/26/18 14:57 PLM9783 TELE-C07) Document 08/26/18 18:00 RVM9762 (Rec: 08/26/18 18:26 XUJ0872 TELE-C10) Document 08/27/18 09:00 UCE8337 (Rec: 08/27/18 15:48 OZB7006 TELE-C09) Document 08/27/18 14:00 QIA3529 (Rec: 08/27/18 15:50 OLE9206 TELE-C09) Document 08/27/18 18:00 WLW6625 (Rec: 08/27/18 22:17 FXP4600 TELE-C33) Document 08/28/18 09:00 XZP0107 (Rec: 08/28/18 12:56 SKL1343 TELE-C07) Document 08/28/18 14:00 IIN7564 (Rec: 08/28/18 15:11 HKS2074 TELE-C07) Document 08/28/18 18:00 OVE7854 (Rec: 08/28/18 18:08 TFY9484 TELE-C07) Document 08/29/18 09:00 BEP8736 (Rec: 08/29/18 12:32 QSK4759 TELE-C05) Document 08/29/18 14:00 WCC0090 (Rec: 08/29/18 15:41 YMY6682 TELE-C05) Document 08/29/18 18:00 RRA2203 (Rec: 08/29/18 18:27 RMD4390 TELE-C01) Document 08/30/18 09:00 PJX1945 (Rec: 08/30/18 10:37 JSK3993 TELE-C01) Document 08/30/18 14:00 ORK3334 (Rec: 08/30/18 15:06 JBQ4626 TELE-C01) Document 08/30/18 18:00 YAC9678 (Rec: 08/30/18 18:40 HZW0608 TELE-C01) Document 08/31/18 09:00 CNF3198 (Rec: 08/31/18 09:57 DRV1056 TELE-C07) Document 08/31/18 14:00 WZR3293 (Rec: 08/31/18 14:31 RTI6895 TELE-C07) Document 08/31/18 18:00 LMC9792 (Rec: 08/31/18 21:01 MXK7789 TELE-C32) Document 09/01/18 09:00 VYK2410 (Rec: 09/01/18 09:46 STR9911 TELE-C07) Document 09/01/18 14:00 EKT4591 (Rec: 09/01/18 14:29 KWW6919 TELE-C10) Document 09/01/18 17:58 FFV2235 (Rec: 09/01/18 17:59 JRE8906 TELE-C10) Document 09/02/18 09:00 JHO1706 (Rec: 09/02/18 09:24 CBU2723 ICU-C06) Document 09/02/18 14:00 RWF0340 (Rec: 09/02/18 14:18 MUL9740 ICU-C06) Document 09/02/18 18:00 IPT2256 (Rec: 09/02/18 18:14 RPZ8518 ICU-C06) Document 09/03/18 09:00 BVT2837 (Rec: 09/03/18 12:27 UBN8298 ICU-C06) Document 09/03/18 14:00 GOE8213 (Rec: 09/03/18 16:35 EEV0289 ICU-C06) Document 09/03/18 18:00 TKV1538 (Rec: 09/03/18 18:39 ZRY1911 ICU-C06) Document 09/04/18 09:00 TPK6517 (Rec: 09/04/18 17:26 AVV4920 ICU-C06) Document 09/04/18 14:00 QTE7188 (Rec: 09/04/18 17:26 PAE0799 ICU-C06) Document 09/04/18 17:26 QXI9526 (Rec: 09/04/18 17:26 TCR4455 ICU-C06) Intake and Output Start: 08/20/18 08: 34 Freq: Status: Active Protocol: Created 08/20/18 08:34 System (Rec: 08/20/18 08:34 System EDRM-C11) Intake and Output Start: 08/20/18 11: 48 Freq: 06,14,2200 Status: Complete Protocol: Created 08/20/18 11:48 System (Rec: 08/20/18 11:48 System ICU-C25) Document 08/20/18 13:00 HLO0598 (Rec: 08/20/18 13:21 XVA9226 ICU-C25) Document 08/20/18 14:00 EVU1498 (Rec: 08/20/18 15:15 JAH2544 ICU-C12) Document 08/20/18 15:00 LQY5354 (Rec: 08/20/18 16:11 LTV3270 ICU-C12) Document 08/20/18 16:00 QAR7747 (Rec: 08/20/18 16:11 USG9239 ICU-C12) Document 08/20/18 17:00 MJV3450 (Rec: 08/20/18 18:32 GZD1298 ICU-C12) Document 08/20/18 18:00 WFI5432 (Rec: 08/20/18 18:32 WNA2152 ICU-C12) Document 08/20/18 19:00 VGL6904 (Rec: 08/20/18 19:14 NRF8612 ICU-C15) Document 08/20/18 20:00 KLX8562 (Rec: 08/20/18 20:14 CFA0140 ICU-C15) Document 08/20/18 22:00 UXV4598 (Rec: 08/20/18 22:08 JOT9238 ICU-C15) Document 08/20/18 23:00 RQE3037 (Rec: 08/20/18 23:04 EVR7461 ICU-C15) Document 08/21/18 00:00 VEV3229 (Rec: 08/21/18 00:03 DHU5256 ICU-C15) Document 08/21/18 00:59 NSC4830 (Rec: 08/21/18 00:59 OFL3474 ICU-C15) Document 08/21/18 01:54 CDK7583 (Rec: 08/21/18 01:54 GCR3212 ICU-C15) Document 08/21/18 03:00 RKM1241 (Rec: 08/21/18 03:07 ZNU3435 ICU-C15) Document 08/21/18 04:00 KER7981 (Rec: 08/21/18 04:09 HFN6132 ICU-C15) Document 08/21/18 06:00 CYT5889 (Rec: 08/21/18 06:13 FDJ1479 ICU-M31) Document 08/21/18 07:00 TAK9150 (Rec: 08/21/18 07:41 WZA1198 ICU-M31) Document 08/21/18 07:00 FRD1444 (Rec: 08/21/18 07:55 EZE9954 ICU-C15) Document 08/21/18 07:55 MAA3370 (Rec: 08/21/18 09:32 SJR7013 ICU-C15) Document 08/21/18 09:00 LTE7695 (Rec: 08/21/18 10:59 CUG6715 ICU-C15) Document 08/21/18 10:00 UMS6057 (Rec: 08/21/18 10:59 XZU0346 ICU-C15) Document 08/21/18 10:59 RQH5595 (Rec: 08/21/18 10:59 RJV5220 ICU-C15) Document 08/21/18 12:00 OEG5931 (Rec: 08/21/18 15:40 WCS8044 ICU-C15) Document 08/21/18 13:00 OQG9072 (Rec: 08/21/18 15:48 TKB4863 ICU-C15) Document 08/21/18 14:00 DIA8471 (Rec: 08/21/18 15:48 CUU9826 ICU-C15) Document 08/21/18 15:00 SDF9180 (Rec: 08/21/18 15:48 TQS8420 ICU-C15) Document 08/21/18 16:00 DFJ0066 (Rec: 08/21/18 16:31 KNL7739 ICU-C15) Document 08/21/18 17:00 TAM2960 (Rec: 08/21/18 18:11 CMM5536 ICU-C15) Document 08/21/18 18:00 ZOT6078 (Rec: 08/21/18 18:11 EKK8926 ICU-C15) Document 08/21/18 19:54 RNP1748 (Rec: 08/21/18 20:08 DFP2813 ICU-C15) Document 08/21/18 21:00 ARH8255 (Rec: 08/21/18 23:00 YSC4841 ICU-C15) Document 08/21/18 22:00 PUG2623 (Rec: 08/21/18 23:00 WTG1084 ICU-C15) Document 08/21/18 23:00 CNC7373 (Rec: 08/21/18 23:00 OHI7948 ICU-C15) Document 08/22/18 00:00 PCD3271 (Rec: 08/22/18 01:52 RFI9595 ICU-M31) Document 08/22/18 01:00 MQS7279 (Rec: 08/22/18 01:52 YLX3037 ICU-M31) Document 08/22/18 01:51 OQH8899 (Rec: 08/22/18 01:52 RFC4321 ICU-M31) Document 08/22/18 03:00 MEG7878 (Rec: 08/22/18 06:01 OTX1065 ICU-M31) Document 08/22/18 04:00 KSZ1650 (Rec: 08/22/18 06:01 MJF1631 ICU-M31) Document 08/22/18 05:00 BSU6624 (Rec: 08/22/18 06:01 MSG9517 ICU-M31) Document 08/22/18 06:00 PKP8032 (Rec: 08/22/18 06:01 YLC0351 ICU-M31) Document 08/22/18 07:00 HFW9429 (Rec: 08/22/18 07:49 QSZ8918 ICU-C15) Document 08/22/18 10:00 ALT8515 (Rec: 08/22/18 10:33 DGO5533 ICU-C15) Document 08/22/18 11:00 QOT2653 (Rec: 08/22/18 13:52 EFN6359 ICU-C15) Document 08/22/18 12:00 EKQ8933 (Rec: 08/22/18 13:52 TVA9567 ICU-C15) Document 08/22/18 13:00 ISQ9315 (Rec: 08/22/18 13:52 JVT6391 ICU-C15) Document 08/22/18 14:00 STY4007 (Rec: 08/22/18 14:26 JSJ8490 ICU-C15) Document 08/22/18 15:00 WRV1032 (Rec: 08/22/18 16:11 UMD4432 ICU-C15) Document 08/22/18 16:00 SUT9767 (Rec: 08/22/18 16:11 MQA2284 ICU-C15) Document 08/22/18 17:00 UTT2920 (Rec: 08/22/18 18:11 KDQ3041 ICU-C15) Document 08/22/18 18:00 AIT7481 (Rec: 08/22/18 18:11 LLI9408 ICU-C15) Document 08/22/18 19:30 YOV6783 (Rec: 08/22/18 21:37 UVV7075 ICU-C15) Document 08/22/18 20:00 MMR7046 (Rec: 08/22/18 21:44 NPY7940 ICU-C15) Document 08/22/18 21:00 MME0014 (Rec: 08/22/18 21:45 HDA5173 ICU-C15) Document 08/22/18 22:00 NKH9477 (Rec: 08/22/18 22:45 NQS4454 ICU-C15) Document 08/22/18 23:00 PCM9958 (Rec: 08/22/18 23:57 OJZ0136 ICU-C15) Document 08/22/18 23:57 IGX8625 (Rec: 08/22/18 23:57 SMS4048 ICU-C15) Document 08/23/18 01:00 TYG0907 (Rec: 08/23/18 01:58 VTO4992 ICU-C15) Document 08/23/18 01:58 JFF3165 (Rec: 08/23/18 01:59 FHN8162 ICU-C15) Document 08/23/18 03:00 VZZ7211 (Rec: 08/23/18 04:02 ITB3536 ICU-C15) Document 08/23/18 03:50 XRP8244 (Rec: 08/23/18 04:02 XRW2791 ICU-C15) Document 08/23/18 05:00 EYM1617 (Rec: 08/23/18 06:01 ZSV6864 ICU-M31) Document 08/23/18 06:00 GWY4336 (Rec: 08/23/18 06:01 SYY1152 ICU-M31) Document 08/23/18 07:00 UKT2312 (Rec: 08/23/18 07:53 ERZ2645 ICU-C15) Document 08/23/18 07:54 FPS9521 (Rec: 08/23/18 08:16 YZM5009 ICU-C15) Document 08/23/18 09:00 WGD0784 (Rec: 08/23/18 10:19 UWJ1837 ICU-C15) Document 08/23/18 10:00 THK4813 (Rec: 08/23/18 10:19 GIG6794 ICU-C15) Document 08/23/18 11:00 QJB3547 (Rec: 08/23/18 12:06 ARC6002 ICU-C15) Document 08/23/18 12:00 WRY2036 (Rec: 08/23/18 12:06 UYH7347 ICU-C15) Document 08/23/18 13:00 EDZ4768 (Rec: 08/23/18 17:00 ZKU7548 ICU-C15) Document 08/23/18 14:00 FNC5202 (Rec: 08/23/18 17:00 HCG6172 ICU-C15) Document 08/23/18 15:00 OYR1464 (Rec: 08/23/18 17:00 HCP8343 ICU-C15) Document 08/23/18 16:00 IMN7095 (Rec: 08/23/18 17:00 TPK9644 ICU-C15) Document 08/23/18 17:00 ISN4496 (Rec: 08/23/18 17:04 GHS5267 ICU-C15) Document 08/23/18 18:00 CIB2775 (Rec: 08/23/18 19:00 OHE2821 ICU-C15) Document 08/23/18 19:00 XKY7849 (Rec: 08/23/18 19:56 OSS5078 ICU-M31) Document 08/23/18 20:00 LRW9400 (Rec: 08/23/18 21:12 HYS1667 ICU-M31) Document 08/23/18 21:00 SXL1942 (Rec: 08/23/18 21:12 RPN1225 ICU-M31) Document 08/23/18 22:00 OEV1402 (Rec: 08/23/18 22:05 IAQ7600 ICU-C07) Document 08/24/18 05:53 KCX1014 (Rec: 08/24/18 05:54 ZWW9956 ICU-C07) Intake and Output Start: 08/24/18 17: 13 Freq: Q1HR Status: Active Protocol: Created 08/24/18 17:13 BOH6178 (Rec: 08/24/18 17:13 HTJ3957 TELE-C09) Document 08/24/18 22:00 SYX6188 (Rec: 08/24/18 23:03 ZTF9591 TELE-C01) Document 08/24/18 23:15 BID9124 (Rec: 08/25/18 01:12 FEJ9825 TELE-C05) Document 08/25/18 04:22 TGJ1350 (Rec: 08/25/18 04:22 GQQ9964 TELE-C05) Document 08/25/18 04:44 APS5672 (Rec: 08/25/18 04:44 SKC5123 TELE-C33) Document 08/25/18 14:00 FQS2299 (Rec: 08/25/18 15:01 PGC3153 TELE-C05) Document 08/26/18 05:43 DXN6875 (Rec: 08/26/18 05:46 GMJ0376 TELE-C01) Document 08/26/18 14:00 BRX2208 (Rec: 08/26/18 14:57 TCC4455 TELE-C07) Document 08/26/18 21:57 MFM2018 (Rec: 08/26/18 21:59 JRZ1764 TELE-C07) Document 08/27/18 06:00 DFQ3432 (Rec: 08/27/18 07:31 GIK0651 HOSP-C11) Document 08/27/18 14:00 OVQ5529 (Rec: 08/27/18 15:50 BSL4188 TELE-C09) Document 08/27/18 22:00 JCA8730 (Rec: 08/27/18 22:18 HAH4991 TELE-C33) Document 08/28/18 06:00 HXM6131 (Rec: 08/28/18 06:46 MHJ8685 TELE-C35) Document 08/28/18 14:00 XDH5088 (Rec: 08/28/18 15:11 LVQ4337 TELE-C07) Document 08/28/18 16:17 DXV5185 (Rec: 08/28/18 16:17 QGK4575 TELE-C07) Document 08/28/18 22:00 WUA1671 (Rec: 08/28/18 22:25 IKR5727 TELE-C07) Document 08/29/18 06:00 XFY6804 (Rec: 08/29/18 06:44 UJN3152 TELE-C33) Document 08/29/18 14:00 QAE9897 (Rec: 08/29/18 15:41 FBR6612 TELE-C05) Document 08/29/18 22:00 BEZ1455 (Rec: 08/29/18 22:03 JPA2177 TELE-C01) Document 08/30/18 06:00 KAN1147 (Rec: 08/30/18 06:56 VLI9078 TELE-C33) Document 08/30/18 14:00 QJE2175 (Rec: 08/30/18 15:06 CSJ4931 TELE-C01) Document 08/30/18 22:00 JHX9456 (Rec: 08/30/18 22:27 VKD5415 TELE-C09) Document 08/31/18 06:00 PNU0414 (Rec: 08/31/18 06:54 ARP6856 TELE-C01) Document 08/31/18 14:00 FNC7261 (Rec: 08/31/18 14:31 TTI8893 TELE-C07) Document 08/31/18 22:00 PZG3882 (Rec: 08/31/18 22:22 HUY3879 TELE-C32) Document 09/01/18 06:00 ERJ6338 (Rec: 09/01/18 06:41 RAM6854 TELE-C32) Document 09/01/18 14:00 FOQ0182 (Rec: 09/01/18 14:26 YFA2522 TELE-C10) Document 09/01/18 22:00 KDT4376 (Rec: 09/01/18 22:24 YMZ1426 TELE-C10) Document 09/02/18 06:00 ZBO1761 (Rec: 09/02/18 06:29 XVK7420 TELE-C34) Document 09/02/18 10:12 EKG6532 (Rec: 09/02/18 10:12 ALB2025 ICU-C06) Document 09/02/18 14:00 IQE2945 (Rec: 09/02/18 14:18 YCC0785 ICU-C06) Document 09/02/18 16:39 VJL5642 (Rec: 09/02/18 16:39 MRD5745 ICU-C06) Document 09/02/18 19:00 NFW8712 (Rec: 09/03/18 03:19 ISV0407 ICU-C06) Document 09/02/18 22:00 NZF2780 (Rec: 09/02/18 22:23 RZE5412 ICU-M19) Document 09/02/18 23:54 QBX9056 (Rec: 09/02/18 23:54 NLN4963 ICU-M19) Document 09/03/18 02:00 DXX8524 (Rec: 09/03/18 02:41 FBG1288 ICU-M19) Document 09/03/18 04:46 SJN1459 (Rec: 09/03/18 04:47 TYR2579 ICU-C06) Document 09/03/18 06:00 SHC6103 (Rec: 09/03/18 06:15 CJG6262 ICU-M19) Document 09/03/18 07:00 TDR3183 (Rec: 09/03/18 12:44 QOB7648 ICU-C06) Document 09/03/18 08:00 QRV5115 (Rec: 09/03/18 12:44 OVL2591 ICU-C06) Document 09/03/18 09:00 WAX0134 (Rec: 09/03/18 12:44 WXW0732 ICU-C06) Document 09/03/18 10:00 JDF1001 (Rec: 09/03/18 12:44 ZYS2372 ICU-C06) Document 09/03/18 11:00 HTL3111 (Rec: 09/03/18 12:44 EVE9831 ICU-C06) Document 09/03/18 12:00 QQZ2633 (Rec: 09/03/18 12:44 WUR7031 ICU-C06) Document 09/03/18 13:00 NVF2423 (Rec: 09/03/18 16:35 IIQ8434 ICU-C06) Document 09/03/18 14:00 OIS2520 (Rec: 09/03/18 16:35 MWG4258 ICU-C06) Document 09/03/18 15:00 LDE6356 (Rec: 09/03/18 16:35 XRV7668 ICU-C06) Document 09/03/18 16:00 IIU7262 (Rec: 09/03/18 18:37 PYO2597 ICU-C06) Document 09/03/18 17:00 LED4401 (Rec: 09/03/18 18:37 ITE8342 ICU-C06) Document 09/03/18 18:00 GSU9888 (Rec: 09/03/18 18:37 JBX6194 ICU-C06) Document 09/03/18 19:00 NND1978 (Rec: 09/03/18 20:03 AAG6190 ICU-C06) Document 09/03/18 20:00 VBP4211 (Rec: 09/03/18 20:03 KTG6263 ICU-C06) Document 09/03/18 21:00 WEK7380 (Rec: 09/03/18 21:40 PVG7806 ICU-C06) Document 09/03/18 22:00 WVD7572 (Rec: 09/03/18 22:14 ZMQ8067 ICU-C06) Document 09/03/18 23:00 LIL6174 (Rec: 09/04/18 01:04 LQY7462 ICU-C06) Document 09/04/18 00:00 OAE3826 (Rec: 09/04/18 01:04 NHS8776 ICU-C06) Document 09/04/18 01:00 PKU6663 (Rec: 09/04/18 01:04 NOX4827 ICU-C06) Document 09/04/18 02:00 JIM8416 (Rec: 09/04/18 02:07 DAA6189 ICU-C06) Document 09/04/18 03:00 EYR8858 (Rec: 09/04/18 04:24 VFV5101 ICU-C06) Document 09/04/18 04:00 BON2227 (Rec: 09/04/18 04:24 QEA0693 ICU-C06) Document 09/04/18 05:00 FSI6854 (Rec: 09/04/18 05:19 JUT7948 ICU-C06) Document 09/04/18 06:00 XGW9484 (Rec: 09/04/18 06:44 NYT6982 ICU-C06) Document 09/04/18 08:00 PXM5705 (Rec: 09/04/18 10:07 AWN9670 ICU-C06) Document 09/04/18 09:00 EQO4903 (Rec: 09/04/18 10:07 HYX4218 ICU-C06) Document 09/04/18 10:00 FPT6643 (Rec: 09/04/18 10:07 GST2430 ICU-C06) Document 09/04/18 11:00 FIZ9350 (Rec: 09/04/18 13:04 BNS4209 ICU-M19) Document 09/04/18 12:00 KEW4881 (Rec: 09/04/18 13:04 PSY5146 ICU-M19) Document 09/04/18 13:00 WXL4318 (Rec: 09/04/18 13:04 YNZ9552 ICU-M19) Document 09/04/18 14:00 AOD9752 (Rec: 09/04/18 14:06 HFO9480 ICU-C06) Document 09/04/18 15:00 VNB5408 (Rec: 09/04/18 18:13 HGQ7342 ICU-C06) Document 09/04/18 16:00 BMW7581 (Rec: 09/04/18 18:13 ZPG5590 ICU-C06) Document 09/04/18 17:00 DWD8420 (Rec: 09/04/18 18:13 GNC6912 ICU-C06) Document 09/04/18 18:00 GWI0987 (Rec: 09/04/18 18:13 [id number] ICU-C06) Document 09/04/18 19:00 [id number] (Rec: 09/04/18 19:58 [id number] ICU-C06) Document 09/04/18 20:00 [id number] (Rec: 09/04/18 20:52 [id number] ICU-C06) Document 09/04/18 21:00 [id number] (Rec: 09/04/18 22:52 [id number] ICU-C06) Document 09/04/18 22:00 [id number] (Rec: 09/04/18 22:52 [id number] ICU-C06) Document 09/04/18 23:00 [id number] (Rec: 09/04/18 23:08 [id number] ICU-C06) Document 09/05/18 00:00 [id number] (Rec: 09/05/18 00:19 [id number] ICU-C06) Document 09/05/18 01:00 [id number] (Rec: 09/05/18 04:00 [id number] ICU-C06) Document 09/05/18 02:00 [id number] (Rec: 09/05/18 04:00 [id number] ICU-C06) Document 09/05/18 03:00 [id number] (Rec: 09/05/18 04:00 [id number] ICU-C06) Document 09/05/18 04:00 [id number] (Rec: 09/05/18 04:03 [id number] ICU-C06) Document 09/05/18 05:00 [id number] (Rec: 09/05/18 06:15 [id number] ICU-C06) Document 09/05/18 06:00 [id number] (Rec: 09/05/18 06:15 [id number] ICU-C06) Document 09/05/18 08:00 [id number] (Rec: 09/05/18 08:16 [id number] ICU-M19) Labs: Laboratory Results - last 24 hr 09/04/18 09/04/18 09/05/18 12:52 17:34 01:02 WBC RBC Hgb Hct MCV MCH MCHC RDW Plt Count MPV Sodium Potassium Chloride Carbon Dioxide Anion Gap BUN Creatinine Est GFR ( Amer) Est GFR (Non-Af Amer) BUN/Creatinine Ratio Glucose POC Glucose (mg/dL) 196 H 199 H 199 H Calcium Phosphorus Magnesium B-Natriuretic Peptide 09/05/18 09/05/18 09/05/18 05:45 05:45 05:45 WBC 9.8 RBC 2.83 L Hgb 7.6 L Hct 24 L MCV 86 MCH 27 MCHC 32 RDW 18 H Plt Count 87 L MPV 8.0 Sodium 140 D Potassium 4.4 Chloride 98 L Carbon Dioxide 23 Anion Gap 19 H BUN 124 H Creatinine 3.07 H Est GFR ( Amer) 18.3 Est GFR (Non-Af Amer) 15.2 BUN/Creatinine Ratio 40.4 H Glucose 195 H POC Glucose (mg/dL) Calcium 8.0 L Phosphorus 5.7 H Magnesium 2.0 B-Natriuretic Peptide 201 H Studies: 09/03 CXR: complete opacification of left hemithorax unchanged 09/02 CT Chest: improved aeration of left upper lobe collapse of left lower lobe unchanged small right pleural effusion moderate left pleural effusion scattered infiltrates in right lung suggestive of pneumonia 09/02 US chest: 1.5 cm effusion 09/02: CXR: White out of left hemithorax 09/02 EKG: NSR. right bundle branch 09/01 CT abd/pelvis: moderate left pleural effusion with left basilar ateletasis. small right pleural effusion 09/01 EKG: sinus rhythm, prolonged MS. RBBB 08/30 CXR: worsening cardiogenic pulmonary edema compared to 08/21 CXR. Near complete opacification of left lung suspected to be a combination of pleural effusion and consolidation 08/21 CXR: CHF with possible superimposed pneumonia at left lung base, unchanged from prior 08/20 Venous duplex BLE: right groin seroma, negative for DVT 08/20 TTE: LVEF 60-65% mild concentric LVH septal flattening consistent with RV overload moderate pulmonary HTN unable to assess diastolic function 08/20 CXR: cardiomegaly with pulmonary vasular congestion Nutrition: sips of clears Impression: 67 yo F with PMH of DM, CAD, HLD, HTN, CKD, COPD and ENRIQUE admitted on 08/20 for healthcare associated pneumonia (Pseudomonas) and Klebsiella UTI. Intially requiring vapotherm in the ICU, however stablized on abx and diuresis. Tranferred to the floor. Returns to ICU 09/02 with hypercarbic respiratory failure. CT chest demonstrates LLL collapse, moderate effusion, right multifocal pneumonia. Mental status improving on BiPAP Plan: Cardiovascular:(1) Chronic paroxysmal atrial fibrillation; (2) Acute on chronic diastolic CHF, improving; (3) Chronic HTN; (4) Chronic hyperlipidemia; ( 5) Chronic RBBB; (6) CAD -- HR 70-106 -- SBP 111-171 -- Telemetry -- 08/20 TTE: LVEF 60-65% mild concentric LVH septal flattening consistent with RV overload moderate pulmonary HTN unable to assess diastolic function -- BNP 201 from 318 -- Diltiazem -- Plaquenil -- Clonidine patch, PRN Hydralazine -- Lasix BID Home meds: Torsemide Pulmonary: (1) Acute on chronic hypoxic and hypercapneic respiratory failure, improving; (2) COPD exacerbation, improving; (3) Moderate left pleural effusion ; (4) concern for new pneumonia; (5) Pseudomonas pneumonia on admission; (6) ENRIQUE ; (7) Obesity hypoventilation syndrome -- RR 13-22 -- sats 92-99 -- on Ventimask during day and BiPAP at night -- CXR, 09/03: complete opacification of hemithorax on left. -- CT chest 09/02: improved aeration of left upper lobe collapse of left lower lobe, unchanged small right pleural effusion moderate left plerual effusion scattered infiltratesin right lung suggestive of pneumonia -- Scheduled duonebs -- Nicotine patch for hx of tobacco use -- incentive spirometry Home meds: Umeclidium/vilanterol Gastrointestinal: (1) Abdominal pain while on bee; (2) hx of gastroplasty 1987 -- CT abd: NAD, constipated -- LFTs within normal limits on 08/29 -- diet: NPO until respiratory status stabilizes -- bowel regimen: Colace, MOM -- ulcer prophylaxis: Pepcid -- Zofran as needed Home meds: Sucralfate, Protonix, Senna, Dulcolax, MOM Endocrine: (1) Hyperglycemia secondary to type 2 diabetes mellitus -- monitor BGs -- SSI -- TSH within normal limits on 08/28 -- solumedrol Home meds: Glipizide, Insulin NPH, prednisone Renal: (1) Chronic renal failure, stage 4; (2) Oliguria, responding to lasix; ( 3) Hyponatremia; (4) hyperkalemia; (5) Hyperphosphatemia -- UOP: 57 ml/hr -- I/O:178/1370 -- Cr 3.57 from 3.50 -- Lytes Na 140 from 130, follow trend K 4.4, normalized on Patiromer. follow trend Ca 8.0, replace Mag 2.0 Phos 5.7 from 6.2, on phoslo -- IVF: HL -- Lasix BID -- PhosLo -- Nephrology following Home meds: Calcium carbonate, Torsemide Infectious disease: (1) Concern for new pneumonia; (2) Sepsis on admission; (3 ) Pseudomonas pneumonia on admission, resolved; (4) Ecoli UTI on admission, resolved; (5) hx of MRSA -- Tmax 96.1 -- WBC 9.8 from 9.4 -- procalcitonin 0.48 on 09/02 -- Micro 08/31 blood Negative 08/30 Urine yeast contaminant, alessia glabrata blood Negative 08/21 blood negative MRSA screen positive 08/20 Urine e coli flu screen negative blood Pseudomonas 08/28 vials -- ABX Zosyn x 7 days Home meds: None Neurologic: (1) Lethargy, secondary to CO2 narcosis, improving -- Tylenol as needed -- PRN Morphine for pain control -- PT OT Home meds: Tylenol, Requip, Percocet, Prozac Hematological: (1) Chronic iron deficiency anemia; (2) Thrombocytopenia -- Hgb 7.6 from 8.6 -- Plt 87 from 106, likely secondary to sepsis, follow trend -- DVT prophylaxis: SQ Heparin Home meds: Ferrous sulfate Metabolic: No acute process -- Allopurinol Home meds: Allopurinol Other: (1) hx of Bulous pemphagoid -- hydroxycholorquine Home meds: Hydroxychloroguine Deep vein thrombosis prophylaxis: SQ Heparin Dietary: Prilosec Condition: critical Prognosis: guarded Code status: DNR/DNI Disposition: Continue ICU Care Cumulative time spent in the care of this patient (excluding any procedure time) : at least 40 minutes. Patient care included clinical interview (with patient and/or family), bedside exam of the patient, review of labs, x-rays, and other ancillary data, coordination of (respiratory, nursing care, review of patient's records, discussion regarding patients management with involved consultants, primary physician, pharmacists, and other healthcare personnel (dietary, case management , physical/occupational therapy etc.) Critical Care Time: 40
[2018-09-05] MEDS: Famotidine SUSP* 40 MG/5 ML ORAL.SYRIN G TUBE SCH (22:18)
[2018-09-05] MEDS: Nicotine Patch Removal NOTE PATCH OFF SCH (22:21)
[2018-09-06] MEDS: Insulin LISPRO* 1 UNITS UNIT SUBCUT SCH ×4 (00:06→17:38)
[2018-09-06] MEDS: Diltiazem TAB* 60 MG PO SCH ×4 (00:06→17:39)
[2018-09-06] MEDS: Albuterol/Ipratropium NEB.SOL* Albuterol 2.5 MG/Ipratropium 0.5 MG 3 ML INH SCH ×4 (00:55→19:16)
[2018-09-06] MEDS: methylPREDNISolone SOD 40 MG* 1 ML VIAL IV SCH ×3 (05:42→21:45)
[2018-09-06] MEDS: ZOSYN 3.375 GM Q12H per EXTENDED INFUSION IVPB SCH ×4 (05:42→15:11)
[2018-09-06 06:36] LABS: Hematocrit 27 % (35-47); Hemoglobin 8.4 g/dl (12.0-16.0); Mean Corpuscular HGB Conc 31 g/dl (31-36); Mean Corpuscular Hemoglobin 27 pg (27-31); Mean Corpuscular Volume 85 fL (80-97); Mean Platelet Volume 8.6 fL (7.4-10.4); Platelet Count 88 10^3/ul (150-450); Red Blood Count 3.19 10^6/ul (4.00-5.40); Red Cell Distribution Width 18 % (10.5-15); White Blood Count 13.4 10^3/ul (3.5-10.8)
[2018-09-06 06:46] LABS: Calcium 9.2 mg/dL (8.6-10.3); EGFR Non-African American 12.4 (>60); Magnesium 2.2 mg/dL (1.9-2.7); Phosphorus 7.1 mg/dL (2.5-5.0); Potassium 4.9 mmol/L (3.5-5.0)
[2018-09-06 07:03] LABS: BUN/Creatinine Ratio 39.6 (8-20)
--- NOTE | 2018-09-06 08:42 | PN ---
Date of Service: 09/06/18 - 18 Critical Care Services: 67 yo F with PMH including DM, STEMI, paroxysmal AFib, COPD, frequent UTI, CKD, ENRIQUE and chronic respiratory failure who lives in a [facility] facility. She presented to the ED on 08/20 with complaints of shortness of breath for the past several days. SpO2 at [facility] 82% on RA. She has been noncompliant with nocturnal CPAP lately. A CXR had been done at the [facility] which showed a possible basilar infiltrate and she had been started on Azithromycin. She was brought in to the ED 08/20 for failure to improve. In ED She was tachycardic to 124 but otherwise hemodynamically stable. Exam notable for ill appearance, chronic erythema of lower extremities with pitting edema, Rales, rhonchi and wheezing on exam and inability to speak in full sentences. WBC elevated at 18.0. ABG with pH 7.24, pCO2 81. She was started on BiPAP. Troponin came back elevated at 0.26. She was admitted to the hospitalist service for acute hypoixc and hypercarbic respritaroy failure. She was given Lasix for an elevated BNP anc concern for CHF exacerbation. She was started on steriods, bronchodilators for COPD exacerbation. She was also started on broad spectrum antibiotics to cover for healthcare associated pneumonia (SNF resident). Seen by Dr. Angel from pulmonology for COPD exacerbation, agreed with current management. 08/21: Bolused for drop in SBP to 70s and decreased UOP. Hgb dropped from 11 to 8.6, no active bleeding, transferred to ICU. Acidosis improved on BiPAP. 08/22: Blood cultures positive for Pseudomonas (presumed source is lungs), urine positive for Klebsiella. Antibiotics adjusted to provide double coverage to Pseudomonas 08/23: respiratory status stabilized 08/24: TTE completed, diastolic dysfunction, no vegetations 08/25: transferred out of unit. continuing to improve. On supplemental O2 during day and BiPAP at night. 08/27: ID consulted; recommended course length of 10 days for Cefipime. 08/29: Developed otitis externa, started on cortisporin drops. Also noted to develop hyponatremia, possibly second to SIADH as FeNA consistent with euvolemic state. Steriod taper in progress. Starting PT. 08/30: Complaining of malaise. CXR with worsening consolidation and congestion. WBC rising. ABX broadened to Vancomycin and Zosyn. 08/31: Reports pain "everywhere". Persistent cough and shortness of breath. 09/01: Palliative care consulted. At that time reaffirmed desire for full code status and did not have interest in hospice options. Lasix diuresis reinitiated for CHF. K elevated, receiving Patiromer, calcium D50 + insulin. 09/02: Increased lethargy overnight. Sats high 90s on 4L, O2 decreased. ABG with pH 7.22, pCO2 76 pO2 62. Started on BiPAP. Mentation improve on BiPAP, however patient refused to wear it after 3AM. On morning rounds, pt noted to be lethargic again. Given lasix and transferred to ICU for further care. CT chest shows dense LLL infiltrate and collapse. Moderate plerual effusion. Persistent lethargy despite BiPAP. PT requested DNR/DNI on transfer to ICU. She became obtunded shortly after arrival. ABG improved on BiPAP 09/03: Becoming more arousable. tolerating BiPAP 09/04: Alert and conversant. Met with Palliative care; reconfirmed DNR/DNI status but wished to continue pursing other medical interventions at this time. 09/05: No overnight events. Tolerating venti mask during day and BiPAP at night. Failed nursing swallow eval Vital Signs: Temp Pulse Resp BP SpO2 FiO2 94.5 F 77 17 112/72 93 30 09/06/18 06:00 09/06/18 07:51 09/06/18 07:51 09/06/18 06:00 09/06/18 07:51 09/06 07:51 Physical Exam: Gen:resting comfortably HEENT: BiPAP mask in place Lungs: decreased on left Cardiac: RRR Abdomen: soft, NTND Extremities: warm, dry, edematous Neuro: alert, oriented Fluid Balance (Past 24 Hours): I= O= Net Intake & Output 09/04/18 09/05/18 09/06/18 09/07/18 06:59 06:59 06:59 06:59 Intake Total 292 178 423 Output Total 1575 1370 850 30 Balance -1283 -1192 -427 -30 Weight 243 lb 2.718 oz 248 lb 14.43 oz Intake: IV Fluids 252 178 283 Calcium Gluconate 68 NS (0.9%) 252 178 215 IVPB 40 80 Calcium Gluconate 80 NS (0.9%) 40 Tube Feeding Flush Amount 60 Output: Urine 120 Salas 1455 1370 850 30 Other: Date of Last Bowel 09/02/18 09/02/18 Movement ADLs: Meal Record Start: 08/20/18 11: 48 Freq: 09,,18 Status: Complete Protocol: Created 08/20/18 11:48 System (Rec: 08/20/18 11:48 System ICU-C25) Document 08/20/18 18:00 WTB8079 (Rec: 08/20/18 18:33 NDE9133 ICU-C12) Document 08/21/18 09:00 UHC7466 (Rec: 08/21/18 10:58 ZHO7740 ICU-C15) Document 08/21/18 13:00 AGL1104 (Rec: 08/21/18 15:47 FVN9776 ICU-C15) Document 08/21/18 18:00 MFU6288 (Rec: 08/21/18 22:59 MWE1220 ICU-C15) Document 08/22/18 09:00 FHK8447 (Rec: 08/22/18 09:53 BFP6728 ICU-C15) Document 08/22/18 13:00 XKH3046 (Rec: 08/22/18 16:10 HRL1367 ICU-C15) Document 08/22/18 18:00 CVE3756 (Rec: 08/22/18 21:36 IUI2845 ICU-C15) Document 08/23/18 09:00 LUG8715 (Rec: 08/23/18 17:03 SFB8463 ICU-C15) Document 08/23/18 13:00 OUP1811 (Rec: 08/23/18 17:03 JSA1529 ICU-C15) Document 08/23/18 19:55 LSN0368 (Rec: 08/23/18 19:55 TTA1732 ICU-M31) Document 08/24/18 09:00 LBV4317 (Rec: 08/24/18 12:10 MUB9061 ICU-C25) Document 08/24/18 14:00 UDW8289 (Rec: 08/24/18 15:58 MGC3559 ICU-C25) ADLs: Meal Record Start: 08/24/18 17: 13 Freq: DAILY@0900,1400,1800 Status: Active Protocol: Created 08/24/18 17:13 MNU7345 (Rec: 08/24/18 17:13 HHY1697 TELE-C09) Document 08/24/18 18:00 AGR0986 (Rec: 08/24/18 20:30 KTU0672 TELE-C01) Document 08/25/18 09:00 GTO8450 (Rec: 08/25/18 09:54 JZS0912 TELE-C05) Document 08/25/18 14:00 KVS7870 (Rec: 08/25/18 15:01 ALX6225 TELE-C05) Document 08/25/18 18:00 FOZ8399 (Rec: 08/25/18 18:39 PVL2724 TELE-C01) Document 08/26/18 09:00 OKK4311 (Rec: 08/26/18 14:55 SKG8882 TELE-C07) Document 08/26/18 14:00 EDA8454 (Rec: 08/26/18 14:57 TEZ0567 TELE-C07) Document 08/26/18 18:00 HCX9778 (Rec: 08/26/18 18:26 XPF9122 TELE-C10) Document 08/27/18 09:00 XZJ9149 (Rec: 08/27/18 15:48 BXG8862 TELE-C09) Document 08/27/18 14:00 RED8171 (Rec: 08/27/18 15:50 ZRN9742 TELE-C09) Document 08/27/18 18:00 DWF4404 (Rec: 08/27/18 22:17 KLF7014 TELE-C33) Document 08/28/18 09:00 MDO9519 (Rec: 08/28/18 12:56 XIO8969 TELE-C07) Document 08/28/18 14:00 ZCV6624 (Rec: 08/28/18 15:11 BWC4040 TELE-C07) Document 08/28/18 18:00 QTK7629 (Rec: 08/28/18 18:08 CWN0791 TELE-C07) Document 08/29/18 09:00 SOW2786 (Rec: 08/29/18 12:32 CZO8067 TELE-C05) Document 08/29/18 14:00 XQN6845 (Rec: 08/29/18 15:41 PNT5256 TELE-C05) Document 08/29/18 18:00 BWJ6176 (Rec: 08/29/18 18:27 CRY6060 TELE-C01) Document 08/30/18 09:00 VZP8825 (Rec: 08/30/18 10:37 ZGJ2060 TELE-C01) Document 08/30/18 14:00 GGW1859 (Rec: 08/30/18 15:06 DCJ0021 TELE-C01) Document 08/30/18 18:00 ZOU1858 (Rec: 08/30/18 18:40 RZJ7661 TELE-C01) Document 08/31/18 09:00 QPE4381 (Rec: 08/31/18 09:57 SJH4544 TELE-C07) Document 08/31/18 14:00 HOA9992 (Rec: 08/31/18 14:31 DRL1744 TELE-C07) Document 08/31/18 18:00 YSE9179 (Rec: 08/31/18 21:01 EKF1129 TELE-C32) Document 09/01/18 09:00 HEJ8283 (Rec: 09/01/18 09:46 NXC5943 TELE-C07) Document 09/01/18 14:00 ZBG6707 (Rec: 09/01/18 14:29 KZM7059 TELE-C10) Document 09/01/18 17:58 JQO7763 (Rec: 09/01/18 17:59 RAK5596 TELE-C10) Document 09/02/18 09:00 TUB1951 (Rec: 09/02/18 09:24 BRK5097 ICU-C06) Document 09/02/18 14:00 TIU6600 (Rec: 09/02/18 14:18 HCH5075 ICU-C06) Document 09/02/18 18:00 WHA5031 (Rec: 09/02/18 18:14 BTE7853 ICU-C06) Document 09/03/18 09:00 FMI4984 (Rec: 09/03/18 12:27 ZOZ5635 ICU-C06) Document 09/03/18 14:00 GNM7065 (Rec: 09/03/18 16:35 OHR5145 ICU-C06) Document 09/03/18 18:00 KHW0958 (Rec: 09/03/18 18:39 CSG4462 ICU-C06) Document 09/04/18 09:00 CWJ3317 (Rec: 09/04/18 17:26 CHH7996 ICU-C06) Document 09/04/18 14:00 BRM1561 (Rec: 09/04/18 17:26 UOA3443 ICU-C06) Document 09/04/18 17:26 YLY8550 (Rec: 09/04/18 17:26 CHJ5332 ICU-C06) Document 09/05/18 09:00 BXL7462 (Rec: 09/05/18 10:00 CZO6852 ICU-C06) Intake and Output Start: 08/20/18 08: 34 Freq: Status: Active Protocol: Created 08/20/18 08:34 System (Rec: 08/20/18 08:34 System EDRM-C11) Intake and Output Start: 08/20/18 11: 48 Freq: 06,14,2200 Status: Complete Protocol: Created 08/20/18 11:48 System (Rec: 08/20/18 11:48 System ICU-C25) Document 08/20/18 13:00 MVU1203 (Rec: 08/20/18 13:21 WEV1065 ICU-C25) Document 08/20/18 14:00 DDO7856 (Rec: 08/20/18 15:15 OZH0164 ICU-C12) Document 08/20/18 15:00 PWN8177 (Rec: 08/20/18 16:11 GLZ4516 ICU-C12) Document 08/20/18 16:00 IGF6275 (Rec: 08/20/18 16:11 BRL3789 ICU-C12) Document 08/20/18 17:00 PLE1639 (Rec: 08/20/18 18:32 BWL9948 ICU-C12) Document 08/20/18 18:00 HFE6934 (Rec: 08/20/18 18:32 SSM8099 ICU-C12) Document 08/20/18 19:00 XRI6832 (Rec: 08/20/18 19:14 QCY3063 ICU-C15) Document 08/20/18 20:00 ONB4395 (Rec: 08/20/18 20:14 PKB0807 ICU-C15) Document 08/20/18 22:00 WWA0812 (Rec: 08/20/18 22:08 ZXQ2683 ICU-C15) Document 08/20/18 23:00 XFB3378 (Rec: 08/20/18 23:04 SFB3283 ICU-C15) Document 08/21/18 00:00 IMM3328 (Rec: 08/21/18 00:03 JQL3393 ICU-C15) Document 08/21/18 00:59 UJJ2240 (Rec: 08/21/18 00:59 UCK8155 ICU-C15) Document 08/21/18 01:54 DTX4488 (Rec: 08/21/18 01:54 JZI6163 ICU-C15) Document 08/21/18 03:00 IKC0694 (Rec: 08/21/18 03:07 ZNN0589 ICU-C15) Document 08/21/18 04:00 LOH5508 (Rec: 08/21/18 04:09 JWR5089 ICU-C15) Document 08/21/18 06:00 QQL5308 (Rec: 08/21/18 06:13 VIN2195 ICU-M31) Document 08/21/18 07:00 BBW9913 (Rec: 08/21/18 07:41 ZHV6836 ICU-M31) Document 08/21/18 07:00 RQL3771 (Rec: 08/21/18 07:55 BUC9521 ICU-C15) Document 08/21/18 07:55 FWC9924 (Rec: 08/21/18 09:32 SDL1501 ICU-C15) Document 08/21/18 09:00 KUE8784 (Rec: 08/21/18 10:59 USS8862 ICU-C15) Document 08/21/18 10:00 XNA7094 (Rec: 08/21/18 10:59 TQA6089 ICU-C15) Document 08/21/18 10:59 AZJ4022 (Rec: 08/21/18 10:59 IMY0101 ICU-C15) Document 08/21/18 12:00 TQY0672 (Rec: 08/21/18 15:40 IFD8825 ICU-C15) Document 08/21/18 13:00 BHI5183 (Rec: 08/21/18 15:48 JMR3765 ICU-C15) Document 08/21/18 14:00 WWV9456 (Rec: 08/21/18 15:48 DYD9498 ICU-C15) Document 08/21/18 15:00 ZXJ4550 (Rec: 08/21/18 15:48 DCK8358 ICU-C15) Document 08/21/18 16:00 VYQ9145 (Rec: 08/21/18 16:31 RJX1924 ICU-C15) Document 08/21/18 17:00 LNS5435 (Rec: 08/21/18 18:11 LAY7407 ICU-C15) Document 08/21/18 18:00 YHZ6968 (Rec: 08/21/18 18:11 ZWD5699 ICU-C15) Document 08/21/18 19:54 WQA0118 (Rec: 08/21/18 20:08 FRB5652 ICU-C15) Document 08/21/18 21:00 YHA0775 (Rec: 08/21/18 23:00 ZMU2218 ICU-C15) Document 08/21/18 22:00 SBD1403 (Rec: 08/21/18 23:00 LAE3080 ICU-C15) Document 08/21/18 23:00 QAY8768 (Rec: 08/21/18 23:00 CDN9808 ICU-C15) Document 08/22/18 00:00 JRL8031 (Rec: 08/22/18 01:52 IQZ9575 ICU-M31) Document 08/22/18 01:00 FMG0598 (Rec: 08/22/18 01:52 RXS6357 ICU-M31) Document 08/22/18 01:51 CHT4716 (Rec: 08/22/18 01:52 SMC4216 ICU-M31) Document 08/22/18 03:00 UPX8290 (Rec: 08/22/18 06:01 ONG4457 ICU-M31) Document 08/22/18 04:00 VDY0949 (Rec: 08/22/18 06:01 IIX0387 ICU-M31) Document 08/22/18 05:00 LPR9637 (Rec: 08/22/18 06:01 THH1628 ICU-M31) Document 08/22/18 06:00 CNN9268 (Rec: 08/22/18 06:01 CTA7205 ICU-M31) Document 08/22/18 07:00 UVV4278 (Rec: 08/22/18 07:49 OLH8405 ICU-C15) Document 08/22/18 10:00 IGQ1502 (Rec: 08/22/18 10:33 FTY7034 ICU-C15) Document 08/22/18 11:00 FCW3113 (Rec: 08/22/18 13:52 NTG7200 ICU-C15) Document 08/22/18 12:00 FME7082 (Rec: 08/22/18 13:52 CBH0858 ICU-C15) Document 08/22/18 13:00 KYE7994 (Rec: 08/22/18 13:52 JTL5057 ICU-C15) Document 08/22/18 14:00 OUR5936 (Rec: 08/22/18 14:26 JZZ4583 ICU-C15) Document 08/22/18 15:00 TBQ5499 (Rec: 08/22/18 16:11 HNB1344 ICU-C15) Document 08/22/18 16:00 ZKA9673 (Rec: 08/22/18 16:11 GJT6361 ICU-C15) Document 08/22/18 17:00 UJY9940 (Rec: 08/22/18 18:11 MNC0650 ICU-C15) Document 08/22/18 18:00 TEN3156 (Rec: 08/22/18 18:11 AWW2069 ICU-C15) Document 08/22/18 19:30 QIF5507 (Rec: 08/22/18 21:37 OIZ8148 ICU-C15) Document 08/22/18 20:00 XJA8696 (Rec: 08/22/18 21:44 FHO2423 ICU-C15) Document 08/22/18 21:00 KFL5195 (Rec: 08/22/18 21:45 JTP5355 ICU-C15) Document 08/22/18 22:00 WQN6381 (Rec: 08/22/18 22:45 DHN4011 ICU-C15) Document 08/22/18 23:00 HNQ0522 (Rec: 08/22/18 23:57 UQO5060 ICU-C15) Document 08/22/18 23:57 XOR3539 (Rec: 08/22/18 23:57 XXY8849 ICU-C15) Document 08/23/18 01:00 WYU2283 (Rec: 08/23/18 01:58 SBK9342 ICU-C15) Document 08/23/18 01:58 RIS3664 (Rec: 08/23/18 01:59 XFH8945 ICU-C15) Document 08/23/18 03:00 GOR5369 (Rec: 08/23/18 04:02 GJM1585 ICU-C15) Document 08/23/18 03:50 VJV7574 (Rec: 08/23/18 04:02 LEK6394 ICU-C15) Document 08/23/18 05:00 ILG3766 (Rec: 08/23/18 06:01 XIO7424 ICU-M31) Document 08/23/18 06:00 OXO9992 (Rec: 08/23/18 06:01 XCK9389 ICU-M31) Document 08/23/18 07:00 XXG5101 (Rec: 08/23/18 07:53 HEZ4316 ICU-C15) Document 08/23/18 07:54 SHC4303 (Rec: 08/23/18 08:16 WAN0057 ICU-C15) Document 08/23/18 09:00 BJF2867 (Rec: 08/23/18 10:19 FNB4520 ICU-C15) Document 08/23/18 10:00 BUL8113 (Rec: 08/23/18 10:19 GIB0976 ICU-C15) Document 08/23/18 11:00 OLS1657 (Rec: 08/23/18 12:06 QGT9817 ICU-C15) Document 08/23/18 12:00 MZI2375 (Rec: 08/23/18 12:06 MOC2134 ICU-C15) Document 08/23/18 13:00 PIK0332 (Rec: 08/23/18 17:00 IFT3563 ICU-C15) Document 08/23/18 14:00 QMI3706 (Rec: 08/23/18 17:00 ORU1962 ICU-C15) Document 08/23/18 15:00 QFL2341 (Rec: 08/23/18 17:00 OPT8459 ICU-C15) Document 08/23/18 16:00 KEC8658 (Rec: 08/23/18 17:00 NAM8066 ICU-C15) Document 08/23/18 17:00 WRF3608 (Rec: 08/23/18 17:04 XAG9367 ICU-C15) Document 08/23/18 18:00 ZVL3921 (Rec: 08/23/18 19:00 DUY7890 ICU-C15) Document 08/23/18 19:00 ADA9189 (Rec: 08/23/18 19:56 RRT1060 ICU-M31) Document 08/23/18 20:00 FOU2067 (Rec: 08/23/18 21:12 QNJ5938 ICU-M31) Document 08/23/18 21:00 CKP1906 (Rec: 08/23/18 21:12 HVQ1204 ICU-M31) Document 08/23/18 22:00 ETY5834 (Rec: 08/23/18 22:05 DXH0797 ICU-C07) Document 08/24/18 05:53 NEL6763 (Rec: 08/24/18 05:54 NOA9832 ICU-C07) Intake and Output Start: 08/24/18 17: 13 Freq: Q1HR Status: Active Protocol: Created 08/24/18 17:13 IEV0959 (Rec: 08/24/18 17:13 BSD5546 TELE-C09) Document 08/24/18 22:00 OSQ8493 (Rec: 08/24/18 23:03 DRC6074 TELE-C01) Document 08/24/18 23:15 HDQ3514 (Rec: 08/25/18 01:12 ITT0466 TELE-C05) Document 08/25/18 04:22 IRI9472 (Rec: 08/25/18 04:22 HIF4675 TELE-C05) Document 08/25/18 04:44 KGT8977 (Rec: 08/25/18 04:44 TWA0168 TELE-C33) Document 08/25/18 14:00 GPY5195 (Rec: 08/25/18 15:01 PCM3878 TELE-C05) Document 08/26/18 05:43 OGG1387 (Rec: 08/26/18 05:46 VQZ9739 TELE-C01) Document 08/26/18 14:00 RRN6125 (Rec: 08/26/18 14:57 PZL5031 TELE-C07) Document 08/26/18 21:57 GRC1090 (Rec: 08/26/18 21:59 QQA4755 TELE-C07) Document 08/27/18 06:00 PPC9002 (Rec: 08/27/18 07:31 AWC9563 HOSP-C11) Document 08/27/18 14:00 XAF2031 (Rec: 08/27/18 15:50 BID5408 TELE-C09) Document 08/27/18 22:00 CMP1069 (Rec: 08/27/18 22:18 UTV1755 TELE-C33) Document 08/28/18 06:00 NXG3834 (Rec: 08/28/18 06:46 SHS5663 TELE-C35) Document 08/28/18 14:00 DBP9580 (Rec: 08/28/18 15:11 MUI4435 TELE-C07) Document 08/28/18 16:17 YZU8890 (Rec: 08/28/18 16:17 GTS0768 TELE-C07) Document 08/28/18 22:00 HNJ3315 (Rec: 08/28/18 22:25 LPB1545 TELE-C07) Document 08/29/18 06:00 RMI1710 (Rec: 08/29/18 06:44 GQQ8810 TELE-C33) Document 08/29/18 14:00 WFK1631 (Rec: 08/29/18 15:41 XHE9869 TELE-C05) Document 08/29/18 22:00 QUA2448 (Rec: 08/29/18 22:03 UQE2380 TELE-C01) Document 08/30/18 06:00 DCT0295 (Rec: 08/30/18 06:56 QQV3912 TELE-C33) Document 08/30/18 14:00 RRV6027 (Rec: 08/30/18 15:06 JEA3325 TELE-C01) Document 08/30/18 22:00 TNN1239 (Rec: 08/30/18 22:27 VKR6401 TELE-C09) Document 08/31/18 06:00 ALB4062 (Rec: 08/31/18 06:54 QUL4877 TELE-C01) Document 08/31/18 14:00 EHJ2116 (Rec: 08/31/18 14:31 TFN7054 TELE-C07) Document 08/31/18 22:00 HBU4629 (Rec: 08/31/18 22:22 YMP1157 TELE-C32) Document 09/01/18 06:00 XTV5810 (Rec: 09/01/18 06:41 ZGX4542 TELE-C32) Document 09/01/18 14:00 OFY1451 (Rec: 09/01/18 14:26 IIE8000 TELE-C10) Document 09/01/18 22:00 SBM0254 (Rec: 09/01/18 22:24 TMA9246 TELE-C10) Document 09/02/18 06:00 RPC8373 (Rec: 09/02/18 06:29 ADF0926 TELE-C34) Document 09/02/18 10:12 TEQ0679 (Rec: 09/02/18 10:12 PLL6017 ICU-C06) Document 09/02/18 14:00 QYM0907 (Rec: 09/02/18 14:18 FQW9962 ICU-C06) Document 09/02/18 16:39 ATM8009 (Rec: 09/02/18 16:39 YJJ3017 ICU-C06) Document 09/02/18 19:00 ERO3286 (Rec: 09/03/18 03:19 VEQ8683 ICU-C06) Document 09/02/18 22:00 MVB4924 (Rec: 09/02/18 22:23 YHN5784 ICU-M19) Document 09/02/18 23:54 XPI0048 (Rec: 09/02/18 23:54 IHF0117 ICU-M19) Document 09/03/18 02:00 XWG4214 (Rec: 09/03/18 02:41 FGV1807 ICU-M19) Document 09/03/18 04:46 YNM4784 (Rec: 09/03/18 04:47 QJN0671 ICU-C06) Document 09/03/18 06:00 WCN9865 (Rec: 09/03/18 06:15 VXH9308 ICU-M19) Document 09/03/18 07:00 UVT4341 (Rec: 09/03/18 12:44 HCR3698 ICU-C06) Document 09/03/18 08:00 JKL3044 (Rec: 09/03/18 12:44 GYA4822 ICU-C06) Document 09/03/18 09:00 XIF7754 (Rec: 09/03/18 12:44 AQP3318 ICU-C06) Document 09/03/18 10:00 NAX0648 (Rec: 09/03/18 12:44 TTU7035 ICU-C06) Document 09/03/18 11:00 OWU9500 (Rec: 09/03/18 12:44 TWX1710 ICU-C06) Document 09/03/18 12:00 RDU2104 (Rec: 09/03/18 12:44 AYX2969 ICU-C06) Document 09/03/18 13:00 UVN3199 (Rec: 09/03/18 16:35 HPT0373 ICU-C06) Document 09/03/18 14:00 PMY8311 (Rec: 09/03/18 16:35 ALO6975 ICU-C06) Document 09/03/18 15:00 FUF6927 (Rec: 09/03/18 16:35 ZAD4035 ICU-C06) Document 09/03/18 16:00 JYM1669 (Rec: 09/03/18 18:37 DGY2837 ICU-C06) Document 09/03/18 17:00 HAR9645 (Rec: 09/03/18 18:37 IUB4859 ICU-C06) Document 09/03/18 18:00 OVN6598 (Rec: 09/03/18 18:37 YDU2204 ICU-C06) Document 09/03/18 19:00 DTL1318 (Rec: 09/03/18 20:03 YJK5073 ICU-C06) Document 09/03/18 20:00 QYC3515 (Rec: 09/03/18 20:03 EAQ7044 ICU-C06) Document 09/03/18 21:00 DXK9585 (Rec: 09/03/18 21:40 USB5231 ICU-C06) Document 09/03/18 22:00 CFI7400 (Rec: 09/03/18 22:14 XUK0349 ICU-C06) Document 09/03/18 23:00 LZB1652 (Rec: 09/04/18 01:04 UYT0189 ICU-C06) Document 09/04/18 00:00 UWH4966 (Rec: 09/04/18 01:04 DLJ1094 ICU-C06) Document 09/04/18 01:00 TUM9007 (Rec: 09/04/18 01:04 ABP8692 ICU-C06) Document 09/04/18 02:00 BKE9962 (Rec: 09/04/18 02:07 IHP7402 ICU-C06) Document 09/04/18 03:00 TZY8585 (Rec: 09/04/18 04:24 WPJ5707 ICU-C06) Document 09/04/18 04:00 EHI5905 (Rec: 09/04/18 04:24 VCQ1420 ICU-C06) Document 09/04/18 05:00 CDW3928 (Rec: 09/04/18 05:19 YZW5410 ICU-C06) Document 09/04/18 06:00 RBL6700 (Rec: 09/04/18 06:44 IVF4863 ICU-C06) Document 09/04/18 08:00 DTM6282 (Rec: 09/04/18 10:07 HCC1580 ICU-C06) Document 09/04/18 09:00 WIA0243 (Rec: 09/04/18 10:07 ELF5610 ICU-C06) Document 09/04/18 10:00 MIS6791 (Rec: 09/04/18 10:07 XOC0266 ICU-C06) Document 09/04/18 11:00 PLD1454 (Rec: 09/04/18 13:04 OLU8439 ICU-M19) Document 09/04/18 12:00 AAH2443 (Rec: 09/04/18 13:04 VHJ6989 ICU-M19) Document 09/04/18 13:00 QDT9175 (Rec: 09/04/18 13:04 OFV9435 ICU-M19) Document 09/04/18 14:00 BXE4873 (Rec: 09/04/18 14:06 ZLZ8753 ICU-C06) Document 09/04/18 15:00 MWZ0693 (Rec: 09/04/18 18:13 GMY7603 ICU-C06) Document 09/04/18 16:00 BIF6993 (Rec: 09/04/18 18:13 UIV3271 ICU-C06) Document 09/04/18 17:00 [id number] (Rec: 09/04/18 18:13 [id number] ICU-C06) Document 09/04/18 18:00 [id number] (Rec: 09/04/18 18:13 [id number] ICU-C06) Document 09/04/18 19:00 [id number] (Rec: 09/04/18 19:58 [id number] ICU-C06) Document 09/04/18 20:00 NHS9634 (Rec: 09/04/18 20:52 [id number] ICU-C06) Document 09/04/18 21:00 [id number] (Rec: 09/04/18 22:52 [id number] ICU-C06) Document 09/04/18 22:00 [id number] (Rec: 09/04/18 22:52 [id number] ICU-C06) Document 09/04/18 23:00 BHM7463 (Rec: 09/04/18 23:08 [id number] ICU-C06) Document 09/05/18 00:00 [id number] (Rec: 09/05/18 00:19 [id number] ICU-C06) Document 09/05/18 01:00 [id number] (Rec: 09/05/18 04:00 [id number] ICU-C06) Document 09/05/18 02:00 MWO7133 (Rec: 09/05/18 04:00 [id number] ICU-C06) Document 09/05/18 03:00 OFF1457 (Rec: 09/05/18 04:00 [id number] ICU-C06) Document 09/05/18 04:00 NCR0304 (Rec: 09/05/18 04:03 [id number] ICU-C06) Document 09/05/18 05:00 UXZ3863 (Rec: 09/05/18 06:15 GWQ0801 ICU-C06) Document 09/05/18 06:00 JUQ6750 (Rec: 09/05/18 06:15 [id number] ICU-C06) Document 09/05/18 08:00 KXE7159 (Rec: 09/05/18 08:16 [id number] ICU-M19) Document 09/05/18 09:00 LPG7411 (Rec: 09/05/18 11:11 HHG2455 ICU-C06) Document 09/05/18 10:00 KTN0302 (Rec: 09/05/18 11:11 [id number] ICU-C06) Document 09/05/18 11:00 QQS5837 (Rec: 09/05/18 11:11 [id number] ICU-C06) Document 09/05/18 12:00 [id number] (Rec: 09/05/18 14:22 [id number] ICU-C06) Document 09/05/18 13:00 [id number] (Rec: 09/05/18 14:22 XMK2302 ICU-C06) Document 09/05/18 14:00 OJT8414 (Rec: 09/05/18 14:22 QSA8784 ICU-C06) Document 09/05/18 15:00 KTN0610 (Rec: 09/05/18 15:58 [id number] ICU-M19) Document 09/05/18 17:00 IUA9106 (Rec: 09/05/18 18:25 [id number] ICU-M19) Document 09/05/18 18:00 PLY9205 (Rec: 09/05/18 18:25 [id number] ICU-M19) Document 09/05/18 19:00 LBK9117 (Rec: 09/05/18 19:20 CXG6084 ICU-C06) Document 09/05/18 20:00 BRI9414 (Rec: 09/05/18 20:22 VTJ1326 ICU-C06) Document 09/05/18 20:57 [id number] (Rec: 09/05/18 21:00 MVC2189 ICU-C06) Document 09/05/18 22:00 CSK7162 (Rec: 09/06/18 00:40 [id number] ICU-C06) Document 09/05/18 23:00 AET9594 (Rec: 09/06/18 00:40 [id number] ICU-C06) Document 09/06/18 00:00 MDW5944 (Rec: 09/06/18 00:40 CAV0341 ICU-C06) Document 09/06/18 01:00 XRN1295 (Rec: 09/06/18 01:04 [id number] ICU-C06) Document 09/06/18 02:00 GME3570 (Rec: 09/06/18 05:11 [id number] ICU-C06) Document 09/06/18 03:00 [id number] (Rec: 09/06/18 05:11 FST0942 ICU-C06) Document 09/06/18 04:00 MJC6866 (Rec: 09/06/18 05:11 [id number] ICU-C06) Document 09/06/18 05:00 OFP6231 (Rec: 09/06/18 05:11 [id number] ICU-C06) Document 09/06/18 06:00 ZFU0358 (Rec: 09/06/18 06:19 VER4076 ICU-C06) Document 09/06/18 07:00 [id number] (Rec: 09/06/18 07:45 [id number] ICU-C06) Labs: Laboratory Results - last 24 hr 09/05/18 09/05/18 09/05/18 12:18 18:22 23:58 WBC RBC Hgb Hct MCV MCH MCHC RDW Plt Count MPV Sodium Potassium Chloride Carbon Dioxide Anion Gap BUN Creatinine Est GFR ( Amer) Est GFR (Non-Af Amer) BUN/Creatinine Ratio Glucose POC Glucose (mg/dL) 233 H 223 H 220 H Calcium Phosphorus Magnesium B-Natriuretic Peptide 09/06/18 09/06/18 09/06/18 06:00 06:00 06:00 WBC 13.4 H RBC 3.19 L Hgb 8.4 L Hct 27 L MCV 85 MCH 27 MCHC 31 RDW 18 H Plt Count 88 L MPV 8.6 Sodium 131 L D Potassium 4.9 Chloride 92 L Carbon Dioxide 24 Anion Gap 15 H BUN 145 H Creatinine 3.66 H Est GFR ( Amer) 15.0 Est GFR (Non-Af Amer) 12.4 BUN/Creatinine Ratio 39.6 H Glucose 241 H POC Glucose (mg/dL) Calcium 9.2 Phosphorus 7.1 H Magnesium 2.2 B-Natriuretic Peptide 182 H Studies: 09/03 CXR: complete opacification of left hemithorax unchanged 09/02 CT Chest: improved aeration of left upper lobe collapse of left lower lobe unchanged small right pleural effusion moderate left pleural effusion scattered infiltrates in right lung suggestive of pneumonia 09/02 US chest: 1.5 cm effusion 09/02: CXR: White out of left hemithorax 09/02 EKG: NSR. right bundle branch 09/01 CT abd/pelvis: moderate left pleural effusion with left basilar ateletasis. small right pleural effusion 09/01 EKG: sinus rhythm, prolonged SD. RBBB 08/30 CXR: worsening cardiogenic pulmonary edema compared to 08/21 CXR. Near complete opacification of left lung suspected to be a combination of pleural effusion and consolidation 08/21 CXR: CHF with possible superimposed pneumonia at left lung base, unchanged from prior 08/20 Venous duplex BLE: right groin seroma, negative for DVT 08/20 TTE: LVEF 60-65% mild concentric LVH septal flattening consistent with RV overload moderate pulmonary HTN unable to assess diastolic function 08/20 CXR: cardiomegaly with pulmonary vasular congestion Nutrition: NPO. awaiting formal swallow eval Impression: 67 yo F with PMH of DM, CAD, HLD, HTN, CKD, COPD and ENRIQUE admitted on 08/20 for healthcare associated pneumonia (Pseudomonas) and Klebsiella UTI. Intially requiring vapotherm in the ICU, however stablized on abx and diuresis. Tranferred to the floor. Returns to ICU 09/02 with hypercarbic respiratory failure. CT chest demonstrates LLL collapse, moderate effusion, right multifocal pneumonia. Mental status improving on BiPAP. Plan: Cardiovascular:(1) Chronic paroxysmal atrial fibrillation; (2) Acute on chronic diastolic CHF, improving; (3) Chronic HTN; (4) Chronic hyperlipidemia; ( 5) Chronic RBBB; (6) CAD -- HR 70-105 -- SBP 94-117 -- Telemetry -- 08/20 TTE: LVEF 60-65% mild concentric LVH septal flattening consistent with RV overload moderate pulmonary HTN unable to assess diastolic function -- BNP 182 from 201 from 318 -- Diltiazem -- Plaquenil -- Clonidine patch, PRN Hydralazine -- Lasix BID Home meds: Torsemide Pulmonary: (1) Acute on chronic hypoxic and hypercapneic respiratory failure, improving; (2) COPD exacerbation, improving; (3) Moderate left pleural effusion ; (4) concern for new pneumonia; (5) Pseudomonas pneumonia on admission; (6) ENRIQUE ; (7) Obesity hypoventilation syndrome -- RR 12-25 -- sats 91-99 -- on Ventimask during day and BiPAP at night -- CXR, 09/03: complete opacification of hemithorax on left. -- CT chest 09/02: improved aeration of left upper lobe collapse of left lower lobe, unchanged small right pleural effusion moderate left plerual effusion scattered infiltrates in right lung suggestive of pneumonia -- Scheduled duonebs -- Nicotine patch for hx of tobacco use -- incentive spirometry Home meds: Umeclidium/vilanterol Gastrointestinal: (1) Constipation; (2) hx of gastroplasty 1987 -- diet: NPO, swallow eval pending. start TF -- bowel regimen: Colace, MOM -- ulcer prophylaxis: Pepcid -- Zofran as needed Home meds: Sucralfate, Protonix, Senna, Dulcolax, MOM Endocrine: (1) Hyperglycemia secondary to type 2 diabetes mellitus -- monitor BGs -- SSI -- TSH within normal limits on 08/28 -- solumedrol Home meds: Glipizide, Insulin NPH, prednisone Renal: (1) Chronic renal failure, stage 4; (2) Oliguria, responding to lasix; ( 3) Hyponatremia; (4) hyperkalemia; (5) Hyperphosphatemia -- UOP: 35 ml/hr -- I/O:423/850 -- Cr 3.57 from 3.50 -- Lytes Na 131 from 140 from 130, follow trend K 4.9, normalized on Patiromer. follow trend Ca 9.2 Mag 2.2 Phos 7.1 from 5.7 from 6.2, on phoslo -- IVF: HL -- Lasix BID -- PhosLo -- Nephrology following Home meds: Calcium carbonate, Torsemide Infectious disease: (1) Concern for new pneumonia; (2) Sepsis on admission; (3 ) Pseudomonas pneumonia on admission, resolved; (4) Ecoli UTI on admission, resolved; (5) hx of MRSA -- Tmax 98.4 -- WBC 13.4 from 9.8 -- procalcitonin 0.48 on 09/02 -- Micro 08/31 blood Negative 08/30 Urine yeast contaminant, alessia glabrata blood Negative 08/21 blood negative MRSA screen positive 08/20 Urine e coli flu screen negative blood Pseudomonas 08/28 vials -- ABX Zosyn x 7 days Home meds: None Neurologic: (1) Lethargy, secondary to CO2 narcosis, improving -- Tylenol as needed -- PRN Morphine for pain control -- PT OT Home meds: Tylenol, Requip, Percocet, Prozac Hematological: (1) Chronic iron deficiency anemia; (2) Thrombocytopenia -- Hgb 8.4 from 7.6 -- Plt 88 from 87 from 106, likely secondary to sepsis, follow trend -- DVT prophylaxis: SQ Heparin Home meds: Ferrous sulfate Metabolic: No acute process -- Allopurinol Home meds: Allopurinol Other: (1) hx of Bulous pemphagoid -- hydroxycholorquine Home meds: Hydroxychloroguine Deep vein thrombosis prophylaxis: SQ Heparin Dietary: Prilosec Condition: serious Prognosis: guarded Code status: DNR/DNI Disposition: Continue ICU Care Cumulative time spent in the care of this patient (excluding any procedure time) : at least 30 minutes. Patient care included clinical interview (with patient and/or family), bedside exam of the patient, review of labs, x-rays, and other ancillary data, coordination of (respiratory, nursing care, review of patient's records, discussion regarding patients management with involved consultants, primary physician, pharmacists, and other healthcare personnel (dietary, case management , physical/occupational therapy etc.) Critical Care Time: 30
[2018-09-06] MEDS ORDERED: Albumin Human 25%* 25 GM/100 ML BTL IV ONE (09:10)
[2018-09-06] MEDS ORDERED: Metolazone TAB* 5 MG PO ONE (09:11)
[2018-09-06] MEDS: Nicotine PATCH 21 MG/24 HR* PATCH TRANSDERM SCH (11:00)
[2018-09-06] MEDS: Nystatin TOP POWDER* 15 GM BTL TOPICAL SCH ×2 (11:01→21:46)
[2018-09-06] MEDS: Heparin VIAL(*) 5000 UNITS/ML VIAL (FIVE THOUSAND) SUBCUT SCH ×2 (11:01→21:45)
[2018-09-06] MEDS: Furosemide IV* 10 MG/ML VIAL (40 MG) IV SCH ×2 (11:02→17:38)
[2018-09-06] MEDS: Morphine VIAL* 4 MG/ML VIAL (1 ml vial) IV PRN ×2 (11:02→23:23)
[2018-09-06] MEDS: Calcium Acetate CAP* 667 MG PO SCH (11:03)
[2018-09-06] MEDS: Allopurinol TAB* 300 MG PO SCH (11:08)
[2018-09-06] MEDS: Hydroxychloroquine TAB* 200 MG PO SCH ×2 (11:08→21:46)
[2018-09-06] MEDS: Acetaminophen ADULT LIQ* 650 MG/20.3 ML UDC PO PRN ×2 (14:57→22:52)
[2018-09-06] MEDS: Famotidine SUSP* 40 MG/5 ML ORAL.SYRIN G TUBE SCH (21:45)
[2018-09-06] MEDS: Nicotine Patch Removal NOTE PATCH OFF SCH (21:46)
[2018-09-07] MEDS: Diltiazem TAB* 60 MG PO SCH ×3 (01:02→13:09)
[2018-09-07] MEDS: Insulin LISPRO* 1 UNITS UNIT SUBCUT SCH ×2 (01:02→07:24)
[2018-09-07] MEDS: Albuterol/Ipratropium NEB.SOL* Albuterol 2.5 MG/Ipratropium 0.5 MG 3 ML INH SCH ×3 (01:13→07:38)
[2018-09-07] MEDS: methylPREDNISolone SOD 40 MG* 1 ML VIAL IV SCH ×3 (02:43→18:29)
[2018-09-07] MEDS: Morphine VIAL* 4 MG/ML VIAL (1 ml vial) IV PRN ×2 (02:43→20:45)
[2018-09-07] MEDS: ZOSYN 3.375 GM Q12H per EXTENDED INFUSION IVPB SCH ×4 (02:44→16:24)
[2018-09-07 05:45] LABS: Hematocrit 26 % (35-47); Hemoglobin 7.9 g/dl (12.0-16.0); Mean Corpuscular HGB Conc 31 g/dl (31-36); Mean Corpuscular Hemoglobin 27 pg (27-31); Mean Corpuscular Volume 86 fL (80-97); Mean Platelet Volume 8.9 fL (7.4-10.4); Platelet Count 77 10^3/ul (150-450); Red Blood Count 2.99 10^6/ul (4.00-5.40); Red Cell Distribution Width 18 % (10.5-15); White Blood Count 15.8 10^3/ul (3.5-10.8)
[2018-09-07 06:04] LABS: Calcium 8.8 mg/dL (8.6-10.3); EGFR Non-African American 11.7 (>60); Magnesium 2.3 mg/dL (1.9-2.7); Phosphorus 7.4 mg/dL (2.5-5.0); Potassium 4.4 mmol/L (3.5-5.0)
[2018-09-07 06:20] LABS: BUN/Creatinine Ratio 39.4 (8-20)
[2018-09-07] MEDS: Heparin VIAL(*) 5000 UNITS/ML VIAL (FIVE THOUSAND) SUBCUT SCH ×2 (10:47→20:41)
[2018-09-07] MEDS: Furosemide IV* 10 MG/ML VIAL (40 MG) IV SCH ×2 (10:48→16:26)
[2018-09-07] MEDS: Hydroxychloroquine TAB* 200 MG PO SCH ×2 (10:50→20:42)
[2018-09-07] MEDS: Allopurinol TAB* 300 MG PO SCH (10:50)
[2018-09-07] MEDS: Calcium Acetate CAP* 667 MG PO SCH (10:50)
[2018-09-07] MEDS: Nicotine PATCH 21 MG/24 HR* PATCH TRANSDERM SCH (10:51)
[2018-09-07] MEDS ORDERED: Insulin GLARGINE(*) 1 UNITS UNIT SUBCUT ONE (12:59)
[2018-09-07] MEDS ORDERED: Dextrose 50% Syringe 50 ML* 25 GM/50 ML SYRINGE IV PUSH PRN (13:00)
[2018-09-07] MEDS ORDERED: Insulin LISPRO* 1 UNITS UNIT SUBCUT ONE ×2 (13:00→13:05)
[2018-09-07] MEDS ORDERED: Insulin GLARGINE(*) 1 UNITS UNIT SUBCUT SCH ×2 (13:00→21:00)
[2018-09-07] MEDS ORDERED: Insulin GLARGINE(*) 1 UNITS UNIT ONE (13:05)
[2018-09-07] MEDS: Nystatin TOP POWDER* 15 GM BTL TOPICAL SCH ×2 (13:09→20:44)
[2018-09-07] MEDS ORDERED: Albumin Human 25%* 25 GM/100 ML BTL IV ONE (13:24)
--- NOTE | 2018-09-07 13:25 | PN ---
Date of Service: 09/07/18 - 19 Critical Care Services: 67 yo F with PMH including DM, STEMI, paroxysmal AFib, COPD, frequent UTI, CKD, ENRIQUE and chronic respiratory failure who lives in a [facility] facility. She presented to the ED on 08/20 with complaints of shortness of breath for the past several days. SpO2 at [facility] 82% on RA. She has been noncompliant with nocturnal CPAP lately. A CXR had been done at the [facility] which showed a possible basilar infiltrate and she had been started on Azithromycin. She was brought in to the ED 08/20 for failure to improve. In ED She was tachycardic to 124 but otherwise hemodynamically stable. Exam notable for ill appearance, chronic erythema of lower extremities with pitting edema, Rales, rhonchi and wheezing on exam and inability to speak in full sentences. WBC elevated at 18.0. ABG with pH 7.24, pCO2 81. She was started on BiPAP. Troponin came back elevated at 0.26. She was admitted to the hospitalist service for acute hypoixc and hypercarbic respritaroy failure. She was given Lasix for an elevated BNP anc concern for CHF exacerbation. She was started on steriods, bronchodilators for COPD exacerbation. She was also started on broad spectrum antibiotics to cover for healthcare associated pneumonia (SNF resident). Seen by Dr. Angel from pulmonology for COPD exacerbation, agreed with current management. 08/21: Bolused for drop in SBP to 70s and decreased UOP. Hgb dropped from 11 to 8.6, no active bleeding, transferred to ICU. Acidosis improved on BiPAP. 08/22: Blood cultures positive for Pseudomonas (presumed source is lungs), urine positive for Klebsiella. Antibiotics adjusted to provide double coverage to Pseudomonas 08/23: respiratory status stabilized 08/24: TTE completed, diastolic dysfunction, no vegetations 08/25: transferred out of unit. continuing to improve. On supplemental O2 during day and BiPAP at night. 08/27: ID consulted; recommended course length of 10 days for Cefipime. 08/29: Developed otitis externa, started on cortisporin drops. Also noted to develop hyponatremia, possibly second to SIADH as FeNA consistent with euvolemic state. Steriod taper in progress. Starting PT. 08/30: Complaining of malaise. CXR with worsening consolidation and congestion. WBC rising. ABX broadened to Vancomycin and Zosyn. 08/31: Reports pain "everywhere". Persistent cough and shortness of breath. 09/01: Palliative care consulted. At that time reaffirmed desire for full code status and did not have interest in hospice options. Lasix diuresis reinitiated for CHF. K elevated, receiving Patiromer, calcium D50 + insulin. 09/02: Increased lethargy overnight. Sats high 90s on 4L, O2 decreased. ABG with pH 7.22, pCO2 76 pO2 62. Started on BiPAP. Mentation improve on BiPAP, however patient refused to wear it after 3AM. On morning rounds, pt noted to be lethargic again. Given lasix and transferred to ICU for further care. CT chest shows dense LLL infiltrate and collapse. Moderate plerual effusion. Persistent lethargy despite BiPAP. PT requested DNR/DNI on transfer to ICU. She became obtunded shortly after arrival. ABG improved on BiPAP 09/03: Becoming more arousable. tolerating BiPAP 09/04: Alert and conversant. Met with Palliative care; reconfirmed DNR/DNI status but wished to continue pursing other medical interventions at this time. 09/05: Tolerating venti mask during day and BiPAP at night. Failed nursing swallow eval 09/06: Refusing labs and meds overnight. Vital Signs: Temp Pulse Resp BP SpO2 FiO2 92.8 F 69 14 98/60 93 40 09/07/18 12:00 09/07/18 12:00 09/07/18 12:09/07/18 12:00 09/07/18 12:09/07 07:35 Physical Exam: Gen: resting comfortably HEENT: Venti mask in place Lungs: CTAB Cardiac: RRR Abdomen: soft, NTND Extremities: warm, dry, edematous Neuro: lethargic. mumbling words but unclear. Fluid Balance (Past 24 Hours): I= O= Net Intake & Output 09/05/18 09/06/18 09/07/18 09/08/18 06:59 06:59 06:59 06:59 Intake Total 178 423 520 90 Output Total 1370 850 292 10 Balance -1192 -427 228 80 Weight 248 lb 14.43 oz 247 lb 12.793 oz Intake: IV Fluids 178 283 335 ABX - ZOSYN 187 Calcium Gluconate 68 NS (0.9%) 178 215 148 IVPB 80 95 Calcium Gluconate 80 NS (0.9%) 95 Oral 0 Tube Feeding Flush Amount 60 90 90 Output: [place] 1370 850 292 10 Other: Date of Last Bowel 09/02/18 09/02/18 Movement ADLs: Meal Record Start: 08/20/18 11: 48 Freq: ,, Status: Complete Protocol: Created 08/20/18 11:48 System (Rec: 08/20/18 11:48 System ICU-C25) Document 08/20/18 18:00 AMT8143 (Rec: 08/20/18 18:33 WBV2559 ICU-C12) Document 08/21/18 09:00 MYI8620 (Rec: 08/21/18 10:58 ZDP3033 ICU-C15) Document 08/21/18 13:00 NKQ5497 (Rec: 08/21/18 15:47 UEQ9408 ICU-C15) Document 08/21/18 18:00 SOJ1237 (Rec: 08/21/18 22:59 QIE2563 ICU-C15) Document 08/22/18 09:00 TXT8078 (Rec: 08/22/18 09:53 STC2846 ICU-C15) Document 08/22/18 13:00 MGC8592 (Rec: 08/22/18 16:10 PWW4505 ICU-C15) Document 08/22/18 18:00 ITL4460 (Rec: 08/22/18 21:36 WBI2157 ICU-C15) Document 08/23/18 09:00 RBJ9562 (Rec: 08/23/18 17:03 CVJ6803 ICU-C15) Document 08/23/18 13:00 DUQ9043 (Rec: 08/23/18 17:03 YTJ9073 ICU-C15) Document 08/23/18 19:55 WMQ4357 (Rec: 08/23/18 19:55 LNT7592 ICU-M31) Document 08/24/18 09:00 USQ4067 (Rec: 08/24/18 12:10 SIX7839 ICU-C25) Document 08/24/18 14:00 ATW3211 (Rec: 08/24/18 15:58 HKF4867 ICU-C25) ADLs: Meal Record Start: 08/24/18 17: 13 Freq: T.PRN Status: Active Protocol: Created 08/24/18 17:13 DLW9713 (Rec: 08/24/18 17:13 PWV4468 TELE-C09) Document 08/24/18 18:00 ZOJ0592 (Rec: 08/24/18 20:30 RTK6726 TELE-C01) Document 08/25/18 09:00 MYE3172 (Rec: 08/25/18 09:54 PIS2535 TELE-C05) Document 08/25/18 14:00 RFQ9605 (Rec: 08/25/18 15:01 LMC9040 TELE-C05) Document 08/25/18 18:00 OZX0861 (Rec: 08/25/18 18:39 LVQ2036 TELE-C01) Document 08/26/18 09:00 PFB1462 (Rec: 08/26/18 14:55 QRA2035 TELE-C07) Document 08/26/18 14:00 AEB4058 (Rec: 08/26/18 14:57 KMB0668 TELE-C07) Document 08/26/18 18:00 OQS1779 (Rec: 08/26/18 18:26 XKI4131 TELE-C10) Document 08/27/18 09:00 YMS6549 (Rec: 08/27/18 15:48 ETI4774 TELE-C09) Document 08/27/18 14:00 RPG5826 (Rec: 08/27/18 15:50 ZDT1175 TELE-C09) Document 08/27/18 18:00 OKG9486 (Rec: 08/27/18 22:17 BWC2277 TELE-C33) Document 08/28/18 09:00 NAG8540 (Rec: 08/28/18 12:56 YPH7315 TELE-C07) Document 08/28/18 14:00 RFH3158 (Rec: 08/28/18 15:11 SDM4904 TELE-C07) Document 08/28/18 18:00 ROU6697 (Rec: 08/28/18 18:08 JRJ8469 TELE-C07) Document 08/29/18 09:00 LFA9134 (Rec: 08/29/18 12:32 CPJ3098 TELE-C05) Document 08/29/18 14:00 WRK4952 (Rec: 08/29/18 15:41 YZT2947 TELE-C05) Document 08/29/18 18:00 VQW6649 (Rec: 08/29/18 18:27 MDU5269 TELE-C01) Document 08/30/18 09:00 QDQ0506 (Rec: 08/30/18 10:37 TRR0805 TELE-C01) Document 08/30/18 14:00 MZO8304 (Rec: 08/30/18 15:06 SYV1173 TELE-C01) Document 08/30/18 18:00 HRA4793 (Rec: 08/30/18 18:40 ZFV9244 TELE-C01) Document 08/31/18 09:00 TSL2734 (Rec: 08/31/18 09:57 NHS7207 TELE-C07) Document 08/31/18 14:00 NXC7765 (Rec: 08/31/18 14:31 YWZ1416 TELE-C07) Document 08/31/18 18:00 PXX0271 (Rec: 08/31/18 21:01 MVG8477 TELE-C32) Document 09/01/18 09:00 IMY0525 (Rec: 09/01/18 09:46 WVG8738 TELE-C07) Document 09/01/18 14:00 NVU8317 (Rec: 09/01/18 14:29 LAC7199 TELE-C10) Document 09/01/18 17:58 NJX0855 (Rec: 09/01/18 17:59 YXR4563 TELE-C10) Document 09/02/18 09:00 TUK5522 (Rec: 09/02/18 09:24 XHX0221 ICU-C06) Document 09/02/18 14:00 LMT4689 (Rec: 09/02/18 14:18 XYT5683 ICU-C06) Document 09/02/18 18:00 ZIJ5480 (Rec: 09/02/18 18:14 WFO7934 ICU-C06) Document 09/03/18 09:00 UIG7596 (Rec: 09/03/18 12:27 ZAY8242 ICU-C06) Document 09/03/18 14:00 ZVA8946 (Rec: 09/03/18 16:35 TAV5666 ICU-C06) Document 09/03/18 18:00 SUE3475 (Rec: 09/03/18 18:39 HRH3277 ICU-C06) Document 09/04/18 09:00 URZ9201 (Rec: 09/04/18 17:26 TIY9859 ICU-C06) Document 09/04/18 14:00 FTA4074 (Rec: 09/04/18 17:26 KSQ7439 ICU-C06) Document 09/04/18 17:26 DSH8929 (Rec: 09/04/18 17:26 UAM1795 ICU-C06) Document 09/05/18 09:00 FPP8509 (Rec: 09/05/18 10:00 ROO9986 ICU-C06) Document 09/06/18 09:00 WDO3847 (Rec: 09/06/18 09:54 XZB8448 ICU-C06) Intake and Output Start: 08/20/18 08: 34 Freq: Status: Active Protocol: Created 08/20/18 08:34 System (Rec: 08/20/18 08:34 System EDRM-C11) Intake and Output Start: 08/20/18 11: 48 Freq: 06,14,2200 Status: Complete Protocol: Created 08/20/18 11:48 System (Rec: 08/20/18 11:48 System ICU-C25) Document 08/20/18 13:00 XIU9845 (Rec: 08/20/18 13:21 FBI4948 ICU-C25) Document 08/20/18 14:00 KWZ4066 (Rec: 08/20/18 15:15 HFV8546 ICU-C12) Document 08/20/18 15:00 OGE3173 (Rec: 08/20/18 16:11 ZGL8104 ICU-C12) Document 08/20/18 16:00 RFC5899 (Rec: 08/20/18 16:11 NAA6184 ICU-C12) Document 08/20/18 17:00 LZH5830 (Rec: 08/20/18 18:32 TWU4617 ICU-C12) Document 08/20/18 18:00 ZEF5731 (Rec: 08/20/18 18:32 NWV7831 ICU-C12) Document 08/20/18 19:00 BBU0961 (Rec: 08/20/18 19:14 NOR1488 ICU-C15) Document 08/20/18 20:00 VQI1549 (Rec: 08/20/18 20:14 HVQ1003 ICU-C15) Document 08/20/18 22:00 VMA7367 (Rec: 08/20/18 22:08 LOX0149 ICU-C15) Document 08/20/18 23:00 JBQ7677 (Rec: 08/20/18 23:04 JRP8224 ICU-C15) Document 08/21/18 00:00 OQY5660 (Rec: 08/21/18 00:03 GPP0110 ICU-C15) Document 08/21/18 00:59 PIZ1638 (Rec: 08/21/18 00:59 JLO2866 ICU-C15) Document 08/21/18 01:54 RNZ1489 (Rec: 08/21/18 01:54 SXA2688 ICU-C15) Document 08/21/18 03:00 XNR2834 (Rec: 08/21/18 03:07 YBT2833 ICU-C15) Document 08/21/18 04:00 YDW5720 (Rec: 08/21/18 04:09 IQN0821 ICU-C15) Document 08/21/18 06:00 NBC2793 (Rec: 08/21/18 06:13 QPU6678 ICU-M31) Document 08/21/18 07:00 ENS4162 (Rec: 08/21/18 07:41 IZM9638 ICU-M31) Document 08/21/18 07:00 VAQ3590 (Rec: 08/21/18 07:55 PCX4593 ICU-C15) Document 08/21/18 07:55 OJH7902 (Rec: 08/21/18 09:32 OTX6247 ICU-C15) Document 08/21/18 09:00 NLM5480 (Rec: 08/21/18 10:59 FMT7438 ICU-C15) Document 08/21/18 10:00 WAD9848 (Rec: 08/21/18 10:59 LXQ9945 ICU-C15) Document 08/21/18 10:59 DYX1669 (Rec: 08/21/18 10:59 BAK2369 ICU-C15) Document 08/21/18 12:00 UKG3873 (Rec: 08/21/18 15:40 FAP6454 ICU-C15) Document 08/21/18 13:00 WII2429 (Rec: 08/21/18 15:48 ZDC9381 ICU-C15) Document 08/21/18 14:00 FTB9379 (Rec: 08/21/18 15:48 PNJ9563 ICU-C15) Document 08/21/18 15:00 PAF4782 (Rec: 08/21/18 15:48 EVI8575 ICU-C15) Document 08/21/18 16:00 VBV1142 (Rec: 08/21/18 16:31 XRU7664 ICU-C15) Document 08/21/18 17:00 ICN2192 (Rec: 08/21/18 18:11 VHM3876 ICU-C15) Document 08/21/18 18:00 QGV3535 (Rec: 08/21/18 18:11 JZQ8846 ICU-C15) Document 08/21/18 19:54 UAY7942 (Rec: 08/21/18 20:08 DSG9458 ICU-C15) Document 08/21/18 21:00 DZU5442 (Rec: 08/21/18 23:00 NMI0552 ICU-C15) Document 08/21/18 22:00 UTV0734 (Rec: 08/21/18 23:00 CTY6968 ICU-C15) Document 08/21/18 23:00 HPY5176 (Rec: 08/21/18 23:00 MKW6995 ICU-C15) Document 08/22/18 00:00 PWS2392 (Rec: 08/22/18 01:52 XXB1302 ICU-M31) Document 08/22/18 01:00 CJS7940 (Rec: 08/22/18 01:52 ZZM1349 ICU-M31) Document 08/22/18 01:51 SJV9771 (Rec: 08/22/18 01:52 QVX8898 ICU-M31) Document 08/22/18 03:00 BWA9558 (Rec: 08/22/18 06:01 UQF5217 ICU-M31) Document 08/22/18 04:00 AVQ1870 (Rec: 08/22/18 06:01 MIP6965 ICU-M31) Document 08/22/18 05:00 GJN5351 (Rec: 08/22/18 06:01 RUZ6279 ICU-M31) Document 08/22/18 06:00 FAA7553 (Rec: 08/22/18 06:01 PEI7915 ICU-M31) Document 08/22/18 07:00 WWK3794 (Rec: 08/22/18 07:49 WJA5588 ICU-C15) Document 08/22/18 10:00 LRD7015 (Rec: 08/22/18 10:33 LPL9537 ICU-C15) Document 08/22/18 11:00 BVX6023 (Rec: 08/22/18 13:52 ZNL6418 ICU-C15) Document 08/22/18 12:00 TLM6233 (Rec: 08/22/18 13:52 XTG7368 ICU-C15) Document 08/22/18 13:00 XGX9658 (Rec: 08/22/18 13:52 ACX9856 ICU-C15) Document 08/22/18 14:00 SOH6935 (Rec: 08/22/18 14:26 JXO2320 ICU-C15) Document 08/22/18 15:00 VMU9893 (Rec: 08/22/18 16:11 TES4183 ICU-C15) Document 08/22/18 16:00 LFF2192 (Rec: 08/22/18 16:11 FUI9828 ICU-C15) Document 08/22/18 17:00 INP2696 (Rec: 08/22/18 18:11 WWS2812 ICU-C15) Document 08/22/18 18:00 PTU4414 (Rec: 08/22/18 18:11 TPY4610 ICU-C15) Document 08/22/18 19:30 EGO9368 (Rec: 08/22/18 21:37 AWF8424 ICU-C15) Document 08/22/18 20:00 TGD3404 (Rec: 08/22/18 21:44 RHE6926 ICU-C15) Document 08/22/18 21:00 DSG8171 (Rec: 08/22/18 21:45 FRJ6602 ICU-C15) Document 08/22/18 22:00 TGN5449 (Rec: 08/22/18 22:45 XTP6283 ICU-C15) Document 08/22/18 23:00 LJL5836 (Rec: 08/22/18 23:57 JKN5487 ICU-C15) Document 08/22/18 23:57 QUX7839 (Rec: 08/22/18 23:57 WNZ2114 ICU-C15) Document 08/23/18 01:00 XTL4251 (Rec: 08/23/18 01:58 AZP4729 ICU-C15) Document 08/23/18 01:58 SEC5256 (Rec: 08/23/18 01:59 UME3466 ICU-C15) Document 08/23/18 03:00 PCD0173 (Rec: 08/23/18 04:02 PIN6992 ICU-C15) Document 08/23/18 03:50 DHA0388 (Rec: 08/23/18 04:02 XYN7386 ICU-C15) Document 08/23/18 05:00 ZVJ3569 (Rec: 08/23/18 06:01 OUU2936 ICU-M31) Document 08/23/18 06:00 ARD0863 (Rec: 08/23/18 06:01 TME3262 ICU-M31) Document 08/23/18 07:00 KSC7981 (Rec: 08/23/18 07:53 LWX1987 ICU-C15) Document 08/23/18 07:54 ESZ5835 (Rec: 08/23/18 08:16 TJG7783 ICU-C15) Document 08/23/18 09:00 MER2655 (Rec: 08/23/18 10:19 LGP8322 ICU-C15) Document 08/23/18 10:00 QLC9534 (Rec: 08/23/18 10:19 SJA0744 ICU-C15) Document 08/23/18 11:00 AYB4915 (Rec: 08/23/18 12:06 WQU5846 ICU-C15) Document 08/23/18 12:00 UKJ8485 (Rec: 08/23/18 12:06 WDO6944 ICU-C15) Document 08/23/18 13:00 SZG5627 (Rec: 08/23/18 17:00 JPM8706 ICU-C15) Document 08/23/18 14:00 SEC3974 (Rec: 08/23/18 17:00 MQG0829 ICU-C15) Document 08/23/18 15:00 CGR2449 (Rec: 08/23/18 17:00 HLQ3606 ICU-C15) Document 08/23/18 16:00 LEZ3190 (Rec: 08/23/18 17:00 TQQ1979 ICU-C15) Document 08/23/18 17:00 CZS1662 (Rec: 08/23/18 17:04 EKD6107 ICU-C15) Document 08/23/18 18:00 HWG5890 (Rec: 08/23/18 19:00 KZG6388 ICU-C15) Document 08/23/18 19:00 KMI9577 (Rec: 08/23/18 19:56 WXV5926 ICU-M31) Document 08/23/18 20:00 UJQ2025 (Rec: 08/23/18 21:12 QHQ5404 ICU-M31) Document 08/23/18 21:00 QQL8950 (Rec: 08/23/18 21:12 DQF4355 ICU-M31) Document 08/23/18 22:00 EFX8658 (Rec: 08/23/18 22:05 NTD4667 ICU-C07) Document 08/24/18 05:53 QBD5727 (Rec: 08/24/18 05:54 CPV5366 ICU-C07) Intake and Output Start: 08/24/18 17: 13 Freq: Q1HR Status: Active Protocol: Created 08/24/18 17:13 QEZ9916 (Rec: 08/24/18 17:13 PSH5116 TELE-C09) Document 08/24/18 22:00 UQB7773 (Rec: 08/24/18 23:03 AYP8946 TELE-C01) Document 08/24/18 23:15 LLM5772 (Rec: 08/25/18 01:12 OFZ6285 TELE-C05) Document 08/25/18 04:22 FOR7609 (Rec: 08/25/18 04:22 KMR4651 TELE-C05) Document 08/25/18 04:44 KJV6598 (Rec: 08/25/18 04:44 MCC2545 TELE-C33) Document 08/25/18 14:00 OWF9094 (Rec: 08/25/18 15:01 QVA3048 TELE-C05) Document 08/26/18 05:43 WEK6051 (Rec: 08/26/18 05:46 KTZ8676 TELE-C01) Document 08/26/18 14:00 LCJ6222 (Rec: 08/26/18 14:57 PCT2198 TELE-C07) Document 08/26/18 21:57 UGA1628 (Rec: 08/26/18 21:59 HCG0048 TELE-C07) Document 08/27/18 06:00 UHL7480 (Rec: 08/27/18 07:31 DMO4861 HOSP-C11) Document 08/27/18 14:00 DET9471 (Rec: 08/27/18 15:50 IDX2791 TELE-C09) Document 08/27/18 22:00 SNN4569 (Rec: 08/27/18 22:18 NMT2252 TELE-C33) Document 08/28/18 06:00 CAZ8342 (Rec: 08/28/18 06:46 ZTK7232 TELE-C35) Document 08/28/18 14:00 FPR4563 (Rec: 08/28/18 15:11 UYS9224 TELE-C07) Document 08/28/18 16:17 IVE3012 (Rec: 08/28/18 16:17 QKU8927 TELE-C07) Document 08/28/18 22:00 TNB7792 (Rec: 08/28/18 22:25 YWB9392 TELE-C07) Document 08/29/18 06:00 MAK4162 (Rec: 08/29/18 06:44 FUP3063 TELE-C33) Document 08/29/18 14:00 YXM9821 (Rec: 08/29/18 15:41 EBM2532 TELE-C05) Document 08/29/18 22:00 ULA7285 (Rec: 08/29/18 22:03 YLB6299 TELE-C01) Document 08/30/18 06:00 YCA0729 (Rec: 08/30/18 06:56 HNS4029 TELE-C33) Document 08/30/18 14:00 KHQ5588 (Rec: 08/30/18 15:06 JWG7222 TELE-C01) Document 08/30/18 22:00 EMW5630 (Rec: 08/30/18 22:27 XHB0345 TELE-C09) Document 08/31/18 06:00 UZB7326 (Rec: 08/31/18 06:54 QOZ0920 TELE-C01) Document 08/31/18 14:00 CRC6117 (Rec: 08/31/18 14:31 HVL1830 TELE-C07) Document 08/31/18 22:00 NUA2016 (Rec: 08/31/18 22:22 QGP1571 TELE-C32) Document 09/01/18 06:00 IGS5129 (Rec: 09/01/18 06:41 AZX2162 TELE-C32) Document 09/01/18 14:00 PWF8610 (Rec: 09/01/18 14:26 UYR3432 TELE-C10) Document 09/01/18 22:00 IZQ7911 (Rec: 09/01/18 22:24 CTU4588 TELE-C10) Document 09/02/18 06:00 FXF4299 (Rec: 09/02/18 06:29 NEI0477 TELE-C34) Document 09/02/18 10:12 KXF5044 (Rec: 09/02/18 10:12 ZIC6502 ICU-C06) Document 09/02/18 14:00 EBC5536 (Rec: 09/02/18 14:18 NQI7893 ICU-C06) Document 09/02/18 16:39 XUB2966 (Rec: 09/02/18 16:39 UHH2160 ICU-C06) Document 09/02/18 19:00 EDA5145 (Rec: 09/03/18 03:19 DSO6179 ICU-C06) Document 09/02/18 22:00 DVU0526 (Rec: 09/02/18 22:23 PJX5685 ICU-M19) Document 09/02/18 23:54 ZSH7087 (Rec: 09/02/18 23:54 GVN0484 ICU-M19) Document 09/03/18 02:00 IYG1513 (Rec: 09/03/18 02:41 SCQ8982 ICU-M19) Document 09/03/18 04:46 QGT4345 (Rec: 09/03/18 04:47 GEG0101 ICU-C06) Document 09/03/18 06:00 PGL5343 (Rec: 09/03/18 06:15 COT6884 ICU-M19) Document 09/03/18 07:00 FNB3706 (Rec: 09/03/18 12:44 FHX3931 ICU-C06) Document 09/03/18 08:00 WDD6192 (Rec: 09/03/18 12:44 EYU8832 ICU-C06) Document 09/03/18 09:00 DAS7214 (Rec: 09/03/18 12:44 DAS5145 ICU-C06) Document 09/03/18 10:00 XHC5048 (Rec: 09/03/18 12:44 TMM7360 ICU-C06) Document 09/03/18 11:00 CVQ4668 (Rec: 09/03/18 12:44 PXV7802 ICU-C06) Document 09/03/18 12:00 ZIZ3056 (Rec: 09/03/18 12:44 AEM7155 ICU-C06) Document 09/03/18 13:00 KFU9506 (Rec: 09/03/18 16:35 ZCM2624 ICU-C06) Document 09/03/18 14:00 PZR9183 (Rec: 09/03/18 16:35 RGR0957 ICU-C06) Document 09/03/18 15:00 JWO0162 (Rec: 09/03/18 16:35 CRW0744 ICU-C06) Document 09/03/18 16:00 CCY5549 (Rec: 09/03/18 18:37 HJK0005 ICU-C06) Document 09/03/18 17:00 LZS1051 (Rec: 09/03/18 18:37 MEW0767 ICU-C06) Document 09/03/18 18:00 JAU0483 (Rec: 09/03/18 18:37 BZB6555 ICU-C06) Document 09/03/18 19:00 TIO2225 (Rec: 09/03/18 20:03 ZPO5971 ICU-C06) Document 09/03/18 20:00 QIU7980 (Rec: 09/03/18 20:03 WYO4715 ICU-C06) Document 09/03/18 21:00 HNM7290 (Rec: 09/03/18 21:40 NYO7711 ICU-C06) Document 09/03/18 22:00 ANU9116 (Rec: 09/03/18 22:14 LRA8831 ICU-C06) Document 09/03/18 23:00 SZN2840 (Rec: 09/04/18 01:04 ZEG9498 ICU-C06) Document 09/04/18 00:00 FAN5580 (Rec: 09/04/18 01:04 OOS9806 ICU-C06) Document 09/04/18 01:00 EJM7499 (Rec: 09/04/18 01:04 ZFH2403 ICU-C06) Document 09/04/18 02:00 RLU2814 (Rec: 09/04/18 02:07 JZF3216 ICU-C06) Document 09/04/18 03:00 SLA7288 (Rec: 09/04/18 04:24 CUL3335 ICU-C06) Document 09/04/18 04:00 FEB5060 (Rec: 09/04/18 04:24 KEG3695 ICU-C06) Document 09/04/18 05:00 EQG3334 (Rec: 09/04/18 05:19 AIK4156 ICU-C06) Document 09/04/18 06:00 RLT3773 (Rec: 09/04/18 06:44 QLC8294 ICU-C06) Document 09/04/18 08:00 YID6297 (Rec: 09/04/18 10:07 NKP0208 ICU-C06) Document 09/04/18 09:00 DYK9260 (Rec: 09/04/18 10:07 VMP1704 ICU-C06) Document 09/04/18 10:00 XTZ9435 (Rec: 09/04/18 10:07 ABM6826 ICU-C06) Document 09/04/18 11:00 YHO7740 (Rec: 09/04/18 13:04 BEB9454 ICU-M19) Document 09/04/18 12:00 OAJ8955 (Rec: 09/04/18 13:04 AAQ2813 ICU-M19) Document 09/04/18 13:00 YHO9971 (Rec: 09/04/18 13:04 QNQ2545 ICU-M19) Document 09/04/18 14:00 DQT8883 (Rec: 09/04/18 14:06 SKB8497 ICU-C06) Document 09/04/18 15:00 UWJ6857 (Rec: 09/04/18 18:13 HVC5782 ICU-C06) Document 09/04/18 16:00 PVF4886 (Rec: 09/04/18 18:13 [id number] ICU-C06) Document 09/04/18 17:00 POG5394 (Rec: 09/04/18 18:13 [id number] ICU-C06) Document 09/04/18 18:00 RQG9878 (Rec: 09/04/18 18:13 JFT1162 ICU-C06) Document 09/04/18 19:00 CMH6722 (Rec: 09/04/18 19:58 GUF3618 ICU-C06) Document 09/04/18 20:00 AZM0844 (Rec: 09/04/18 20:52 JHX9763 ICU-C06) Document 09/04/18 21:00 JAW6506 (Rec: 09/04/18 22:52 TTK7171 ICU-C06) Document 09/04/18 22:00 OEN4370 (Rec: 09/04/18 22:52 LFI5288 ICU-C06) Document 09/04/18 23:00 PBD1381 (Rec: 09/04/18 23:08 TWM8586 ICU-C06) Document 09/05/18 00:00 QLT3007 (Rec: 09/05/18 00:19 CAA8083 ICU-C06) Document 09/05/18 01:00 XYP2756 (Rec: 09/05/18 04:00 PYI3423 ICU-C06) Document 09/05/18 02:00 JDF3313 (Rec: 09/05/18 04:00 FXD9670 ICU-C06) Document 09/05/18 03:00 RSD2249 (Rec: 09/05/18 04:00 MPM1941 ICU-C06) Document 09/05/18 04:00 ANT1790 (Rec: 09/05/18 04:03 KLG7892 ICU-C06) Document 09/05/18 05:00 USI5914 (Rec: 09/05/18 06:15 KTC3562 ICU-C06) Document 09/05/18 06:00 GPY3662 (Rec: 09/05/18 06:15 XKG6235 ICU-C06) Document 09/05/18 08:00 CEP1627 (Rec: 09/05/18 08:16 QIC1001 ICU-M19) Document 09/05/18 09:00 CHA4424 (Rec: 09/05/18 11:11 JJU0459 ICU-C06) Document 09/05/18 10:00 WNR8214 (Rec: 09/05/18 11:11 ZXF4015 ICU-C06) Document 09/05/18 11:00 SRQ8225 (Rec: 09/05/18 11:11 ITC5768 ICU-C06) Document 09/05/18 12:00 WLJ2670 (Rec: 09/05/18 14:22 QVE9750 ICU-C06) Document 09/05/18 13:00 VYK0291 (Rec: 09/05/18 14:22 IHN5434 ICU-C06) Document 09/05/18 14:00 QQU8118 (Rec: 09/05/18 14:22 HBK2156 ICU-C06) Document 09/05/18 15:00 AJM8600 (Rec: 09/05/18 15:58 NZF1963 ICU-M19) Document 09/05/18 17:00 MHU1812 (Rec: 09/05/18 18:25 HWT2799 ICU-M19) Document 09/05/18 18:00 PMU0339 (Rec: 09/05/18 18:25 GAB3479 ICU-M19) Document 09/05/18 19:00 LTS0375 (Rec: 09/05/18 19:20 RRE9857 ICU-C06) Document 09/05/18 20:00 DQI1383 (Rec: 09/05/18 20:22 TQC3675 ICU-C06) Document 09/05/18 20:57 LGS5216 (Rec: 09/05/18 21:00 YAQ2682 ICU-C06) Document 09/05/18 22:00 BED3509 (Rec: 09/06/18 00:40 VFB7686 ICU-C06) Document 09/05/18 23:00 ZGA3689 (Rec: 09/06/18 00:40 AWC4622 ICU-C06) Document 09/06/18 00:00 CCC1729 (Rec: 09/06/18 00:40 ZLV2878 ICU-C06) Document 09/06/18 01:00 OHT6682 (Rec: 09/06/18 01:04 IET8751 ICU-C06) Document 09/06/18 02:00 YXM7155 (Rec: 09/06/18 05:11 LOC6925 ICU-C06) Document 09/06/18 03:00 ZXQ2635 (Rec: 09/06/18 05:11 WNB9239 ICU-C06) Document 09/06/18 04:00 JFD7375 (Rec: 09/06/18 05:11 FKJ6156 ICU-C06) Document 09/06/18 05:00 QCO5751 (Rec: 09/06/18 05:11 OHD4802 ICU-C06) Document 09/06/18 06:00 PBA6745 (Rec: 09/06/18 06:19 GWZ5088 ICU-C06) Document 09/06/18 07:00 EDQ8433 (Rec: 09/06/18 07:45 MMJ3347 ICU-C06) Document 09/06/18 08:00 PIA5584 (Rec: 09/06/18 09:51 KOU1201 ICU-C06) Document 09/06/18 09:00 RDY3448 (Rec: 09/06/18 09:51 KMP2486 ICU-C06) Document 09/06/18 10:00 GEW4112 (Rec: 09/06/18 10:10 KDM2356 ICU-C06) Document 09/06/18 11:00 TSQ7796 (Rec: 09/06/18 11:29 HNP7808 ICU-C06) Document 09/06/18 12:40 HPW4281 (Rec: 09/06/18 12:54 [id number] ICU-M19) Document 09/06/18 13:00 LPH1488 (Rec: 09/06/18 13:21 LPH1774 ICU-C06) Document 09/06/18 14:00 XYW3411 (Rec: 09/06/18 14:59 ZZT1496 ICU-M19) Document 09/06/18 14:59 MEZ7844 (Rec: 09/06/18 14:59 GXV1314 ICU-M19) Document 09/06/18 16:00 MJS1034 (Rec: 09/06/18 16:16 WPH5889 ICU-C06) Document 09/06/18 17:37 FXJ5650 (Rec: 09/06/18 17:37 ICB6590 ICU-M19) Document 09/06/18 17:56 WAC2270 (Rec: 09/06/18 17:56 PEC3489 ICU-C06) Document 09/06/18 19:00 WBG4156 (Rec: 09/06/18 20:34 ESF3108 ICU-C06) Document 09/06/18 20:00 NLY5382 (Rec: 09/06/18 20:34 GPO8320 ICU-C06) Document 09/06/18 21:00 HQS0370 (Rec: 09/07/18 01:39 JQY9099 ICU-C06) Document 09/06/18 22:00 ZBU9074 (Rec: 09/07/18 01:39 UPR6513 ICU-C06) Document 09/06/18 23:00 SMX5847 (Rec: 09/07/18 01:39 AVD9260 ICU-C06) Document 09/07/18 00:00 HKW2064 (Rec: 09/07/18 01:39 EKM4783 ICU-C06) Document 09/07/18 01:00 VWA1562 (Rec: 09/07/18 01:39 IZL3788 ICU-C06) Document 09/07/18 02:00 ENS2874 (Rec: 09/07/18 02:55 OXM3730 ICU-C06) Document 09/07/18 03:00 BVS1453 (Rec: 09/07/18 03:42 YBX4046 ICU-C06) Document 09/07/18 03:44 QAD3413 (Rec: 09/07/18 03:53 JPE3174 ICU-C06) Document 09/07/18 05:00 RYH8456 (Rec: 09/07/18 05:58 HUN9130 ICU-C06) Document 09/07/18 06:00 HQN2260 (Rec: 09/07/18 06:09 EAZ3754 ICU-C06) Document 09/07/18 11:00 TVS7689 (Rec: 09/07/18 11:08 PVG4081 ICU-C06) Labs: Laboratory Results - last 24 hr 09/06/18 09/06/18 09/07/18 17:31 23:52 05:33 WBC RBC Hgb Hct MCV MCH MCHC RDW Plt Count MPV Sodium 132 L Potassium 4.4 Chloride 93 L Carbon Dioxide 24 Anion Gap 15 H BUN 151 H Creatinine 3.83 H Est GFR ( Amer) 14.2 Est GFR (Non-Af Amer) 11.7 BUN/Creatinine Ratio 39.4 H Glucose 383 H POC Glucose (mg/dL) 321 H 327 H Calcium 8.8 Phosphorus 7.4 H Magnesium 2.3 B-Natriuretic Peptide 09/07/18 09/07/18 05:33 05:33 WBC 15.8 H RBC 2.99 L Hgb 7.9 L Hct 26 L MCV 86 MCH 27 MCHC 31 RDW 18 H Plt Count 77 L MPV 8.9 Sodium Potassium Chloride Carbon Dioxide Anion Gap BUN Creatinine Est GFR ( Amer) Est GFR (Non-Af Amer) BUN/Creatinine Ratio Glucose POC Glucose (mg/dL) Calcium Phosphorus Magnesium B-Natriuretic Peptide 148 H Studies: 09/07 CXR: persistent whiteout of left hemithorax, unchanges. Small interval increase in patchy densities in right lung which could be pulmonary edema or multifocal pneumonia 09/03 CXR: complete opacification of left hemithorax unchanged 09/02 CT Chest: improved aeration of left upper lobe collapse of left lower lobe unchanged small right pleural effusion moderate left pleural effusion scattered infiltrates in right lung suggestive of pneumonia 09/02 US chest: 1.5 cm effusion 09/02: CXR: White out of left hemithorax 09/02 EKG: NSR. right bundle branch 09/01 CT abd/pelvis: moderate left pleural effusion with left basilar ateletasis. small right pleural effusion 09/01 EKG: sinus rhythm, prolonged NH. RBBB 08/30 CXR: worsening cardiogenic pulmonary edema compared to 08/21 CXR. Near complete opacification of left lung suspected to be a combination of pleural effusion and consolidation 08/21 CXR: CHF with possible superimposed pneumonia at left lung base, unchanged from prior 08/20 Venous duplex BLE: right groin seroma, negative for DVT 08/20 TTE: LVEF 60-65% mild concentric LVH septal flattening consistent with RV overload moderate pulmonary HTN unable to assess diastolic function 08/20 CXR: cardiomegaly with pulmonary vasular congestion Nutrition: Tolerating TF awaiting speech assessment of swallowing function Impression: 67 yo F with PMH of DM, CAD, HLD, HTN, CKD, COPD and ENRIQUE admitted on 08/20 for healthcare associated pneumonia (Pseudomonas) and Klebsiella UTI. Intially requiring vapotherm in the ICU, however stablized on abx and diuresis. Tranferred to the floor. Returns to ICU 09/02 with hypercarbic respiratory failure. CT chest demonstrates LLL collapse, moderate effusion, right multifocal pneumonia. Mental status improving on BiPAP. Plan: Cardiovascular:(1) Chronic paroxysmal atrial fibrillation; (2) Acute on chronic diastolic CHF, improving; (3) Chronic HTN; (4) Chronic hyperlipidemia; ( 5) Chronic RBBB; (6) CAD -- HR 65-99 -- SBP 93-117 -- Telemetry -- 08/20 TTE: LVEF 60-65% mild concentric LVH septal flattening consistent with RV overload moderate pulmonary HTN unable to assess diastolic function -- BNP 148 from 182 -- Diltiazem, decrease dose for soft BPs -- Plaquenil -- Clonidine patch, PRN Hydralazine -- Lasix BID Home meds: Torsemide Pulmonary: (1) Acute on chronic hypoxic and hypercapneic respiratory failure, improving; (2) COPD exacerbation, improving; (3) Moderate left pleural effusion ; (4) concern for new pneumonia; (5) Pseudomonas pneumonia on admission; (6) ENRIQUE ; (7) Obesity hypoventilation syndrome -- RR 12-23 -- sats 88-96 on 5L -- on Ventimask during day and BiPAP at night -- CXR, 09/07: whiteout of left hemithorax unchanged. -- CT chest 09/02: improved aeration of left upper lobe collapse of left lower lobe, unchanged small right pleural effusion moderate left plerual effusion scattered infiltrates in right lung suggestive of pneumonia -- PRN duonebs -- Nicotine patch for hx of tobacco use -- incentive spirometry Home meds: Umeclidium/vilanterol Gastrointestinal: (1) Constipation; (2) hx of gastroplasty 1987 -- diet: NPO, swallow eval pending. start TF -- bowel regimen: Colace, MOM -- ulcer prophylaxis: Pepcid -- Zofran as needed Home meds: Sucralfate, Protonix, Senna, Dulcolax, MOM Endocrine: (1) Hyperglycemia secondary to type 2 diabetes mellitus -- monitor BGs -- SSI increased and Lantus added for better glycemic control -- TSH within normal limits on 08/28 -- solumedrol Home meds: Glipizide, Insulin NPH, prednisone Renal: (1) Acute on Chronic renal failure, stage 4; (2) Oliguria, responding to lasix; (3) Hyponatremia; (4) hyperkalemia; (5) Hyperphosphatemia -- UOP: 12 ml/hr, will challenge with Albumin x 1 -- I/O:520/292 -- Cr 3.57 from 3.50 -- Lytes Na 132 from 131, follow trend K 4.4 Ca 8.8 Mag 2.3 Phos 7.4, on phoslo -- IVF: HL -- Lasix BID -- PhosLo -- Nephrology following Home meds: Calcium carbonate, Torsemide Infectious disease: (1) Concern for new pneumonia; (2) Sepsis on admission; (3 ) Pseudomonas pneumonia on admission, resolved; (4) Ecoli UTI on admission, resolved; (5) hx of MRSA -- Tmax 95.0 -- WBC 15.8 from 13.4 -- Micro 08/31 blood Negative 08/30 Urine yeast contaminant, alessia glabrata blood Negative 08/21 blood negative MRSA screen positive 08/20 Urine e coli flu screen negative blood Pseudomonas 08/28 vials -- ABX Zosyn x 7 days Home meds: None Neurologic: (1) Lethargy, secondary to CO2 narcosis, improving -- Tylenol as needed -- PRN Morphine for pain control -- PT OT Home meds: Tylenol, Requip, Percocet, Prozac Hematological: (1) Chronic iron deficiency anemia; (2) Thrombocytopenia -- Hgb 7.9 from 8.4 -- Plt 77 from 88, likely secondary to sepsis, follow trend -- DVT prophylaxis: SQ Heparin Home meds: Ferrous sulfate Metabolic: No acute process -- Allopurinol Home meds: Allopurinol Other: (1) hx of Bulous pemphagoid -- hydroxycholorquine Home meds: Hydroxychloroguine Deep vein thrombosis prophylaxis: SQ Heparin Dietary: Prilosec Condition: serious Prognosis: poor Code status: DNR/DNI Disposition: Continue ICU Care. Pts overall status worsening. Concern that she will continue to decline especially as she is intermittently refusing various care and medications. Will likely need to have a family meeting in the next few days to determine goals of care. Cumulative time spent in the care of this patient (excluding any procedure time) : at least 30 minutes. Patient care included clinical interview (with patient and/or family), bedside exam of the patient, review of labs, x-rays, and other ancillary data, coordination of (respiratory, nursing care, review of patient's records, discussion regarding patients management with involved consultants, primary physician, pharmacists, and other healthcare personnel (dietary, case management , physical/occupational therapy etc.) Critical Care Time: 30
[2018-09-07] MEDS: Insulin REGULAR(*) 1 UNITS UNIT SUBCUT SCH ×2 (18:31→18:34)
[2018-09-07] MEDS: Diltiazem TAB* 30 MG PO SCH (18:33)
[2018-09-07] MEDS: Insulin REGULAR(*) 1 UNITS UNIT SUBCUT ONE (18:33)
[2018-09-07] MEDS: Famotidine SUSP* 40 MG/5 ML ORAL.SYRIN G TUBE SCH (20:39)
[2018-09-07] MEDS: Insulin GLARGINE(*) 1 UNITS UNIT SUBCUT SCH (20:43)
[2018-09-07] MEDS: Nicotine Patch Removal NOTE PATCH OFF SCH (20:44)
[2018-09-07] MEDS: Albuterol/Ipratropium NEB.SOL* Albuterol 2.5 MG/Ipratropium 0.5 MG 3 ML INH PRN (21:01)
[2018-09-08] MEDS: Insulin REGULAR(*) 1 UNITS UNIT SUBCUT SCH ×5 (00:02→23:42)
[2018-09-08] MEDS: Diltiazem TAB* 30 MG PO SCH ×5 (00:04→23:45)
[2018-09-08] MEDS: methylPREDNISolone SOD 40 MG* 1 ML VIAL IV SCH ×2 (02:40→11:40)
[2018-09-08] MEDS: ZOSYN 3.375 GM Q12H per EXTENDED INFUSION IVPB SCH ×4 (02:41→15:36)
[2018-09-08] MEDS: Morphine VIAL* 4 MG/ML VIAL (1 ml vial) IV PRN (04:10)
[2018-09-08] MEDS: Albuterol/Ipratropium NEB.SOL* Albuterol 2.5 MG/Ipratropium 0.5 MG 3 ML INH PRN (11:36)
[2018-09-08] MEDS: Insulin GLARGINE(*) 1 UNITS UNIT SUBCUT SCH (11:38)
[2018-09-08] MEDS: Hydroxychloroquine TAB* 200 MG PO SCH ×2 (11:39→21:17)
[2018-09-08] MEDS: Nicotine PATCH 21 MG/24 HR* PATCH TRANSDERM SCH (11:39)
[2018-09-08] MEDS: Heparin VIAL(*) 5000 UNITS/ML VIAL (FIVE THOUSAND) SUBCUT SCH ×2 (11:39→21:17)
[2018-09-08] MEDS: Calcium Acetate CAP* 667 MG PO SCH (11:39)
[2018-09-08] MEDS: Furosemide IV* 10 MG/ML VIAL (40 MG) IV SCH (11:39)
[2018-09-08] MEDS: Allopurinol TAB* 300 MG PO SCH (11:39)
[2018-09-08] MEDS: Nystatin TOP POWDER* 15 GM BTL TOPICAL SCH ×2 (11:40→23:42)
[2018-09-08] MEDS: Insulin REGULAR(*) 1 UNITS UNIT SUBCUT ONE (11:54)
[2018-09-08] MEDS ORDERED: Insulin REGULAR(*) 1 UNITS UNIT SUBCUT ONE (12:45)
[2018-09-08] MEDS ORDERED: NS 0.9% 1000 ML* 1,000 ML IV ONE (13:06)
[2018-09-08] MEDS ORDERED: Albumin Human 25%* 50 GM/200 ML BTL IV SCH (14:00)
[2018-09-08] MEDS: predniSONE TAB* 10 MG PO SCH (15:37)
[2018-09-08] MEDS ORDERED: cloNIDine 0.1 MG PATCH* 0.1 MG/24 HR 7 DAY PATCH TRANSDERM SCH (17:30)
--- NOTE | 2018-09-08 19:20 | PN ---
Date of Service: 09/08/18 Critical Care Services: 67 yo F with PMH including DM, STEMI, paroxysmal AFib, COPD, frequent UTI, CKD, ENRIQUE and chronic respiratory failure who lives [place] [facility]. She presented to the ED on 08/20 with complaints of shortness of breath for the past several days. SpO2 at [facility] 82% on RA. She has been noncompliant with nocturnal CPAP lately. A CXR had been done at the [facility] which showed a possible basilar infiltrate and she had been started on Azithromycin. She was brought in to the ED 08/20 for failure to improve. In ED She was tachycardic to 124 but otherwise hemodynamically stable. Exam notable for ill appearance, chronic erythema of lower extremities with pitting edema, Rales, rhonchi and wheezing on exam and inability to speak in full sentences. WBC elevated at 18.0. ABG with pH 7.24, pCO2 81. She was started on BiPAP. Troponin came back elevated at 0.26. She was admitted to the hospitalist service for acute hypoixc and hypercarbic respritaroy failure. She was given Lasix for an elevated BNP anc concern for CHF exacerbation. She was started on steriods, bronchodilators for COPD exacerbation. She was also started on broad spectrum antibiotics to cover for healthcare associated pneumonia (SNF resident). Seen by Dr. Angel from pulmonology for COPD exacerbation, agreed with current management. 08/21: Bolused for drop in SBP to 70s and decreased UOP. Hgb dropped from 11 to 8.6, no active bleeding, transferred to ICU. Acidosis improved on BiPAP. 08/22: Blood cultures positive for Pseudomonas (presumed source is lungs), urine positive for Klebsiella. Antibiotics adjusted to provide double coverage to Pseudomonas 08/23: respiratory status stabilized 08/24: TTE completed, diastolic dysfunction, no vegetations 08/25: transferred out of unit. continuing to improve. On supplemental O2 during day and BiPAP at night. 08/27: ID consulted; recommended course length of 10 days for Cefipime. 08/29: Developed otitis externa, started on cortisporin drops. Also noted to develop hyponatremia, possibly second to SIADH as FeNA consistent with euvolemic state. Steriod taper in progress. Starting PT. 08/30: Complaining of malaise. CXR with worsening consolidation and congestion. WBC rising. ABX broadened to Vancomycin and Zosyn. 08/31: Reports pain "everywhere". Persistent cough and shortness of breath. 09/01: Palliative care consulted. At that time reaffirmed desire for full code status and did not have interest in hospice options. Lasix diuresis reinitiated for CHF. K elevated, receiving Patiromer, calcium D50 + insulin. 09/02: Increased lethargy overnight. Sats high 90s on 4L, O2 decreased. ABG with pH 7.22, pCO2 76 pO2 62. Started on BiPAP. Mentation improve on BiPAP, however patient refused to wear it after 3AM. On morning rounds, pt noted to be lethargic again. Given lasix and transferred to ICU for further care. CT chest shows dense LLL infiltrate and collapse. Moderate plerual effusion. Persistent lethargy despite BiPAP. PT requested DNR/DNI on transfer to ICU. She became obtunded shortly after arrival. ABG improved on BiPAP 09/03: Becoming more arousable. tolerating BiPAP 09/04: Alert and conversant. Met with Palliative care; reconfirmed DNR/DNI status but wished to continue pursing other medical interventions at this time. 09/05: Tolerating venti mask during day and BiPAP at night. Failed nursing swallow eval 09/06: Refusing labs and meds overnight. 09/08: FM held with mother, sister, niece, brother, Dr. Azul(Palliative), charge nurse, Deanne(nurse), SW. Anuric today. Patient refuses care and continues to complain of pain Vital Signs: Temp Pulse Resp BP SpO2 FiO2 92.1 F 73 12 94/55 93 40 09/08/18 18:00 09/08/18 18:00 09/08/18 18:00 09/08/18 18:00 09/08/18 18:00 09/08 08:00 Physical Exam: Gen: NAD HEENT: Venti mask in place Lungs: diminished breath sounds on the left. Air entry on the right Cardiac: RRR, S1S2 Abdomen: obese, soft, NTND Extremities: warm, dry, 2+ symmetric edema Neuro: Nonfocal. Somnolent. Does not follow commands Skin: ecchymosis on the right forearm Fluid Balance (Past 24 Hours): I= O= Net Intake & Output 09/06/18 09/07/18 09/08/18 09/09/18 06:59 06:59 06:59 06:59 Intake Total 205 679 4978 1666 Output Total 850 292 15 6 Balance -461 955 4794 1660 Weight 247 lb 12.793 oz 251 lb 15.814 oz Intake: IV Fluids 283 420 179 2433 ABX - ZOSYN 187 Calcium Gluconate 68 NS (0.9%) 215 050 470 0897 IVPB 80 95 293 ABX - ZOSYN 293 Calcium Gluconate 80 NS (0.9%) 95 Oral 0 Tube Feeding 1248 536 Tube Feeding Flush Amount 60 90 390 75 Output: [place] 850 292 15 6 Other: Date of Last Bowel 09/02/18 09/02/18 09/08/18 Movement # Bowel Movements 1 1 Estimated Stool Amount Large Large ADLs: Meal Record Start: 08/20/18 11: 48 Freq: ,, Status: Complete Protocol: Created 08/20/18 11:48 System (Rec: 08/20/18 11:48 System ICU-C25) Document 08/20/18 18:00 MDP2235 (Rec: 08/20/18 18:33 FXZ5912 ICU-C12) Document 08/21/18 09:00 JZN4417 (Rec: 08/21/18 10:58 VLI2017 ICU-C15) Document 08/21/18 13:00 WFW5115 (Rec: 08/21/18 15:47 OTY4262 ICU-C15) Document 08/21/18 18:00 IKY5534 (Rec: 08/21/18 22:59 HRR0681 ICU-C15) Document 08/22/18 09:00 PLO7699 (Rec: 08/22/18 09:53 JOK9484 ICU-C15) Document 08/22/18 13:00 AIR2118 (Rec: 08/22/18 16:10 IRV8820 ICU-C15) Document 08/22/18 18:00 YOI4608 (Rec: 08/22/18 21:36 RFH6510 ICU-C15) Document 08/23/18 09:00 YJY4645 (Rec: 08/23/18 17:03 NYW3634 ICU-C15) Document 08/23/18 13:00 YLZ7306 (Rec: 12/30/18 17:03 ARM2146 ICU-C15) Document 08/23/18 19:55 FHJ1155 (Rec: 08/23/18 19:55 CKX8069 ICU-M31) Document 08/24/18 09:00 QOP5474 (Rec: 08/24/18 12:10 ZYV1961 ICU-C25) Document 08/24/18 14:00 ZRT4505 (Rec: 08/24/18 15:58 RIV8005 ICU-C25) ADLs: Meal Record Start: 08/24/18 17: 13 Freq: T.PRN Status: Active Protocol: Created 08/24/18 17:13 FJX1647 (Rec: 08/24/18 17:13 UYJ5917 TELE-C09) Document 08/24/18 18:00 CVB7276 (Rec: 08/24/18 20:30 GWL4283 TELE-C01) Document 08/25/18 09:00 RIK7779 (Rec: 08/25/18 09:54 FHI2947 TELE-C05) Document 08/25/18 14:00 RZV2205 (Rec: 08/25/18 15:01 TPP8291 TELE-C05) Document 08/25/18 18:00 SXU9029 (Rec: 08/25/18 18:39 EOM9559 TELE-C01) Document 08/26/18 09:00 OOJ4046 (Rec: 08/26/18 14:55 SWH0645 TELE-C07) Document 08/26/18 14:00 LJE9007 (Rec: 08/26/18 14:57 FBP4180 TELE-C07) Document 08/26/18 18:00 HYW6563 (Rec: 08/26/18 18:26 RPA3552 TELE-C10) Document 08/27/18 09:00 RND8255 (Rec: 08/27/18 15:48 MPF8070 TELE-C09) Document 08/27/18 14:00 HQK4728 (Rec: 08/27/18 15:50 CDC0443 TELE-C09) Document 08/27/18 18:00 LRR0568 (Rec: 08/27/18 22:17 IUK7139 TELE-C33) Document 08/28/18 09:00 SUH2179 (Rec: 08/28/18 12:56 CUF4276 TELE-C07) Document 08/28/18 14:00 EBC1694 (Rec: 08/28/18 15:11 NOJ6488 TELE-C07) Document 08/28/18 18:00 SMJ5212 (Rec: 08/28/18 18:08 CFB3960 TELE-C07) Document 08/29/18 09:00 EWB6826 (Rec: 08/29/18 12:32 SIJ6748 TELE-C05) Document 08/29/18 14:00 RMS5837 (Rec: 08/29/18 15:41 KSB6001 TELE-C05) Document 08/29/18 18:00 GHI9471 (Rec: 08/29/18 18:27 SGF7671 TELE-C01) Document 08/30/18 09:00 DBK3684 (Rec: 08/30/18 10:37 RPP3457 TELE-C01) Document 08/30/18 14:00 OLP9109 (Rec: 08/30/18 15:06 IEC7399 TELE-C01) Document 08/30/18 18:00 SVY1932 (Rec: 08/30/18 18:40 BME3694 TELE-C01) Document 08/31/18 09:00 OBR2975 (Rec: 08/31/18 09:57 HST3148 TELE-C07) Document 08/31/18 14:00 XVC9070 (Rec: 08/31/18 14:31 IIS4031 TELE-C07) Document 08/31/18 18:00 OXR3307 (Rec: 08/31/18 21:01 MVO5180 TELE-C32) Document 09/01/18 09:00 RNL9334 (Rec: 09/01/18 09:46 JFQ7700 TELE-C07) Document 09/01/18 14:00 GVD6358 (Rec: 09/01/18 14:29 SZU8143 TELE-C10) Document 09/01/18 17:58 LHP8197 (Rec: 09/01/18 17:59 GXZ0669 TELE-C10) Document 09/02/18 09:00 UQQ4088 (Rec: 09/02/18 09:24 JRW2049 ICU-C06) Document 09/02/18 14:00 XND3780 (Rec: 09/02/18 14:18 JTS0007 ICU-C06) Document 09/02/18 18:00 QLB1855 (Rec: 09/02/18 18:14 TVA5204 ICU-C06) Document 09/03/18 09:00 KNE4335 (Rec: 09/03/18 12:27 BBG9913 ICU-C06) Document 09/03/18 14:00 JTX1775 (Rec: 09/03/18 16:35 TME0170 ICU-C06) Document 09/03/18 18:00 EBA5363 (Rec: 09/03/18 18:39 GLQ7538 ICU-C06) Document 09/04/18 09:00 SPO5871 (Rec: 09/04/18 17:26 EAI5372 ICU-C06) Document 09/04/18 14:00 QEH4887 (Rec: 09/04/18 17:26 MHY6463 ICU-C06) Document 09/04/18 17:26 DZI3310 (Rec: 09/04/18 17:26 BAK3807 ICU-C06) Document 09/05/18 09:00 ANI5340 (Rec: 09/05/18 10:00 RFX8402 ICU-C06) Document 09/06/18 09:00 CZM7943 (Rec: 09/06/18 09:54 XCE7643 ICU-C06) Intake and Output Start: 08/20/18 08: 34 Freq: Status: Active Protocol: Created 08/20/18 08:34 System (Rec: 08/20/18 08:34 System EDRM-C11) Intake and Output Start: 08/20/18 11: 48 Freq: 06,14,2200 Status: Complete Protocol: Created 08/20/18 11:48 System (Rec: 08/20/18 11:48 System ICU-C25) Document 08/20/18 13:00 FAW4464 (Rec: 08/20/18 13:21 LUJ5824 ICU-C25) Document 08/20/18 14:00 LTS5484 (Rec: 08/20/18 15:15 LWE6631 ICU-C12) Document 08/20/18 15:00 TQD0646 (Rec: 08/20/18 16:11 CCW0106 ICU-C12) Document 08/20/18 16:00 NZV1698 (Rec: 08/20/18 16:11 QXS9508 ICU-C12) Document 08/20/18 17:00 PFD2777 (Rec: 08/20/18 18:32 QDA7579 ICU-C12) Document 08/20/18 18:00 RLB2360 (Rec: 08/20/18 18:32 GGZ9927 ICU-C12) Document 08/20/18 19:00 VAR0021 (Rec: 08/20/18 19:14 VIA4012 ICU-C15) Document 08/20/18 20:00 KSB4798 (Rec: 08/20/18 20:14 FHD9922 ICU-C15) Document 08/20/18 22:00 VXO1723 (Rec: 08/20/18 22:08 LVZ4577 ICU-C15) Document 08/20/18 23:00 PSP4554 (Rec: 08/20/18 23:04 TLR4647 ICU-C15) Document 08/21/18 00:00 BHJ6825 (Rec: 08/21/18 00:03 EFB0497 ICU-C15) Document 08/21/18 00:59 BTS1477 (Rec: 08/21/18 00:59 OSI4274 ICU-C15) Document 08/21/18 01:54 QUR3548 (Rec: 08/21/18 01:54 YDU4658 ICU-C15) Document 08/21/18 03:00 BJY8929 (Rec: 08/21/18 03:07 RKW3915 ICU-C15) Document 08/21/18 04:00 EMZ8872 (Rec: 08/21/18 04:09 TFO9288 ICU-C15) Document 08/21/18 06:00 ABE9464 (Rec: 08/21/18 06:13 ZIJ5141 ICU-M31) Document 08/21/18 07:00 BIF5141 (Rec: 08/21/18 07:41 RGX4172 ICU-M31) Document 08/21/18 07:00 LEN0581 (Rec: 08/21/18 07:55 ALV8943 ICU-C15) Document 08/21/18 07:55 GJD5107 (Rec: 08/21/18 09:32 ZFX8600 ICU-C15) Document 08/21/18 09:00 DNF5944 (Rec: 08/21/18 10:59 GYI0983 ICU-C15) Document 08/21/18 10:00 CAW2051 (Rec: 08/21/18 10:59 GOC3689 ICU-C15) Document 08/21/18 10:59 EXV9168 (Rec: 08/21/18 10:59 SIT2786 ICU-C15) Document 08/21/18 12:00 ILR1433 (Rec: 08/21/18 15:40 SYF2223 ICU-C15) Document 08/21/18 13:00 CCD4710 (Rec: 08/21/18 15:48 BFD8736 ICU-C15) Document 08/21/18 14:00 FCA9283 (Rec: 08/21/18 15:48 YVY6921 ICU-C15) Document 08/21/18 15:00 OCZ1948 (Rec: 08/21/18 15:48 IFT8823 ICU-C15) Document 08/21/18 16:00 QLW0635 (Rec: 08/21/18 16:31 SVB0191 ICU-C15) Document 08/21/18 17:00 RMM0475 (Rec: 08/21/18 18:11 PIF2020 ICU-C15) Document 08/21/18 18:00 JGV0304 (Rec: 08/21/18 18:11 LON4631 ICU-C15) Document 08/21/18 19:54 MLN0778 (Rec: 08/21/18 20:08 KDV9640 ICU-C15) Document 08/21/18 21:00 GSY5845 (Rec: 08/21/18 23:00 ATD9290 ICU-C15) Document 08/21/18 22:00 OMD4760 (Rec: 08/21/18 23:00 QSQ3285 ICU-C15) Document 08/21/18 23:00 LFM9219 (Rec: 08/21/18 23:00 JWJ0984 ICU-C15) Document 08/22/18 00:00 EDU4994 (Rec: 08/22/18 01:52 LAK8218 ICU-M31) Document 08/22/18 01:00 RFL6226 (Rec: 08/22/18 01:52 SOY7607 ICU-M31) Document 08/22/18 01:51 GDR8730 (Rec: 08/22/18 01:52 HPY7940 ICU-M31) Document 08/22/18 03:00 MVC9200 (Rec: 08/22/18 06:01 LAO3386 ICU-M31) Document 08/22/18 04:00 OXS2469 (Rec: 08/22/18 06:01 BTQ0023 ICU-M31) Document 08/22/18 05:00 BOV2308 (Rec: 08/22/18 06:01 ELT5252 ICU-M31) Document 08/22/18 06:00 UIK9339 (Rec: 08/22/18 06:01 YHP6016 ICU-M31) Document 08/22/18 07:00 XPN9463 (Rec: 08/22/18 07:49 KWF6705 ICU-C15) Document 08/22/18 10:00 WFS3264 (Rec: 08/22/18 10:33 OJF9968 ICU-C15) Document 08/22/18 11:00 AAQ2895 (Rec: 08/22/18 13:52 HBX7081 ICU-C15) Document 08/22/18 12:00 KQB9915 (Rec: 08/22/18 13:52 OGH9890 ICU-C15) Document 08/22/18 13:00 XCD6046 (Rec: 08/22/18 13:52 RLK5155 ICU-C15) Document 08/22/18 14:00 RHC0791 (Rec: 08/22/18 14:26 MNQ2303 ICU-C15) Document 08/22/18 15:00 SQZ1496 (Rec: 08/22/18 16:11 UYC1610 ICU-C15) Document 08/22/18 16:00 GUO8547 (Rec: 08/22/18 16:11 VNF7711 ICU-C15) Document 08/22/18 17:00 FBW6672 (Rec: 08/22/18 18:11 TQD7662 ICU-C15) Document 08/22/18 18:00 MHQ6201 (Rec: 08/22/18 18:11 CBW1227 ICU-C15) Document 08/22/18 19:30 PIA6180 (Rec: 08/22/18 21:37 XEQ4054 ICU-C15) Document 08/22/18 20:00 CFJ2162 (Rec: 08/22/18 21:44 PNV8845 ICU-C15) Document 08/22/18 21:00 JAT8120 (Rec: 08/22/18 21:45 SFV5057 ICU-C15) Document 08/22/18 22:00 XKC9632 (Rec: 08/22/18 22:45 FIR3064 ICU-C15) Document 08/22/18 23:00 MSA7238 (Rec: 08/22/18 23:57 LXB7036 ICU-C15) Document 08/22/18 23:57 FFD5609 (Rec: 08/22/18 23:57 FIE2604 ICU-C15) Document 08/23/18 01:00 AGX8606 (Rec: 08/23/18 01:58 YIH6756 ICU-C15) Document 08/23/18 01:58 TDJ9857 (Rec: 08/23/18 01:59 LJJ9874 ICU-C15) Document 08/23/18 03:00 LJB6248 (Rec: 08/23/18 04:02 EVH1419 ICU-C15) Document 08/23/18 03:50 VKH8078 (Rec: 08/23/18 04:02 BRX0911 ICU-C15) Document 08/23/18 05:00 QVZ4116 (Rec: 08/23/18 06:01 ODN1807 ICU-M31) Document 08/23/18 06:00 INA5450 (Rec: 08/23/18 06:01 QRU6463 ICU-M31) Document 08/23/18 07:00 BXF8996 (Rec: 08/23/18 07:53 LWH9603 ICU-C15) Document 08/23/18 07:54 HTT4707 (Rec: 08/23/18 08:16 ULD5474 ICU-C15) Document 08/23/18 09:00 IEV5038 (Rec: 08/23/18 10:19 QUN4467 ICU-C15) Document 08/23/18 10:00 DMZ9524 (Rec: 08/23/18 10:19 KNA6377 ICU-C15) Document 08/23/18 11:00 FGT5661 (Rec: 08/23/18 12:06 QIO0633 ICU-C15) Document 08/23/18 12:00 YKU1163 (Rec: 08/23/18 12:06 PDU3646 ICU-C15) Document 08/23/18 13:00 ZEP7994 (Rec: 08/23/18 17:00 ZKE2493 ICU-C15) Document 08/23/18 14:00 XUN3560 (Rec: 08/23/18 17:00 ZLS1461 ICU-C15) Document 08/23/18 15:00 GFO3616 (Rec: 08/23/18 17:00 HVV1104 ICU-C15) Document 08/23/18 16:00 ZTN7043 (Rec: 08/23/18 17:00 EFL1253 ICU-C15) Document 08/23/18 17:00 VKX0508 (Rec: 08/23/18 17:04 BWY4273 ICU-C15) Document 08/23/18 18:00 SFV8438 (Rec: 08/23/18 19:00 YHV5335 ICU-C15) Document 08/23/18 19:00 FIT6834 (Rec: 08/23/18 19:56 BJU3459 ICU-M31) Document 08/23/18 20:00 BFE5617 (Rec: 08/23/18 21:12 ZSJ5603 ICU-M31) Document 08/23/18 21:00 AEA1255 (Rec: 08/23/18 21:12 WOZ9072 ICU-M31) Document 08/23/18 22:00 TZR8287 (Rec: 08/23/18 22:05 HHS2778 ICU-C07) Document 08/24/18 05:53 XUX5544 (Rec: 08/24/18 05:54 CBV2407 ICU-C07) Intake and Output Start: 08/24/18 17: 13 Freq: Q1HR Status: Active Protocol: Created 08/24/18 17:13 TDK1656 (Rec: 08/24/18 17:13 CGP0913 TELE-C09) Document 08/24/18 22:00 ORE4350 (Rec: 08/24/18 23:03 CYS3892 TELE-C01) Document 08/24/18 23:15 ZDF9062 (Rec: 08/25/18 01:12 FVH5469 TELE-C05) Document 08/25/18 04:22 VSY5306 (Rec: 08/25/18 04:22 DOO6109 TELE-C05) Document 08/25/18 04:44 XQY7332 (Rec: 08/25/18 04:44 KQC4187 TELE-C33) Document 08/25/18 14:00 LQO6765 (Rec: 08/25/18 15:01 HOC7595 TELE-C05) Document 08/26/18 05:43 QJM0295 (Rec: 08/26/18 05:46 TIN2394 TELE-C01) Document 08/26/18 14:00 ECC3812 (Rec: 08/26/18 14:57 DMK5529 TELE-C07) Document 08/26/18 21:57 VEI6054 (Rec: 08/26/18 21:59 ZSG8983 TELE-C07) Document 08/27/18 06:00 RAI9148 (Rec: 08/27/18 07:31 ERU3269 HOSP-C11) Document 08/27/18 14:00 OEC9859 (Rec: 08/27/18 15:50 LXL1579 TELE-C09) Document 08/27/18 22:00 GFR6000 (Rec: 08/27/18 22:18 ERJ6482 TELE-C33) Document 08/28/18 06:00 QVG4506 (Rec: 08/28/18 06:46 ITA0435 TELE-C35) Document 08/28/18 14:00 NOS5031 (Rec: 08/28/18 15:11 OMI7492 TELE-C07) Document 08/28/18 16:17 YPF4681 (Rec: 08/28/18 16:17 EZB2784 TELE-C07) Document 08/28/18 22:00 FML0223 (Rec: 08/28/18 22:25 QFB6475 TELE-C07) Document 08/29/18 06:00 RGJ3674 (Rec: 08/29/18 06:44 YZJ1282 TELE-C33) Document 08/29/18 14:00 BJQ8275 (Rec: 08/29/18 15:41 CEI5681 TELE-C05) Document 08/29/18 22:00 TWH1900 (Rec: 08/29/18 22:03 HTZ8977 TELE-C01) Document 08/30/18 06:00 DEY5188 (Rec: 08/30/18 06:56 BHZ0252 TELE-C33) Document 08/30/18 14:00 WMP9818 (Rec: 08/30/18 15:06 ALE5731 TELE-C01) Document 08/30/18 22:00 IDR6083 (Rec: 08/30/18 22:27 ZUZ5313 TELE-C09) Document 08/31/18 06:00 AJW1269 (Rec: 08/31/18 06:54 PDO1072 TELE-C01) Document 08/31/18 14:00 BLZ6201 (Rec: 08/31/18 14:31 STX6354 TELE-C07) Document 08/31/18 22:00 CSL9524 (Rec: 08/31/18 22:22 AUO9384 TELE-C32) Document 09/01/18 06:00 XYH0680 (Rec: 09/01/18 06:41 DUF6993 TELE-C32) Document 09/01/18 14:00 GRU7711 (Rec: 09/01/18 14:26 LHJ5265 TELE-C10) Document 09/01/18 22:00 RYV9676 (Rec: 09/01/18 22:24 FTY5031 TELE-C10) Document 09/02/18 06:00 ELK8144 (Rec: 09/02/18 06:29 NUS7223 TELE-C34) Document 09/02/18 10:12 RXT3629 (Rec: 09/02/18 10:12 EPM1909 ICU-C06) Document 09/02/18 14:00 IOO0339 (Rec: 09/02/18 14:18 PDP9256 ICU-C06) Document 09/02/18 16:39 HPI1420 (Rec: 09/02/18 16:39 RPZ6601 ICU-C06) Document 09/02/18 19:00 PHJ3551 (Rec: 09/03/18 03:19 RGW1689 ICU-C06) Document 09/02/18 22:00 QYF2031 (Rec: 09/02/18 22:23 HHO9362 ICU-M19) Document 09/02/18 23:54 LWZ7990 (Rec: 09/02/18 23:54 ZLD8466 ICU-M19) Document 09/03/18 02:00 SOQ9719 (Rec: 09/03/18 02:41 ONC6781 ICU-M19) Document 09/03/18 04:46 RKU2663 (Rec: 09/03/18 04:47 WYH5449 ICU-C06) Document 09/03/18 06:00 EBT0866 (Rec: 09/03/18 06:15 QYQ1260 ICU-M19) Document 09/03/18 07:00 YFC9192 (Rec: 09/03/18 12:44 VXL7403 ICU-C06) Document 09/03/18 08:00 DPF1406 (Rec: 09/03/18 12:44 IBD7768 ICU-C06) Document 09/03/18 09:00 OJX2629 (Rec: 09/03/18 12:44 VWO5429 ICU-C06) Document 09/03/18 10:00 BIN5753 (Rec: 09/03/18 12:44 YMM6783 ICU-C06) Document 09/03/18 11:00 HPR7511 (Rec: 09/03/18 12:44 ZZO1653 ICU-C06) Document 09/03/18 12:00 UES6343 (Rec: 09/03/18 12:44 TCN7889 ICU-C06) Document 09/03/18 13:00 LUG6799 (Rec: 09/03/18 16:35 SCP8545 ICU-C06) Document 09/03/18 14:00 XZD9394 (Rec: 09/03/18 16:35 OHI8638 ICU-C06) Document 09/03/18 15:00 JZX8250 (Rec: 09/03/18 16:35 BSF0894 ICU-C06) Document 09/03/18 16:00 SSC4379 (Rec: 09/03/18 18:37 OBG7617 ICU-C06) Document 09/03/18 17:00 BIU9737 (Rec: 09/03/18 18:37 RSK8065 ICU-C06) Document 09/03/18 18:00 HEN6143 (Rec: 09/03/18 18:37 ECZ3207 ICU-C06) Document 09/03/18 19:00 CSA2338 (Rec: 09/03/18 20:03 WAS0789 ICU-C06) Document 09/03/18 20:00 JUX1429 (Rec: 09/03/18 20:03 GGO3017 ICU-C06) Document 09/03/18 21:00 VHS5590 (Rec: 09/03/18 21:40 TAV3284 ICU-C06) Document 09/03/18 22:00 NWO6645 (Rec: 09/03/18 22:14 EAB3757 ICU-C06) Document 09/03/18 23:00 KJQ7200 (Rec: 09/04/18 01:04 PSX9099 ICU-C06) Document 09/04/18 00:00 SBP9312 (Rec: 09/04/18 01:04 MOV6469 ICU-C06) Document 09/04/18 01:00 MQA1090 (Rec: 09/04/18 01:04 UTG8994 ICU-C06) Document 09/04/18 02:00 ONZ2716 (Rec: 09/04/18 02:07 ZEQ7871 ICU-C06) Document 09/04/18 03:00 FUC8829 (Rec: 09/04/18 04:24 YSC3388 ICU-C06) Document 09/04/18 04:00 CZP8421 (Rec: 09/04/18 04:24 ULL3364 ICU-C06) Document 09/04/18 05:00 BNE0868 (Rec: 09/04/18 05:19 HHW9423 ICU-C06) Document 09/04/18 06:00 VNE3544 (Rec: 09/04/18 06:44 HEN4529 ICU-C06) Document 09/04/18 08:00 LYK2746 (Rec: 09/04/18 10:07 IQS7218 ICU-C06) Document 09/04/18 09:00 QGA0974 (Rec: 09/04/18 10:07 DIX3300 ICU-C06) Document 09/04/18 10:00 VWM4404 (Rec: 09/04/18 10:07 YTD2575 ICU-C06) Document 09/04/18 11:00 NOX3093 (Rec: 09/04/18 13:04 VEO8832 ICU-M19) Document 09/04/18 12:00 LWE8974 (Rec: 09/04/18 13:04 CRS0314 ICU-M19) Document 09/04/18 13:00 BUL5058 (Rec: 09/04/18 13:04 IJJ9839 ICU-M19) Document 09/04/18 14:00 GQV0964 (Rec: 09/04/18 14:06 RSN3312 ICU-C06) Document 09/04/18 15:00 KJZ0714 (Rec: 09/04/18 18:13 XAU2179 ICU-C06) Document 09/04/18 16:00 IYO1251 (Rec: 09/04/18 18:13 XTG2039 ICU-C06) Document 09/04/18 17:00 DDP2628 (Rec: 09/04/18 18:13 LCB9131 ICU-C06) Document 09/04/18 18:00 TFX0334 (Rec: 09/04/18 18:13 NID0264 ICU-C06) Document 09/04/18 19:00 MST4500 (Rec: 09/04/18 19:58 HIH4182 ICU-C06) Document 09/04/18 20:00 WQP6407 (Rec: 09/04/18 20:52 XJP7216 ICU-C06) Document 09/04/18 21:00 OFX9541 (Rec: 09/04/18 22:52 JGI4676 ICU-C06) Document 09/04/18 22:00 PHR1187 (Rec: 09/04/18 22:52 NVC7948 ICU-C06) Document 09/04/18 23:00 XPF7792 (Rec: 09/04/18 23:08 CLK4705 ICU-C06) Document 09/05/18 00:00 RKL9597 (Rec: 09/05/18 00:19 WGZ6648 ICU-C06) Document 09/05/18 01:00 IYW4706 (Rec: 09/05/18 04:00 MGL3034 ICU-C06) Document 09/05/18 02:00 NCU9119 (Rec: 09/05/18 04:00 LGM7057 ICU-C06) Document 09/05/18 03:00 YNJ7571 (Rec: 09/05/18 04:00 RAZ9516 ICU-C06) Document 09/05/18 04:00 YKR7524 (Rec: 09/05/18 04:03 WHT7841 ICU-C06) Document 09/05/18 05:00 PMQ0658 (Rec: 09/05/18 06:15 KTL6646 ICU-C06) Document 09/05/18 06:00 CNB0708 (Rec: 09/05/18 06:15 YBH6293 ICU-C06) Document 09/05/18 08:00 NUB0991 (Rec: 09/05/18 08:16 HKR5539 ICU-M19) Document 09/05/18 09:00 KHB3001 (Rec: 09/05/18 11:11 NTY1637 ICU-C06) Document 09/05/18 10:00 CSQ8671 (Rec: 09/05/18 11:11 DAS6335 ICU-C06) Document 09/05/18 11:00 SUA7040 (Rec: 09/05/18 11:11 WXY4711 ICU-C06) Document 09/05/18 12:00 OQC9411 (Rec: 09/05/18 14:22 TWD5848 ICU-C06) Document 09/05/18 13:00 KBE9065 (Rec: 09/05/18 14:22 CJQ2341 ICU-C06) Document 09/05/18 14:00 KAT4956 (Rec: 09/05/18 14:22 GTG1215 ICU-C06) Document 09/05/18 15:00 DFZ3867 (Rec: 09/05/18 15:58 AZV3930 ICU-M19) Document 09/05/18 17:00 DSM1997 (Rec: 09/05/18 18:25 VQX4630 ICU-M19) Document 09/05/18 18:00 NYX8502 (Rec: 09/05/18 18:25 KJC3224 ICU-M19) Document 09/05/18 19:00 AXI6383 (Rec: 09/05/18 19:20 AEX7406 ICU-C06) Document 09/05/18 20:00 YCH7384 (Rec: 09/05/18 20:22 ONA0948 ICU-C06) Document 09/05/18 20:57 KSX2490 (Rec: 09/05/18 21:00 MLR6921 ICU-C06) Document 09/05/18 22:00 OPE3762 (Rec: 09/06/18 00:40 BYU1731 ICU-C06) Document 09/05/18 23:00 OFP3485 (Rec: 09/06/18 00:40 VZW1343 ICU-C06) Document 09/06/18 00:00 MRP2676 (Rec: 09/06/18 00:40 HRV4000 ICU-C06) Document 09/06/18 01:00 AOD3467 (Rec: 09/06/18 01:04 BXC3017 ICU-C06) Document 09/06/18 02:00 JIT1079 (Rec: 09/06/18 05:11 GRL5276 ICU-C06) Document 09/06/18 03:00 ODF1592 (Rec: 09/06/18 05:11 PGL7805 ICU-C06) Document 09/06/18 04:00 KWU6207 (Rec: 09/06/18 05:11 UYC2007 ICU-C06) Document 09/06/18 05:00 MAP2130 (Rec: 09/06/18 05:11 FHQ4731 ICU-C06) Document 09/06/18 06:00 IFK4023 (Rec: 09/06/18 06:19 DBW6700 ICU-C06) Document 09/06/18 07:00 IZG0098 (Rec: 09/06/18 07:45 PQE2716 ICU-C06) Document 09/06/18 08:00 LPE7113 (Rec: 09/06/18 09:51 XYG5466 ICU-C06) Document 09/06/18 09:00 LFY2928 (Rec: 09/06/18 09:51 DVA0816 ICU-C06) Document 09/06/18 10:00 KQJ4125 (Rec: 09/06/18 10:10 JLP1310 ICU-C06) Document 09/06/18 11:00 VYK0409 (Rec: 09/06/18 11:29 QYB5619 ICU-C06) Document 09/06/18 12:40 FWN2351 (Rec: 09/06/18 12:54 HEY3275 ICU-M19) Document 09/06/18 13:00 OEV5642 (Rec: 09/06/18 13:21 BPX1033 ICU-C06) Document 09/06/18 14:00 UQN9870 (Rec: 09/06/18 14:59 BBE1048 ICU-M19) Document 09/06/18 14:59 VAN0842 (Rec: 09/06/18 14:59 JMY7291 ICU-M19) Document 09/06/18 16:00 HVG6057 (Rec: 09/06/18 16:16 MVV6098 ICU-C06) Document 09/06/18 17:37 NWK7921 (Rec: 09/06/18 17:37 THH9203 ICU-M19) Document 09/06/18 17:56 YWK8854 (Rec: 09/06/18 17:56 ZXZ7863 ICU-C06) Document 09/06/18 19:00 CPL7359 (Rec: 09/06/18 20:34 QCE8508 ICU-C06) Document 09/06/18 20:00 AIP5814 (Rec: 09/06/18 20:34 NLB0328 ICU-C06) Document 09/06/18 21:00 GYE6145 (Rec: 09/07/18 01:39 NOB8369 ICU-C06) Document 09/06/18 22:00 FPI1399 (Rec: 09/07/18 01:39 MDN8466 ICU-C06) Document 09/06/18 23:00 QWH9011 (Rec: 09/07/18 01:39 EBS9677 ICU-C06) Document 09/07/18 00:00 QYE3178 (Rec: 09/07/18 01:39 LYB2736 ICU-C06) Document 09/07/18 01:00 XUP3985 (Rec: 09/07/18 01:39 THU3757 ICU-C06) Document 09/07/18 02:00 JAH2196 (Rec: 09/07/18 02:55 ODH6691 ICU-C06) Document 09/07/18 03:00 MDV6037 (Rec: 09/07/18 03:42 ZHO1728 ICU-C06) Document 09/07/18 03:44 UNT3586 (Rec: 09/07/18 03:53 BMD5395 ICU-C06) Document 09/07/18 05:00 MQE5242 (Rec: 09/07/18 05:58 LER3829 ICU-C06) Document 09/07/18 06:00 TXJ2783 (Rec: 09/07/18 06:09 CXV7960 ICU-C06) Document 09/07/18 11:00 POF9382 (Rec: 09/07/18 11:08 EQX9238 ICU-C06) Document 09/07/18 14:00 HDP0790 (Rec: 09/07/18 14:08 WHP4200 ICU-C06) Document 09/07/18 15:00 FIJ6102 (Rec: 09/07/18 16:35 XPA7031 ICU-C12) Document 09/07/18 16:00 KRM3926 (Rec: 09/07/18 16:35 OGX1136 ICU-C12) Document 09/07/18 17:00 CGA8249 (Rec: 09/07/18 17:59 CUE9573 ICU-M27) Document 09/07/18 17:59 JCG3656 (Rec: 09/07/18 17:59 [id number] ICU-M27) Document 09/07/18 20:00 [id number] (Rec: 09/07/18 23:24 [id number] ICU-C12) Document 09/08/18 00:00 [id number] (Rec: 09/08/18 00:26 [id number] ICU-C12) Document 09/08/18 04:00 [id number] (Rec: 09/08/18 04:52 [id number] ICU-C12) Document 09/08/18 06:00 [id number] (Rec: 09/08/18 06:17 [id number] ICU-M19) Document 09/08/18 07:00 [id number] (Rec: 09/08/18 09:52 [id number] ICU-C25) Document 09/08/18 08:00 [id number] (Rec: 09/08/18 09:52 [id number] ICU-C25) Document 09/08/18 10:00 [id number] (Rec: 09/08/18 10:08 [id number] ICU-C25) Document 09/08/18 11:00 [id number] (Rec: 09/08/18 15:44 [id number] ICU-C25) Document 09/08/18 12:00 [id number] (Rec: 09/08/18 15:44 [id number] ICU-C25) Document 09/08/18 13:00 [id number] (Rec: 09/08/18 15:44 [id number] ICU-C25) Document 09/08/18 14:00 [id number] (Rec: 09/08/18 15:44 [id number] ICU-C25) Document 09/08/18 14:00 [id number] (Rec: 09/08/18 15:47 [id number] ICU-C25) Document 09/08/18 15:00 [id number] (Rec: 09/08/18 15:44 [id number] ICU-C25) Document 09/08/18 16:00 [id number] (Rec: 09/08/18 17:59 [id number] ICU-M19) Document 09/08/18 17:00 [id number] (Rec: 09/08/18 17:59 [id number] ICU-M19) Document 09/08/18 18:00 [id number] (Rec: 09/08/18 18:15 [id number] ICU-C25) Labs: Laboratory Results - last 24 hr 09/07/18 09/08/18 09/08/18 23:49 05:59 11:25 POC Glucose (mg/dL) 359 H 352 H 374 H 09/05/18 09/06/18 09/06/18 23:58 06:00 06:00 WBC RBC Hgb Hct MCV MCH MCHC RDW Plt Count MPV Sodium 131 L D Potassium 4.9 Chloride 92 L Carbon Dioxide 24 Anion Gap 15 H BUN 145 H Creatinine 3.66 H Est GFR ( Amer) 15.0 Est GFR (Non-Af Amer) 12.4 BUN/Creatinine Ratio 39.6 H Glucose 241 H POC Glucose (mg/dL) 220 H Glucose Meter Confirm Calcium 9.2 Phosphorus 7.1 H Magnesium 2.2 B-Natriuretic Peptide 182 H 09/06/18 09/06/18 09/06/18 06:00 12:00 17:31 WBC 13.4 H RBC 3.19 L Hgb 8.4 L Hct 27 L MCV 85 MCH 27 MCHC 31 RDW 18 H Plt Count 88 L MPV 8.6 Sodium Potassium Chloride Carbon Dioxide Anion Gap BUN Creatinine Est GFR ( Amer) Est GFR (Non-Af Amer) BUN/Creatinine Ratio Glucose POC Glucose (mg/dL) 220 H 321 H Glucose Meter Confirm Calcium Phosphorus Magnesium B-Natriuretic Peptide 09/06/18 09/07/18 09/07/18 23:52 05:33 05:33 WBC RBC Hgb Hct MCV MCH MCHC RDW Plt Count MPV Sodium 132 L Potassium 4.4 Chloride 93 L Carbon Dioxide 24 Anion Gap 15 H BUN 151 H Creatinine 3.83 H Est GFR ( Amer) 14.2 Est GFR (Non-Af Amer) 11.7 BUN/Creatinine Ratio 39.4 H Glucose 383 H POC Glucose (mg/dL) 327 H Glucose Meter Confirm Calcium 8.8 Phosphorus 7.4 H Magnesium 2.3 B-Natriuretic Peptide 148 H 0109/07/18 09/07/18 05:33 12:53 17:29 WBC 15.8 H RBC 2.99 L Hgb 7.9 L Hct 26 L MCV 86 MCH 27 MCHC 31 RDW 18 H Plt Count 77 L MPV 8.9 Sodium Potassium Chloride Carbon Dioxide Anion Gap BUN Creatinine Est GFR ( Amer) Est GFR (Non-Af Amer) BUN/Creatinine Ratio Glucose POC Glucose (mg/dL) 437 H* 410 H* Glucose Meter Confirm Calcium Phosphorus Magnesium B-Natriuretic Peptide 09/07/18 09/07/18 09/08/18 17:35 23:49 05:59 WBC RBC Hgb Hct MCV MCH MCHC RDW Plt Count MPV Sodium Potassium Chloride Carbon Dioxide Anion Gap BUN Creatinine Est GFR ( Amer) Est GFR (Non-Af Amer) BUN/Creatinine Ratio Glucose POC Glucose (mg/dL) 359 H 352 H Glucose Meter Confirm 396 H Calcium Phosphorus Magnesium B-Natriuretic Peptide 09/08/18 11:25 WBC RBC Hgb Hct MCV MCH MCHC RDW Plt Count MPV Sodium Potassium Chloride Carbon Dioxide Anion Gap BUN Creatinine Est GFR ( Amer) Est GFR (Non-Af Amer) BUN/Creatinine Ratio Glucose POC Glucose (mg/dL) 374 H Glucose Meter Confirm Calcium Phosphorus Magnesium B-Natriuretic Peptide Studies: CXR 09/07: Persistent whiteout of the left lung since 09/03. New opacities on the right lung Nutrition: YARED aguila Impression: 67 yo F with PMH of DM, CAD, HLD, HTN, CKD, COPD and ENRIQUE admitted on 08/20 for healthcare associated pneumonia (Pseudomonas) and Klebsiella UTI. Intially requiring vapotherm in the ICU, however stablized on abx and diuresis. Tranferred to the floor. Returns to ICU 09/02 with hypercarbic respiratory failure. CT chest demonstrates LLL collapse, moderate effusion, right multifocal pneumonia. Mental status improving on BiPAP. Acute encephalopathy Acute on chronic respiratory failure ENRIQUE Persistent white out the left lung Anuria ELOY medical non-compliance severe deconditioning Plan: Cardiovascular: (1) Chronic paroxysmal atrial fibrillation; (2) Acute on chronic diastolic CHF, improving; (3) Chronic HTN; (4) Chronic hyperlipidemia; (5) Chronic RBBB; (6) CAD -- 08/20 TTE: LVEF 60-65% mild concentric LVH septal flattening consistent with RV overload moderate pulmonary HTN unable to assess diastolic function -- Diltiazem -- Plaquenil -- Clonidine patch, PRN Hydralazine -- Lasix BID Home meds: Torsemide Pulmonary: (1) Acute on chronic hypoxic and hypercapneic respiratory failure, improving; (2) COPD exacerbation, improving; (3) Persistent white of left lung (4) concern for new right pneumonia; (5) Pseudomonas pneumonia on admission; (6) ENRIQUE; (7) Obesity hypoventilation syndrome -- CT chest 09/02: improved aeration of left upper lobe collapse of left lower lobe, unchanged small right pleural effusion moderate left plerual effusion scattered infiltrates in right lung suggestive of pneumonia -- PRN duonebs -- Nicotine patch for hx of tobacco use -- incentive spirometry -- unknown etiology of the persistence of left white out of lung. DDx endobronchial obstruction vs. pleural effusion. High risk for diagnostic given current status and DNR/DNI status. Conservative tx Home meds: Umeclidium/vilanterol Gastrointestinal: (1) Constipation; (2) hx of gastroplasty 1987 -- diet: NPO, swallow eval pending. On -- bowel regimen: Colace, MOM -- ulcer prophylaxis: Pepcid -- Zofran as needed Home meds: Sucralfate, Protonix, Senna, Dulcolax, MOM Endocrine: (1) Hyperglycemia secondary to type 2 diabetes mellitus and methylpred use --decrease systemic steroids- d/c MP. Start taper on prednisone -- monitor BGs -- SSI increased and Lantus 20 units bid added for better glycemic control -- TSH within normal limits on 08/28 Home meds: Glipizide, Insulin NPH, prednisone Renal: (1) Acute on Chronic renal failure, stage 4; (2) Anuria suspected due to ATN (3) Hyponatremia; -- Challenged with albumin and NS bolus today with no response. Concern for fluid overload. Will not continue with fluids or diuresis for now -- nephro input pending Home meds: Calcium carbonate, Torsemide Infectious disease: (1) Concern for new pneumonia; (2) Sepsis on admission; \\ (3) Pseudomonas pneumonia on admission, resolved; (4) Ecoli UTI on admission, resolved; (5) hx of MRSA -- Micro 08/31 blood Negative 08/30 Urine yeast contaminant, alessia glabrata blood Negative 08/21 blood negative MRSA screen positive 08/20 Urine e coli flu screen negative blood Pseudomonas 08/28 vials -completed course of abx. Will hold off on abx for now. Home meds: None Neurologic: (1) Lethargy, secondary to CO2 narcosis, improving --check ABG now -- Tylenol as needed -- PRN Morphine for pain control -- PT OT Home meds: Tylenol, Requip, Percocet, Prozac Hematological: (1) Chronic iron deficiency anemia; (2) Thrombocytopenia -- Hgb 7.9 from 8.4 -- Plt 77 from 88, likely secondary to sepsis, follow trend -- DVT prophylaxis: SQ Heparin Home meds: Ferrous sulfate Metabolic: No acute process -- Allopurinol Home meds: Allopurinol Other: (1) hx of Bulous pemphagoid -- hydroxycholorquine Home meds: Hydroxychloroguine Deep vein thrombosis prophylaxis: SQ Heparin Dietary: Prilosec Condition: critical Prognosis: grave Code status: DNR/DNI Disposition: Continue ICU Care. Pts overall status worsening. Concern that she will continue to decline especially as she is intermittently refusing various care and medications. Will likely need to have a family meeting in the next few days to determine goals of care. Cumulative time spent in the care of this patient (excluding any procedure time) : at least 30 minutes. Patient care included clinical interview (with patient and/or family), bedside exam of the patient, review of labs, x-rays, and other ancillary data, coordination of (respiratory, nursing care, review of patient's records, discussion regarding patients management with involved consultants, primary physician, pharmacists, and other healthcare personnel (dietary, case management , physical/occupational therapy etc.) family meeting held today to discuss goals of care. Total time: 65 minutes
--- NOTE | 2018-09-08 20:37 | PN ---
Progress Note - Progress Note Date of Service: 09/08/18 Note: spoke to mother on the phone about patient's worsening mental status and respiratory distress. Mother agrees to proceed towards comfort care. She will be coming in shortly to see the patient No charge
[2018-09-08] MEDS ORDERED: Insulin GLARGINE(*) 1 UNITS UNIT SUBCUT SCH (21:00)
[2018-09-08] MEDS: Famotidine SUSP* 40 MG/5 ML ORAL.SYRIN G TUBE SCH (21:16)
--- NOTE | 2018-09-08 22:18 | CONS ---
NEPHROLOGY CONSULTATION: DATE OF CONSULT: 09/08/18 REQUESTING PROVIDER: Dr. Olegario Chew. REASON FOR CONSULT: Acute kidney injury. HISTORY OF PRESENT ILLNESS: A 67-year-old female with past medical history of diabetes; STEMI; paroxysmal atrial fibrillation; COPD; frequent UTI; CKD, stage 3 to 4; obstructive sleep apnea; chronic respiratory failure, who lives in a alf, being evaluated for acute kidney injury. The patient came to the ER on 08/20/18 with complaints of shortness of breath and at that time, her oxygen saturation was noted to be 82% on room air, was treated for pneumonia, also for COPD exacerbation, and concurrent CHF exacerbation, and has had complicated hospital course. On 08/21/18, the patient's blood pressure was noted to be in the 70s with decreased urine output and she was bolused. The patient has also consistently needed BiPAP for acute on chronic hypoxemic and hypercapnic respiratory failure. The patient's blood was cultured on 08/22/18, noted to have pseudomonas, later negative. Transthoracic echocardiogram did not show any vegetations. The patient was initially in the ICU and transferred to the floor and doing better. Then, had an episode of hyponatremia. Chest x-ray with worsening consolidation and collapse. CT chest also significant for left lower lobe infiltrate and collapse. Mental status has been waxing and waning through hospital course. Currently, the patient is in the ICU, managed between 6 L mask and BiPAP. A palliative discussion was initially held with the patient and the patient agreed to be DNR/DNI, but is not comfort care yet and family still evaluating and deciding. The patient consistently showed a white-out of the left hemithorax. With respect to her renal function, the patient's baseline last year appears to be creatinine of 1.8 to 2. Most recently, prior to admission, the patient's creatinine was 2.4. Since the patient has come to the hospital, initially her creatinine was 2.5, has risen through her hospital stay and currently at 3.83. BUN also noted to be 151. The patient has been receiving Lasix for volume overload in increasing doses and the patient did have episodes of hypotension initially. The patient had a renal ultrasound, which did not show any dave hydronephrosis even though this was a limited study. PAST MEDICAL HISTORY: 1. COPD. 2. Hypertension. 3. Chronic kidney disease. 4. Obstructive sleep apnea. 5. Bullous pemphigoid. 6. Obesity hypoventilation syndrome. 7. Paroxysmal atrial fibrillation. 8. Hyperlipidemia. 9. Iron deficiency anemia. 10. Diastolic dysfunction. 11. History of MRSA. 12. Right bundle branch block. PAST SURGICAL HISTORY: 1. Appendectomy. 2. Tonsillectomy. 3. Adenoidectomy. 4. Gastroplasty. MEDICATIONS: Medication list at the time of admission: 1. Allopurinol. 2. Ferrous sulfate. 3. Fluoxetine. 4. Torsemide 40 mg b.i.d. 5. Nystatin. 6. Sennosides. 7. Hydroxychloroquine. 8. Isophane insulin. 9. Ropinirole. 10. Pantoprazole. 11. Percocet. 12. Ellipta. 13. Sucralfate. 14. Glipizide. 15. Calcium carbonate. 16. Ammonium lactate. 17. Tylenol. ALLERGIES: To BUPROPION, LEVAQUIN, STATINS. FAMILY HISTORY: The patient's mother had hypertension. Father of emphysema. Maternal grandmother had CHF. SOCIAL HISTORY: A 51-year smoking history with a pack a day initially, now down to 4 cigarettes a day at [facility]. Does not drink alcohol or use illicit drugs. The patient used to work in the past as a registered nurse in a psychiatric unit. REVIEW OF SYSTEMS: The patient lethargic at time of evaluation and unable to provide review of systems and family not available for review of systems as well. Please note, the patient was on antibiotics previously including cefepime , currently noted to be on Zosyn. Also, her prednisone dose has been decreasing and currently at 40 mg. The patient's Lasix was held today by the primary ICU team and the patient received albumin challenge. PHYSICAL EXAM: Vitals: Temperature 96.7, pulse 61, heart rate noted to be 61, respirations 19, oxygen saturation 91%, blood pressure noted to be 128/54. HEENT: Lethargic, not answering any questions. Heart: S1, S2 present. Irregularly irregular at the time of exam. Tachycardic. Lungs: Decreased breath sounds on the left side, noted to have some basal crackles. The patient also noted to have some JVD elevation. Abdomen: Distended. No rebound, no guarding. Extremities: Noted to have bilateral lower extremity edema. Neuro: Lethargic, responds to pain; however, unable to have a conversation. LABORATORY DATA: Today, WBC 15.8, hemoglobin 7.9, hematocrit 26, platelets noted to be 77. Sodium 132, potassium 4.4, chloride 93, CO2 of 24, BUN 151, creatinine 3.8, glucose noted to be 327, phosphorus noted to be 7.4. ASSESSMENT AND PLAN: A 67-year-old female with multiple medical problems as listed above with deconditioning, failure to thrive, and acute on chronic renal failure. 1. Acute kidney injury on chronic kidney disease, stage 3 to 4. The patient's etiology of renal failure is most likely acute tubular necrosis with her prior episode of hypotension and could also be possible toxic acute tubular necrosis in addition to ischemic acute tubular necrosis. The patient is currently not making any urine, per discussion with nursing and has only made 5 to 10 cc so far. We will evaluate progress through the night. Superimposed prerenal etiology is also possible given that the patient had been on diuretics and the patient's kidney function has been fluctuating through hospital course. At this time, we will repeat urine studies. We will get the UA to evaluate for any muddy brown casts suggestive of acute tubular necrosis. We will also get urine sodium, urine creatinine as the patient has been on diuretics. I will also get a urine urea to evaluate FEUrea and CPK level on the patient. The patient recently has had imaging of her kidneys, not suggestive of obstructive etiology. The most concerning thing currently is that the patient's urine output is reducing and the patient has not made much urine in this setting and given the fact of her poor pulmonary status and volume overload situation, I am worried about the patient's volume status and this may become an indication for initiation of dialysis in addition to her uremia. Part of her uremia and BUN elevation could also be from the prednisone that the patient is on, which is being tapered. However, the patient's mental status is poor and the patient also noted to be increasingly short of breath with a known baseline decompensated respiratory status. 2. Overall, though the patient's prognosis would be extremely poor even if dialysis is initiated, as the patient has multiple medical problems that would not be addressed with the dialysis. The patient may possibly not even tolerate traditional hemodialysis. We will recommend more extensive family discussion based on how the patient does overnight to decide on goals of care and possibly comfort care. In the interim, we will also evaluate the patient's status overnight. If the patient's volume status becomes a problem, the patient can be diuresed with Bumex drip or Lasix drip and Diuril. Otherwise, agree with plan above of stopping the diuretics and the patient has received albumin and can re-evaluate her kidney status tomorrow and decide further based on family discussion. 3. Other management of other medical problems per the primary team. 4. Hypertension. Currently well managed and we will continue current medications. TIME SPENT: Total time spent with the patient is equal to 60 minutes. [id number]/[facility] #: [id number] JUNIOR
[2018-09-09] MEDS: ZOSYN 3.375 GM Q12H per EXTENDED INFUSION IVPB SCH ×2 (02:32)
[2018-09-09] MEDS: Morphine VIAL* 4 MG/ML VIAL (1 ml vial) IV PRN ×2 (05:45→09:37)
[2018-09-09] MEDS: Diltiazem TAB* 30 MG PO SCH (05:45)
[2018-09-09] MEDS: Insulin REGULAR(*) 1 UNITS UNIT SUBCUT SCH (05:45)
[2018-09-09 06:31] LABS: Calcium 8.9 mg/dL (8.6-10.3); EGFR Non-African American 10.7 (>60); Magnesium 2.4 mg/dL (1.9-2.7); Phosphorus 7.9 mg/dL (2.5-5.0); Potassium 4.3 mmol/L (3.5-5.0)
[2018-09-09 06:47] LABS: BUN/Creatinine Ratio 39.4 (8-20)
[2018-09-09 07:14] LABS: Hematocrit 26 % (35-47); Hemoglobin 7.7 g/dl (12.0-16.0); Mean Corpuscular HGB Conc 30 g/dl (31-36); Mean Corpuscular Hemoglobin 26 pg (27-31); Mean Corpuscular Volume 87 fL (80-97); Red Cell Distribution Width 18 % (10.5-15); White Blood Count 38.1 10^3/ul (3.5-10.8)
[2018-09-09 07:15] LABS: ABS Basophils 0 10^3/ul (0-0.2); ABS Eosinophils 0 10^3/ul (0-0.6); ABS Lymphocytes 0.4 10^3/ul (1.0-4.8); ABS Monocytes 0.1 10^3/ul (0-0.8); ABS Neutrophils 37.6 10^3/ul (1.5-7.7); ABS Nucleated RBC 0 10^3/ul; Eosinophil % 0.1 %; Lymphocyte % 1.1 %; Mean Platelet Volume 9.7 fL (7.4-10.4); Nucleated Red Blood Cells % 0.1; Platelet Count 60 10^3/ul (150-450)
[2018-09-09] MEDS: Calcium Acetate CAP* 667 MG PO SCH ×2 (09:21→09:59)
[2018-09-09] MEDS: Hydroxychloroquine TAB* 200 MG PO SCH ×2 (09:21→09:59)
[2018-09-09] MEDS: predniSONE TAB* 10 MG PO SCH ×2 (09:21→10:00)
[2018-09-09] MEDS: Heparin VIAL(*) 5000 UNITS/ML VIAL (FIVE THOUSAND) SUBCUT SCH ×2 (09:27→09:58)
[2018-09-09] MEDS: Nystatin TOP POWDER* 15 GM BTL TOPICAL SCH (09:27)
[2018-09-09] MEDS ORDERED: Neomycin/Polym/Bacit TOP OINT* 15 GM TOPICAL ONE (09:55)
[2018-09-09] MEDS ORDERED: Haloperidol INJ IV/IM* 5 MG/ML AMP IV SLOW PU PRN (09:57)
[2018-09-09] MEDS ORDERED: Atropine 1% (ORAL/SL)* 15 ML BTL SL PRN (09:57)
[2018-09-09] MEDS ORDERED: LORazepam INJ* 2 MG/ML 1 ML VIAL IV PUSH PRN ×2 (09:57→10:01)
[2018-09-09] MEDS ORDERED: Morphine PCA ADULT* 5 MG/ML 30 ML PCA SCH (10:00)
[2018-09-09] MEDS ORDERED: Scopolamine 1.5 mg* PATCH TRANSDERM SCH (10:00)
--- NOTE | 2018-09-09 11:02 | PN ---
Progress Note - Progress Note Date of Service: 09/09/18 Note: PCCM Follow Up Discussion held with the patient's family at bedside. The patient is now comfort care. DNR/DNI.
[2018-09-09 11:08] VITALS: BP 93/45
--- NOTE | 2018-09-09 13:03 | PN ---
Progress Note - Progress Note Date of Service: 09/09/18 Note: Patient at 1:01pm. Family at bedside.
--- NOTE | 2018-09-09 13:40 | DS ---
Discharge Summary Date of Admission: 08/20/18 Date of Discharge: 09/09/18 Attending Physician: Danny Ramey PCP: [facility] Admission Diagnosis: acute respiratory failure sepsis Discharge Diagnosis Abdominal pain (Acute) R10.9 Acute respiratory failure (Acute) J96.0 Afib (Acute) I48.91 CKD (chronic kidney disease) stage 3, GFR 30-59 ml/min (Acute) N18.3 COPD (chronic obstructive pulmonary disease) (Acute) J44.9 Chronic kidney disease, stage 4 (severe) (Acute) N18.4 DVT prophylaxis (Acute) [id number] Diastolic congestive heart failure (Acute) I50.30 E. coli UTI (Acute) N39.0, B96.20 Full code status (Acute) Z78.9 Hyperkalemia (Acute) E87.5 Hyponatremia (Acute) E87.1 Leukocytosis (Acute) D72.829 Otitis externa (Acute) H60.90 Pseudomonas pneumonia (Acute) Sepsis (Acute) Type 2 diabetes mellitus (Acute) Consultations: Palliative Care ([place]) [place] (Renal) Danny (ID) Procedures: TTE 08/20 Conclusions There is normal left ventricular systolic function. The estimated ejection fraction is 60-65%. Global left ventricular wall motion and contractility are within normal limits The left ventricular chamber size is decreased. Mild concentric left ventricular hypertrophy is observed. There is septal flattening of the interventricular septum consistent with right ventricular volume or pressure overload. The right ventricle is moderately dilated. The right ventricular global systolic function is severely reduced. The right atrium is mildly dilated. There is moderate tricuspid regurgitation (TR). There is evidence of moderate pulmonary hypertension. There is mild dilatation of the ascending aorta. SInce the prior echocardiogram completed 12/31/04, pertinent changes are prior normal right ventricular function noted (right ventricle was reported enlarged at that time), prior normal left ventricular size reported, prior TR graded trace, prior normal PA pressure reported and prior normal ascending aortic size reported. LE dopplers 08/20 IMPRESSION: 1. LIMITED EVALUATION OF THE CALF VEINS. 2. EXTENSIVE SUBCUTANEOUS EDEMA WITH A 4.3 CM FLUID COLLECTION IN THE SUBCUTANEOUS SOFT TISSUE OF THE RIGHT GROIN WITHOUT HYPERVASCULARITY. THIS MAY REPRESENT A SEROMA , BLEEDING FROM PREVIOUS VASCULAR ACCESS. ABSCESS IS WITHIN THE DIFFERENTIAL, THOUGH THERE IS NO HYPERVASCULARITY, WALL THICKENING, AND THE FLUID CONTENTS APPEAR SIMPLE. 3. NO RIGHT LOWER EXTREMITY DEEP VEIN THROMBOSIS. 4. NO LEFT LOWER EXTREMITY DEEP VEIN THROMBOSIS. CXR 08/21 IMPRESSION: FINDINGS MOST CONSISTENT WITH CONGESTIVE HEART FAILURE WITH POSSIBLE SUPERIMPOSED PNEUMONIA AT THE LEFT LUNG BASE, UNCHANGED. HPI: Ms. Can is a 67-year-old female with a complicated past medical history significant for COPD, chronic kidney disease, coronary artery disease, diabetes mellitus type 2, ENRIQUE, obesity hypoventilation syndrome, and a recent diagnosis of bullous pemphigoid, who for 2 days at her assisted living facility has been having intermittent hypoxia requiring oxygen with her lowest recorded oxygen saturation at 82%. The patient has been prescribed CPAP but is noncompliant with this at home. The patient has been having a nonproductive cough. No wheezing. No chest pain. No worsening swelling in her legs, though she does have chronic lower extremity edema for which she takes torsemide. The patient has not produced any sputum with her cough. The patient has not had any hemoptysis. The patient states she always feels short of breath. The patient is still an active smoker. The patient denies any sick contacts. The patient denies ever having a myocardial infarction, though it does appear in her paperwork as having occurred. The patient has known coronary artery disease of 50% in her RCA most recently from a catheterization in 2002. The patient was started previously on prednisone 50 mg daily for her bullous pemphigoid, which was decreased to 25 mg daily due to increased lower extremity edema and perceived worsening skin breakdown; the patient feels as if her bullous pemphigoid is much better on this dose with lower side effects. The patient was sent to the emergency department this morning due to hypoxia and needed 5 L of oxygen via OxyMask while on route to maintain her oxygen saturation above 90% . In the emergency department, the patient had an ABG which showed pCO2 of 81. The patient was initially on BiPAP and her pCO2 decreased to 73. The patient was also acidotic with pH of 7.24, increasing to 7.29 on BiPAP. The patient had an elevated troponin of 0.26, elevated CRP and elevated BNP. Due to the concern for community-acquired pneumonia and acute hypoxic and hypercarbic respiratory failure, we were asked to evaluate the patient for admission to the hospital. Brief Hospital Course: The patient had a prolonged hospital course. She became progressively worse. Her family had multiple meetings with palliative care and the decision was made to make the patient palliative. She was placed on a morphine gtt and she at 1:01pm on 09/09/17. Physical Exam: Pending Lab or Test Results: None Immunizations Given During Admission: None Discharge Disposition: Diet: Not applicable Discharge Medications: None Discharge Instructions: Not applicable Follow-up Appointments: None
[2018-09-12] MEDS ORDERED: Scopolamine PATCH Remove* 1 NOTE MISC PATCH OFF SCH (09:58)
== END 2018-09-09 13:01 | disposition expired | DRG 871 ==
LOC: ED 08:20 → ICU 10:55 → MEDTELE 08-24 16:52 → ICU 09-02 08:13
PROVIDERS: ADMIT Internal Medicine; ATTEND Internal Medicine
PROC: 5A09457 Assistance with Respiratory Ventilation, 24-96 Consecutive Hours, Continuous Positive Airway Pressure (ICD-10-PCS; principal; 2018-08-20)
DX: A41.9 Sepsis, unspecified organism (principal); J15.1 Pneumonia due to Pseudomonas; J96.21 Acute and chronic respiratory failure with hypoxia; J96.22 Acute and chronic respiratory failure with hypercapnia; I50.33 Acute on chronic diastolic (congestive) heart failure; E66.2 Morbid (severe) obesity with alveolar hypoventilation; L12.0 Bullous pemphigoid; Z68.42 Body mass index [BMI] 45.0-49.9, adult; J44.0 Chronic obstructive pulmonary disease with (acute) lower respiratory infection; J44.1 Chronic obstructive pulmonary disease with (acute) exacerbation; N39.0 Urinary tract infection, site not specified; I13.0 Hypertensive heart and chronic kidney disease with heart failure and stage 1 through stage 4 chronic kidney disease, or unspecified chronic kidney disease; N17.9 Acute kidney failure, unspecified; I24.8 Other forms of acute ischemic heart disease; E87.1 Hypo-osmolality and hyponatremia; N18.4 Chronic kidney disease, stage 4 (severe); B96.20 Unspecified Escherichia coli [E. coli] as the cause of diseases classified elsewhere; Z66 Do not resuscitate; E87.5 Hyperkalemia; E11.65 Type 2 diabetes mellitus with hyperglycemia; D50.9 Iron deficiency anemia, unspecified; D69.6 Thrombocytopenia, unspecified; H60.90 Unspecified otitis externa, unspecified ear; I27.20 Pulmonary hypertension, unspecified; B96.1 Klebsiella pneumoniae [K. pneumoniae] as the cause of diseases classified elsewhere; F41.9 Anxiety disorder, unspecified; I48.0 Paroxysmal atrial fibrillation; I25.10 Atherosclerotic heart disease of native coronary artery without angina pectoris; I73.9 Peripheral vascular disease, unspecified; R40.2412 Glasgow coma scale score 13-15, at arrival to emergency department; I45.10 Unspecified right bundle-branch block; E11.22 Type 2 diabetes mellitus with diabetic chronic kidney disease; E78.5 Hyperlipidemia, unspecified; F17.210 Nicotine dependence, cigarettes, uncomplicated; I89.0 Lymphedema, not elsewhere classified; Z86.14 Personal history of Methicillin resistant Staphylococcus aureus infection; Z82.49 Family history of ischemic heart disease and other diseases of the circulatory system; I25.2 Old myocardial infarction; Z88.1 Allergy status to other antibiotic agents; Z88.8 Allergy status to other drugs, medicaments and biological substances; Z91.19 Patient's noncompliance with other medical treatment and regimen; Z82.5 Family history of asthma and other chronic lower respiratory diseases; K59.00 Constipation, unspecified; E83.39 Other disorders of phosphorus metabolism; Z51.5 Encounter for palliative care; I07.1 Rheumatic tricuspid insufficiency; I77.819 Aortic ectasia, unspecified site
CPT/HCPCS: 36415; 36600; 71045; 71250; 74176; 76604; 76770; 80048; 80053; 80202; 81003; 81015; 82272; 82533; 82550; 82570; 82610; 82803; 82947; 83605; 83735; 83880; 83930; 83935; 84100; 84145; 84300; 84439; 84443; 84484; 85014; 85018; 85025; 85027; 85379; 85610; 85730; 86140; 86850; 86900; 86901; 86922; 87040; 87077; 87086; 87106; 87186; 87205; 87641; 87899; 93005; 93306; 93970; 94640; 94660; 99285; A9270-GY; C1751; C8929; G8978-GP-CN; G8979-GP-CM; J0360; J0610; J0692; J1644; J1720; J1940; J2270; J2543; J2920; J2930; J3370; J7512; P9047